=== PATIENT | male | born 1950 | race Caucasian/White ===

== ENCOUNTER → 2024-06-21 | Outpatient (CLI) | payer MEDICARE, MEDICAID, SELFPAY ==
[2024-06-21 10:16] LABS: INR 1.1 (0.9-1.3); Partial Thromboplastin Time 33.9 Seconds (22.0-36.0)
[2024-06-21 10:23] LABS: Basophils % (Auto) 0 % (0-2.5); Eosinophils # (Auto) 0.2 Thou/mm3 (0.0-0.5); Eosinophils % (Auto) 3 % (0-10); Hematocrit 35.8 % (41.0-53.0); Hemoglobin 10.8 g/dL (13.5-16.0); Immature Granulocytes % (Auto) 1 % (0-0); Immature Granulocytes Auto 0.04 Thou/mm3 (0.00-0.00); Lymphocytes # (Auto) 0.9 Thou/mm3 (1.0-4.8); Lymphocytes % (Auto) 14 % (10-50); Mean Corpuscular HGB Conc 30.2 g/dl (31.0-37.0); Mean Corpuscular Hemoglobin 25.1 pg (25.0-35.0); Mean Corpuscular Volume 83 fL (80-100); Monocytes # (Auto) 0.6 Thou/mm3 (0.0-0.8); Monocytes % (Auto) 9 % (0-12); Neutrophils # (Auto) 4.6 Thou/mm3 (1.8-7.7); Neutrophils % (Auto) 73 % (37-80); Nucleated Red Blood Cell % 0 /100 WBC (0); Platelet Count 157 Thou/mm3 (140-440); RDW Standard Deviation 47.4 fL (35.1-43.9); Red Blood Count 4.31 Miln/mm3 (4.50-5.90); White Blood Count 6.3 Thou/mm3 (3.8-10.6)
[2024-06-21 10:45] LABS: Anion Gap 8 (7-16); BUN/Creatinine Ratio 17 Ratio (12-20); Blood Urea Nitrogen 24 mg/dL (9-23); Calcium 9.6 mg/dL (8.3-10.6); Chloride 90 mMol/L (98-107); Creatinine (Component) 1.4 mg/dL (0.6-1.3); Glucose 169 mg/dL (74-106); Osmolality,Calculated 279 (275-295); Potassium 4.6 mMol/L (3.4-5.1); Sodium 136 mMol/L (136-145); eGFR 52 See Note
== END | disposition home or self-care (01) ==
PROVIDERS: PCP Internal Medicine; Referring Provider Internal Medicine; Visit Provider Internal Medicine
DX: I25.10 Atherosclerotic heart disease of native coronary artery without angina pectoris (principal); I48.91 Unspecified atrial fibrillation
CPT/HCPCS: 36415; 80048; 85025; 85610; 85730

== ENCOUNTER 2024-10-01 08:50 | Inpatient (IN) | payer MEDICARE, MEDICAID, SELFPAY ==
[2024-10-01] VITALS (77 sets, daily range): BP systolic 65–149; BP diastolic 46–87; PULSE 79–113; RESP 0–30; TEMP 35.9–36.9; O2SAT 92–100; BMI 31.8
--- NOTE | 2024-10-01 08:52 | PC.NURSE ---
PT BROUGHT IN BY EMS WITH C/O ALTERED MENTAL STATUS. PER EMS PT SON WENT TO CHECK ON PT AT 4AM AND PT WAS GIVING HIMSELF A BREATHING TREATMENT. SON STATES THAT HE WENT BACK TO CHECK ON HIM AT 8AM AND PT WAS FOUND SLUMPED OVER IN CHAIR UNRESPONSIVE. PT DID HAVE A PULSE AND EMS WAS CALLED BY SON. PER EMS PT'S WAS NOTED TO HAVE LEFT PUPIL DILATED AND UNEQUAL FROM THE RIGHT. PT BREATHING IS SHALLOW AT THIS TIME. PT WAS PLACED IN ROOM [address] ARTEAGA AT BEDSIDE TO EVALUATE PT.
--- NOTE | 2024-10-01 08:54 | EKG_ITS ---
[facility] Test Date: 2024-10-01 Pat Name: SAKSHI GREENFIELD Department: Room: - Gender: Male Roll Tester: : [id number] Requested By: ED Temporary Provider Order Number: [id number] Reading MD: ED Temporary Provider Measurements Intervals [place] Rate: 108 P: [place]: QRS: -56 QRSD: 125 T: 63 QT: 352 QTc: 473 Interpretive Statements ATRIAL FIBRILLATION WITH RAPID VENTRICULAR RESPONSE RIGHT BUNDLE BRANCH BLOCK [120+ ms QRS DURATION, UPRIGHT V1, 40+ ms S IN I/aVL/V4/V5/V6] LEFT ANTERIOR FASCICULAR BLOCK [QRS AXIS <= -45, QR IN I, RS IN II] ST DEPRESSION, CONSIDER SUBENDOCARDIAL INJURY [0.1+ mV ST DEPRESSION] Compared to ECG 12/29/2023 22:54:22 Left anterior fascicular block now present ST (T wave) deviation now present /store/S0/[id number]
--- NOTE | 2024-10-01 08:55 | PC.NURSE ---
pt not taken directly to ct at this time due to doctors concern about how pt is breathing and pt possible may need intubation.
--- NOTE | 2024-10-01 08:55 | XR_ITS ---
Examination: CTA carotids with intravenous contrast CTA brain, head with intravenous contrast. 2-D sagittal, coronal reconstructions. 3-D reconstructions. Exam date and time: October 01, 2024 at 1031 hrs. Indications: Stroke alert, onset focal neurologic deficit today CTDI: vol (mGy) 27.9 DLP: (mGycm) 516 Technique: Multiple CTA axial brain, head carotid images post intravenous contrast injection 100 cc, [id number]. 2-D sagittal, coronal reconstructions. 3-D reconstructions, 3-D post processing including vascular maximum intensity projection images. Low dose protocols were performed. One or more of the following dose reduction techniques were used; automated exposure control, adjustment of the mA and/or KV according to patient size, use of iterative reconstruction technique. Findings: 60-80% stenosis right carotid bifurcation origin right internal carotid artery 20-40% stenosis left carotid bifurcation origin left internal carotid artery Essentially codominant vertebral arteries with no critical stenoses No cerebral large vessel arterial occlusions or thrombus Moderate irregularity left posterior cerebral artery Impression: 60-80% stenosis right carotid bifurcation origin right internal carotid artery 20-40% stenosis left carotid bifurcation origin left internal carotid artery No cerebral large vessel arterial occlusions or thrombus
--- NOTE | 2024-10-01 08:55 | PC.NURSE ---
unable to complete NIH do to pt being unresponsive and not able to speak or follow commands
--- NOTE | 2024-10-01 08:55 | XR_ITS ---
Examination: CT brain head without contrast. 2-D sagittal coronal reconstructions Date and time of exam:10/01/2024, 10:42 AM COMPARISON: 08/26/2018 INDICATION: Acute mental status changes. CTDI: vol (mGy):72.1 DLP: (mGycm):1526 Technique: Multiple CT axial sections of the brain have been obtained, 5 mm slice thickness. Contrast has not been administered. 2-D sagittal, coronal reconstructions have been obtained Low dose protocols were performed. One or more of the following dose reduction techniques were used; automated exposure control, adjustment of the mA and/or KV according to patient size, use of iterative reconstruction technique. Findings: No significant ventricular enlargement. Intra-axial or extra-axial hemorrhage density is not seen. No mass effect or midline shift Basal cisterns are not remarkable. Fourth ventricle is midline. Cranial vault intact. Impression: Negative for acute hemorrhage, mass effect or midline shift
--- NOTE | 2024-10-01 08:55 | PD.EDSOB ---
ED SOB =RME/HPI General Chief Complaint: Neuro Symptoms/Deficit Stated Complaint: STAT, ALTERED Source: EMS Arrival date/time: 10/01/24 08:50 Mode of arrival: EMS Limitations: altered mental status RME / HPI RME / HPI Narrative: Dr. Stubbs? Main ED Evaluation: 74-year-old male with a past medical history of atrial fibrillation, diabetes mellitus, hypertension, hyperlipidemia, and recent pneumonia within the past week, who was brought in by ambulance from home for evaluation of altered mental status AMS. According to family, the patient was last known to be well at approximately 4:00 AM when he was observed administering an albuterol treatment. At approximately 8:00 AM, family found him slumped over and less responsive, prompting them to call 911. On EMS arrival, the fire department initially measured a blood glucose level of 200 mg/dL, but EMS later recorded a glucose of 321 mg/dL. His GCS was 10, though EMS noted he became more alert en route to the hospital. At the scene, the patient was found to be hypoxic to 82% on room air. He was placed on supplemental oxygen, which improved his saturation to 92%. No reported trauma, seizure-like activity, fever, or other acute events. His medication regimen includes Metoprolol, Metformin, Lisinopril, Glipizide, Digoxin, Apixaban, Morphine, Oxycodone, Pantoprazole, Simvastatin, and Torsemide. Complete HPI/ROS from patient is unobtainable secondary to altered mental status. Related Data Home Medications ?Medication ?Instructions ?Recorded ?Confirmed morphine 30 mg tablet,extended 60 mg PO Q12H PRN Pain 10/26/18 12/30/23 release (MS Contin) oxycodone-acetaminophen 10 mg-325 1 tab PO Q6H PRN Pain, Mild 10/26/18 12/30/23 mg tablet (Percocet) apixaban 5 mg tablet (Eliquis) 5 mg PO BID 11/18/23 12/30/23 semaglutide 0.25 mg or 0.5 mg (2 0.5 mg subcut QWEEK 12/30/23 12/31/23 mg/3 mL) subcutaneous pen injector (Ozempic) hydroxyzine HCl 50 mg tablet 50 mg PO HS 12/31/23 12/31/23 potassium chloride 10 mEq 10 meq PO QDAY 12/31/23 12/31/23 capsule,extended release Previous Rx's ?Medication ?Instructions ?Recorded digoxin 125 mcg (0.125 mg) tablet 125 mcg PO QDAY #30 tabs 11/18/23 metformin 500 mg tablet 500 mg PO BID 30 days #60 tabs 11/18/23 pantoprazole 40 mg tablet,delayed 40 mg PO QDAY #30 tabs 11/18/23 release albuterol sulfate 90 mcg/actuation 1 inh inhalation QID PRN shortness 01/03/24 aerosol inhaler of breath or wheezing #8.5 grams atorvastatin 40 mg tablet 40 mg PO QDAY #90 tabs 01/03/24 fluticasone propionate 230 2 puff inhalation BID PRN wheezing 01/03/24 mcg-salmeterol 21 mcg/actuation #12 grams HFA inhaler ipratropium bromide 17 1 puff inhalation QID PRN 01/03/24 mcg/actuation HFA aerosol inhaler shortness of breath or wheezing #12.9 grams Allergies Allergy/AdvReac Type Severity Reaction Status Date / Time aspirin Allergy Severe Swelling Verified 12/29/23 23:48 of Lip/Tongue/Throat albuterol AdvReac Intermediate Difficulty Verified 12/29/23 23:47 Breathing Review of Systems Review of Systems ROS Unobtainable: unobtainable due to mental status Past Medical History Past Medical History NEUROLOGIC: Positive Cerebrovascular Accident CARDIAC: Positive Cardiac Disorders, Atrial Fibrillation, Coronary Artery Disease, Atherosclerotic Heart Disease, Peripheral Vascular Disease, Congestive Heart Failure and Hypertension RESPIRATORY: Positive Chronic Obstructive Pulmonary Disease (COPD) and Asthma GASTROINTESTINAL: Positive Hepatitis and Obstructive Bowel GENITOURINARY: Positive Renal Disease and Benign Prostatic Hyperplasia MUSCULOSKELETAL: Positive Musculoskeletal Disorders and Arthritis ENDOCRINE: Positive Endocrine Disorders and Diabetes Mellitus Type 2; Negative Diabetes Mellitus Type 1 HEMATOLOGIC: Negative Sickle Cell Disease OTHER HISTORY: Positive Hospitalization, Chicken Pox, Measles, Mumps and Clostridium Difficile Family History FAMILY HISTORY: Positive Family Cardiac Disorders Surgical History SURGICAL: Positive Coronary Stent, Angiogram and Abdominal Surgery Social History SMOKING STATUS: Former smoker SECOND HAND EXPOSURE: No SUBSTANCE USE: does not use ED Exam Narrative Physical exam: GENERAL: Patient appears ill and in respiratory distress, with increased work of breathing and tachypnea. Patient is unable to follow commands but opens eyes spontaneously and appears cognizant of his surroundings. HEENT: Normocephalic, atraumatic. Pupils anisocoric, with the right pupil dilated at 4 mm and reactive to 2.5 mm. No scleral icterus or conjunctival pallor. Oropharynx clear, no lesions or edema. Edentulous. NECK: No JVD. Trachea midline. No cervical lymphadenopathy or masses. LUNGS: Tachypneic with increased respiratory effort. Rhonchi and crackles auscultated over the right mid-lung base. HEART: Regular rate and rhythm. No murmurs, rubs, or gallops. No peripheral cyanosis. ABDOMEN: Soft, non-tender, non-distended. Well-healed midline surgical scar. No organomegaly or palpable masses. Bowel sounds present. GENITOURINARY: Male, uncircumcised with bilaterally descended testes. No hernias noted. No scrotal swelling or tenderness. EXTREMITIES: No acute deformities. Venous stasis dermatitis bilaterally in the lower extremities. Peripheral pulses palpable and symmetric. NEURO: Patient is unable to follow commands. No overt focal neurological deficits noted. Reflexes and strength assessment limited due to patient?s condition. SKIN: Warm, dry, no acute rashes. Venous stasis changes bilaterally in the lower extremities. No open wounds or signs of infection. PSYCH: Limited assessment due to patient?s inability to follow commands. No signs of acute agitation or withdrawal noted. General Limitations: Present altered mental status Course Course Course Narrative: CXR is ordered for determining etiology of shortness of breath. Quality Measures Suspected type of Stroke: Unknown at this time Last known well (date): 10/01/24 Last known well (time): 04:00 Tenecteplase given: Reason(s) TPA not given: Outside the time window and Use of NOAC (eliquis, xarelto, or pradaxa) not given stroke (Stroke Alert called at 0856) and none Orders Category Date Time Status Admit to Inpatient Status Routine Admission 10/01/24 12:47 Active Bedside Blood Glucose NOW Care 10/01/24 08:55 Active COVID-19 Screening Questionnaire NOW Care 10/01/24 12:56 Active Workplace Relations Adviser NOW Care 10/01/24 08:55 Active Continuous Pulse Oximetry NOW Care 10/01/24 08:55 Completed Decision to Admit X1 Care 10/01/24 12:56 Active EKG (ED ONLY) *Do not use* NOW Care 10/01/24 08:54 Active Cooper [Urinary Catheter] QS Care 10/01/24 09:37 Active In and Out Catheter NEEDED Care 10/01/24 08:55 Active Insert IV NOW Care 10/01/24 08:55 Active Insert NG / OG tube NOW Care 10/01/24 09:37 Active Intubation NOW Care 10/01/24 09:48 Completed NIH Stroke Scale now Care 10/01/24 08:55 Active NPO NOW Care 10/01/24 08:55 Active Neuro Check Q15MIN Care 10/01/24 08:56 Active Nurse Swallow Screen x1 Care 10/01/24 08:55 Active Consult to Neurology / Tele-Neurology Routine Cons 10/01/24 08:[address] angio stroke protocol Stat Exams 10/01/24 08:[address] stroke protocol Stat Exams 10/01/24 08:55 Completed EKG (ED Only) Stat Exams 10/01/24 08:54 Draft XR chest 1V post procedure Stat Exams 10/01/24 09:37 Completed ABG [Arterial Blood Gas] Stat Lab 10/01/24 10:05 Completed ABG [Arterial Blood Gas] Stat Lab 10/01/24 12:52 Received Alcohol, Blood Medical Stat Lab 10/01/24 09:17 Completed Arterial Blood Gas Stat Lab 10/01/24 09:13 Completed B-Type Natriuretic Peptide Stat Lab 10/01/24 09:17 Completed Blood Culture (Lab) Stat Lab 10/01/24 09:33 Received CBC Stat Lab 10/01/24 09:17 Completed Comprehensive Metabolic Panel Stat Lab 10/01/24 09:17 Completed Drug Screen,Urine Stat Lab 10/01/24 10:45 Completed Lactic Acid [Lactate (Lactic Acid)] Stat Lab 10/01/24 09:17 Completed Magnesium Stat Lab 10/01/24 09:17 Completed Partial Thromboplastin Time Stat Lab 10/01/24 09:17 Completed Procalcitonin Stat Lab 10/01/24 09:17 Completed Prothrombin Time with INR Stat Lab 10/01/24 09:17 Completed Sputum Culture and Gram Stain Stat Lab 10/01/24 09:55 Received Troponin I Stat Lab 10/01/24 09:17 Completed Troponin I Stat Lab 10/01/24 12:39 Received Urinalysis Stat Lab 10/01/24 10:45 Completed Urine Culture Stat Lab 10/01/24 10:45 Received Doxycycline Inj [Vibramycin Inj] 100 mg Med 10/01/24 12:20 Active Sodium Chloride 0.9% (Pop) [NS 0.9% mini bag] 100 ml IV X1 Etomidate Inj [Amidate Inj] Med 10/01/24 09:34 Discontinued 15 mg IV X1 ONE Etomidate Inj [Amidate Inj] Med 10/01/24 09:23 Discontinued 20 mg .ROUTE .STK-MED ONE Insulin Regular Med 10/01/24 12:25 Discontinued 6 unit IV X1 ONE Levalbuterol Rt [Xopenex Rt Christina] Med 10/01/24 09:21 Discontinued 1.25 mg INH X1 ONE MethylPREDNISolone.* [SoluMEDROL Inj] Med 10/01/24 08:59 Discontinued 125 mg IV X1 ONE NALOXONE INJ (Vial) [Narcan Inj (Vial)] Med 10/01/24 09:16 Discontinued 0.8 mg .ROUTE .STK-MED ONE NALOXONE INJ (Vial) [Narcan Inj (Vial)] Med 10/01/24 09:21 Discontinued 0.8 mg IV X1 ONE Norepinephrine/D5W 8mg/250ml [Levophed in D5W 8mg/250ml Med 10/01/24 11:43 Discontinued ] 8 mg in 250 ml IV 0.05 mcg/kg/min Norepinephrine/D5W 8mg/250ml [Levophed in D5W 8mg/250ml Med 10/01/24 11:54 Active ] 8 mg in 250 ml IV 0.05 mcg/kg/min Ondansetron Inj [Zofran Inj] Med 10/01/24 08:55 Active 4 mg IV Q4HR PRN Piper/Tazo 3.375 gm Premix [Zosyn] Med 10/01/24 09:05 Discontinued 3.375 gm in 50 ml IV X1 Propofol 1,000 mg Ivpb [Diprivan Ivpb] Med 10/01/24 09:45 Discontinued 1,000 mg in 100 ml IV .STK-MED Propofol 1,000 mg Ivpb [Diprivan Ivpb] Med 10/01/24 09:45 Discontinued 1,000 mg in 100 ml IV 5 mcg/kg/min Propofol 1,000 mg Ivpb [Diprivan Ivpb] Med 10/01/24 11:54 Active 1,000 mg in 100 ml IV 5 mcg/kg/min Propofol Inj [Diprivan Inj] Med 10/01/24 09:59 Discontinued 60 mg IV X1 ONE Sod Polystyrene Sulfon Susp [Kayexalate Susp] Med 10/01/24 12:20 Discontinued 30 gm NG X1 ONE Sodium Chloride 0.9% 1000 ml [Ns] 1,000 ml Med 10/01/24 09:00 Active IV 100 mls/hr Sodium Chloride 0.9% 1000 ml [Ns] 1,000 ml Med 10/01/24 10:25 Discontinued IV 999 mls/hr Sodium Chloride Rt Christina 0.9% [NS Rt Christina 0.9%] Med 10/01/24 09:21 Active 3 ml INH PRN PRN Succinylcholine Inj [Anectine Inj] Med 10/01/24 09:24 Discontinued 200 mg .ROUTE .STK-MED ONE Succinylcholine Inj [Anectine Inj] Med 10/01/24 09:34 Discontinued 80 mg IV X1 ONE Oxygen Delivery NOW RT 10/01/24 08:55 Active Sputum Induction PRN RT 10/01/24 10:00 Ordered Ventilator [Volume Ventilator] Stat RT 10/01/24 09:49 Active Vital Signs Vital signs: Vital Signs Pulse Oximetry (%) 95 10/01/24 08:50 Oxygen Flow Rate 15 10/01/24 08:50 Procedures -ED EKG Interpretation #1: Additional EKG comment: EKG taken on 10/01/2024 at 08:59, according to my interpretation, shows Afib with RVR at a rate of 108 BPM, RBBB and LAFB. ST depressions are noted in leads V3-V6, raising concern for subendocardial ischemia or injury. Intubation sedative: Etomidate Mg Given: 80 paralytic: Succinylcholine Mg Given: 15 Laryngoscope: fiber optic video scope Assist Device Used: fiber optic device ET Tube Size: 7.5 ET Tube Uncuffed: Yes Tube Secured Depth (cm): 23 Tube Secured Location: other (gums) Tube Placement Confirmation: visualized tube passing through cords, equal breath sounds bilaterally, no breath sounds over epigastrium and confirmation by capnometry Patient Tolerated Procedure: well and no complications Intubation Complications: none Shortness of Breath / Dyspnea MDM Narrative MDM Narrative:: 74-year-old male with a history of atrial fibrillation on Eliquis, diabetes mellitus, hypertension, hyperlipidemia, and recent pneumonia, presenting with AMS. He was last seen well at 4:00 AM while administering an albuterol treatment. At 8:00 AM, family found him slumped over and less responsive. Upon EMS arrival, the patient was hypoxic to 82% on room air, improving to 92% with supplemental oxygen. He had an initial blood glucose of 200 mg/dL, later rising to 321 mg/dL. GCS was 10, but he became more alert en route to the hospital. Stroke alert was paged overhead and orders have been made. His medication regimen is including Metoprolol, Metformin, Lisinopril, Glipizide, Digoxin, Apixaban, Morphine, Oxycodone, Pantoprazole, Simvastatin, and Torsemide. EKG obtained at 08:59 on 10/01/2024 reveals atrial fibrillation with rapid ventricular response (RVR) at 108 BPM, right bundle branch block (RBBB), and left anterior fascicular block (LAFB). ST depressions are noted in leads V3-V6, concerning for subendocardial ischemia or injury. 0915 I spoke with the patient's daughter and son, providing an update on the patient's current prognosis and health status. They consented to proceed with treatment and confirmed that no advance directive is in place. 0920 Lab reported the patient's pH is 7.1. Given the patient's condition, the decision was made to proceed with intubation to protect the airway. The patient will be sent for CT imaging. 0933 Narcan 0.8mg was administered prior to intubation. 0939 Patient intubated. See procedure note. Post intubation chest x-ray ordered. 0950 The nurse reported that the patient was experiencing increased activity. I ordered and personally administered Propofol 60 mg IV without complications. The patient remained hemodynamically stable following administration. The Propofol drip will be titrated as needed to control the patient's activity to ensure adequate sedation and stability. 1011 IV fluids ordered. 1130 The patient's blood pressure is 83/55 mmHg, and he remains comfortable on the ventilator and sedated. However, hypotension is likely exacerbated by Propofol. Levophed initiated to provide vasopressor support and maintain a target systolic blood pressure of at least 65 mmHg. Hemodynamic status will be closely monitored, with adjustments to vasopressor support as needed. Scribe Attestation: I, Caitie Shepard, am scribing for and in the presence of Dr. Stubbs. Provider Notation: Although this document has been carefully reviewed, there may still be some phonetic and other typographical errors. These errors are purely grammatical due to imperfections in the software program and should not be construed in any way to compromise the substance of the patient's medical care during this visit. Patient data External records reviewed:: [facility] previous records and EMS form Clinical information provided by:: EMS Social determinants that could affect healthcare access:: none Patient has the following chronic illnesses:: See PMH How is presenting disease/condition affected by chronic disease/condition?: uneffected by Evaluation data The following diagnostics were reviewed and interpreted by me:: lab results, radiology exam(s) and EKG tracing(s) Lab and/or radiology exams considered but not ordered:: na Interpretation Summary: I personally reviewed the radiology data and agree with the radiologist's interpretation. Medications / Prescriptions Medications or Prescriptions considered but not ordered:: n/a Medication administrations:: Medication Administration History Sodium Chloride (Ns) 1,000 mls @ 100 mls/hr IV .Q10H SANDRA Stop: 10/31/24 08:59 Last Admin: 10/01/24 10:11 Dose: 100 mls/hr Documented By: DO Norepinephrine/Dextrose (Levophed In D5w 8mg/250ml) 8 mg in 250 mls @ 10.206 mls/hr IV .Q24H PRN; Protocol PRN Reason: PER PROTOCOL Stop: 10/31/24 11:42 Last Titration: 10/01/24 12:25 Dose: 0.09 mcg/kg/min, 18.37 mls/hr Documented By: Titration: 10/01/24 12:20 Dose: 0.09 mcg/kg/min, 18.37 mls/hr Documented By: Titration: 10/01/24 12:15 Dose: 0.07 mcg/kg/min, 14.288 mls/hr Documented By: Admin: 10/01/24 12:10 Dose: 0.05 mcg/kg/min, 10.206 mls/hr Documented By: DO Propofol (Diprivan Ivpb) 1,000 mg in 100 mls @ 3.266 mls/hr IV .Q24H PRN; Protocol PRN Reason: PER PROTOCOL Stop: 10/31/24 09:44 Last Admin: 10/01/24 12:10 Dose: 10 mcg/kg/min, 6.532 mls/hr Documented By: Co-signed By: RAVEN Doxycycline Hyclate 100 mg/ (Sodium Chloride) 100 mls @ 100 mls/hr IV X1 ONE Stop: 10/01/24 13:19 Ondansetron HCl (Ondansetron Inj 2 Mg/Ml Inj 2 Ml) 4 mg IV Q4HR PRN PRN Reason: NAUSEA OR VOMITING Stop: 10/31/24 08:54 Sodium Chloride (Sodium Chloride Rt Christina 0.9% 3 Ml Nebu) 3 ml INH PRN PRN PRN Reason: SOLN Stop: 10/31/24 09:20 Discontinued Medications Etomidate (Etomidate Inj 2 Mg/Ml Vial 10 Ml) Confirm Administered Dose 20 mg .ROUTE .STK-MED ONE Stop: 10/01/24 09:24 Last Admin: 10/01/24 09:43 Dose: Not Given Documented By: Non-Admin Reason: Override Medication Etomidate (Etomidate Inj 2 Mg/Ml Vial 10 Ml) 15 mg IV X1 ONE Stop: 10/01/24 09:35 Last Admin: 10/01/24 09:34 Dose: 15 mg Documented By: Piperacillin/Tazobactam/Dextrose (Zosyn) 3.375 gm in 50 mls @ 100 mls/hr IV X1 ONE Stop: 10/01/24 09:34 Last Admin: 10/01/24 11:07 Dose: 100 mls/hr Documented By: Propofol (Diprivan Ivpb) 1,000 mg in 100 mls @ 3.585 mls/hr IV .Q24H PRN; Protocol PRN Reason: PER PROTOCOL Stop: 10/31/24 09:44 Last Titration: 10/01/24 10:15 Dose: 10 mcg/kg/min, 7.17 mls/hr Documented By: Titration: 10/01/24 10:05 Dose: 15 mcg/kg/min, 10.755 mls/hr Documented By: Titration: 10/01/24 10:00 Dose: 10 mcg/kg/min, 7.17 mls/hr Documented By: Admin: 10/01/24 09:55 Dose: 5 mcg/kg/min, 3.585 mls/hr Documented By: Co-signed By: RAVEN Propofol (Diprivan Ivpb) Confirm Administered Dose 1,000 mg in 100 mls @ ud IV .STK-MED ONE Stop: 10/01/24 09:46 Last Admin: 10/01/24 10:06 Dose: Not Given Documented By: DO Non-Admin Reason: Override Medication Sodium Chloride (Ns) 1,000 mls @ 999 mls/hr IV .Q1H1M ONE Stop: 10/01/24 11:25 Last Admin: 10/01/24 10:25 Dose: 999 mls/hr Documented By: Norepinephrine/Dextrose (Levophed In D5w 8mg/250ml) 8 mg in 250 mls @ 11.203 mls/hr IV .[id number] PRN; Protocol PRN Reason: PER PROTOCOL Stop: 10/31/24 11:42 Insulin Human Regular (Insulin Hum Regular 1 Unit/0.01 Ml (Per Unit)) 6 unit IV X1 ONE Stop: 10/01/24 12:26 Levalbuterol HCl (Levalbuterol Rt 1.25 Mg/0.5 Ml Nebu) 1.25 mg INH X1 ONE Stop: 10/01/24 09:22 Methylprednisolone Sodium Succinate (Methylprednisolone Sod Succ 62.5 Mg/Ml 2ml Vial) 125 mg IV X1 ONE Stop: 10/01/24 09:00 Last Admin: 10/01/24 10:08 Dose: 125 mg Documented By: Naloxone HCl (Naloxone Inj 0.4 Mg/Ml Vial) Confirm Administered Dose 0.8 mg .ROUTE .STK-MED ONE Stop: 10/01/24 09:17 Last Admin: 10/01/24 09:34 Dose: Not Given Documented By: Non-Admin Reason: Override Medication Naloxone HCl (Naloxone Inj 0.4 Mg/Ml Vial) 0.8 mg IV X1 ONE Stop: 10/01/24 09:22 Last Admin: 10/01/24 09:33 Dose: 0.8 mg Documented By: Co-signed By: NEVAEH Propofol (Propofol Inj 10 Mg/Ml Vial 20 Ml) 60 mg IV X1 ONE Stop: 10/01/24 10:00 Last Admin: 10/01/24 10:05 Dose: 60 mg Documented By: DO Comments: given by dr stubbs Sodium Polystyrene Sulfonate (Sod Polystyrene Sulfon Susp 15 Gm/60 Ml Btl) 30 gm NG X1 ONE Stop: 10/01/24 12:21 Succinylcholine Chloride (Succinylcholine Inj 20 Mg/Ml Vial 10 Ml) Confirm Administered Dose 200 mg .ROUTE .STK-MED ONE Stop: 10/01/24 09:25 Last Admin: 10/01/24 09:43 Dose: Not Given Documented By: DO Non-Admin Reason: Override Medication Succinylcholine Chloride (Succinylcholine Inj 20 Mg/Ml Vial 10 Ml) 80 mg IV X1 ONE Stop: 10/01/24 09:35 Last Admin: 10/01/24 09:41 Dose: 80 mg Documented By: DO Comments: 20 r fa as above, if any Consultations Consultation(s) initiated? (list below): Yes Consultation #1 (Physician, Specialty, Details): Discussed test HPI, PMHx, lab, radiology results and/or management with fire hydrant operator Dr. Evans. Will admit for further evaluation and management. Accepts patient for admission. Time: 12:45 Diagnosis Shortness of Breath Differential Diagnosis: acute exacerbation of chronic obstructive airways disease, community acquired pneumonia, asthma with exacerbation and pulmonary embolism Most likely diagnosis given after review of the tests above:: Right upper extremity weakness Respiratory failure Pneumonia Opioid dependence Hypotension Hyperkalemia Admission Indicated Admission indicated?: indicated Admission Request Was there a request for admission?: Yes Admission Attestation Admission request attestation: Discussed case with [] from Hospitalist service regarding admission. Discussed patients ED course, exam findings, labs, and radiology results. The Hospitalist [agrees,declines] to accept the patient for admission. Disposition Plan Disposition Plan: Admit Critical Care Time Critical Care Time Critical Care Time: Yes Total Critical Care Time (min.): 60 Attestation: The high probability of sudden, clinically significant deterioration in the patient?s condition required the highest level of my preparedness to intervene urgently. ? The services I provided to this patient were to treat and/or prevent clinically significant deterioration. Services included the following: chart data review, reviewing nursing notes and/or old charts, documentation time, risk assessment consultant collaboration regarding findings and treatment options, medication orders and management, direct patient care, vital sign assessments and ordering, interpreting and reviewing diagnostic studies and lab tests. ? Aggregate critical care time includes only time during which I was engaged in work directly related to the patient?s care, as described above, whether at bedside or elsewhere in the Emergency Department. It did not include time spent performing other reported procedures or the services of residents, students, nurses or physician assistants. Discharge Plan Plan Patient Disposition: Admit Acute Care w/in Hospital Disposition Comment: ICU Dr. Evans Prescriptions/Referrals Prescriptions/Med Rec: No Action oxycodone-acetaminophen [Percocet] 10-325 mg Tablet 1 tab PO Q6H PRN (Reason: Pain, Mild) morphine [MS Contin] 30 mg Tablet Extended Release 60 mg PO Q12H PRN (Reason: Pain) metformin 500 mg Tablet 500 mg PO BID 30 Days Qty: 60 0RF pantoprazole 40 mg Tablet,Delayed Release (Dr/Ec) 40 mg PO QDAY Qty: 30 0RF digoxin 125 mcg (0.125 mg) Tablet 125 mcg PO QDAY Qty: 30 0RF Eliquis 5 mg Tablet 5 mg PO BID Ozempic 0.25 mg or 0.5 mg (2 mg/3 mL) pen injector 0.5 mg SUBCUT QWEEK potassium chloride 10 mEq capsule, extended release 10 meq PO QDAY Patient Comments: TAKE ONE CAPSULE BY MOUTH WITH FOOD EVERY DAY hydroxyzine HCl 50 mg tablet 50 mg PO HS atorvastatin 40 mg tablet 40 mg PO QDAY Qty: 90 0RF fluticasone propion-salmeterol 230-21 mcg/actuation HFA aerosol inhaler 2 puff inhalation BID PRN (Reason: wheezing) Qty: 12 4RF ipratropium bromide 17 mcg/actuation HFA aerosol inhaler 1 puff inhalation QID PRN (Reason: shortness of breath or wheezing) Qty: 12.9 0RF albuterol sulfate 90 mcg/actuation HFA aerosol inhaler 1 inh inhalation QID PRN (Reason: shortness of breath or wheezing) Qty: 8.5 2RF Referrals: Adenike Moser [Primary Care Provider] - In 1 week Problem List Clinical Impression: Weakness of right upper extremity, Pneumonia, Respiratory failure, Opioid dependence, Hypotension, Hyperkalemia Patient/Caregiver Discharge Instructions Print Language: Sami Stand Alone Forms: [facility] Award Info., Patient Portal Info Letter
[2024-10-01 09:22] LABS: Base Excess 6 (-3-3); HCO3 39 mEq/L (20-26); PCO2 124 mmHg (32.0-48.0); PO2 152 mmHg (83-108)
[2024-10-01 09:22] LABS: Lactate (Lactic Acid) 1.6 mMol/L (0.4-2.0)
[2024-10-01 09:23] LABS: Allen Test Not Performed; Inspired O2, VO2 Liters 15 L/min; Puncture Site Right Radial
[2024-10-01 09:23] LABS: Basophils % (Auto) 0 % (0-2.5); Eosinophils % (Auto) 0 % (0-10); Hematocrit 39.3 % (41.0-53.0); Hemoglobin 11.3 g/dL (13.5-16.0); Immature Granulocytes % (Auto) 1 % (0-0); Immature Granulocytes Auto 0.17 Thou/mm3 (0.00-0.00); Lymphocytes # (Auto) 0.3 Thou/mm3 (1.0-4.8); Lymphocytes % (Auto) 2 % (10-50); Mean Corpuscular HGB Conc 28.8 g/dl (31.0-37.0); Mean Corpuscular Hemoglobin 24.9 pg (25.0-35.0); Mean Corpuscular Volume 87 fL (80-100); Monocytes # (Auto) 0.8 Thou/mm3 (0.0-0.8); Monocytes % (Auto) 5 % (0-12); Neutrophils # (Auto) 14.1 Thou/mm3 (1.8-7.7); Neutrophils % (Auto) 92 % (37-80); Nucleated Red Blood Cell % 0 /100 WBC (0); Platelet Count 221 Thou/mm3 (140-440); RDW Standard Deviation 52.4 fL (35.1-43.9); Red Blood Count 4.53 Miln/mm3 (4.50-5.90); White Blood Count 15.4 Thou/mm3 (3.8-10.6)
[2024-10-01 09:24] LABS: O2 Saturation 95 % (91-98)
--- NOTE | 2024-10-01 09:30 | PC.NURSE ---
rt, doctor Red, multiple staff at bedside to prepare for intubation
[2024-10-01] MEDS: NALOXONE INJ 0.4 MG/ML VIAL 0.8 MG IV (09:33)
[2024-10-01] MEDS: ETOMIDATE INJ 2 MG/ML VIAL 10 ML 15 MG IV (09:34)
--- NOTE | 2024-10-01 09:37 | XR_ITS ---
Examination: Chest, AP, portable, single view post procedure. Technique: Chest, AP upright, portable, single view Date and time: 10/01/2024, 8:41 AM INDICATION: Respiratory distress COMPARISON: 12/30/2023. FINDINGS: Interval placement of ET tube distal tip approximately 5 cm above the devin. Interval placement of NG tube. Cardiac silhouette is enlarged. Ill-defined areas of opacification bilateral lung bases. Upper zones are clear. No pneumothorax. No acute bony abnormality. Stable 1.6 cm right lower zone nodule IMPRESSION: bibasilar atelectasis versus infiltrate Tubes and lines as above.
[2024-10-01] MEDS: SUCCINYLCHOLINE INJ 20 MG/ML VIAL 10 ML 80 MG IV (09:41)
[2024-10-01 09:50] LABS: B-Type Natriuretic Peptide 133 pg/mL (0-100)
[2024-10-01] MEDS: PROPOFOL 1,000 MG IVPB 1,000 MG/100 ML VIAL 3.585 MG IV (09:55)
[2024-10-01 10:01] LABS: Alanine Aminotransferase 28 U/L (10-49); Albumin, Serum 4.3 gm/dL (3.4-4.8); Albumin/Globulin Ratio 1.5 (1.2-2.2); Alcohol, Blood Medical < 3.0 mg/dL (0-10.0); Alkaline Phosphatase 71 U/L (46-116); Anion Gap 7 (7-16); Aspartate Amino Transferase 29 U/L (0-34); BUN/Creatinine Ratio 11 Ratio (12-20); Bilirubin,Total 0.5 mg/dL (0.3-1.2); Blood Urea Nitrogen 20 mg/dL (9-23); Calcium 8.7 mg/dL (8.3-10.6); Calcium (Corrected) 8.7 mg/dL (8.5-10.1); Carbon Dioxide 38.5 mMol/L (20.0-31.0); Chloride 92 mMol/L (98-107); Creatinine (Component) 1.9 mg/dL (0.6-1.3); Estimated Creatinine Clearance 44.1 mL/min (>60); Globulin 2.8 gm/dL (2.3-3.5); Glucose 296 mg/dL (74-106); Magnesium 2.4 mg/dL (1.6-2.6); Osmolality,Calculated 287 (275-295); Potassium 5.5 mMol/L (3.4-5.1); Procalcitonin 0.96 ng/ml (0.0-0.49); Sodium 137 mMol/L (136-145); Total Protein 7.1 gm/dL (5.7-8.2); eGFR 36 See Note
[2024-10-01 10:02] LABS: Troponin I 0.193 ng/mL (0.0-0.045)
[2024-10-01] MEDS: PROPOFOL INJ 10 MG/ML VIAL 20 ML 60 MG IV (10:05)
--- NOTE | 2024-10-01 10:05 | PC.NURSE ---
pt's son was given pt's bottle of percocet at this time
[2024-10-01] MEDS: MethylPREDNISolone SOD SUCC 62.5 MG/ML 2ML VIAL 125 MG IV (10:08)
[2024-10-01 10:11] LABS: Allen Test Not Performed; Base Excess 5 (-3-3); HCO3 38 mEq/L (20-26); Inspired Oxygen, FIO2 80 %; O2 Saturation 99 % (91-98); PCO2 118 mmHg (32.0-48.0); PO2 247 mmHg (83-108); Puncture Site Right Radial
[2024-10-01] MEDS: SODIUM CHLORIDE 0.9% 1000 ML 1,000 ML 100 ML IV (10:11)
[2024-10-01 10:12] LABS: pH, Arterial 7.12 (7.35-7.45)
[2024-10-01 10:22] LABS: INR 1.2 (0.9-1.3); Partial Thromboplastin Time 34.7 Seconds (22.0-36.0); Prothrombin Time 12.6 Seconds (9.0-12.2)
[2024-10-01] MEDS: SODIUM CHLORIDE 0.9% 1000 ML 1,000 ML 999 ML IV (10:25)
[2024-10-01] MEDS: PIPER/TAZO 3.375 GM PREMIX 3.375 GM/50 ML BAG IV (11:07)
[2024-10-01 11:09] LABS: Collection Type, Urine Catheter
[2024-10-01 11:22] LABS: Amphetamine/Methamp Scrn,U Negative (Negative); Barbiturate Screen,Urine Negative (Negative); Benzodiazepines Screen,Urine Negative (Negative); Benzoylecgonine Screen, Ur Negative (Negative); Fentanyl Screen,Urine Negative (Negative); Opiate Screen,Urine Positive (Negative); THC Screen,Urine Negative (Negative)
--- NOTE | 2024-10-01 11:35 | PD.TNEURO ---
Tele Neuro Consultation Consultation Date 10/01/24 Most Recent Vital Signs Last Vital Signs Temp 98.5 F 10/01/24 11:00 Pulse 100 10/01/24 11:11 Resp 25 H 10/01/24 11:11 BP 89/54 L 10/01/24 11:11 Pulse Ox 100 10/01/24 11:11 O2 Del Method Mechanical Ventilation 10/01/24 11:11 O2 Flow Rate 15 10/01/24 09:40 FiO2 80 10/01/24 09:54 Laboratory-Coagulation Panel PT 12.6 Seconds (9.0-12.2) H 10/01/24 09:17 INR 1.2 (0.9-1.3) 10/01/24 09:17 APTT 34.7 Seconds (22.0-36.0) 10/01/24 09:17 Consultation Narrative [facility] Tele[facility]urology Consult Services Patient Name:???Lacho Lopez Date of :???1950 Identification Number:??? Date of Service:???10/01/2024 08:59:15 Diagnosis:?P91.60 - Hypoxic Encephalopathy Impression: ?74 y/o man with hx of HTN, DMII, CHF, CVA, CAD, and AF on Eliquis with PNA found unresponsive with hypoxia, opioid pill in pocket. NIHSS = 15. Anisocoria (had nebuliser tx at home). BP normotensive. ?CT head negative for acute hemorrhage. Improvement with naloxone suggests adverse opioid effect, but not moving R UE so still may have cerebral ischemia not seen on CT. ?Recommend: Supportive care, tele, MRI brain when stable for study. If ischemia present give clopidogrel (ASA allergic). PT/OT/LIFT TEAM TECHNICIAN tx evals once possible. ECHO. HbA1c. BP 140-160s as possible. Neuro f/u. Our recommendations are outlined below. Recommendations: ? Stroke/Telemetry Floor ? Neuro Checks ? Bedside Swallow Eval ? DVT Prophylaxis ? IV Fluids, Normal Saline ? Head of Bed 30 Degrees ? Euglycemia and Avoid Hyperthermia (PRN Acetaminophen) Sign Out: ? Discussed with Emergency Department Provider Advanced Imaging:Advanced imaging has been ordered. Results pending. Metrics: Last Known Well: 10/01/2024 04:00:00 Dispatch Time: 10/01/2024 08:59:15 Arrival Time: 10/01/2024 08:50:00 Initial Response Time: 10/01/2024 09:04:24Symptoms: AMS . Initial patient interaction: 10/01/2024 09:10:53 NIHSS Assessment Completed: 10/01/2024 09:53:37Patient is not a candidate for Thrombolytic. Thrombolytic Medical Decision: 10/01/2024 09:53:38Patient was not deemed candidate for Thrombolytic because of following reasons: LKW outside 4.5 hr window. . I personally Reviewed the CT Head and it Showed no acute hemorrhage or obvious ischemia, basilar artery thrombus. nury Primary Provider Notified of Diagnostic Impression and Management Plan on: 10/01/2024 09:38:57 History of Present Illness:Patient is a 74 year old Male. Patient was brought by EMS for symptoms of AMS . 74 y/o man with hx of HTN, DMII, CHF, CVA, CAD, and AF on Eliquis. He was being treated for PNA seen to be giving self a neb tx 0400; found 0800 slumped over unresponsive; EMS stated he was transiently minimally responsive prior to arrival. 82% O2 sats on RA. Has oxycodone tablets in pocket. Given naloxone in ED and roused somewhat, still nonfocal limb weakness. ? Past Medical History: ?Hypertension ?Diabetes Mellitus ?Atrial Fibrillation ?Coronary Artery Disease ?Seizures Other PMH:? COPD on 3L O2/home Medications: Anticoagulant use:??Yes?Eliquis No Antiplatelet use Reviewed EMR for current medications Allergies:? Reviewed Description:?ASA Social History: Unable To Obtain Due To Patient Status :?Patient Is Obtunded/ Comatose Family History: There is no family history of premature cerebrovascular disease pertinent to this consultation ROS : 14 Points Review of Systems was performed and was negative except mentioned in HPI. Past Surgical History: There Is No Surgical History Contributory To Today?s Visit NIHSS may not be reliable due to: obtunded Examination: BP(130/60),?Pulse(108), 1A: Level of Consciousness - Postures or Unresponsive?+ 3 1B: Ask Month and Age - Could Not Answer Either Question Correctly?+ 2 1C: Blink Eyes & Squeeze Hands - Performs 0 Tasks?+ 2 2: Test Horizontal Extraocular Movements - Normal?+ 0 3: Test Visual Benton - No Visual Loss?+ 0 4: Test Facial Palsy (Use Grimace if Obtunded) - Normal symmetry?+ 0 5A: Test Left Arm Motor Drift - Drift, but doesn't hit bed?+ 1 5B: Test Right Arm Motor Drift - Drift, but doesn't hit bed?+ 1 6A: Test Left Leg Motor Drift - Drift, but doesn't hit bed?+ 1 6B: Test Right Leg Motor Drift - No Drift for 5 Seconds?+ 0 7: Test Limb Ataxia (FNF/Heel-Doe) - Does Not Understand?+ 0 8: Test Sensation - Coma/Unresponsive?+ 2 9: Test Language/Aphasia - Coma/Unresponsive?+ 3 10: Test Dysarthria - Intubated/Unable to Test?+ 0 11: Test Extinction/Inattention - No abnormality?+ 0 NIHSS Score:?15 NIHSS Free Text :?OD 4mm, OS 2mm. ?eyes conjugate, ML ?post naloxone, post intubation--spontaneous movement L UE, B LEs Pre-Morbid Modified Janie Scale:Unable to assess Spoke with :?Teofilo (on video) This consult was conducted in real time using interactive audio and video technology. Patient was informed of the technology being used for this visit and agreed to proceed. Patient located in hospital and provider located at home/office setting. Patient is being evaluated for possible acute neurologic impairment and high probability of imminent or life-threatening deterioration. I spent total of 80 minutes providing care to this patient, including time for face to face visit via telemedicine, review of medical records, imaging studies and discussion of findings with providers, the patient and/or family. Dr Lanny Head [facility] For Inpatient follow-up with [facility] physician please call [facility] at . As we are not an outpatient service for any post hospital discharge needs please contact the hospital for assistance. If you have any questions for the [facility] physicians or need to reconsult for clinical or diagnostic changes please contact us via [facility] at . ?
[2024-10-01 11:47] LABS: Bilirubin,Urine Negative (Negative); Blood,Urine Negative (Negative); Clarity,Urine Clear (Clear/Hazy); Color,Urine Yellow (Lt Yel-Yel); Glucose, Urine Negative (Negative); Hyaline Casts,Urine < 1 /hpf (0-1); Ketones,Urine Negative (Negative); Leukocyte Esterase,Urine Negative (Negative); Nitrite,Urine Negative (Negative); Protein,Urine 3+ (Neg - Trace); RBC,Urine 3 /hpf (0-3); Specific Gravity,Urine 1.016 (1.001-1.035); Squamous Epithelial Cell,Urine < 1 /hpf (0-5); Urobilinogen,Urine Negative mg/dL (0.0-1.0); WBC,Urine 5 /hpf (0-5)
[2024-10-01] MEDS: PROPOFOL 1,000 MG IVPB 1,000 MG/100 ML VIAL 6.532 MG IV (12:10)
[2024-10-01] MEDS: Norepinephrine/D5W 8mg/250ml 8 MG/250 ML BAG 10.206 MG IV (12:10)
[2024-10-01 12:55] LABS: Base Excess 9 (-3-3); HCO3 38 mEq/L (20-26); Inspired Oxygen, FIO2 45 %; PCO2 81 mmHg (32.0-48.0); PO2 80 mmHg (83-108); pH, Arterial 7.28 (7.35-7.45)
[2024-10-01 12:59] LABS: O2 Saturation 95 % (91-98)
[2024-10-01 13:00] LABS: Allen Test Not Performed; Puncture Site Right Radial
--- NOTE | 2024-10-01 13:10 | PC.NURSE ---
ICU RESIDENTS AT BEDSIDE TO SEE PT
[2024-10-01 13:21] LABS: Troponin I 0.404 ng/mL (0.0-0.045)
[2024-10-01] MEDS: SOD POLYSTYRENE SULFON SUSP 15 GM/60 ML BTL 30 GM NG (13:28)
[2024-10-01] MEDS: INSULIN HUM REGULAR 1 UNIT/0.01 ML (PER UNIT) 6 UNIT IV (13:34)
[2024-10-01] MEDS: DOXYCYCLINE INJ 100 MG in SODIUM CHLORIDE 0.9% (POP) 100 ML IV (13:46)
[2024-10-01] MEDS: INSULIN LISPRO (AdmeLOG) 1 UNIT/0.01 ML UNIT SC ×2 (14:51→17:49)
[2024-10-01 15:07] LABS: Respiratory Syncytial Virus Ag Negative (Negative)
--- NOTE | 2024-10-01 15:21 | PC.NURSE ---
report given to Herve on ICU floor. pt to go to room 253
--- NOTE | 2024-10-01 15:22 | PD.RESHP ---
Documentation for date of: 10/01/24 [facility] History of Present Illness History of present illness: The patient is a 74-year-old male with a past medical history of COPD on 3 L of oxygen, hypertension, CVA, HFpEF with ejection fraction 70 to 75%, CAD status post stents, A-fib on Eliquis, solitary pulmonary nodule and BPH who was brought in to the ED on 10/01/2024 from home after he was found unresponsive. Per family at bedside, the patient's last well-known was approximately 4 AM when he was noted to have been using a breathing treatment. About 8 AM, the family went into him and found him slumped over and clammy, and not responsive. Family members contacted the fire department and on initial arrival, blood glucose level was measured to be 200. On arrival of EMS, blood glucose was 321, initial GCS of 10. Additionally, the patient was hypoxic to about 82% and was given supplemental oxygen, saturation improved to about 92%. Family reports that prior to this, the patient has been sick for about 3 days with what is thought to be cold, recent contacts include members of the family who have similar symptoms. They deny any additional recent illnesses ED course: In the ED, patient is reported to have been altered, in respiratory distress, unable to follow commands but said to have been opening eyes spontaneously. He was noted to have had right upper extremity weakness and stroke alert was called with stroke protocol initiated. Teleneuro was consulted, NIHSS of 15. Patient was outside of thrombolytic window as well as is on Eliquis for A-fib. Head CT was done which was negative, follow-up CTA showed 60 to 80% stenosis in the right carotid bifurcation from the right ICA and 20 to 40% stenosis in the left bifurcation of the left ICA, however no large vessel occlusions or thrombus. Initial EKG showed atrial fibrillation with some RVR and ST depression in the second lead. Initial troponins-0.193, up trended to 0.404. Other initial labs significant for hyperkalemia with potassium of 5.5 was 296, procalcitonin 0.96. ABG with pH-7.10, pCO2 124. The patient was intubated for airway protection and has been admitted to the ICU for further evaluation of acute hypoxic hypercapnic respiratory failure. Review of Systems Review of Systems ROS Unobtainable: unobtainable due to mental status, unobtainable due to medical condition and due to endotracheal tube Exam Vital Signs Temp Pulse Resp BP Pulse Ox O2 Del Method O2 Flow Rate 98.3 F 102 H 20 114/65 99 Mechanical Ventilation 15 10/01/24 14:16 10/01/24 14:37 10/01/24 14:16 10/01/24 14:37 10/01/24 14:37 10/01/24 12:30 10/01/24 09:40 FiO2 45 10/01/24 14:37 Narrative Exam GENERAL: Intubated, minimal sedation on propofol, ET tube in NEURO: GCS- 5T, withdraws from pain with sternal rubs, no change in reflexes bilaterally, otherwise unable to test HEENT: Moist mucosa, edentulous. Anisocoria, left pupil larger than right 4>2mm CARDIO: Tachycardic, irregular rhythm, no murmus heard PULM: Minimal crackles heard in bilateral bases GI: Abdomen soft, nondistended. BSx4 URO/SPARE FIXER:: No further abnormalities noted. SKIN/MSK/EXT: Stasis dermatitis in bilateral lower extremities, minimal edema. Results: Labs 10/02/24 04:46 10/02/24 04:46 Labs: Short CBC 10/01/24 Range/Units 09:17 WBC 15.4 H (3.8-10.6) Thou/mm3 Hgb 11.3 L (13.5-16.0) g/dL Hct 39.3 L (41.0-53.0) % Plt Count 221 (140-440) Thou/mm3 BMP 10/01/24 09:17 Sodium 137 Potassium 5.5 H Chloride 92 L Carbon Dioxide 38.5 H BUN 20 Creatinine 1.9 H Glucose 296 H Calcium 8.7 Cardiac Enzymes 10/01/24 10/01/24 Range/Units 09:17 12:39 Troponin I 0.193 H* 0.404 H* D (0.0-0.045) ng/mL Liver Function 10/01/24 Range/Units 09:17 Total Bilirubin 0.5 (0.3-1.2) mg/dL AST 29 (0-34) U/L ALT 28 (10-49) U/L Alkaline Phosphatase 71 (46-116) U/L Albumin 4.3 (3.4-4.8) gm/dL Urine 10/01/24 Range/Units 10:45 Urine Color Yellow (Lt Yel-Yel) Urine Clarity Clear (Clear/Hazy) Urine pH 6.0 (5.0-7.0) Ur Specific [place] 1.016 (1.001-1.035) Urine Protein 3+ A (Neg - Trace) Urine Glucose (UA) Negative (Negative) ABG Interpretation ABG results: 10/01/24 10/01/24 10/01/24 09:13 10:05 12:52 ABG pH 7.10 L* 7.12 L* 7.28 L D ABG pCO2 124 H* 118 H* 81 H* D ABG pO2 152 H 247 H D 80 L D ABG HCO3 39 H 38 H 38 H ABG O2 Saturation 95 99 H 95 ABG Base Excess 6 H 5 H 9 H Quality Measures Quality Measures stroke (Stroke Alert called at 0856) Suspected type of Stroke: Unknown at this time Last known well (date): 10/01/24 Last known well (time): 04:00 Tenecteplase given: Reason(s) Tenecteplase not given: Outside the time window and Use of NOAC (eliquis, xarelto, or pradaxa) not given Rehab services: PT evaluation ordered VTE Prophylaxis: pharmaceutical Antithrombotic by day 2:: not indicated (describe) Statin ordered: >75 y/o moderate or high intensity dose Anticoagulation ordered for A-fib or flutter (current or hx): not indicated and none Advance care planning discussed with:: child Medications Home Medications and Allergies Home Medications ?Medication ?Instructions ?Recorded ?Confirmed ?Type morphine 30 mg tablet,extended 60 mg PO Q12H PRN Pain 10/26/18 12/30/23 History release (MS Contin) oxycodone-acetaminophen 10 mg-325 1 tab PO Q6H PRN Pain, Mild 10/26/18 10/01/24 History mg tablet (Percocet) apixaban 5 mg tablet (Eliquis) 5 mg PO BID 11/18/23 10/01/24 History semaglutide 0.25 mg or 0.5 mg (2 0.5 mg subcut QWEEK 12/30/23 12/31/23 History mg/3 mL) subcutaneous pen injector (Ozempic) hydroxyzine HCl 50 mg tablet 50 mg PO HS 12/31/23 12/31/23 History potassium chloride 10 mEq 10 meq PO QDAY 12/31/23 12/31/23 History capsule,extended release diltiazem HCl 90 mg mg PO 10/01/24 History capsule,extended release 12 hr glipizide 2.5 mg tablet, extended 2.5 mg PO QDAY 10/01/24 10/01/24 History release 24 hr lisinopril 40 mg tablet 40 mg PO QDAY 10/01/24 10/01/24 History metformin 500 mg tablet 1,000 mg PO BID 10/01/24 10/01/24 History metoprolol tartrate 50 mg tablet 25 mg PO BID 10/01/24 10/01/24 History morphine 60 mg tablet,extended mg PO 10/01/24 History release pantoprazole 40 mg tablet,delayed 40 mg PO QDAY 10/01/24 10/01/24 History release simvastatin 40 mg tablet 40 mg PO QPM 10/01/24 10/01/24 History torsemide 20 mg tablet 20 mg PO BID 10/01/24 10/01/24 History Allergies Allergy/AdvReac Type Severity Reaction Status Date / Time aspirin Allergy Severe Swelling Verified 12/29/23 23:48 of Lip/Tongue/Throat albuterol AdvReac Intermediate Difficulty Verified 12/29/23 23:47 Breathing Visit Medications Acetaminophen (Acetaminophen 325 Mg Tablet) 650 mg PO Q6H PRN PRN Reason: Pain 1-3 or Fever >100.3 Stop: 10/31/24 13:34 Dextrose (Dextrose 50%-Water Inj 50 Ml Syringe) 25 ml IV Q15MIN PRN PRN Reason: BG 50-70 responsive npo pt Stop: 10/31/24 13:57 Dextrose (Dextrose 50%-Water Inj 50 Ml Syringe) 50 ml IV Q15MIN PRN PRN Reason: BG <50 OR BG <70 & pt unresponsive Stop: 10/31/24 13:57 Glucagon (Glucagon Inj 1 Mg Vial) 1 mg IM Q15MIN PRN PRN Reason: BG <70, and no IV access Sodium Chloride (Ns) 1,000 mls @ 100 mls/hr IV .Q10H SANDRA Stop: 10/31/24 08:59 Last Admin: 10/01/24 10:11 Dose: 100 mls/hr Norepinephrine/Dextrose (Levophed In D5w 8mg/250ml) 8 mg in 250 mls @ 10.206 mls/hr IV .Q24H PRN; Protocol PRN Reason: PER PROTOCOL Stop: 10/31/24 11:42 Last Titration: 10/01/24 12:25 Dose: 0.09 mcg/kg/min, 18.37 mls/hr Propofol (Diprivan Ivpb) 1,000 mg in 100 mls @ 3.266 mls/hr IV .Q24H PRN; Protocol PRN Reason: PER PROTOCOL Stop: 10/31/24 09:44 Last Admin: 10/01/24 12:10 Dose: 10 mcg/kg/min, 6.532 mls/hr Insulin Human Lispro (Insulin Lispro (Admelog) 1 Unit/0.01 Ml Unit) 0 unit SC Q6HR SANDRA; Protocol Stop: 10/31/24 13:59 Last Admin: 10/01/24 14:51 Dose: 1 unit Ondansetron HCl (Ondansetron Inj 2 Mg/Ml Inj 2 Ml) 4 mg IV Q4HR PRN PRN Reason: NAUSEA OR VOMITING Stop: 10/31/24 08:54 Oxycodone/Acetaminophen (Oxycodone/Apap 5/325 Tablet) 1 tab PO Q6H PRN PRN Reason: PAIN SCALE 4-10(Mod-Sev Stop: 10/06/24 13:34 Sodium Chloride (Sodium Chloride Rt Christina 0.9% 3 Ml Nebu) 3 ml INH PRN PRN PRN Reason: SOLN Stop: 10/31/24 09:20 Discontinued Medications Etomidate (Etomidate Inj 2 Mg/Ml Vial 10 Ml) 15 mg IV X1 ONE Stop: 10/01/24 09:35 Last Admin: 10/01/24 09:34 Dose: 15 mg Piperacillin/Tazobactam/Dextrose (Zosyn) 3.375 gm in 50 mls @ 100 mls/hr IV X1 ONE Stop: 10/01/24 09:34 Last Infusion: 10/01/24 13:43 Dose: Infused Propofol (Diprivan Ivpb) 1,000 mg in 100 mls @ 3.585 mls/hr IV .Q24H PRN; Protocol PRN Reason: PER PROTOCOL Stop: 10/31/24 09:44 Last Titration: 10/01/24 10:15 Dose: 10 mcg/kg/min, 7.17 mls/hr Sodium Chloride (Ns) 1,000 mls @ 999 mls/hr IV .Q1H1M ONE Stop: 10/01/24 11:25 Last Infusion: 10/01/24 11:30 Dose: Infused Norepinephrine/Dextrose (Levophed In D5w 8mg/250ml) 8 mg in 250 mls @ 11.203 mls/hr IV .[id number] PRN; Protocol PRN Reason: PER PROTOCOL Stop: 10/31/24 11:42 Doxycycline Hyclate 100 mg/ (Sodium Chloride) 100 mls @ 100 mls/hr IV X1 ONE Stop: 10/01/24 13:19 Last Admin: 10/01/24 13:46 Dose: 100 mls/hr Insulin Human Regular (Insulin Hum Regular 1 Unit/0.01 Ml (Per Unit)) 6 unit IV X1 ONE Stop: 10/01/24 12:26 Last Admin: 10/01/24 13:34 Dose: 6 unit Levalbuterol HCl (Levalbuterol Rt 1.25 Mg/0.5 Ml Nebu) 1.25 mg INH X1 ONE Stop: 10/01/24 09:22 Last Admin: 10/01/24 13:49 Dose: Not Given Methylprednisolone Sodium Succinate (Methylprednisolone Sod Succ 62.5 Mg/Ml 2ml Vial) 125 mg IV X1 ONE Stop: 10/01/24 09:00 Last Admin: 10/01/24 10:08 Dose: 125 mg Naloxone HCl (Naloxone Inj 0.4 Mg/Ml Vial) 0.8 mg IV X1 ONE Stop: 10/01/24 09:22 Last Admin: 10/01/24 09:33 Dose: 0.8 mg Propofol (Propofol Inj 10 Mg/Ml Vial 20 Ml) 60 mg IV X1 ONE Stop: 10/01/24 10:00 Last Admin: 10/01/24 10:05 Dose: 60 mg Sodium Polystyrene Sulfonate (Sod Polystyrene Sulfon Susp 15 Gm/60 Ml Btl) 30 gm NG X1 ONE Stop: 10/01/24 12:21 Last Admin: 10/01/24 13:28 Dose: 30 gm Succinylcholine Chloride (Succinylcholine Inj 20 Mg/Ml Vial 10 Ml) 80 mg IV X1 ONE Stop: 10/01/24 09:35 Last Admin: 10/01/24 09:41 Dose: 80 mg Assessment & Plan Plan Summary: The patient is a 74-year-old male with a past medical history of COPD on 3 L of oxygen, hypertension, CVA, HFpEF with ejection fraction 70 to 75%, CAD status post stents, A-fib on Eliquis, solitary pulmonary nodule and BPH who was brought in to the ED on 10/01/2024 from home after he was found unresponsive. Neuro #Acute encephalopathy #Hypoxia/hypercapnia The patient presented with initial ABG with pH of 7.1 and CO2 of 124. Reported to have been altered on initial presentation. Started on propofol in the ED. Plan: -Optimize respiratory status and reevaluate mental status when off of sedation or minimal sedation. #CVA rule out On initial presentation to the ED, patient was noted to have had right upper extremity weakness. Stroke alert was called and stroke protocol initiated. Teleneuro was consulted, NIHSS of 15. Patient was outside of thrombolytic window as well as is on Eliquis for A-fib. Head CT was done which was negative, follow-up CTA showed 60 to 80% stenosis in the right carotid bifurcation from the right ICA and 20 to 40% stenosis in the left bifurcation of the left ICA, however no large vessel occlusions or thrombus. Will continue stroke protocol for CVA rule outs. Plan: -MRI stroke protocol -Echocardiogram with bubble study -TSH, lipid panel, A1c Cardiovascular #Elevated troponin levels #Likely type II NSTEMI On admission, patient's troponin levels elevated at 0.193, trended to 0.404. Per family, patient had not had any episodes of chest pain. EKG showed some ST depression in the second lead. Plan: -Trend troponins until peak #History of HFpEF 70- 75% The patient has a history of HFpEF with last echocardiogram showing ejection fraction of 70%. He is followed as an outpatient by streetcar motorman Dr. Small On this admission, currently has trace bilateral edema, interstitial infiltrates on chest x-ray. Plan: -Echocardiogram #History of hypertension The patient has a history of hypertension and home is on lisinopril and metoprolol. Postintubation, blood pressure dropped and patient was started on Levophed, currently on 0.09 Will hold off on antihypertensives and continue to monitor as well as down titrate Levophed for MAP greater than 65 or SBP greater than 100. Respiratory #Acute hypoxic hypercapnic respiratory failure #Likely due to opioid toxicity The patient has a history of chronic back pain for which she uses Percocet and morphine at home. On admission, noted that patient also has acute kidney injury. Likely respiratory depression due to opiate due to open the blood. Intubated in the ED, currently on medical ventilation. Plan: -Will continue to optimize respiratory status by adjusting vent settings for acidosis. #Viral pneumonitis Per family, the patient as well as other members of the family has had upper respiratory tract infection for about 3 days. On admission, influenza positive. Plan: -Supportive management #History of COPD The patient has a history of COPD, is reported to be on Levalbuterol nebs at home. CXR shows some hyperinflation and flattening of the diaphragms On exam, no wheezing Plan: -IV Solumedrol 40mg BID -Breathing treatments (Levalbuterol and Ipatropium). Patient reportedly allergic to albuterol. GI No active conditions #Prophylaxis-Protonix 40mg daily Renal #Acute kidney injury #Prerenal versus cardiorenal Per chart, creatinine at baseline about 1.0. Creatinine this admission-1.9. Patient supposedly has been having enough oral intake. Will follow-up on echocardiogram to evaluate cardiac output. Plan: -Continue to monitor renal panel -Avoid nephrotoxic medications -Renally dose medications Endocrinology #History of type II DM Patient has a history of type II DM and at home is on glipizide, metformin and likely Ozempic. Glucose on admission-296. Plan: -ISS -Follow-up A1c -Glucose check every 6 hours -Hypoglycemic protocol in place Hematology #Leukocytosis #Anemia WBC on admission-15.4. Hemoglobin-11.3 Patient does have a viral infection and lymphopenia. Plan: Can continue to monitor CBC ID #Viral pneumonitis Supportive management Health maintenance: Dispo: ICU for acute hypoxic/hypercapnic respiratory failure Diet: N.p.o. GI: Pantoprazole DVT: SC heparin Cooper: None Lines: Peripheral Code: Full Case was discussed with attending physician, Dr Nathan Pozo MD PGY-1 Disclaimer: This note was dictated by speech recognition. Minor errors in in mold coater may be present due to voice recognition software. Attending Provider Attestation/Addendum pt seen and examined, d/w resident. In brief this is a 74yo M who presented to the ER for encephalopathy, SOB and hypoxia and was intubated. He is on high dose chronic opiods and also presented with RICKEY. His Flu was positive. He does have a h/o HFpEF and is on diuretics at baseline at home. On exam he had some scattered expiratory wheeze with diminished reyes. Abd s/nt/bs+, min LE edema. Pt seen in the ER and d/w family. He is admitted with acute/chronic resp failure and was noted to have an elevated pCO2. He is started on tamiflu, steroids and nebs. Will ween vent as able. There was a question of stroke when pt arrived due to AMS. ER also noted some ? of RUE therefore HCT for r/o CVA. case d/w ICU team and ER labs, imaging, records reviewed ~70ccmin required for eval, exam, review, intervention, discussion and formulation of POC for this critically ill pt with acute/chronic resp failure at high risk for further and ongoing decompensation
[2024-10-01 15:39] LABS: Albumin, Serum 4.1 gm/dL (3.4-4.8); Anion Gap 8 (7-16); BUN/Creatinine Ratio 13 Ratio (12-20); Blood Urea Nitrogen 25 mg/dL (9-23); Calcium 8.7 mg/dL (8.3-10.6); Calcium (Corrected) 8.7 mg/dL (8.5-10.1); Carbon Dioxide 35.9 mMol/L (20.0-31.0); Chloride 94 mMol/L (98-107); Creatine Kinase 99 U/L (34-171); Creatinine (Component) 1.9 mg/dL (0.6-1.3); Estimated Creatinine Clearance 42.2 mL/min (>60); Glucose 210 mg/dL (74-106); Osmolality,Calculated 286 (275-295); Phosphorous 3.8 mg/dL (2.4-5.1); Potassium 4.9 mMol/L (3.4-5.1); Sodium 138 mMol/L (136-145); eGFR 36 See Note
[2024-10-01 15:42] LABS: Troponin I 0.453 ng/mL (0.0-0.045)
[2024-10-01 16:15] LABS: Base Excess 9 (-3-3); HCO3 38 mEq/L (20-26); Inspired Oxygen, FIO2 45 %; O2 Saturation 96 % (91-98); PCO2 84 mmHg (32.0-48.0); PO2 79 mmHg (83-108); pH, Arterial 7.27 (7.35-7.45)
[2024-10-01 16:22] LABS: Allen Test Not Performed; Puncture Site Right Radial
[2024-10-01] MEDS: HEPARIN SOD INJ 5000 UNIT/ML VIAL SC ×2 (17:46→21:39)
[2024-10-01] MEDS: PANTOPRAZOLE INJ 40 MG VIAL IV (17:46)
[2024-10-01 17:47] LABS: Base Excess 12 (-3-3); HCO3 37 mEq/L (20-26); Inspired Oxygen, FIO2 45 %; O2 Saturation 100 % (91-98); PCO2 54 mmHg (32.0-48.0); PO2 130 mmHg (83-108); pH, Arterial 7.45 (7.35-7.45)
[2024-10-01 17:49] LABS: Allen Test Performed/OK; Puncture Site Right Radial
[2024-10-01] MEDS: PROPOFOL 1,000 MG IVPB 1,000 MG/100 ML VIAL 19.595 MG IV (18:40)
[2024-10-01 18:47] LABS: Troponin I 0.434 ng/mL (0.0-0.045)
[2024-10-01] MEDS: OSELTAMIVIR 75 MG CAPSULE NG (20:32)
[2024-10-01 21:20] LABS: Base Excess 11 (-3-3); HCO3 36 mEq/L (20-26); O2 Saturation 99 % (91-98); PCO2 47 mmHg (32.0-48.0); PO2 152 mmHg (83-108); pH, Arterial 7.49 (7.35-7.45)
[2024-10-01 21:21] LABS: Allen Test Performed/OK; Inspired Oxygen, FIO2 45 %; Puncture Site Right Radial
[2024-10-01 21:48] LABS: Troponin I 0.373 ng/mL (0.0-0.045)
[2024-10-01] MEDS: PROPOFOL 1,000 MG IVPB 1,000 MG/100 ML VIAL 32.659 MG IV (22:32)
[2024-10-01] MEDS: LEVALBUTEROL RT 1.25 MG/0.5 ML NEBU INH (22:50)
[2024-10-01] MEDS: IPRATROPIUM RT 0.5 MG/ 2.5 ML NEBU INH (22:50)
[2024-10-02] VITALS (83 sets, daily range): BP systolic 104–199; BP diastolic 56–149; PULSE 86–169; RESP 12–30; TEMP 35.8–36.7; O2SAT 87–100; BMI 31.2
[2024-10-02] MEDS: INSULIN LISPRO (AdmeLOG) 1 UNIT/0.01 ML UNIT SC ×4 (00:47→18:10)
[2024-10-02] MEDS: PROPOFOL 1,000 MG IVPB 1,000 MG/100 ML VIAL 29.393 MG IV ×2 (01:47→04:40)
[2024-10-02] MEDS: IPRATROPIUM RT 0.5 MG/ 2.5 ML NEBU INH ×5 (03:15→22:30)
[2024-10-02] MEDS: LEVALBUTEROL RT 1.25 MG/0.5 ML NEBU INH ×5 (03:15→22:30)
--- NOTE | 2024-10-02 05:00 | XR_ITS ---
Examination: AP chest single view Technique: AP portable semiupright chest single view Exam date and time: October 02, 2024, 0342 hrs. Comparison October 01, 2024 Indications: Hypoxic respiratory failure Findings: Endotracheal tube tip 6 cm above devin Mild prominence of ventricle Mild opacity both lung bases with moderate vascular congestion Impression: Moderate vascular congestion Bibasilar pneumonia
[2024-10-02 05:24] LABS: Base Excess 10 (-3-3); HCO3 36 mEq/L (20-26); Inspired Oxygen, FIO2 45 %; O2 Saturation 100 % (91-98); PCO2 56 mmHg (32.0-48.0); PO2 158 mmHg (83-108); pH, Arterial 7.42 (7.35-7.45)
[2024-10-02 05:29] LABS: Allen Test Performed/OK; Puncture Site Right Radial
[2024-10-02 05:35] LABS: Basophils % (Auto) 0 % (0-2.5); Eosinophils % (Auto) 0 % (0-10); Hematocrit 35.9 % (41.0-53.0); Immature Granulocytes % (Auto) 0 % (0-0); Immature Granulocytes Auto 0.03 Thou/mm3 (0.00-0.00); Lymphocytes # (Auto) 0.3 Thou/mm3 (1.0-4.8); Lymphocytes % (Auto) 4 % (10-50); Mean Corpuscular HGB Conc 30.6 g/dl (31.0-37.0); Mean Corpuscular Hemoglobin 24.8 pg (25.0-35.0); Mean Corpuscular Volume 81 fL (80-100); Monocytes # (Auto) 0.2 Thou/mm3 (0.0-0.8); Monocytes % (Auto) 3 % (0-12); Neutrophils # (Auto) 6.6 Thou/mm3 (1.8-7.7); Neutrophils % (Auto) 93 % (37-80); Nucleated Red Blood Cell % 0 /100 WBC (0); Platelet Count 191 Thou/mm3 (140-440); RDW Standard Deviation 49.1 fL (35.1-43.9); Red Blood Count 4.43 Miln/mm3 (4.50-5.90); White Blood Count 7.2 Thou/mm3 (3.8-10.6)
[2024-10-02] MEDS: HEPARIN SOD INJ 5000 UNIT/ML VIAL SC ×2 (05:38→16:38)
[2024-10-02] MEDS: SODIUM CHLORIDE RT SOL 0.9% 3 ML NEBU INH (06:04)
[2024-10-02 06:10] LABS: Glucose Estimated Average 131 mg/dL (80-131); Hemoglobin A1C 6.2 % Hgb (4.8-6.0)
[2024-10-02 06:13] LABS: Alanine Aminotransferase 34 U/L (10-49); Albumin/Globulin Ratio 1.7 (1.2-2.2); Alkaline Phosphatase 56 U/L (46-116); Anion Gap 8 (7-16); Aspartate Amino Transferase 32 U/L (0-34); BUN/Creatinine Ratio 18 Ratio (12-20); Bilirubin,Total 0.7 mg/dL (0.3-1.2); Blood Urea Nitrogen 30 mg/dL (9-23); Calcium 8.8 mg/dL (8.3-10.6); Calcium (Corrected) 8.8 mg/dL (8.5-10.1); Carbon Dioxide 36.9 mMol/L (20.0-31.0); Cardiac Risk Estimate 10.3 RATIO (4.0-6.7); Chloride 96 mMol/L (98-107); Cholesterol 144 mg/dL (132-200); Creatinine (Component) 1.7 mg/dL (0.6-1.3); Estimated Creatinine Clearance 47.1 mL/min (>60); Globulin 2.4 gm/dL (2.3-3.5); Glucose 251 mg/dL (74-106); HDL Cholesterol 14 mg/dL (40-60); LDL Cholesterol,Calculated 56 mg/dL (0-130); Magnesium 2.3 mg/dL (1.6-2.6); Osmolality,Calculated 295 (275-295); Phosphorous 3.4 mg/dL (2.4-5.1); Sodium 141 mMol/L (136-145); Thyroid Stimulating Hormone 0.26 uIU/mL (0.55-4.78); Total Protein 6.4 gm/dL (5.7-8.2); Triglycerides 370 mg/dL (30-150); eGFR 41 See Note
[2024-10-02] MEDS: LORazepam 2 MG/ML VIAL 1 MG IVP (08:14)
[2024-10-02] MEDS: HYDROmorphone INJ 2 MG/ML VIAL 1 MG IVP ×2 (08:14→23:04)
[2024-10-02] MEDS: PANTOPRAZOLE INJ 40 MG VIAL IV (09:14)
[2024-10-02] MEDS: METOPROLOL TARTRATE INJ 1 MG/ML AMP 5 ML 5 MG IVP ×3 (09:15→23:55)
[2024-10-02] MEDS: INSULIN GLARGINE (Lantus) 5 UNIT/0.05 ML (PER 5 UNITS) SC ×2 (10:04→21:10)
[2024-10-02] MEDS: DILTIAZEM INJ 5 MG/ML VIAL 5 ML 10 MG IV (10:26)
[2024-10-02] MEDS: oxyCODONE/APAP 5/325 TABLET 1 TAB PO ×2 (11:51→18:10)
[2024-10-02] MEDS: METOPROLOL TARTRATE 25 MG TABLET PO ×2 (11:52→20:00)
[2024-10-02] MEDS: LABETALOL INJ 5 MG/ML VIAL 20 ML 10 MG IVP (12:08)
[2024-10-02] MEDS: AMIODARONE 150 MG IVPB 150 MG/100 ML BAG 600 MG IV (12:15)
[2024-10-02] MEDS: AMIODARONE 360 MG IVPB 360 MG/200 ML BAG 33.333 MG IV (12:36)
--- NOTE | 2024-10-02 12:40 | PD.INTPROG ---
Documentation for date of: 10/02/24 Subjective Subjective Interval history: This is a 74yo M admitted to the ICU for acute/chronic resp failure with AMS and s/p intubation. No acute overnight issues. pt is able to wake up on propofol and follow commands. ABG shows improvement . Afebrile and good UOP. pt indicates that he has some back pain. Critical Care Note Critical care time (min.): 43 Exam Vital Signs Temp Pulse Resp BP Pulse Ox O2 Del Method O2 Flow Rate 96.6 F L 111 H 20 153/98 H 94 L Mechanical Ventilation 5 10/02/24 04:00 10/02/24 12:36 10/02/24 12:29 10/02/24 12:36 10/02/24 12:29 10/02/24 04:00 10/02/24 10:21 FiO2 35 10/02/24 12:29 Narrative Exam Gen- intubated, on sedation but wakes up and follows commands, GCS 11T, obese body habitus HEENT- NC/AT, mucosa hydrated, sclera anicteric, ETT in place Chest- LCTAB, HRIR, tachycardic, no increase in WOB Abd- s/nt/bs+ Ext- min edema, pulses palp, no clubbing, no mottling, moves all 4 Vent PSV drips prop Physical Exam Completion Physical Exam Complete?: Yes 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 Labs 10/02/24 04:46 10/02/24 04:46 Labs: Laboratory Results - last 24 hr 10/01/24 10/01/24 10/01/24 12:39 12:52 14:30 WBC RBC Hgb Hct MCV MCH MCHC RDW Std Deviation Plt Count Neut % (Auto) Lymph % (Auto) [place] % (Auto) Eos % (Auto) Baso % (Auto) Neut # (Auto) Lymph # (Auto) [place] # (Auto) Eos # (Auto) Baso # (Auto) Immature Gran # (Auto) Absolute Nucleated RBC Immature Gran % Nucleated RBC % Puncture Site Right Radial ABG pH 7.28 L D ABG pCO2 81 H* D ABG pO2 80 L D ABG HCO3 38 H ABG O2 Saturation 95 ABG Base Excess 9 H Oxygen Liter Flow FiO2 45 Sodium Potassium Chloride Carbon Dioxide Anion Gap BUN Creatinine Estim Creat Clear Calc eGFR BUN/Creatinine Ratio Glucose Estimated Ave Glu mg/dL Hemoglobin A1c Calculated Osmolality Calcium Corrected Calcium Phosphorus Magnesium Total Bilirubin AST ALT Alkaline Phosphatase Total Creatine Kinase Troponin I 0.404 H* D Total Protein Albumin Globulin Albumin/Globulin Ratio Triglycerides Cholesterol LDL Cholesterol, Calc HDL Cholesterol Cholesterol/HDL Ratio TSH RSV Rapid Negative 10/01/24 10/01/24 10/01/24 15:13 15:57 17:35 WBC RBC Hgb Hct MCV MCH MCHC RDW Std Deviation Plt Count Neut % (Auto) Lymph % (Auto) [place] % (Auto) Eos % (Auto) Baso % (Auto) Neut # (Auto) Lymph # (Auto) [place] # (Auto) Eos # (Auto) Baso # (Auto) Immature Gran # (Auto) Absolute Nucleated RBC Immature Gran % Nucleated RBC % Puncture Site Right Radial Right Radial ABG pH 7.27 L 7.45 D ABG pCO2 84 H* 54 H D ABG pO2 79 L 130 H D ABG HCO3 38 H 37 H ABG O2 Saturation 96 100 H ABG Base Excess 9 H 12 H Oxygen Liter Flow FiO2 45 45 Sodium 138 Potassium 4.9 D Chloride 94 L Carbon Dioxide 35.9 H Anion Gap 8 BUN 25 H Creatinine 1.9 H Estim Creat Clear Calc 42.2 L eGFR 36 L BUN/Creatinine Ratio 13 Glucose [address] Glu mg/dL Hemoglobin A1c Calculated Osmolality 286 Calcium 8.7 Corrected Calcium 8.7 Phosphorus 3.8 Magnesium Total Bilirubin AST ALT Alkaline Phosphatase Total Creatine Kinase 99 Troponin I 0.453 H* Total Protein Albumin 4.1 Globulin Albumin/Globulin Ratio Triglycerides Cholesterol LDL Cholesterol, Calc HDL Cholesterol Cholesterol/HDL Ratio TSH RSV Rapid 10/01/24 10/01/24 10/01/24 17:50 21:05 21:12 WBC RBC Hgb Hct MCV MCH MCHC RDW Std Deviation Plt Count Neut % (Auto) Lymph % (Auto) [place] % (Auto) Eos % (Auto) Baso % (Auto) Neut # (Auto) Lymph # (Auto) [place] # (Auto) Eos # (Auto) Baso # (Auto) Immature Gran # (Auto) Absolute Nucleated RBC Immature Gran % Nucleated RBC % Puncture Site Right Radial ABG pH 7.49 H ABG pCO2 47 ABG pO2 152 H D ABG HCO3 36 H ABG O2 Saturation 99 H ABG Base Excess 11 H Oxygen Liter Flow FiO2 45 Sodium Potassium Chloride Carbon Dioxide Anion Gap BUN Creatinine Estim Creat Clear Calc eGFR BUN/Creatinine Ratio Glucose Estimated Ave Glu mg/dL Hemoglobin A1c Calculated Osmolality Calcium Corrected Calcium Phosphorus Magnesium Total Bilirubin AST ALT Alkaline Phosphatase Total Creatine Kinase Troponin I 0.434 H* 0.373 H* Total Protein Albumin Globulin Albumin/Globulin Ratio Triglycerides Cholesterol LDL Cholesterol, Calc HDL Cholesterol Cholesterol/HDL Ratio TSH RSV Rapid 10/02/24 10/02/24 10/02/24 04:02 04:46 05:07 WBC 7.2 D RBC 4.43 L Hgb 11.0 L Hct 35.9 L MCV 81 MCH 24.8 L MCHC 30.6 L RDW Std Deviation 49.1 H Plt Count 191 D Neut % (Auto) 93 H Lymph % (Auto) 4 L [place] % (Auto) 3 Eos % (Auto) 0 Baso % (Auto) 0 Neut # (Auto) 6.6 Lymph # (Auto) 0.3 L [place] # (Auto) 0.2 Eos # (Auto) 0.0 Baso # (Auto) 0.0 Immature Gran # (Auto) 0.03 H Absolute Nucleated RBC 0.00 Immature Gran % 0 Nucleated RBC % 0 Puncture Site Cancelled Right Radial ABG pH Cancelled 7.42 ABG pCO2 Cancelled 56 H ABG pO2 Cancelled 158 H ABG HCO3 Cancelled 36 H ABG O2 Saturation Cancelled 100 H ABG Base Excess Cancelled 10 H Oxygen Liter Flow Cancelled FiO2 Cancelled 45 Sodium 141 Potassium 4.0 D Chloride 96 L Carbon Dioxide 36.9 H Anion Gap 8 BUN 30 H Creatinine 1.7 H Estim Creat Clear Calc 47.1 L eGFR 41 L BUN/Creatinine Ratio 18 Glucose [address] Glu mg/dL 131 Hemoglobin A1c 6.2 H Calculated Osmolality 295 Calcium 8.8 Corrected Calcium 8.8 Phosphorus 3.4 Magnesium 2.3 Total Bilirubin 0.7 AST 32 ALT 34 Alkaline Phosphatase 56 D Total Creatine Kinase Troponin I Total Protein 6.4 Albumin 4.0 Globulin 2.4 Albumin/Globulin Ratio 1.7 Triglycerides 370 H Cholesterol 144 LDL Cholesterol, Calc 56 HDL Cholesterol 14 L Cholesterol/HDL Ratio 10.3 H TSH 0.26 L RSV Rapid Assessment & Plan Additional Plan Additional Plan: In summary this is a 74yo M admitted to the ICU with acute/chronic resp failure s/p intubation a/p [employer] Acute encephalopathy- 2/2 CO2 retention and narcotics, currently resolved - on arrival there was a question of CVA - HCT is neg - pt for echo and MRI brain Chronic Pain- cont with MS contin when able to tolerate PO - prn IV dilaudid for now - prn percocet when able to tolerate PO - given his renal function and resp condition would use caution with narcotics - trial lidocaine patch for back pain CV Afib c RVR- once pt extubated developed RVR, given IV metoprolol and dilt with minimal effect - started on IV amio - ok to resume eliquis HTN urgency- pts BP as high as 200/150 -> given IV labetalol - BP q10min and will add on clonidine or nifedipine as needed Tropinemia- trending down, no chest pain - likely demand ischemia type II Resp Acute Resp Failure- superimposed on chronic resp failure in the setting of Flu and narcotic overdose - meets weening parameters and extubated - developed some WOB and therefore placed on bipap with improvment - on steroids and nebs Flu B- started on tamiflu Renal RICKEY- good UOP - monitor i/os - improved from arrival - ? underlying CKD GI stable Endo DM- SSI, FS q6 Dyslipidemia- cont statin Heme Anemia- stable DV Tproph- resume his eliquis ID Influenza case d/w ICU team labs, imaging, records reviewed ~43ccmin required for eval, exam, review, intervention, discussion and formulation of POC for this critically ill pt with resp failure on MV at high risk for further and ongoing decompensation Provider Notation Provider Notation: Although this document has been carefully reviewed, there may still be some phonetic and other typographical errors. These errors are purely grammatical due to imperfections in the software program and should not be construed in any way to compromise the substance of the patient's medical care during this visit. Thank you for the opportunity and privilege in assisting you with this patient's care and management.
[2024-10-02] MEDS: LIDOCAINE 5% 1 PATCH TOP (13:46)
--- NOTE | 2024-10-02 14:12 | ESPR_ITS ---
<Statement entered by Nallely Monzon MD - 10/02/24 16:55> patient was examined bedisde this morning, no acute overnight events ,in the morning he was awake with GCS of 11T even on propofol. propofol was turned off , 1 mg ativan was givenwith 1 mg of diludid and chended the vent to Pressure support and was sucessfully extubated. after extubation he was on A.fib with Rvr 5 mg of IV metoprolol was given thet didn't improve it, dilazem was added with additional 5 of metoprolol wgich didn't improve the rvr so was atarted on Amio drip. his blood pressure was arounf 200s so 10 mg x1 of levotolol was given. while doing bedside swallow he passed the swallow but pt sats dropped to 80s for a while . so decision was made to put Bipap on him . will continue Bipap at night . Resume home meds . I discussed with and supervised my co-resident involved in the care of this patient. I agree with the assessment and plan as documented above. Nallely Monzon,PGY-3 Disclaimer: Despite multiple revisions, due to the dictation software being used, the document below may not be free of grammatical errors including phonetic/typographic errors. However, this does not deter from our commitment to providing health care in the patient's best interest in mind. Documentation for date of: 10/02/24 Subjective Subjective Interval history: Patient seen and examined at bedside. No acute overnight events. Bedside today, patient's GCS is 11T, he is awake although on maxed on propofol and able to follow commands. Pending MRI and echo with bubble study as part of stroke workup. ABG this morning, pH-7.42, CO2 56 and bicarb 36. Transitioned to pressure support and weaning parameters obtained, patient was successfully extubated to oxy mask. Notably, patient did get tachycardic in A-fib flutter and was given 10 mg of metoprolol tartrate, continued to be tachy and was started on amiodarone infusion protocol. Labs reviewed, leukocytosis no longer present, creatinine improved to 1.7. Blood glucose this morning at 251, scheduled 5 units of Lantus. Patient is currently on BiPAP, has some anxiety, will continue to monitor to see if he requires Precedex drip, if otherwise, patient will be downgraded to the floors. Exam Vital Signs Temp Pulse Resp BP Pulse Ox O2 Del Method O2 Flow Rate 96.6 F L 109 H 20 153/98 H 99 Mechanical Ventilation 5 10/02/24 04:00 10/02/24 13:18 10/02/24 13:18 10/02/24 12:36 10/02/24 13:18 10/02/24 04:00 10/02/24 10:21 FiO2 35 10/02/24 13:18 Narrative Exam GENERAL: AAOX3, able to folow commands NEURO: GGCS- 15. No focal neurologic deficits, no cranial nerve deficits. HEENT: Moist mucosa, edentulous. Eyes clear, symmetrical pupils CARDIO: Tachycardic, irregular rhythm, no murmurs heard PULM: Minimal crackles heard in bilateral bases GI: Abdomen soft, nondistended. BSx4 URO/CT SCAN TECHNOLOGIST:: No further abnormalities noted. SKIN/MSK/EXT: Stasis dermatitis in bilateral lower extremities, no edema Objective Labs 10/02/24 04:46 10/02/24 04:46 Labs: Laboratory Results - last 24 hr 10/01/24 10/01/24 10/01/24 14:30 15:13 15:57 WBC RBC Hgb Hct MCV MCH MCHC RDW Std Deviation Plt Count Neut % (Auto) Lymph % (Auto) [place] % (Auto) Eos % (Auto) Baso % (Auto) Neut # (Auto) Lymph # (Auto) [place] # (Auto) Eos # (Auto) Baso # (Auto) Immature Gran # (Auto) Absolute Nucleated RBC Immature Gran % Nucleated RBC % Puncture Site Right Radial ABG pH 7.27 L ABG pCO2 84 H* ABG pO2 79 L ABG HCO3 38 H ABG O2 Saturation 96 ABG Base Excess 9 H Oxygen Liter Flow FiO2 45 Sodium 138 Potassium 4.9 D Chloride 94 L Carbon Dioxide 35.9 H Anion Gap 8 BUN 25 H Creatinine 1.9 H Estim Creat Clear Calc 42.2 L eGFR 36 L BUN/Creatinine Ratio 13 Glucose [address] Glu mg/dL Hemoglobin A1c Calculated Osmolality 286 Calcium 8.7 Corrected Calcium 8.7 Phosphorus 3.8 Magnesium Total Bilirubin AST ALT Alkaline Phosphatase Total Creatine Kinase 99 Troponin I 0.453 H* Total Protein Albumin 4.1 Globulin Albumin/Globulin Ratio Triglycerides Cholesterol LDL Cholesterol, Calc HDL Cholesterol Cholesterol/HDL Ratio TSH RSV Rapid Negative 10/01/24 10/01/24 10/01/24 17:35 17:50 21:05 WBC RBC Hgb Hct MCV MCH MCHC RDW Std Deviation Plt Count Neut % (Auto) Lymph % (Auto) [place] % (Auto) Eos % (Auto) Baso % (Auto) Neut # (Auto) Lymph # (Auto) [place] # (Auto) Eos # (Auto) Baso # (Auto) Immature Gran # (Auto) Absolute Nucleated RBC Immature Gran % Nucleated RBC % Puncture Site Right Radial Right Radial ABG pH 7.45 D 7.49 H ABG pCO2 54 H D 47 ABG pO2 130 H D 152 H D ABG HCO3 37 H 36 H ABG O2 Saturation 100 H 99 H ABG Base Excess 12 H 11 H Oxygen Liter Flow FiO2 45 45 Sodium Potassium Chloride Carbon Dioxide Anion Gap BUN Creatinine Estim Creat Clear Calc eGFR BUN/Creatinine Ratio Glucose Estimated Ave Glu mg/dL Hemoglobin A1c Calculated Osmolality Calcium Corrected Calcium Phosphorus Magnesium Total Bilirubin AST ALT Alkaline Phosphatase Total Creatine Kinase Troponin I 0.434 H* Total Protein Albumin Globulin Albumin/Globulin Ratio Triglycerides Cholesterol LDL Cholesterol, Calc HDL Cholesterol Cholesterol/HDL Ratio TSH RSV Rapid 10/01/24 10/02/24 10/02/24 21:12 04:02 04:46 WBC 7.2 D RBC 4.43 L Hgb 11.0 L Hct 35.9 L MCV 81 MCH 24.8 L MCHC 30.6 L RDW Std Deviation 49.1 H Plt Count 191 D Neut % (Auto) 93 H Lymph % (Auto) 4 L [place] % (Auto) 3 Eos % (Auto) 0 Baso % (Auto) 0 Neut # (Auto) 6.6 Lymph # (Auto) 0.3 L [place] # (Auto) 0.2 Eos # (Auto) 0.0 Baso # (Auto) 0.0 Immature Gran # (Auto) 0.03 H Absolute Nucleated RBC 0.00 Immature Gran % 0 Nucleated RBC % 0 Puncture Site Cancelled ABG pH Cancelled ABG pCO2 Cancelled ABG pO2 Cancelled ABG HCO3 Cancelled ABG O2 Saturation Cancelled ABG Base Excess Cancelled Oxygen Liter Flow Cancelled FiO2 Cancelled Sodium 141 Potassium 4.0 D Chloride 96 L Carbon Dioxide 36.9 H Anion Gap 8 BUN 30 H Creatinine 1.7 H Estim Creat Clear Calc 47.1 L eGFR 41 L BUN/Creatinine Ratio 18 [address]ucose [address] Glu mg/dL 131 Hemoglobin A1c 6.2 H Calculated Osmolality 295 Calcium 8.8 Corrected Calcium 8.8 Phosphorus 3.4 Magnesium 2.3 Total Bilirubin 0.7 AST 32 ALT 34 Alkaline Phosphatase 56 D Total Creatine Kinase Troponin I 0.373 H* Total Protein 6.4 Albumin 4.0 Globulin 2.4 Albumin/Globulin Ratio 1.7 Triglycerides 370 H Cholesterol 144 LDL Cholesterol, Calc 56 HDL Cholesterol 14 L Cholesterol/HDL Ratio 10.3 H TSH 0.26 L RSV Rapid 10/02/24 05:07 WBC RBC Hgb Hct MCV MCH MCHC RDW Std Deviation Plt Count Neut % (Auto) Lymph % (Auto) [place] % (Auto) Eos % (Auto) Baso % (Auto) Neut # (Auto) Lymph # (Auto) [place] # (Auto) Eos # (Auto) Baso # (Auto) Immature Gran # (Auto) Absolute Nucleated RBC Immature Gran % Nucleated RBC % Puncture Site Right Radial ABG pH 7.42 ABG pCO2 56 H ABG pO2 158 H ABG HCO3 36 H ABG O2 Saturation 100 H ABG Base Excess 10 H Oxygen Liter Flow FiO2 45 Sodium Potassium Chloride Carbon Dioxide Anion Gap BUN Creatinine Estim Creat Clear Calc eGFR BUN/Creatinine Ratio Glucose Estimated Ave Glu mg/dL Hemoglobin A1c Calculated Osmolality Calcium Corrected Calcium Phosphorus Magnesium Total Bilirubin AST ALT Alkaline Phosphatase Total Creatine Kinase Troponin I Total Protein Albumin Globulin Albumin/Globulin Ratio Triglycerides Cholesterol LDL Cholesterol, Calc HDL Cholesterol Cholesterol/HDL Ratio TSH RSV Rapid ABG Interpretation ABG results: 10/01/24 10/01/24 10/01/24 09:13 10:05 12:52 ABG pH 7.10 L* 7.12 L* 7.28 L D ABG pCO2 124 H* 118 H* 81 H* D ABG pO2 152 H 247 H D 80 L D ABG HCO3 39 H 38 H 38 H ABG O2 Saturation 95 99 H 95 ABG Base Excess 6 H 5 H 9 H 10/01/24 10/01/24 10/01/24 15:57 17:35 21:05 ABG pH 7.27 L 7.45 D 7.49 H ABG pCO2 84 H* 54 H D 47 ABG pO2 79 L 130 H D 152 H D ABG HCO3 38 H 37 H 36 H ABG O2 Saturation 96 100 H 99 H ABG Base Excess 9 H 12 H 11 H 10/02/24 10/02/24 04:02 05:07 ABG pH Cancelled 7.42 ABG pCO2 Cancelled 56 H ABG pO2 Cancelled 158 H ABG HCO3 Cancelled 36 H ABG O2 Saturation Cancelled 100 H ABG Base Excess Cancelled 10 H Quality Measures Quality Measures stroke (Stroke Alert called at 0856) Suspected type of Stroke: Unknown at this time Last known well (date): 10/01/24 Last known well (time): 04:00 Tenecteplase given: Reason(s) Tenecteplase not given: Outside the time window and Use of NOAC (eliquis, xarelto, or pradaxa) not given Rehab services: PT evaluation ordered VTE Prophylaxis: mechanical Antithrombotic by day 2:: not indicated (describe) Statin ordered: <75 y/o high intensity dose Anticoagulation ordered for A-fib or flutter (current or hx): not indicated and none Advance care planning discussed with:: patient Assessment & Plan Assessment Current Active Medications: Generic Name Dose Route Start Last Admin Trade Name Freq PRN Reason Stop Dose Admin Acetaminophen 650 mg 10/01/24 13:35 Acetaminophen 325 Mg Tablet PO 10/31/24 13:34 Q6H PRN Pain 1-3 or Fever >100.3 Dextrose 25 ml 10/01/24 13:58 Dextrose 50%-Water Inj 50 Ml Syringe IV 10/31/24 13:57 Q15MIN PRN BG 50-70 responsive npo pt Dextrose 50 ml 10/01/24 13:58 Dextrose 50%-Water Inj 50 Ml Syringe IV 10/31/24 13:57 Q15MIN PRN BG <50 OR BG <70 & pt unresponsive Glucagon 1 mg 10/01/24 13:58 Glucagon Inj 1 Mg Vial IM Q15MIN PRN BG <70, and no IV access Heparin Sodium (Porcine) 5,000 unit 10/01/24 16:30 10/02/24 05:38 Heparin Sod Inj 5000 Unit/Ml Vial SC 10/15/24 16:29 5,000 unit Q8HR SANDRA Administration Hydromorphone HCl 1 mg 10/02/24 12:03 Hydromorphone Inj 2 Mg/Ml Vial IVP 10/07/24 12:02 Q4HR PRN PAIN Protocol Amiodarone HCl/Dextrose 360 mg in 200 mls @ 33.333 mls/hr 10/02/24 12:10 10/02/24 12:36 Nexterone Ivpb IV 10/02/24 18:09 33.333 mls/hr .Q6H ONE Administration Amiodarone HCl/Dextrose 360 mg in 200 mls @ 16.667 mls/hr 10/02/24 18:10 Nexterone Ivpb IV 10/03/24 18:09 .Q12H SANDRA Insulin Glargine 5 unit 10/02/24 21:00 Insulin Glargine (Lantus) 5 Unit/0.05 Ml (Per 5 Units) SC 11/01/24 20:59 HS SANDRA Insulin Human Lispro 0 unit 10/01/24 14:00 10/02/24 13:47 Insulin Lispro (Admelog) 1 Unit/0.01 Ml Unit SC 10/31/24 13:59 2 unit Q6HR SANDRA Administration Protocol Ipratropium [place] 0.5 mg 10/01/24 23:00 10/02/24 13:18 Ipratropium Rt 0.5 Mg/ 2.5 Ml Nebu INH 10/31/24 22:59 0.5 mg Q4HRRT SANDRA Administration Levalbuterol HCl 1.25 mg 10/01/24 23:00 10/02/24 13:18 Levalbuterol Rt 1.25 Mg/0.5 Ml Nebu INH 10/31/24 22:59 1.25 mg Q4HRRT SANDRA Administration Lidocaine 1 patch 10/02/24 13:09 10/02/24 13:46 Lidocaine 5% 1 Patch TOP 11/01/24 13:08 1 patch DAILY PRN Administration LOCALIZED PAIN Protocol Methylprednisolone Sodium Succinate 40 mg 10/01/24 22:00 10/02/24 09:16 Methylprednisolone Sod Succ 40 Mg Vial IVP 10/08/24 21:59 40 mg Q12HR SANDRA Administration Metoprolol Tartrate 25 mg 10/02/24 11:45 10/02/24 11:52 Metoprolol Tartrate 25 Mg Tablet PO 11/01/24 11:44 25 mg BID SANDRA Administration Ondansetron HCl 4 mg 10/01/24 08:55 Ondansetron Inj 2 Mg/Ml Inj 2 Ml IV 10/31/24 08:54 Q4HR PRN NAUSEA OR VOMITING Oseltamivir Phosphate 30 mg 10/02/24 12:00 Oseltamivir 30 Mg Capsule PO 10/07/24 11:59 BID SANDRA Oxycodone/Acetaminophen 1 tab 10/01/24 13:35 10/02/24 11:51 Oxycodone/Apap 5/325 Tablet PO 10/06/24 13:34 1 tab Q6H PRN Administration PAIN SCALE 4-10(Mod-Sev Pantoprazole Sodium 40 mg 10/01/24 16:45 10/02/24 09:14 Pantoprazole Inj 40 Mg Vial IV 10/31/24 16:44 40 mg QDAY SANDRA Administration Sodium Chloride 3 ml 10/01/24 21:57 Sodium Chloride Rt [place] 0.9% 3 Ml Nebu INH 10/31/24 21:56 PRN PRN SOLN Torsemide 20 mg 10/02/24 11:00 Torsemide 20 Mg Tablet PO 11/01/24 10:59 BID SANDRA Plan Summary: The patient is a 74-year-old male with a past medical history of COPD on 3 L of oxygen, hypertension, CVA, HFpEF with ejection fraction 70 to 75%, CAD status post stents, A-fib on Eliquis, solitary pulmonary nodule and BPH who was brought in to the ED on 10/01/2024 from home after he was found unresponsive. Neuro #Acute encephalopathy #Hypoxia/hypercapnia The patient presented with initial ABG with pH of 7.1 and CO2 of 124. Reported to have been altered on initial presentation. Started on propofol in the ED. 10/02/2024- Bedside today, patient's GCS is 11T, he is awake although on maxed on propofol and able to follow commands Plan: -Optimize respiratory status and reevaluate mental status when off of sedation or minimal sedation. #CVA rule out On initial presentation to the ED, patient was noted to have had right upper extremity weakness. Stroke alert was called and stroke protocol initiated. Teleneuro was consulted, NIHSS of 15. Patient was outside of thrombolytic window as well as is on Eliquis for A-fib. Head CT was done which was negative, follow-up CTA showed 60 to 80% stenosis in the right carotid bifurcation from the right ICA and 20 to 40% stenosis in the left bifurcation of the left ICA, however no large vessel occlusions or thrombus. Will continue stroke protocol for CVA rule outs. Pending MRI and echo with bubble study as part of stroke workup. Plan: -Pending MRI stroke protocol -Echocardiogram with bubble study Cardiovascular #Elevated troponin levels #Likely type II NSTEMI On admission, patient's troponin levels elevated at 0.193, trended to 0.404. Per family, patient had not had any episodes of chest pain. EKG showed some ST depression in the second lead. Tropes downtrending #History of HFpEF 70- 75% The patient has a history of HFpEF with last echocardiogram showing ejection fraction of 70%. He is followed as an outpatient by non destructive testing specialist Dr. Small On this admission, currently has trace bilateral edema, interstitial infiltrates on chest x-ray. Plan: -Echocardiogram pending #History of hypertension The patient has a history of hypertension and home is on lisinopril and metoprolol. Postintubation, blood pressure dropped and patient was started on Levophed, currently on 0.09 Will hold off on antihypertensives and continue to monitor as well as down titrate Levophed for MAP greater than 65 or SBP greater than 100. 10/02/2024- Blood pressure within normal limits, off of levophed Respiratory #Acute hypoxic hypercapnic respiratory failure s/p extubation #Likely due to opioid toxicity The patient has a history of chronic back pain for which she uses Percocet and morphine at home. On admission, noted that patient also has acute kidney injury. Likely respiratory depression due to opiate due to open the blood. Intubated in the ED, currently on medical ventilation. 10/02/2024- ABG this morning, pH-7.42, CO2 56 and bicarb 36. Transitioned to pressure support and weaning parameters obtained, patient was successfully extubated to oxy mask. Currently on BIPAP Plan: -Monitor sats on BIPAP, transition as tolerated -Keep on BIPAP HS #Viral pneumonitis Per family, the patient as well as other members of the family has had upper respiratory tract infection for about 3 days. On admission, influenza positive. Plan: -Oseltamivir 30mg daily -Supportive management #History of COPD The patient has a history of COPD, is reported to be on Levalbuterol nebs at home. CXR shows some hyperinflation and flattening of the diaphragms On exam, no wheezing Plan: -IV Solumedrol 40mg BID -Breathing treatments (Levalbuterol and Ipatropium). Patient reportedly allergic to albuterol. GI No active conditions #Prophylaxis-Protonix 40mg daily Renal #Acute kidney injury, improving #Prerenal versus cardiorenal Per chart, creatinine at baseline about 1.0. Creatinine this admission-1.9. Patient supposedly has been having enough oral intake. Will follow-up on echocardiogram to evaluate cardiac output. Plan: -Continue to monitor renal panel for any new trends in BUN/Cr -Avoid nephrotoxic medications -Renally dose medications Endocrinology #History of type II DM Patient has a history of type II DM and at home is on glipizide, metformin and likely Ozempic. Glucose on admission-296. A1c 6.2 Plan: -ISS -SC Lantus 5units -Glucose check every 6 hours -Hypoglycemic protocol in place Hematology #Leukocytosis- resolved #Anemia WBC on admission-15.4. Hemoglobin-11.3 Patient does have a viral infection and lymphopenia. ID #Viral pneumonitis See Resp Health maintenance: Dispo: ICU for acute hypoxic/hypercapnic respiratory failure Diet: N.p.o. GI: Pantoprazole DVT: SC heparin Cooper: None Lines: Peripheral Code: Full Case was discussed with Dr Monzon PGY-3 and attending physician, Dr Nathan Pozo MD PGY-1 Disclaimer: This note was dictated by speech recognition. Minor errors in maintenance department technician may be present due to voice recognition software.
--- NOTE | 2024-10-02 16:25 | PD.RESPRO ---
Documentation for date of: 10/02/24 Subjective Subjective Interval history: Overnight: Patient successfully extubated, transition to BiPAP for O2 saturation. Patient downgraded from ICU to floors for further management. Patient seen and examined at bedside, mild distress. Patient endorsed shortness of breath, denies fevers, chills, chest pain, nausea, vomiting. Placed on amnio drip for A-fib with RVR. Follow-up MRI and echo. Continue current medical management Exam Vital Signs Temp Pulse Resp BP Pulse Ox O2 Del Method O2 Flow Rate 96.6 F L 109 H 20 153/98 H 99 Mechanical Ventilation 5 10/02/24 04:00 10/02/24 13:18 10/02/24 13:18 10/02/24 12:36 10/02/24 13:18 10/02/24 04:00 10/02/24 10:21 FiO2 35 10/02/24 13:18 Narrative Exam PE: Gen: Well-developed and well-nourished. HEENT: NCAT, PERRLA, EOMI, MMM, anicteric conjunctivae. CVS: normal S1 and S2. No M/R/G. Irregular regular rhythm, tachycardia. Resp: Expiratory wheezing bilateral upper lung reyes. Abd: soft, non-tender, non-distended. MSK: Good ROM in BUE & BLE. No edema or rash. Stasis dermatitis bilateral lower extremities. Neuro: CN II-XII grossly intact. Strength 5/5 in BUE & BLE. Alert and oriented x3. Psych: appropriate mood and affect. Objective Labs 10/02/24 04:46 10/02/24 04:46 Labs: Laboratory Results - last 24 hr 10/01/24 10/01/24 10/01/24 17:35 17:50 21:05 WBC RBC Hgb Hct MCV MCH MCHC RDW Std Deviation Plt Count Neut % (Auto) Lymph % (Auto) Greenlee % (Auto) Eos % (Auto) Baso % (Auto) Neut # (Auto) Lymph # (Auto) Greenlee # (Auto) Eos # (Auto) Baso # (Auto) Immature Gran # (Auto) Absolute Nucleated RBC Immature Gran % Nucleated RBC % Puncture Site Right Radial Right Radial ABG pH 7.45 D 7.49 H ABG pCO2 54 H D 47 ABG pO2 130 H D 152 H D ABG HCO3 37 H 36 H ABG O2 Saturation 100 H 99 H ABG Base Excess 12 H 11 H Oxygen Liter Flow FiO2 45 45 Sodium Potassium Chloride Carbon Dioxide Anion Gap BUN Creatinine Estim Creat Clear Calc eGFR BUN/Creatinine Ratio Glucose Estimated Ave Glu mg/dL Hemoglobin A1c Calculated Osmolality Calcium Corrected Calcium Phosphorus Magnesium Total Bilirubin AST ALT Alkaline Phosphatase Troponin I 0.434 H* Total Protein Albumin Globulin Albumin/Globulin Ratio Triglycerides Cholesterol LDL Cholesterol, Calc HDL Cholesterol Cholesterol/HDL Ratio TSH 10/01/24 10/02/24 10/02/24 21:12 04:02 04:46 WBC 7.2 D RBC 4.43 L Hgb 11.0 L Hct 35.9 L MCV 81 MCH 24.8 L MCHC 30.6 L RDW Std Deviation 49.1 H Plt Count 191 D Neut % (Auto) 93 H Lymph % (Auto) 4 L Greenlee % (Auto) 3 Eos % (Auto) 0 Baso % (Auto) 0 Neut # (Auto) 6.6 Lymph # (Auto) 0.3 L Greenlee # (Auto) 0.2 Eos # (Auto) 0.0 Baso # (Auto) 0.0 Immature Gran # (Auto) 0.03 H Absolute Nucleated RBC 0.00 Immature Gran % 0 Nucleated RBC % 0 Puncture Site Cancelled ABG pH Cancelled ABG pCO2 Cancelled ABG pO2 Cancelled ABG HCO3 Cancelled ABG O2 Saturation Cancelled ABG Base Excess Cancelled Oxygen Liter Flow Cancelled FiO2 Cancelled Sodium 141 Potassium 4.0 D Chloride 96 L Carbon Dioxide 36.9 H Anion Gap 8 BUN 30 H Creatinine 1.7 H Estim Creat Clear Calc 47.1 L eGFR 41 L BUN/Creatinine Ratio 18 Gl[address] Glu mg/dL 131 Hemoglobin A1c 6.2 H Calculated Osmolality 295 Calcium 8.8 Corrected Calcium 8.8 Phosphorus 3.4 Magnesium 2.3 Total Bilirubin 0.7 AST 32 ALT 34 Alkaline Phosphatase 56 D Troponin I 0.373 H* Total Protein 6.4 Albumin 4.0 Globulin 2.4 Albumin/Globulin Ratio 1.7 Triglycerides 370 H Cholesterol 144 LDL Cholesterol, Calc 56 HDL Cholesterol 14 L Cholesterol/HDL Ratio 10.3 H TSH 0.26 L 10/02/24 05:07 WBC RBC Hgb Hct MCV MCH MCHC RDW Std Deviation Plt Count Neut % (Auto) Lymph % (Auto) Greenlee % (Auto) Eos % (Auto) Baso % (Auto) Neut # (Auto) Lymph # (Auto) Greenlee # (Auto) Eos # (Auto) Baso # (Auto) Immature Gran # (Auto) Absolute Nucleated RBC Immature Gran % Nucleated RBC % Puncture Site Right Radial ABG pH 7.42 ABG pCO2 56 H ABG pO2 158 H ABG HCO3 36 H ABG O2 Saturation 100 H ABG Base Excess 10 H Oxygen Liter Flow FiO2 45 Sodium Potassium Chloride Carbon Dioxide Anion Gap BUN Creatinine Estim Creat Clear Calc eGFR BUN/Creatinine Ratio Glucose Estimated Ave Glu mg/dL Hemoglobin A1c Calculated Osmolality Calcium Corrected Calcium Phosphorus Magnesium Total Bilirubin AST ALT Alkaline Phosphatase Troponin I Total Protein Albumin Globulin Albumin/Globulin Ratio Triglycerides Cholesterol LDL Cholesterol, Calc HDL Cholesterol Cholesterol/HDL Ratio TSH ABG Interpretation ABG results: 10/01/24 10/01/24 10/01/24 09:13 10:05 12:52 ABG pH 7.10 L* 7.12 L* 7.28 L D ABG pCO2 124 H* 118 H* 81 H* D ABG pO2 152 H 247 H D 80 L D ABG HCO3 39 H 38 H 38 H ABG O2 Saturation 95 99 H 95 ABG Base Excess 6 H 5 H 9 H 10/01/24 10/01/24 10/01/24 15:57 17:35 21:05 ABG pH 7.27 L 7.45 D 7.49 H ABG pCO2 84 H* 54 H D 47 ABG pO2 79 L 130 H D 152 H D ABG HCO3 38 H 37 H 36 H ABG O2 Saturation 96 100 H 99 H ABG Base Excess 9 H 12 H 11 H 10/02/24 10/02/24 04:02 05:07 ABG pH Cancelled 7.42 ABG pCO2 Cancelled 56 H ABG pO2 Cancelled 158 H ABG HCO3 Cancelled 36 H ABG O2 Saturation Cancelled 100 H ABG Base Excess Cancelled 10 H Quality Measures Quality Measures stroke (Stroke Alert called at 0856) Suspected type of Stroke: Unknown at this time Last known well (date): 10/01/24 Last known well (time): 04:00 Tenecteplase given: Reason(s) Tenecteplase not given: Outside the time window and Use of NOAC (eliquis, xarelto, or pradaxa) not given Rehab services: PT evaluation ordered VTE Prophylaxis: pharmaceutical Antithrombotic by day 2:: ordered Statin ordered: >75 y/o moderate or high intensity dose Anticoagulation ordered for A-fib or flutter (current or hx): ordered and none Advance care planning discussed with:: patient Assessment & Plan Assessment Current Active Medications: Generic Name Dose Route Start Last Admin Trade Name Freq PRN Reason Stop Dose Admin Acetaminophen 650 mg 10/01/24 13:35 Acetaminophen 325 Mg Tablet PO 10/31/24 13:34 Q6H PRN Pain 1-3 or Fever >100.3 Dextrose 25 ml 10/01/24 13:58 Dextrose 50%-Water Inj 50 Ml Syringe IV 10/31/24 13:57 Q15MIN PRN BG 50-70 responsive npo pt Dextrose 50 ml 10/01/24 13:58 Dextrose 50%-Water Inj 50 Ml Syringe IV 10/31/24 13:57 Q15MIN PRN BG <50 OR BG <70 & pt unresponsive Glucagon 1 mg 10/01/24 13:58 Glucagon Inj 1 Mg Vial IM Q15MIN PRN BG <70, and no IV access Heparin Sodium (Porcine) 5,000 unit 10/01/24 16:30 10/02/24 05:38 Heparin Sod Inj 5000 Unit/Ml Vial SC 10/15/24 16:29 5,000 unit Q8HR SANDRA Administration Hydromorphone HCl 1 mg 10/02/24 12:03 Hydromorphone Inj 2 Mg/Ml Vial IVP 10/07/24 12:02 Q4HR PRN PAIN Protocol Amiodarone HCl/Dextrose 360 mg in 200 mls @ 33.333 mls/hr 10/02/24 12:10 10/02/24 12:36 Nexterone Ivpb IV 10/02/24 18:09 33.333 mls/hr .Q6H ONE Administration Amiodarone HCl/Dextrose 360 mg in 200 mls @ 16.667 mls/hr 10/02/24 18:10 Nexterone Ivpb IV 10/03/24 18:09 .Q12H SANDRA Insulin Glargine 5 unit 10/02/24 21:00 Insulin Glargine (Lantus) 5 Unit/0.05 Ml (Per 5 Units) SC 11/01/24 20:59 HS [facility] [place] Insulin Human Lispro 0 unit 10/01/24 14:00 10/02/24 13:47 Insulin Lispro (Admelog) 1 Unit/0.01 Ml Unit SC 10/31/24 13:59 2 unit Q6HR SANDRA Administration Protocol Ipratropium Johnston 0.5 mg 10/01/24 23:00 10/02/24 13:18 Ipratropium Rt 0.5 Mg/ 2.5 Ml Nebu INH 10/31/24 22:59 0.5 mg Q4HRRT SANDRA Administration Levalbuterol HCl 1.25 mg 10/01/24 23:00 10/02/24 13:18 Levalbuterol Rt 1.25 Mg/0.5 Ml Nebu INH 10/31/24 22:59 1.25 mg Q4HRRT SANDRA Administration Lidocaine 1 patch 10/02/24 13:09 10/02/24 13:46 Lidocaine 5% 1 Patch TOP 11/01/24 13:08 1 patch DAILY PRN Administration LOCALIZED PAIN Protocol Methylprednisolone Sodium Succinate 40 mg 10/01/24 22:00 10/02/24 09:16 Methylprednisolone Sod Succ 40 Mg Vial IVP 10/08/24 21:59 40 mg Q12HR SANDRA Administration Metoprolol Tartrate 25 mg 10/02/24 11:45 10/02/24 11:52 Metoprolol Tartrate 25 Mg Tablet PO 11/01/24 11:44 25 mg BID SANDRA Administration Ondansetron HCl 4 mg 10/01/24 08:55 Ondansetron Inj 2 Mg/Ml Inj 2 Ml IV 10/31/24 08:54 Q4HR PRN NAUSEA OR VOMITING Oseltamivir Phosphate 30 mg 10/02/24 12:00 Oseltamivir 30 Mg Capsule PO 10/07/24 11:59 BID SANDRA Oxycodone/Acetaminophen 1 tab 10/01/24 13:35 10/02/24 11:51 Oxycodone/Apap 5/325 Tablet PO 10/06/24 13:34 1 tab Q6H PRN Administration PAIN SCALE 4-10(Mod-Sev Pantoprazole Sodium 40 mg 10/01/24 16:45 10/02/24 09:14 Pantoprazole Inj 40 Mg Vial IV 10/31/24 16:44 40 mg QDAY SANDRA Administration Sodium Chloride 3 ml 10/01/24 21:57 Sodium Chloride Rt Christina 0.9% 3 Ml Nebu INH 10/31/24 21:56 PRN PRN SOLN Torsemide 20 mg 10/02/24 11:00 Torsemide 20 Mg Tablet PO 11/01/24 10:59 BID SANDRA Plan 74-year-old male with a past medical history of COPD on 3 L of oxygen, hypertension, CVA, HFpEF with ejection fraction 70 to 75%, CAD status post stents, A-fib on Eliquis, solitary pulmonary nodule and BPH who was brought in to the ED on 10/01/2024 from home after he was found unresponsive. #Acute hypoxic hypercapnic respiratory failure s/p extubation #Likely due to opioid toxicity #History of COPD The patient has a history of chronic back pain for which she uses Percocet and morphine at home. On admission, noted that patient also has acute kidney injury. Patient showed some improvement with naloxone. Likely respiratory depression due to opiate use. Intubated in the ED on 10/01/2024. The patient has a history of COPD, is reported to be on Levalbuterol nebs at home. CXR shows some hyperinflation and flattening of the diaphragms. On exam, bilateral upper lung reyes expiratory wheezing. 10/02/2024- ABG this morning, pH-7.42, CO2 56 and bicarb 36. Transitioned to pressure support and weaning parameters obtained, patient was successfully extubated to oxy mask. Currently on BIPAP -Monitor sats on BIPAP, transition as tolerated -Keep on BIPAP HS -IV Solumedrol 40mg BID -Breathing treatments (Levalbuterol and Ipatropium). Patient reportedly allergic to albuterol. #A-fib with RVR #A-fib, patient history Patient has history of A-fib, takes metoprolol tartrate and Eliquis outpatient. After activation, patient felt A-fib with RVR, did not resolve despite treatment with diltiazem and metoprolol. Amiodarone infusion protocol initiated. Patient follows with Dr. Small outpatient for cardiology. -Dr. Small consulted, appreciate recommendation -Continue amiodarone infusion -Will transition to p.o. meds as per cardio recommendations. #Acute encephalopathy, resolved #CVA rule out Reported to have been altered on initial presentation. Started on propofol in the ED due to intubation. Despite maximum dose propofol infusion patient had GCS 11 T, follow commands, was extubated. On initial presentation to the ED, patient was noted to have had right upper extremity weakness. Stroke alert was called and stroke protocol initiated. Teleneuro was consulted, NIHSS of 15. Patient was outside of thrombolytic window as well as is on Eliquis for A-fib. Head CT was done which was negative, follow-up CTA showed 60 to 80% stenosis in the right carotid bifurcation from the right ICA and 20 to 40% stenosis in the left bifurcation of the left ICA, however no large vessel occlusions or thrombus. -Pending MRI stroke protocol -Echocardiogram with bubble study -Atorvastatin 80 mg p.o. at bedtime #History of HFpEF 70- 75% #Type II NSTEMI On admission, patient's troponin levels elevated at 0.193, trended to 0.404. Per family, patient had not had any episodes of chest pain. EKG showed some ST depression in the second lead. The patient has a history of HFpEF with last echocardiogram showing ejection fraction of 70%. He is followed as an outpatient by plant electrical engineer Dr. Small On this admission, found to have trace bilateral edema, interstitial infiltrates on chest x-ray. -Echocardiogram pending -Resume home med: Torsemide 20 mg p.o. twice daily -Resume home med: Metoprolol tartrate 25 mg p.o. twice daily #Viral pneumonitis Per family, the patient as well as other members of the family has had upper respiratory tract infection for about 3 days. On admission, influenza positive. -Oseltamivir 30mg daily -Supportive management #Acute kidney injury, improving #Prerenal versus cardiorenal Per chart, creatinine at baseline about 1.0. Creatinine this admission-1.9. Patient supposedly has been having enough oral intake. Will follow-up on echocardiogram to evaluate cardiac output. -Continue to monitor renal panel for any new trends in BUN/Cr -Avoid nephrotoxic medications -Renally dose medications #History of hypertension The patient has a history of hypertension and home is on lisinopril and metoprolol. Postintubation, blood pressure dropped and patient was started on Levophed, currently on 0.09 Will hold off on antihypertensives and continue to monitor as well as down titrate Levophed for MAP greater than 65 or SBP greater than 100. 10/02/2024- Blood pressure within normal limits, off of levophed #History of type II DM Patient has a history of type II DM and at home is on glipizide, metformin and likely Ozempic. Glucose on admission-296. A1c 6.2. -ISS -SC Lantus 5units -Glucose check every 6 hours -Hypoglycemic protocol in place Diet: N.p.o. GI: Pantoprazole DVT: SC heparin Lines: Peripheral Code: Full code Plan of care discussed with attending Dr. Valdez. Jass Worrell MD PGY?1 Attending Provider Attestation/Addendum I attest that I was physically present for the evaluation, physical examination, lab and imaging review of the patient with the residents. I discussed the case with the residents and agree with the findings and plans of care as documented above. Sarah Valdez MD
[2024-10-02] MEDS: OSELTAMIVIR 30 MG CAPSULE PO ×2 (16:38→20:07)
[2024-10-02] MEDS: TORSEMIDE 20 MG TABLET PO ×2 (16:38→20:06)
[2024-10-02] MEDS: AMIODARONE 360 MG IVPB 360 MG/200 ML BAG 16.667 MG IV (19:20)
[2024-10-02] MEDS: ATORVASTATIN CALCIUM 20 MG TABLET 80 MG PO (20:06)
--- NOTE | 2024-10-02 20:22 | PC.NURSE ---
Dr. Gama made aware of increased blood pressure, metoprolol given as scheduled, family at bedside questions answered. patient's questions answered, and other vitals signs within normal limits. POC updated and on going
[2024-10-02] MEDS: METOPROLOL TARTRATE INJ 1 MG/ML AMP 5 ML 2 MG IVP (20:57)
[2024-10-02] MEDS: APIXABAN 2.5 MG TABLET 5 MG PO (21:10)
--- NOTE | 2024-10-02 23:10 | PC.NURSE ---
MADE AWARE OF BLOOD PRESSURE 185/115, NO NEW ORDERS AND REPORTS WILL DISCUSS WITH MY ATTENDING
[2024-10-03] VITALS (44 sets, daily range): BP systolic 117–235; BP diastolic 77–201; PULSE 85–138; RESP 16–31; TEMP 35.9–36.8; O2SAT 94–100; BMI 31.7
--- NOTE | 2024-10-03 00:50 | EKG_ITS ---
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: KENN : 1950 Requested By: Natan Tavera Order Number: [id number] Reading MD: Natan Tavera Measurements Intervals [place]ox Rate: 109 P: HI: QRS: -50 QRSD: 129 T: -85 QT: 311 QTc: 420 Interpretive Statements ATRIAL FIBRILLATION WITH RAPID VENTRICULAR RESPONSE WITH ABERRANT CONDUCTION OR VENTRICULAR PREMATURE COMPLEXES RIGHT BUNDLE BRANCH BLOCK LEFT ANTERIOR FASCICULAR BLOCK ST DEPRESSION, CONSIDER SUBENDOCARDIAL INJURY Compared to ECG 10/01/2024 08:59:15 Ventricular premature complex(es) now present Aberrant conduction of supraventricular beat(s) now present ST (T wave) deviation still present /store/S0/[id number].pdf
[2024-10-03] MEDS: DILTIAZEM INJ 5 MG/ML VIAL 5 ML 20 MG IV (01:13)
[2024-10-03] MEDS: oxyCODONE/APAP 5/325 TABLET 1 TAB PO ×3 (01:20→19:54)
[2024-10-03] MEDS: DILTIAZEM in D5W 125 MG 125 MG/125 ML BAG IV (01:51)
[2024-10-03] MEDS: HYDROmorphone INJ 2 MG/ML VIAL 1 MG IVP ×2 (03:34→07:33)
[2024-10-03 04:47] LABS: Basophils % (Auto) 0 % (0-2.5); Eosinophils % (Auto) 0 % (0-10); Hematocrit 35.4 % (41.0-53.0); Hemoglobin 10.5 g/dL (13.5-16.0); Immature Granulocytes % (Auto) 0 % (0-0); Immature Granulocytes Auto 0.02 Thou/mm3 (0.00-0.00); Lymphocytes # (Auto) 0.3 Thou/mm3 (1.0-4.8); Lymphocytes % (Auto) 6 % (10-50); Mean Corpuscular HGB Conc 29.7 g/dl (31.0-37.0); Mean Corpuscular Hemoglobin 24.7 pg (25.0-35.0); Mean Corpuscular Volume 83 fL (80-100); Monocytes # (Auto) 0.3 Thou/mm3 (0.0-0.8); Monocytes % (Auto) 5 % (0-12); Neutrophils # (Auto) 4.8 Thou/mm3 (1.8-7.7); Neutrophils % (Auto) 88 % (37-80); Nucleated Red Blood Cell % 0 /100 WBC (0); Platelet Count 156 Thou/mm3 (140-440); RDW Standard Deviation 51.7 fL (35.1-43.9); Red Blood Count 4.25 Miln/mm3 (4.50-5.90); White Blood Count 5.4 Thou/mm3 (3.8-10.6)
[2024-10-03] MEDS: METOPROLOL TARTRATE 25 MG TABLET PO (05:03)
[2024-10-03 05:12] LABS: Alanine Aminotransferase 40 U/L (10-49); Albumin, Serum 4.1 gm/dL (3.4-4.8); Albumin/Globulin Ratio 1.6 (1.2-2.2); Alkaline Phosphatase 47 U/L (46-116); Anion Gap 9 (7-16); Aspartate Amino Transferase 34 U/L (0-34); BUN/Creatinine Ratio 21 Ratio (12-20); Bilirubin,Total 0.4 mg/dL (0.3-1.2); Blood Urea Nitrogen 32 mg/dL (9-23); Calcium 8.6 mg/dL (8.3-10.6); Calcium (Corrected) 8.6 mg/dL (8.5-10.1); Carbon Dioxide 37.5 mMol/L (20.0-31.0); Chloride 97 mMol/L (98-107); Creatinine (Component) 1.5 mg/dL (0.6-1.3); Estimated Creatinine Clearance 52.9 mL/min (>60); Globulin 2.6 gm/dL (2.3-3.5); Glucose 169 mg/dL (74-106); Magnesium 2.3 mg/dL (1.6-2.6); Osmolality,Calculated 295 (275-295); Phosphorous 4.3 mg/dL (2.4-5.1); Sodium 143 mMol/L (136-145); Total Protein 6.7 gm/dL (5.7-8.2); eGFR 48 See Note
[2024-10-03] MEDS: INSULIN LISPRO (AdmeLOG) 1 UNIT/0.01 ML UNIT SC ×4 (07:37→20:32)
[2024-10-03] MEDS: IPRATROPIUM RT 0.5 MG/ 2.5 ML NEBU INH ×4 (07:59→23:55)
[2024-10-03] MEDS: LEVALBUTEROL RT 1.25 MG/0.5 ML NEBU INH ×4 (08:00→23:55)
[2024-10-03] MEDS: APIXABAN 2.5 MG TABLET 5 MG PO ×2 (08:25→20:37)
[2024-10-03] MEDS: TORSEMIDE 20 MG TABLET PO ×2 (08:25→20:38)
[2024-10-03] MEDS: PANTOPRAZOLE INJ 40 MG VIAL IV (08:25)
[2024-10-03] MEDS: OSELTAMIVIR 30 MG CAPSULE PO ×2 (08:25→20:38)
[2024-10-03] MEDS: MORPHINE SULF 30 MG TABCR PO (11:14)
[2024-10-03] MEDS: DIGOXIN 0.125 MG TABLET PO (11:14)
--- NOTE | 2024-10-03 13:10 | XR_ITS ---
Examination: CT brain head without contrast. 2-D sagittal coronal reconstructions Date and time of exam:October 03, 2024 at 1453 hours Comparison October 01, 2024 INDICATIONS: Stroke alert October 01, 2024 CTDI: vol (mGy):113.9 DLP: (mGycm):2489 Technique: Multiple CT axial sections of the brain have been obtained, 5 mm slice thickness. Contrast has not been administered. 2-D sagittal, coronal reconstructions have been obtained Low dose protocols were performed. One or more of the following dose reduction techniques were used; automated exposure control, adjustment of the mA and/or KV according to patient size, use of iterative reconstruction technique. Findings: No significant ventricular enlargement. Intra-axial or extra-axial hemorrhage density is not seen. No mass effect or midline shift Basal cisterns are not remarkable. Fourth ventricle is midline. Cranial vault intact. Impression: No interval acute hemorrhage, mass effect or midline shift
--- NOTE | 2024-10-03 13:26 | PC.SS ---
PROBATION AGENT conducted bedside contact with the patient conduct initial assessment and to discuss discharge planning.? Patient confirmed demographic information.? Patient resides at home with family.? Patient utilizes a walker to assist with ambulation.? Patient utilizes home oxygen.? Patient does not require assistance with the completion of ADL?s.? Patient?s surrogate medical decision maker is son, Garry Lopez, .? Patient?s PCP is Adenike Moser.? Patient does not participate with dialysis.? Patient?s buttoner is Dr. Smith.? Patient utilizes [facility] for medication services.? Plan is for the patient to return home at the time of discharge.? Family will provide transportation on behalf of the patient. ?No discharge needs identified by the patient.? No further intervention required at this time, protective services social worker will be available to address any further concerns.? Next of Kin: Garry Lopez D/C Plan: Home
--- NOTE | 2024-10-03 13:35 | ESPR_ITS ---
<Statement entered by Nasima Crawley MD - 10/03/24 15:22> I discussed with and supervised the music industry internship physician who took care of this patient. I personally saw and examined the patient and discussed the assessment and plan with the entire medicine team, including my attending Dr. Valdez, I agree with most of the assessment and plan as documented below Nasima Crawley M.D. PGY-2 Documentation for date of: 10/03/24 Subjective Subjective Interval history: Overnight: Patient continued to have RVR, was changed from amiodarone drip to diltiazem drip with resolution of RVR. Patient transitioned to oral diltiazem. Patient seen and examined at bedside. Patient resting comfortably, complains of back pain with some improvement with pain medication. Patient transitioned to home O2 3-4 L/min via nasal cannula. Patient denies chest pain, shortness of breath, fever, chills, nausea, vomiting. CTA pending, follow-up. Echocardiogram and PT eval pending. Blood cultures negative, MRSA screen positive. Exam Vital Signs Temp Pulse Resp BP Pulse Ox O2 Del Method O2 Flow Rate 96.7 F L 93 20 142/85 H 99 Nasal Cannula 4 10/03/24 08:18 10/03/24 12:00 10/03/24 11:08 10/03/24 11:14 10/03/24 11:08 10/03/24 08:18 10/03/24 11:08 FiO2 35 10/02/24 13:18 Narrative Exam PE: Gen: Well-developed and well-nourished. HEENT: NCAT, PERRLA, EOMI, MMM, anicteric conjunctivae. CVS: normal S1 and S2. No M/R/G. Irregular regular rhythm, regular rate. Resp: Expiratory wheezing bilateral upper lung reyes. Abd: soft, non-tender, non-distended. MSK: Good ROM in BUE & BLE. No edema or rash. Stasis dermatitis bilateral lower extremities. Neuro: CN II-XII grossly intact. Strength 5/5 in BUE & BLE. Alert and oriented x3. Psych: appropriate mood and affect. Objective Labs 10/03/24 04:22 10/03/24 04:22 Labs: Laboratory Results - last 24 hr 10/03/24 04:22 WBC 5.4 RBC 4.25 L Hgb 10.5 L Hct 35.4 L MCV 83 MCH 24.7 L MCHC 29.7 L RDW Std Deviation 51.7 H Plt Count 156 D Neut % (Auto) 88 H Lymph % (Auto) 6 L [place] % (Auto) 5 Eos % (Auto) 0 Baso % (Auto) 0 Neut # (Auto) 4.8 Lymph # (Auto) 0.3 L [place] # (Auto) 0.3 Eos # (Auto) 0.0 Baso # (Auto) 0.0 Immature Gran # (Auto) 0.02 H Absolute Nucleated RBC 0.00 Immature Gran % 0 Nucleated RBC % 0 Sodium 143 Potassium 4.0 Chloride 97 L Carbon Dioxide 37.5 H Anion Gap 9 BUN 32 H Creatinine 1.5 H Estim Creat Clear Calc 52.9 L eGFR 48 L BUN/Creatinine Ratio 21 H Glucose 169 H D Calculated Osmolality 295 Calcium 8.6 Corrected Calcium 8.6 Phosphorus 4.3 Magnesium 2.3 Total Bilirubin 0.4 AST 34 ALT 40 Alkaline Phosphatase 47 Total Protein 6.7 Albumin 4.1 Globulin 2.6 Albumin/Globulin Ratio 1.6 ABG Interpretation ABG results: 10/01/24 10/01/24 10/01/24 09:13 10:05 12:52 ABG pH 7.10 L* 7.12 L* 7.28 L D ABG pCO2 124 H* 118 H* 81 H* D ABG pO2 152 H 247 H D 80 L D ABG HCO3 39 H 38 H 38 H ABG O2 Saturation 95 99 H 95 ABG Base Excess 6 H 5 H 9 H 10/01/24 10/01/24 10/01/24 15:57 17:35 21:05 ABG pH 7.27 L 7.45 D 7.49 H ABG pCO2 84 H* 54 H D 47 ABG pO2 79 L 130 H D 152 H D ABG HCO3 38 H 37 H 36 H ABG O2 Saturation 96 100 H 99 H ABG Base Excess 9 H 12 H 11 H 10/02/24 10/02/24 04:02 05:07 ABG pH Cancelled 7.42 ABG pCO2 Cancelled 56 H ABG pO2 Cancelled 158 H ABG HCO3 Cancelled 36 H ABG O2 Saturation Cancelled 100 H ABG Base Excess Cancelled 10 H Quality Measures Quality Measures stroke (Stroke Alert called at 0856) Suspected type of Stroke: Unknown at this time Last known well (date): 10/01/24 Last known well (time): 04:00 Tenecteplase given: Reason(s) Tenecteplase not given: Outside the time window and Use of NOAC (eliquis, xarelto, or pradaxa) not given Rehab services: PT evaluation ordered VTE Prophylaxis: pharmaceutical Antithrombotic by day 2:: ordered Statin ordered: >75 y/o moderate or high intensity dose Anticoagulation ordered for A- fib or flutter (current or hx): ordered and none Advance care planning discussed with:: patient Assessment & Plan Assessment Current Active Medications: Generic Name Dose Route Start Last Admin Trade Name Freq PRN Reason Stop Dose Admin Acetaminophen 650 mg 10/01/24 13:35 Acetaminophen 325 Mg Tablet PO 10/31/24 13:34 Q6H PRN Pain 1-3 or Fever >100.3 Apixaban 5 mg 10/02/24 21:00 10/03/24 08:25 Apixaban 2.5 Mg Tablet PO 11/01/24 20:59 5 mg BID SANDRA Administration Atorvastatin Calcium 80 mg 10/02/24 21:00 10/02/24 20:06 Atorvastatin Calcium 20 Mg Tablet PO 11/01/24 20:59 80 mg HS SANDRA Administration Dextrose 25 ml 10/01/24 13:58 Dextrose 50%-Water Inj 50 Ml Syringe IV 10/31/24 13:57 Q15MIN PRN BG 50-70 responsive npo pt Dextrose 50 ml 10/01/24 13:58 Dextrose 50%-Water Inj 50 Ml Syringe IV 10/31/24 13:57 Q15MIN PRN BG <50 OR BG <70 & pt unresponsive Digoxin 0.125 mg 10/03/24 10:45 10/03/24 11:14 Digoxin 0.125 Mg Tablet PO 11/02/24 10:44 0.125 mg QDAY SANDRA Administration Diltiazem HCl 90 mg 10/03/24 21:00 Diltiazem Er 90 Mg Er Capsule PO 11/02/24 20:59 Q12HR SANDRA Glucagon 1 mg 10/01/24 13:58 Glucagon Inj 1 Mg Vial IM Q15MIN PRN BG <70, and no IV access Insulin Glargine 5 unit 10/02/24 21:00 10/02/24 21:10 Insulin Glargine (Lantus) 5 Unit/0.05 Ml (Per 5 Units) SC 11/01/24 20:59 5 unit HS SANDRA Administration Insulin Human Lispro 0 unit 10/03/24 07:30 10/03/24 11:14 Insulin Lispro (Admelog) 1 Unit/0.01 Ml Unit SC 11/02/24 07:29 1 unit ACHS SANDRA Administration Protocol Ipratropium [place] 0.5 mg 10/01/24 23:00 10/03/24 11:05 Ipratropium Rt 0.5 Mg/ 2.5 Ml Nebu INH 10/31/24 22:59 0.5 mg Q4HRRT SANDRA Administration Levalbuterol HCl 1.25 mg 10/01/24 23:00 10/03/24 11:06 Levalbuterol Rt 1.25 Mg/0.5 Ml Nebu INH 10/31/24 22:59 1.25 mg Q4HRRT SANDRA Administration Lidocaine 1 patch 10/02/24 13:09 10/02/24 13:46 Lidocaine 5% 1 Patch TOP 11/01/24 13:08 1 patch DAILY PRN Administration LOCALIZED PAIN Protocol Methylprednisolone Sodium Succinate 40 mg 10/01/24 22:00 10/03/24 08:28 Methylprednisolone Sod Succ 40 Mg Vial IVP 10/08/24 21:59 Not Given Q12HR SANDRA Metoprolol Tartrate 25 mg 10/02/24 11:45 10/03/24 05:03 Metoprolol Tartrate 25 Mg Tablet PO 11/01/24 11:44 25 mg BID SANDRA Administration Morphine Sulfate 30 mg 10/03/24 10:47 10/03/24 11:14 Morphine Sulf 30 Mg Tabcr PO 10/08/24 10:46 30 mg Q12HR PRN Administration PAIN SCALE 4-10(Mod-Sev Protocol Mupirocin 0 gm 10/03/24 08:15 10/03/24 11:11 Mupirocin Oint 2% 15 Gm Tube TOP 10/10/24 08:14 Not Given TID SANDRA Ondansetron HCl 4 mg 10/01/24 08:55 Ondansetron Inj 2 Mg/Ml Inj 2 Ml IV 10/31/24 08:54 Q4HR PRN NAUSEA OR VOMITING Oseltamivir Phosphate 30 mg 10/02/24 12:00 10/03/24 08:25 Oseltamivir 30 Mg Capsule PO 10/07/24 11:59 30 mg BID SANDRA Administration Oxycodone/Acetaminophen 1 tab 10/03/24 10:49 Oxycodone/Apap 5/325 Tablet PO 10/06/24 13:34 Q6H PRN PAIN SCALE 4-10(Mod-Sev Pantoprazole Sodium 40 mg 10/01/24 16:45 10/03/24 08:25 Pantoprazole Inj 40 Mg Vial IV 10/31/24 16:44 40 mg QDAY SANDRA Administration Sodium Chloride 3 ml 10/01/24 21:57 Sodium Chloride Rt [place] 0.9% 3 Ml Nebu INH 10/31/24 21:56 PRN PRN SOLN Torsemide 20 mg 10/02/24 11:00 10/03/24 08:25 Torsemide 20 Mg Tablet PO 11/01/24 10:59 20 mg BID SANDRA Administration Plan 74-year-old male with a past medical history of COPD on 3 L of oxygen, hypertension, CVA, HFpEF with ejection fraction 70 to 75%, CAD status post stents, A-fib on Eliquis, solitary pulmonary nodule and BPH who was brought in to the ED on 10/01/2024 from home after he was found unresponsive. #Acute hypoxic hypercapnic respiratory failure s/p extubation, resolved #Likely due to opioid toxicity #History of COPD The patient has a history of chronic back pain for which she uses Percocet and morphine at home. On admission, noted that patient also has acute kidney injury. Patient showed some improvement with naloxone. Likely respiratory depression due to opiate use. Intubated in the ED on 10/01/2024. The patient has a history of COPD, is reported to be on Levalbuterol nebs at home. CXR shows some hyperinflation and flattening of the diaphragms. On exam, bilateral upper lung reyes expiratory wheezing. 10/02/2024- ABG this morning, pH-7.42, CO2 56 and bicarb 36. Transitioned to pressure support and weaning parameters obtained, patient was successfully extubated to oxy mask. Currently on BIPAP Patient transitioned to home O2: 3-4 L/min on nasal cannula. -Keep on BIPAP HS as needed -Continue supplemental O2 via nasal cannula -IV Solumedrol 40mg BID -Breathing treatments (Levalbuterol and Ipatropium). Patient reportedly allergic to albuterol. #A-fib with RVR, resolved #A-fib, patient history Patient has history of A-fib, takes metoprolol tartrate and Eliquis outpatient. After activation, patient felt A-fib with RVR, did not resolve despite treatment with diltiazem and metoprolol. Amiodarone infusion protocol initiated. Patient follows with Dr. Small outpatient for cardiology. Patient developed RVR despite amnioinfusion, transition to diltiazem drip with resolution. Patient then transitioned to oral diltiazem. -Dr. Small consulted, appreciate recommendation -Diltiazem ER 90 mg p.o. every 12 hours #Acute encephalopathy, resolved #CVA rule out Reported to have been altered on initial presentation. Started on propofol in the ED due to intubation. Despite maximum dose propofol infusion patient had GCS 11 T, follow commands, was extubated. On initial presentation to the ED, patient was noted to have had right upper extremity weakness. Stroke alert was called and stroke protocol initiated. Teleneuro was consulted, NIHSS of 15. Patient was outside of thrombolytic window as well as is on Eliquis for A-fib. Head CT was done which was negative, follow-up CTA showed 60 to 80% stenosis in the right carotid bifurcation from the right ICA and 20 to 40% stenosis in the left bifurcation of the left ICA, however no large vessel occlusions or thrombus. Patient unable to tolerate MRI, will get CT head follow-up instead. -Pending CT head -Echocardiogram with bubble study -Atorvastatin 80 mg p.o. at bedtime #History of HFpEF 70- 75% #Type II NSTEMI On admission, patient's troponin levels elevated at 0.193, trended to 0.404. Per family, patient had not had any episodes of chest pain. EKG showed some ST depression in the second lead. The patient has a history of HFpEF with last echocardiogram showing ejection fraction of 70%. He is followed as an outpatient by lecturer in computer science Dr. Small On this admission, found to have trace bilateral edema, interstitial infiltrates on chest x-ray. -Echocardiogram pending -Resume home med: Torsemide 20 mg p.o. twice daily -Resume home med: Metoprolol tartrate 25 mg p.o. twice daily #Influenza pneumonitis Per family, the patient as well as other members of the family has had upper respiratory tract infection for about 3 days. On admission, influenza positive. -Oseltamivir 30mg daily -Supportive management #Acute kidney injury, improving #Prerenal versus cardiorenal Per chart, creatinine at baseline about 1.0. Creatinine this admission-1.9. Patient supposedly has been having enough oral intake. Will follow-up on echocardiogram to evaluate cardiac output. -Continue to monitor renal panel for any new trends in BUN/Cr -Avoid nephrotoxic medications -Renally dose medications #History of hypertension The patient has a history of hypertension and home is on lisinopril and metoprolol. Postintubation, blood pressure dropped and patient was started on Levophed, currently on 0.09 Will hold off on antihypertensives and continue to monitor as well as down titrate Levophed for MAP greater than 65 or SBP greater than 100. 10/02/2024- Blood pressure within normal limits, off of levophed #History of type II DM Patient has a history of type II DM and at home is on glipizide, metformin and likely Ozempic. Glucose on admission-296. A1c 6.2. -ISS -SC Lantus 5units -Glucose check every 6 hours -Hypoglycemic protocol in place Diet: Clear liquid diet GI: Pantoprazole DVT: SC heparin Lines: Peripheral Code: Full code Plan of care discussed with senior resident Dr. Crawley PGY?[address] Valdez. Jass Worrell MD PGY?1 Attending Provider Attestation/Addendum I attest that I was physically present for the evaluation, physical examination, lab and imaging review of the patient with the residents. I discussed the case with the residents and agree with the findings and plans of care as documented above. At bedside today, patient is states he is feeling better. He continues to complain of back pain which has been controlled with analgesics. Refused going to MRI, stating he cannot lay flat for long time due to his back. We will cancel the MRI and obtain a follow-up CT head instead. Currently on 4 L nasal cannula, which is close to his baseline. Patient was for started overnight on diltiazem drip as his heart rate was not controlled with the amiodarone drip. We will stop the IV diltiazem and switch him to oral diltiazem, digoxin and metoprolol, home dose. Patient and his son at his bedside explained in detail about his current condition and management plans. Discussed with patient regarding his analgesics, possibility of opiates contributing to his hypercapnia. Patient verbalized understanding and agrees to cut his opiates to half and reevaluate with his primary. Started on half dose of morphine 30 mg twice daily. Pending head CT, echocardiography, PT. Sarah Valdez MD
[2024-10-03] MEDS: MUPIROCIN OINT 2% 15 GM TUBE TOP ×2 (16:12→21:06)
--- NOTE | 2024-10-03 16:26 | PD.IMCONS ---
HPI Data of Consult Requesting Physician: Sarah Valdez MD [facility] History of present illness: The patient is a 74-year-old male with a past medical history of COPD on 3 L of oxygen, hypertension, CVA, HFpEF with ejection fraction 70 to 75%, CAD status post stents, A-fib on Eliquis, solitary pulmonary nodule and BPH pt was admitted with unresponsiveness ; initial GCS 10; hypoxic with O2 sat 82% currently pt awake and conversing cc:: cc: Sarah Valdez MD Meds Home Medications and Allergies Home Medications ?Medication ?Instructions ?Recorded ?Confirmed ?Type morphine 30 mg tablet,extended 60 mg PO Q12H PRN Pain 10/26/18 12/30/23 History release (MS Contin) oxycodone-acetaminophen 10 mg-325 1 tab PO Q6H PRN Pain, Mild 10/26/18 10/01/24 History mg tablet (Percocet) apixaban 5 mg tablet (Eliquis) 5 mg PO BID 11/18/23 10/01/24 History semaglutide 0.25 mg or 0.5 mg (2 0.5 mg subcut QWEEK 12/30/23 12/31/23 History mg/3 mL) subcutaneous pen injector (Ozempic) hydroxyzine HCl 50 mg tablet 50 mg PO HS 12/31/23 12/31/23 History potassium chloride 10 mEq 10 meq PO QDAY 12/31/23 12/31/23 History capsule,extended release diltiazem HCl 90 mg 90 mg PO BID 10/01/24 10/02/24 History capsule,extended release 12 hr glipizide 2.5 mg tablet, extended 2.5 mg PO QDAY 10/01/24 10/01/24 History release 24 hr lisinopril 40 mg tablet 40 mg PO QDAY 10/01/24 10/01/24 History metformin 500 mg tablet 1,000 mg PO BID 10/01/24 10/01/24 History metoprolol tartrate 50 mg tablet 25 mg PO BID 10/01/24 10/01/24 History morphine 60 mg tablet,extended mg PO 10/01/24 History release pantoprazole 40 mg tablet,delayed 40 mg PO QDAY 10/01/24 10/01/24 History release simvastatin 40 mg tablet 40 mg PO QPM 10/01/24 10/01/24 History torsemide 20 mg tablet 20 mg PO BID 10/01/24 10/01/24 History Allergies Allergy/AdvReac Type Severity Reaction Status Date / Time aspirin Allergy Severe Swelling Verified 12/29/23 23:48 of Lip/Tongue/Throat albuterol AdvReac Intermediate Difficulty Verified 12/29/23 23:47 Breathing Exam Vital Signs Temp Pulse Resp BP Pulse Ox O2 Del Method O2 Flow Rate 96.9 F 94 22 H 148/86 H 95 Nasal Cannula 4 10/03/24 12:00 10/03/24 12:00 10/03/24 12:00 10/03/24 12:00 10/03/24 12:00 10/03/24 12:00 10/03/24 12:00 FiO2 35 10/02/24 13:18 Routine HEENT Exam Head: Present normocephalic and atraumatic Eye: Present EOMI and PERRL ENT: Present mucous membranes moist Routine Neck Exam Neck: Present supple and trachea midline Routine Respiratory Exam Respiratory: Present chest non-tender, lungs clear, normal breath sounds and no resp distress Routine Cardiovascular Exam Cardiovascular: Present RRR Routine Abdominal Exam Abdominal: Present soft and normoactive bowel sounds Routine Extremities Exam Extremities: Present full ROM Routine Skin Exam Skin: Present intact, dry and warm Routine Neurological Exam Neurological: Present alert, oriented X3 and CN II-XII intact Routine Psychiatric Exam Psychiatric: Present normal affect and normal thought process Results Labs 10/03/24 04:22 10/03/24 04:22 Labs: Short CBC 10/03/24 Range/Units 04:22 WBC 5.4 (3.8-10.6) Thou/mm3 Hgb 10.5 L (13.5-16.0) g/dL Hct 35.4 L (41.0-53.0) % Plt Count 156 D (140-440) Thou/mm3 BMP 10/03/24 04:22 Sodium 143 Potassium 4.0 Chloride 97 L Carbon Dioxide 37.5 H BUN 32 H Creatinine 1.5 H Glucose 169 H D Calcium 8.6 Liver Function 10/03/24 Range/Units 04:22 Total Bilirubin 0.4 (0.3-1.2) mg/dL AST 34 (0-34) U/L ALT 40 (10-49) U/L Alkaline Phosphatase 47 (46-116) U/L Albumin 4.1 (3.4-4.8) gm/dL ABG Interpretation ABG results: 10/01/24 10/01/24 10/01/24 09:13 10:05 12:52 ABG pH 7.10 L* 7.12 L* 7.28 L D ABG pCO2 124 H* 118 H* 81 H* D ABG pO2 152 H 247 H D 80 L D ABG HCO3 39 H 38 H 38 H ABG O2 Saturation 95 99 H 95 ABG Base Excess 6 H 5 H 9 H 10/01/24 10/01/24 10/01/24 15:57 17:35 21:05 ABG pH 7.27 L 7.45 D 7.49 H ABG pCO2 84 H* 54 H D 47 ABG pO2 79 L 130 H D 152 H D ABG HCO3 38 H 37 H 36 H ABG O2 Saturation 96 100 H 99 H ABG Base Excess 9 H 12 H 11 H 10/02/24 10/02/24 04:02 05:07 ABG pH Cancelled 7.42 ABG pCO2 Cancelled 56 H ABG pO2 Cancelled 158 H ABG HCO3 Cancelled 36 H ABG O2 Saturation Cancelled 100 H ABG Base Excess Cancelled 10 H Assessment and Plan Assessment and plan (1) Respiratory failure: Status: Acute (2) Weakness of right upper extremity: Status: Acute (3) Hypoxemia: Status: Acute (4) Opioid dependence: Status: Acute Additional Assessment & Plan Additional Plan: pt back to normal mentation contiue meds for atrial fibrillaiton with diltiazem IV and change to PO continue anticoagulation
[2024-10-03] MEDS: INSULIN GLARGINE (Lantus) 5 UNIT/0.05 ML (PER 5 UNITS) SC (20:33)
[2024-10-03] MEDS: DILTIAZEM ER 90 MG ER CAPSULE PO (20:37)
[2024-10-03] MEDS: METOPROLOL TARTRATE 25 MG TABLET 50 MG PO (20:38)
[2024-10-03] MEDS: ATORVASTATIN CALCIUM 20 MG TABLET 80 MG PO (20:39)
[2024-10-03] MEDS: ALPRazoLAM 0.25 MG TABLET PO (22:52)
[2024-10-04] VITALS (16 sets, daily range): BP systolic 104–137; BP diastolic 62–96; PULSE 73–112; RESP 16–25; TEMP 36.2–36.6; O2SAT 93–100; BMI 31.7
[2024-10-04] MEDS: LEVALBUTEROL RT 1.25 MG/0.5 ML NEBU INH ×6 (03:20→22:37)
[2024-10-04] MEDS: IPRATROPIUM RT 0.5 MG/ 2.5 ML NEBU INH ×6 (03:20→22:37)
[2024-10-04] MEDS: MUPIROCIN OINT 2% 15 GM TUBE TOP ×3 (05:29→21:56)
[2024-10-04 05:34] LABS: Basophils % (Auto) 0 % (0-2.5); Eosinophils % (Auto) 0 % (0-10); Hematocrit 34.8 % (41.0-53.0); Hemoglobin 10.3 g/dL (13.5-16.0); Immature Granulocytes % (Auto) 1 % (0-0); Immature Granulocytes Auto 0.03 Thou/mm3 (0.00-0.00); Lymphocytes # (Auto) 0.6 Thou/mm3 (1.0-4.8); Lymphocytes % (Auto) 12 % (10-50); Mean Corpuscular HGB Conc 29.6 g/dl (31.0-37.0); Mean Corpuscular Hemoglobin 24.9 pg (25.0-35.0); Mean Corpuscular Volume 84 fL (80-100); Monocytes # (Auto) 0.4 Thou/mm3 (0.0-0.8); Monocytes % (Auto) 9 % (0-12); Neutrophils # (Auto) 3.6 Thou/mm3 (1.8-7.7); Neutrophils % (Auto) 77 % (37-80); Nucleated Red Blood Cell % 0 /100 WBC (0); Platelet Count 92 Thou/mm3 (140-440); Red Blood Count 4.14 Miln/mm3 (4.50-5.90); White Blood Count 4.7 Thou/mm3 (3.8-10.6)
[2024-10-04 06:10] LABS: Alanine Aminotransferase 36 U/L (10-49); Albumin, Serum 4.1 gm/dL (3.4-4.8); Albumin/Globulin Ratio 1.7 (1.2-2.2); Alkaline Phosphatase 50 U/L (46-116); Anion Gap 11 (7-16); Aspartate Amino Transferase 20 U/L (0-34); BUN/Creatinine Ratio 22 Ratio (12-20); Bilirubin,Total 0.6 mg/dL (0.3-1.2); Blood Urea Nitrogen 28 mg/dL (9-23); Calcium 8.7 mg/dL (8.3-10.6); Calcium (Corrected) 8.7 mg/dL (8.5-10.1); Carbon Dioxide > 40.0 mMol/L (20.0-31.0); Chloride 94 mMol/L (98-107); Creatinine (Component) 1.3 mg/dL (0.6-1.3); Estimated Creatinine Clearance 61.1 mL/min (>60); Globulin 2.4 gm/dL (2.3-3.5); Glucose 132 mg/dL (74-106); Magnesium 2.2 mg/dL (1.6-2.6); Osmolality,Calculated 296 (275-295); Phosphorous 4.1 mg/dL (2.4-5.1); Potassium 3.6 mMol/L (3.4-5.1); Sodium 145 mMol/L (136-145); Total Protein 6.5 gm/dL (5.7-8.2); eGFR 57 See Note
--- NOTE | 2024-10-04 07:46 | ESPR_ITS ---
Documentation for date of: 10/04/24 Subjective Subjective Interval history: pt back to his baseline neurostatus HR 80-90 afib Exam Vital Signs Temp Pulse Resp BP Pulse Ox O2 Del Method O2 Flow Rate 97.5 F 88 19 134/86 H 100 Nasal Cannula 4 10/04/24 04:00 10/04/24 06:34 10/04/24 06:34 10/04/24 04:00 10/04/24 06:34 10/04/24 04:00 10/04/24 06:34 FiO2 35 10/03/24 16:00 Routine HEENT Exam Head: Present normocephalic and atraumatic Eye: Present EOMI and PERRL ENT: Present mucous membranes moist Routine Neck Exam Neck: Present supple and trachea midline Routine Respiratory Exam Respiratory: Present chest non-tender, lungs clear, normal breath sounds and no resp distress Routine Cardiovascular Exam Cardiovascular: Present RRR Routine Abdominal Exam Abdominal: Present soft and normoactive bowel sounds Routine Extremities Exam Extremities: Present full ROM Routine Skin Exam Skin: Present intact, dry and warm Routine Neurological Exam Neurological: Present alert, oriented X3 and CN II-XII intact Routine Psychiatric Exam Psychiatric: Present normal affect and normal thought process Objective Labs 10/04/24 05:00 10/04/24 05:00 Labs: Laboratory Results - last 24 hr 10/04/24 05:00 WBC 4.7 RBC 4.14 L Hgb 10.3 L Hct 34.8 L MCV 84 MCH 24.9 L MCHC 29.6 L RDW Std Deviation 51.0 H Plt Count 92 L D Neut % (Auto) 77 Lymph % (Auto) 12 [place] % (Auto) 9 Eos % (Auto) 0 Baso % (Auto) 0 Neut # (Auto) 3.6 Lymph # (Auto) 0.6 L [place] # (Auto) 0.4 Eos # (Auto) 0.0 Baso # (Auto) 0.0 Immature Gran # (Auto) 0.03 H Absolute Nucleated RBC 0.00 Immature Gran % 1 H Nucleated RBC % 0 Sodium 145 Potassium 3.6 Chloride 94 L Carbon Dioxide > 40.0 H Anion Gap 11 BUN 28 H Creatinine 1.3 Estim Creat Clear Calc 61.1 eGFR 57 L BUN/Creatinine Ratio 22 H Glucose 132 H Calculated Osmolality 296 H Calcium 8.7 Corrected Calcium 8.7 Phosphorus 4.1 Magnesium 2.2 Total Bilirubin 0.6 AST 20 ALT 36 Alkaline Phosphatase 50 Total Protein 6.5 Albumin 4.1 Globulin 2.4 Albumin/Globulin Ratio 1.7 ABG Interpretation ABG results: 10/01/24 10/01/24 10/01/24 09:13 10:05 12:52 ABG pH 7.10 L* 7.12 L* 7.28 L D ABG pCO2 124 H* 118 H* 81 H* D ABG pO2 152 H 247 H D 80 L D ABG HCO3 39 H 38 H 38 H ABG O2 Saturation 95 99 H 95 ABG Base Excess 6 H 5 H 9 H 10/01/24 10/01/24 10/01/24 15:57 17:35 21:05 ABG pH 7.27 L 7.45 D 7.49 H ABG pCO2 84 H* 54 H D 47 ABG pO2 79 L 130 H D 152 H D ABG HCO3 38 H 37 H 36 H ABG O2 Saturation 96 100 H 99 H ABG Base Excess 9 H 12 H 11 H 10/02/24 10/02/24 04:02 05:07 ABG pH Cancelled 7.42 ABG pCO2 Cancelled 56 H ABG pO2 Cancelled 158 H ABG HCO3 Cancelled 36 H ABG O2 Saturation Cancelled 100 H ABG Base Excess Cancelled 10 H Assessment & Plan A&P Narrative pt back to normal mentation on metoprolol / diltiazem / eliquis continue anticoagulation Time Spent With Patient Time: Total time spent is greater than 50% in coordination of care (as documented) at patient's floor/unit and/or counseling patient:
[2024-10-04] MEDS: PANTOPRAZOLE INJ 40 MG VIAL IV (08:01)
[2024-10-04] MEDS: METOPROLOL TARTRATE 25 MG TABLET 50 MG PO ×2 (08:01→20:50)
[2024-10-04] MEDS: OSELTAMIVIR 30 MG CAPSULE PO ×2 (08:02→20:51)
[2024-10-04] MEDS: APIXABAN 2.5 MG TABLET 5 MG PO ×2 (08:02→20:48)
[2024-10-04] MEDS: DIGOXIN 0.125 MG TABLET PO (08:02)
[2024-10-04] MEDS: DILTIAZEM ER 90 MG ER CAPSULE PO ×2 (08:02→20:50)
[2024-10-04] MEDS: TORSEMIDE 20 MG TABLET PO ×2 (08:02→20:53)
[2024-10-04] MEDS: oxyCODONE/APAP 5/325 TABLET 1 TAB PO (08:03)
[2024-10-04] MEDS: POTASSIUM CHLORIDE 20 mEq TABCR 40 MEQ PO (09:22)
[2024-10-04] MEDS: MORPHINE SULF 30 MG TABCR PO ×2 (10:24→21:57)
[2024-10-04] MEDS: INSULIN LISPRO (AdmeLOG) 1 UNIT/0.01 ML UNIT SC ×2 (12:11→20:43)
--- NOTE | 2024-10-04 12:11 | PC.PT ---
Patient is safe to ambulate to the bathroom with a FWW and 1 staff assist. RN and MARINE DIESEL TECHNICIAN made aware.
--- NOTE | 2024-10-04 13:47 | ECHO_ITS ---
Transthoracic Echo Report Ht (in): 73 Wt (lb): 240 Exam Location: Echo Lab Status: Inpatient Licensed Clinical Social Worker: NEGRITO Davis^^^^ Indications: Procedure Performed: BP: / HR: MEASUREMENTS (Male / Female) Normal Values 2D ECHO LV Diastolic Diameter PLAX 4.9 cm 4.2 - 5.9 / 3.9 - 5.3 cm LV Systolic Diameter PLAX 3.3 cm IVS Diastolic Thickness 1.2 cm 0.6 - 1.0 / 0.6 - 0.9 cm LVPW Diastolic Thickness 1.1 cm 0.6 - 1.0 / 0.6 - 0.9 cm LV Relative Wall Thickness 0.5 Aortic Root Diameter 3.9 cm LA Systolic Diameter LX 5.0 cm 3.0 - 4.0 / 2.7 - 3.8 cm LV Ejection Fraction MOD BP 58.3 % >= 55 % LV Ejection Fraction MOD 4C 61.4 % LV Ejection Fraction 4C AL 62.7 % LV Ejection Fraction MOD 2C 56.5 % LV Ejection Fraction 2C AL 57.3 % LA Volume Index 62.0 cm?/m? 16 - 28 cm?/m? Ascending Aorta Diameter 4.0 cm DOPPLER AV Peak Velocity 259.7 cm/s AV Peak Gradient 27.0 mmHg AV Mean Gradient 18.0 mmHg AV Velocity Time Integral 56.7 cm LVOT Peak Velocity 118.0 cm/s LVOT Peak Gradient 5.6 mmHg LVOT Velocity Time Integral 25.2 cm MV Peak Velocity 207.0 cm/s MV Peak Gradient 17.1 mmHg MV Mean Velocity 113.0 cm/s MV Mean Gradient 7.0 mmHg MV Area PHT 3.3 cm? Mitral E Point Velocity 157.0 cm/s Mitral A Point Velocity 55.4 cm/s Mitral E to A Ratio 2.8 LV E' Lateral Velocity 7.5 cm/s Mitral E to LV E' Lateral Ratio 20.9 LV E' Septal Velocity 9.4 cm/s Mitral E to LV E' Septal Ratio 16.8 TR Peak Velocity 259.0 cm/s TR Peak Gradient 26.8 mmHg PV Peak Velocity 102.0 cm/s PV Peak Gradient 4.2 mmHg RVOT Peak Velocity 76.1 cm/s FINDINGS Left Ventricle Normal left ventricular size, wall thickness, systolic function with no obvious regional wall motion abnormalities. There is grade III diastolic dysfunction of the left ventricle (restrictive filling pattern). The left ventricular ejection fraction is normal, estimated at 60-65%. Right Ventricle The right ventricle is normal in size and systolic function. The estimated right ventricular systolic pressure, 27 mmHg. Left Atrium Moderately increased left atrial volume 62 mL/m?. Right Atrium The right atrial cavity size is mildly increased. Atrial Septum The interatrial septum is normal to color flow Doppler and agitated saline imaging. Aorta The aorta is normal by two-dimensional, color flow and Doppler interrogation. Mitral Valve [id number] mitral regurgitation. Mild thickening of the mitral valve leaflets. Aortic Valve Mild aortic valve stenosis, mean gradient 18 mmHg, NAVEEN 2.0 cm?. Tricuspid Valve There is mild tricuspid valve regurgitation. Pulmonic Valve The pulmonic valve is not well visualized. There is no significant pulmonic valve regurgitation. Vessels The pulmonary artery appears normal. The inferior vena cava pulmonary and hepatic veins appear normal. Pericardium The pericardium is normal by two-dimensional imaging. There is no significant pericardial effusion. CONCLUSIONS Indication: CVA with bubble study Bubble study negative for any PFO but suboptimal due to poor images. Normal LV size and function. Estimated EF of 60 to 65%. Mild LVH. Diastolic function present but cannot be graded. Normal RV size and function with normal RVSP of 30 mmHg. Mild aortic stenosis with at least mild to moderate calcification V-max of 2.8 m/s and mean gradient of 18 mmHg. 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 Mild mitral stenosis with mean gradientof 6 mm hg. Mild MR and TR Eloy Teixeira (Electronically Signed) Final Date: 05 October 2024 18:40
--- NOTE | 2024-10-04 13:56 | ESPR_ITS ---
<Statement entered by Nasima Crawley MD - 10/05/24 06:02> I discussed with and supervised the security intern physician who took care of this patient. I personally saw and examined the patient and discussed the assessment and plan with the entire medicine team, including my attending Dr. Valdez, I agree with most of the assessment and plan as documented below Nasima Crawley M.D. PGY-2 Documentation for date of: 10/04/24 Subjective Subjective Interval history: Overnight: Patient received breathing treatment and Xanax for anxiety. Patient seen and examined at bedside. Patient expressing anxiety and shortness of breath. Patient denies chest pain, nausea, vomiting, fever, chills. Decrease methylprednisone dosage. Change morphine from as needed to scheduled. Exam Vital Signs Temp Pulse Resp BP Pulse Ox O2 Del Method O2 Flow Rate 97.2 F 79 22 H 124/67 98 Nasal Cannula 3 10/04/24 12:00 10/04/24 12:00 10/04/24 12:00 10/04/24 12:00 10/04/24 12:00 10/04/24 12:00 10/04/24 12:00 FiO2 35 10/04/24 12:00 Narrative Exam PE: Gen: Well-developed and well-nourished. HEENT: NCAT, PERRLA, EOMI, MMM, anicteric conjunctivae. CVS: normal S1 and S2. No M/R/G. Irregular regular rhythm, regular rate. Resp: Expiratory wheezing bilateral upper lung reyes. Abd: soft, non-tender, non-distended. MSK: Good ROM in BUE & BLE. No edema or rash. Stasis dermatitis bilateral lower extremities. Neuro: CN II-XII grossly intact. Strength 5/5 in BUE & BLE. Alert and oriented x3. Psych: appropriate mood and affect. Objective Labs 10/04/24 05:00 10/04/24 05:00 Labs: Laboratory Results - last 24 hr 10/04/24 05:00 WBC 4.7 RBC 4.14 L Hgb 10.3 L Hct 34.8 L MCV 84 MCH 24.9 L MCHC 29.6 L RDW Std Deviation 51.0 H Plt Count 92 L D Neut % (Auto) 77 Lymph % (Auto) 12 [place] % (Auto) 9 Eos % (Auto) 0 Baso % (Auto) 0 Neut # (Auto) 3.6 Lymph # (Auto) 0.6 L [place] # (Auto) 0.4 Eos # (Auto) 0.0 Baso # (Auto) 0.0 Immature Gran # (Auto) 0.03 H Absolute Nucleated RBC 0.00 Immature Gran % 1 H Nucleated RBC % 0 Sodium 145 Potassium 3.6 Chloride 94 L Carbon Dioxide > 40.0 H Anion Gap 11 BUN 28 H Creatinine 1.3 Estim Creat Clear Calc 61.1 eGFR 57 L BUN/Creatinine Ratio 22 H Glucose 132 H Calculated Osmolality 296 H Calcium 8.7 Corrected Calcium 8.7 Phosphorus 4.1 Magnesium 2.2 Total Bilirubin 0.6 AST 20 ALT 36 Alkaline Phosphatase 50 Total Protein 6.5 Albumin 4.1 Globulin 2.4 Albumin/Globulin Ratio 1.7 ABG Interpretation ABG results: 10/01/24 10/01/24 10/01/24 09:13 10:05 12:52 ABG pH 7.10 L* 7.12 L* 7.28 L D ABG pCO2 124 H* 118 H* 81 H* D ABG pO2 152 H 247 H D 80 L D ABG HCO3 39 H 38 H 38 H ABG O2 Saturation 95 99 H 95 ABG Base Excess 6 H 5 H 9 H 10/01/24 10/01/24 10/01/24 15:57 17:35 21:05 ABG pH 7.27 L 7.45 D 7.49 H ABG pCO2 84 H* 54 H D 47 ABG pO2 79 L 130 H D 152 H D ABG HCO3 38 H 37 H 36 H ABG O2 Saturation 96 100 H 99 H ABG Base Excess 9 H 12 H 11 H 10/02/24 10/02/24 04:02 05:07 ABG pH Cancelled 7.42 ABG pCO2 Cancelled 56 H ABG pO2 Cancelled 158 H ABG HCO3 Cancelled 36 H ABG O2 Saturation Cancelled 100 H ABG Base Excess Cancelled 10 H Quality Measures Quality Measures stroke (Stroke Alert called at 0856) Suspected type of Stroke: Unknown at this time Last known well (date): 10/01/24 Last known well (time): 04:00 Tenecteplase given: Reason(s) Tenecteplase not given: Outside the time window and Use of NOAC (eliquis, xarelto, or pradaxa) not given Rehab services: PT evaluation ordered and Speech Language Pathology eval ordered VTE Prophylaxis: pharmaceutical Antithrombotic by day 2:: ordered Statin ordered: >75 y/o moderate or high intensity dose Anticoagulation ordered for A-fib or flutter (current or hx): ordered and none Advance care planning discussed with:: patient Assessment & Plan Assessment Current Active Medications: Generic Name Dose Route Start Last Admin Trade Name Freq PRN Reason Stop Dose Admin Acetaminophen 650 mg 10/01/24 13:35 Acetaminophen 325 Mg Tablet PO 10/31/24 13:34 Q6H PRN Pain 1-3 or Fever >100.3 Apixaban 5 mg 10/02/24 21:00 10/04/24 08:02 Apixaban 2.5 Mg Tablet PO 11/01/24 20:59 5 mg BID SANDRA Administration Atorvastatin Calcium 80 mg 10/02/24 21:00 10/03/24 20:39 Atorvastatin Calcium 20 Mg Tablet PO 11/01/24 20:59 80 mg HS SANDRA Administration Dextrose 25 ml 10/01/24 13:58 Dextrose 50%-Water Inj 50 Ml Syringe IV 10/31/24 13:57 Q15MIN PRN BG 50-70 responsive npo pt Dextrose 50 ml 10/01/24 13:58 Dextrose 50%-Water Inj 50 Ml Syringe IV 10/31/24 13:57 Q15MIN PRN BG <50 OR BG <70 & pt unresponsive Digoxin 0.125 mg 10/03/24 10:45 10/04/24 08:02 Digoxin 0.125 Mg Tablet PO 11/02/24 10:44 0.125 mg QDAY SANDRA Administration Diltiazem HCl 90 mg 10/03/24 21:00 10/04/24 08:02 Diltiazem Er 90 Mg Er Capsule PO 11/02/24 20:59 90 mg Q12HR SANDRA Administration Glucagon 1 mg 10/01/24 13:58 Glucagon Inj 1 Mg Vial IM Q15MIN PRN BG <70, and no IV access Insulin Glargine 5 unit 10/02/24 21:00 10/03/24 20:33 Insulin Glargine (Lantus) 5 Unit/0.05 Ml (Per 5 Units) SC 11/01/24 20:59 5 unit HS SANDRA Administration Insulin Human Lispro 0 unit 10/03/24 07:30 10/04/24 12:11 Insulin Lispro (Admelog) 1 Unit/0.01 Ml Unit SC 11/02/24 07:29 1 unit ACHS SANDRA Administration Protocol Ipratropium E[place] 0.5 mg 10/01/24 23:00 10/04/24 10:54 Ipratropium Rt 0.5 Mg/ 2.5 Ml Nebu INH 10/31/24 22:59 0.5 mg Q4HRRT SANDRA Administration Levalbuterol HCl 1.25 mg 10/01/24 23:00 10/04/24 10:54 Levalbuterol Rt 1.25 Mg/0.5 Ml Nebu INH 10/31/24 22:59 1.25 mg Q4HRRT SANDRA Administration Lidocaine 1 patch 10/02/24 13:09 10/02/24 13:46 Lidocaine 5% 1 Patch TOP 11/01/24 13:08 1 patch DAILY PRN Administration LOCALIZED PAIN Protocol Methylprednisolone Sodium Succinate 40 mg 10/05/24 09:00 Methylprednisolone Sod Succ 40 Mg Vial IVP 10/12/24 08:59 QDAY SANDRA Metoprolol Tartrate 50 mg 10/03/24 21:00 10/04/24 08:01 Metoprolol Tartrate 25 Mg Tablet PO 11/02/24 20:59 50 mg BID SANDRA Administration Morphine Sulfate 30 mg 10/04/24 10:15 10/04/24 10:24 Morphine Sulf 30 Mg Tabcr PO 10/09/24 10:14 30 mg Q12HR SANDRA Administration Protocol Mupirocin 0 gm 10/03/24 08:15 10/04/24 13:11 Mupirocin Oint 2% 15 Gm Tube TOP 10/10/24 08:14 1 applicatio TID SANDRA Administration Ondansetron HCl 4 mg 10/01/24 08:55 Ondansetron Inj 2 Mg/Ml Inj 2 Ml IV 10/31/24 08:54 Q4HR PRN NAUSEA OR VOMITING Oseltamivir Phosphate 30 mg 10/02/24 12:00 10/04/24 08:02 Oseltamivir 30 Mg Capsule PO 10/07/24 11:59 30 mg BID SANDRA Administration Oxycodone/Acetaminophen 1 tab 10/03/24 10:49 10/04/24 08:03 Oxycodone/Apap 5/325 Tablet PO 10/06/24 13:34 1 tab Q6H PRN Administration PAIN SCALE 4-10(Mod-Sev Pantoprazole Sodium 40 mg 10/01/24 16:45 10/04/24 08:01 Pantoprazole Inj 40 Mg Vial IV 10/31/24 16:44 40 mg QDAY SANDRA Administration Sodium Chloride 3 ml 10/01/24 21:57 Sodium Chloride Rt Christina 0.9% 3 Ml Nebu INH 10/31/24 21:56 PRN PRN SOLN Sodium Chloride 3 ml 10/03/24 22:37 Sodium Chloride Rt Christina 0.9% 3 Ml Nebu INH 11/02/24 22:36 PRN PRN SOLN Torsemide 20 mg 10/02/24 11:00 10/04/24 08:02 Torsemide 20 Mg Tablet PO 11/01/24 10:59 20 mg BID SANDRA Administration Plan 74-year-old male with a past medical history of COPD on 3 L of oxygen, hypertension, CVA, HFpEF with ejection fraction 70 to 75%, CAD status post stents, A-fib on Eliquis, solitary pulmonary nodule and BPH who was brought in to the ED on 10/01/2024 from home after he was found unresponsive. #Acute hypoxic hypercapnic respiratory failure s/p extubation, resolved #Likely due to opioid toxicity #History of COPD The patient has a history of chronic back pain for which she uses Percocet and morphine at home. On admission, noted that patient also has acute kidney injury. Patient showed some improvement with naloxone. Likely respiratory depression due to opiate use. Intubated in the ED on 10/01/2024. The patient has a history of COPD, is reported to be on Levalbuterol nebs at home. CXR shows some hyperinflation and flattening of the diaphragms. On exam, bilateral upper lung reyes expiratory wheezing. 10/02/2024- ABG this morning, pH-7.42, CO2 56 and bicarb 36. Transitioned to pressure support and weaning parameters obtained, patient was successfully extubated to oxy mask. Currently on BIPAP Patient transitioned to home O2: 3-4 L/min on nasal cannula. -Keep on BIPAP HS as needed -Continue supplemental O2 via nasal cannula -IV Solumedrol 40mg daily -Breathing treatments (Levalbuterol and Ipatropium). Patient reportedly allergic to albuterol. -Morphine oral SR 30 mg p.o. every 12 #A-fib with RVR, resolved #A-fib, patient history Patient has history of A-fib, takes metoprolol tartrate and Eliquis outpatient. After activation, patient felt A-fib with RVR, did not resolve despite treatment with diltiazem and metoprolol. Amiodarone infusion protocol initiated. Patient follows with Dr. Small outpatient for cardiology. Patient developed RVR despite amnioinfusion, transition to diltiazem drip with resolution. Patient then transitioned to oral diltiazem. -Dr. Small consulted, appreciate recommendation -Diltiazem ER 90 mg p.o. every 12 hours #Acute encephalopathy, resolved Reported to have been altered on initial presentation. Started on propofol in the ED due to intubation. Despite maximum dose propofol infusion patient had GCS 11 T, follow commands, was extubated. On initial presentation to the ED, patient was noted to have had right upper extremity weakness. Stroke alert was called and stroke protocol initiated. Teleneuro was consulted, NIHSS of 15. Patient was outside of thrombolytic window as well as is on Eliquis for A-fib. Head CT was done which was negative, follow-up CTA showed 60 to 80% stenosis in the right carotid bifurcation from the right ICA and 20 to 40% stenosis in the left bifurcation of the left ICA, however no large vessel occlusions or thrombus. Patient unable to tolerate MRI, will get CT head follow-up instead. Head CT follow-up unremarkable. -Echocardiogram with bubble study -Atorvastatin 80 mg p.o. at bedtime #History of HFpEF 70- 75% #Type II NSTEMI On admission, patient's troponin levels elevated at 0.193, trended to 0.404. Per family, patient had not had any episodes of chest pain. EKG showed some ST depression in the second lead. The patient has a history of HFpEF with last echocardiogram showing ejection fraction of 70%. He is followed as an outpatient by senior technical recruiter Dr. Small On this admission, found to have trace bilateral edema, interstitial infiltrates on chest x-ray. -Echocardiogram pending -Resume home med: Torsemide 20 mg p.o. twice daily -Resume home med: Metoprolol tartrate 25 mg p.o. twice daily #Influenza pneumonitis Per family, the patient as well as other members of the family has had upper respiratory tract infection for about 3 days. On admission, influenza positive. -Oseltamivir 30mg daily -Supportive management #Acute kidney injury, improving #Prerenal versus cardiorenal Per chart, creatinine at baseline about 1.0. Creatinine this admission-1.9. Patient supposedly has been having enough oral intake. Will follow-up on echocardiogram to evaluate cardiac output. -Continue to monitor renal panel for any new trends in BUN/Cr -Avoid nephrotoxic medications -Renally dose medications #History of hypertension The patient has a history of hypertension and home is on lisinopril and metoprolol. Postintubation, blood pressure dropped and patient was started on Levophed, currently on 0.09 Will hold off on antihypertensives and continue to monitor as well as down titrate Levophed for MAP greater than 65 or SBP greater than 100. 10/02/2024- Blood pressure within normal limits, off of levophed #History of type II DM Patient has a history of type II DM and at home is on glipizide, metformin and likely Ozempic. Glucose on admission-296. A1c 6.2. -ISS -SC Lantus 5units -Glucose check every 6 hours -Hypoglycemic protocol in place Diet: Clear liquid diet GI: Pantoprazole DVT: SC heparin Lines: Peripheral Code: Full code Plan of care discussed with senior resident Dr. Crawley PGY?[address] Valdez. Jass Worrell MD PGY?1 Attending Provider Attestation/Addendum I attest that I was physically present for the evaluation, physical examination, lab and imaging review of the patient with the residents. I discussed the case with the residents and agree with the findings and plans of care as documented above. At bedside today, patient states he is feeling well and does not have any new complaints. Patient received breathing treatment and Xanax for anxiety overnight. We will resume his home morphine at half the dose 30 mg p.o. twice daily for possible opiate withdrawal. Continues to be on nasal cannula, saturating well. We will decrease his Solu-Medrol dosing to 40 mg daily. Continues to be on diltiazem, digoxin and metoprolol for A-fib with RVR, currently back to his baseline heart rate. Continues to be on oseltamivir for his influenza pneumonia. Currently back to his baseline supplemental oxygen at 3 L/min. Insulin regimen for diabetes. We will monitor him for 1 more day for any withdrawal symptoms with decreased opiate dosing. Pending echocardiography. Likely discharge tomorrow. Sarah Valdez MD
--- NOTE | 2024-10-04 16:21 | PC.SS ---
Rounding Note: Echo is pending. Physical therapy evaluation pending.
[2024-10-04] MEDS: INSULIN GLARGINE (Lantus) 5 UNIT/0.05 ML (PER 5 UNITS) SC (20:45)
[2024-10-04] MEDS: ATORVASTATIN CALCIUM 20 MG TABLET 80 MG PO (20:48)
[2024-10-04] MEDS: ALPRazoLAM 0.25 MG TABLET PO (23:52)
[2024-10-05] VITALS (20 sets, daily range): BP systolic 108–133; BP diastolic 57–72; PULSE 73–109; RESP 15–26; TEMP 36.3–36.4; O2SAT 92–100
[2024-10-05] MEDS: LEVALBUTEROL RT 1.25 MG/0.5 ML NEBU INH ×5 (02:12→19:25)
[2024-10-05] MEDS: IPRATROPIUM RT 0.5 MG/ 2.5 ML NEBU INH ×5 (02:12→19:25)
[2024-10-05] MEDS: MUPIROCIN OINT 2% 15 GM TUBE TOP ×3 (05:42→22:02)
[2024-10-05 06:07] LABS: Basophils % (Auto) 0 % (0-2.5); Eosinophils # (Auto) 0.1 Thou/mm3 (0.0-0.5); Eosinophils % (Auto) 2 % (0-10); Hemoglobin 9.7 g/dL (13.5-16.0); Immature Granulocytes % (Auto) 1 % (0-0); Immature Granulocytes Auto 0.04 Thou/mm3 (0.00-0.00); Lymphocytes # (Auto) 0.6 Thou/mm3 (1.0-4.8); Lymphocytes % (Auto) 21 % (10-50); Mean Corpuscular HGB Conc 29.4 g/dl (31.0-37.0); Mean Corpuscular Hemoglobin 24.9 pg (25.0-35.0); Mean Corpuscular Volume 85 fL (80-100); Monocytes # (Auto) 0.3 Thou/mm3 (0.0-0.8); Monocytes % (Auto) 9 % (0-12); Neutrophils % (Auto) 67 % (37-80); Nucleated Red Blood Cell % 0 /100 WBC (0); Platelet Count 118 Thou/mm3 (140-440); RDW Standard Deviation 49.1 fL (35.1-43.9); Red Blood Count 3.89 Miln/mm3 (4.50-5.90); White Blood Count 3.1 Thou/mm3 (3.8-10.6)
[2024-10-05 06:28] LABS: Alanine Aminotransferase 25 U/L (10-49); Albumin, Serum 3.7 gm/dL (3.4-4.8); Albumin/Globulin Ratio 1.6 (1.2-2.2); Alkaline Phosphatase 45 U/L (46-116); Anion Gap 9 (7-16); Aspartate Amino Transferase 16 U/L (0-34); BUN/Creatinine Ratio 15 Ratio (12-20); Bilirubin,Total 0.5 mg/dL (0.3-1.2); Blood Urea Nitrogen 17 mg/dL (9-23); Calcium 9.1 mg/dL (8.3-10.6); Calcium (Corrected) 9.3 mg/dL (8.5-10.1); Carbon Dioxide > 40.0 mMol/L (20.0-31.0); Chloride 93 mMol/L (98-107); Creatinine (Component) 1.1 mg/dL (0.6-1.3); Estimated Creatinine Clearance 72.7 mL/min (>60); Globulin 2.3 gm/dL (2.3-3.5); Glucose 132 mg/dL (74-106); Magnesium 2.2 mg/dL (1.6-2.6); Osmolality,Calculated 286 (275-295); Phosphorous 3.1 mg/dL (2.4-5.1); Potassium 3.8 mMol/L (3.4-5.1); Sodium 142 mMol/L (136-145); eGFR > 60 See Note
[2024-10-05] MEDS: INSULIN LISPRO (AdmeLOG) 1 UNIT/0.01 ML UNIT SC ×2 (07:54→20:37)
[2024-10-05] MEDS: APIXABAN 2.5 MG TABLET 5 MG PO ×2 (09:03→20:24)
[2024-10-05] MEDS: PANTOPRAZOLE INJ 40 MG VIAL IV (09:03)
[2024-10-05] MEDS: DIGOXIN 0.125 MG TABLET PO (09:03)
[2024-10-05] MEDS: METOPROLOL TARTRATE 25 MG TABLET 50 MG PO ×2 (09:04→20:23)
[2024-10-05] MEDS: MORPHINE SULF 30 MG TABCR PO ×2 (09:04→20:22)
[2024-10-05] MEDS: OSELTAMIVIR 30 MG CAPSULE PO ×2 (09:05→20:22)
[2024-10-05] MEDS: DILTIAZEM ER 90 MG ER CAPSULE PO ×2 (09:05→20:25)
[2024-10-05] MEDS: TORSEMIDE 20 MG TABLET PO ×2 (09:06→20:20)
--- NOTE | 2024-10-05 13:39 | ESDS_ITS ---
<Statement entered by Nasima Crawley MD - 10/05/24 18:32> I discussed with and supervised the customer marketing intern physician who took care of this patient. I personally saw and examined the patient and discussed the assessment and plan with the entire medicine team, including my attending Dr. Carpio, I agree with most of the assessment and plan as documented below Nasima Crawley M.D. PGY-2 <Statement entered by Jamila Nieto MD - 10/05/24 17:45> I discussed with and supervised the customer marketing intern physician who took care of this patient. I personally saw and examined the patient and discussed the assessment and plan with the entire medicine team, including my attending Dr. Carpio, I agree with the assessment and plan as documented below Patient seen and examined at bedside today. Labs and imaging reviewed. All questions were answered recommendation were given to the ER if he is not feeling well or his condition does not improve Patient will be discharged home with home health Please take morphine at half the previous dose: 30 mg twice a day until you see your PCP -Please take Percocet at half the previous dose: 1 tab up to twice a day until you see your PCP The following medications have been stopped: -Glipizide Please take all other medications as previously prescribed Please follow-up with your PCP in 1-2 weeks Please continue to work with physical therapy Jamila Nieto MD PGY-3 Disclaimer: Despite multiple revisions, due to the dictation software being used, the document bellow may not be free of grammatical errors including phonetic/typographic errors. However, this does not deter from our commitment to providing health care in the patient's best interest in mind. Planned Discharge Date 10/05/24 DS: Providers Provider Date of admission: 10/01/24 12:46 Primary care physician: Adenike Moser Admitting Provider: Vanita Evans MD Attending Provider on Admission: Bear Carpio MD Consults: 10/01/24 08:55 Consult to Neurology / Tele-Neurology Routine Comment: Consulting Provider: [facility] 10/01/24 13:50 Referral Physical Therapy Routine Comment: Physician Instructions: 10/02/24 16:39 Consult to Cardiology Urgent Comment: A-fib with RVR Consulting Provider: Darlene Small Attending Provider on DC: Bear Carpio MD Discharging Provider: Jass Worrell MD DS: Diagnosis Problem List Completed Was Problem List Reviewed/Reconciled?: Yes Hospital Course Hospital Course Hospital course: 74-year-old male with a past medical history of COPD on 3 L of oxygen, hypertension, CVA, HFpEF with ejection fraction 70 to 75%, CAD status post stents, A-fib on Eliquis, solitary pulmonary nodule and BPH who was brought in to the ED on 10/01/2024 from home after he was found unresponsive, admitted for acute encephalopathy with acute hypoxic/hypercapnic respiratory failure. Patient was intubated in the ED and upgrade to ICU. The following day patient was successfully extubated and downgraded to floors for further management. Patient was found to have A-fib with RVR, initially treated with Amio drip, transition to diltiazem drip, transition to p.o. diltiazem with resolution. Patient found to be flu positive, treated with Tamiflu, O2 weaned down to home O2 levels. Patient take significant amounts morphine at home, 120 mg p.o. daily, this was weaned down to 30 mg p.o. twice daily. Patient medically stable and cleared for discharge. Discharge plan: The following changes have been made to medications: -Please take morphine at half the previous dose: 30 mg twice a day until you see your PCP -Please take Percocet at half the previous dose: 1 tab up to twice a day until you see your PCP The following medications have been stopped: -Glipizide Please take all other medications as previously prescribed Please follow-up with your PCP in 1-2 weeks Please continue to work with physical therapy Return to the ED if you develop new or worsening symptoms Diagnoses: #Acute hypoxic hypercapnic respiratory failure s/p extubation, resolved #Likely due to opioid toxicity #History of COPD #A-fib with RVR, resolved #A-fib, patient history #Acute encephalopathy, resolved #History of HFpEF 70- 75% #Type II NSTEMI #Influenza pneumonitis #Acute kidney injury, improving #History of hypertension #History of type II DM Plan of care discussed with senior resident Dr. Crawley PGY?[address] Nieto PGY?3, and attending Dr. Carpio. Jass Worrell MD PGY?1 Time Spent with Patient Time attestation: Total time spent providing and/or coordinating discharge services: Home Health Home Health Referral Orders: 10/04/24 16:14 Home Health Referral Routine Reason For Exam: Generalized weakness Home-Bound The patient must either because of illness or injury, need the aid of supportive devices such as crutches, canes, wheelchairs, and walkers; the use of special transportation; or the assistance of another person in order to leave their place of residence; OR have a condition such that leaving his or her home is medically contraindicated. In addition, the patient also meets the following criteria: patient is normally unable to leave the home and leaving home requires considerable taxing effort. Addendum to Home Health Certification Practitioner's Certification: I certify that the patient has been under my care in the hospital and the care of attending physician (see below). We had a jzux-le-wdpu encounter on (see date below). My clinical findings indicate that the patient is home bound per the above criteria and the Home Health Services noted in these orders are medically necessary. The primary reason for the gdhl-wp-ofpb encounter is related to the fact that the patient requires home health services. Date Certifying Bdfi-tk-Imqg Physician Encounter: 10/01/24 Physician's Name who will Assume Oversight for Services: Adenike Moser Physician's Phone No.who will Assume Oversight for Service: [employer] CHIPPER MACHINE OPERATOR - Community Resources: No PT to Evaluate: Yes PT to evaluate and provide a treatmnet plan to increase patient's mobility and strength. Wound Care: No IV Therapy: No RN Safety Evaluation: Yes RN to evaluate and create a plan of care that will produce positive outcomes. Palliative Treatment: No Palliative treatment and evaluate the need for hospice. Home Health Aide - Personal Care: No Home Health Aide to assist with any ADL's. 10/05/24 09:53 Home Health Referral Routine Reason For Exam: Physical therapy Home-Bound The patient must either because of illness or injury, need the aid of supportive devices such as crutches, canes, wheelchairs, and walkers; the use of special transportation; or the assistance of another person in order to leave their place of residence; OR have a condition such that leaving his or her home is medically contraindicated. In addition, the patient also meets the following criteria: patient is normally unable to leave the home and leaving home requires considerable taxing effort. Addendum to Home Health Certification Practitioner's Certification: I certify that the patient has been under my care in the hospital and the care of attending physician (see below). We had a hmdc-bl-ijmu encounter on (see date below). My clinical findings indicate that the patient is home bound per the above criteria and the Home Health Services noted in these orders are medically necessary. The primary reason for the encp-sv-wggl encounter is related to the fact that the patient requires home health services. Date Certifying Qhfl-lr-Vojp Physician Encounter: 10/01/24 Physician's Name who will Assume Oversight for HH Services: Adenike Moser Physician's Phone No.who will Assume Oversight for Service: SUGAR CHIPPER MACHINE OPERATOR - Community Resources: No PT to Evaluate: Yes PT to evaluate and provide a treatmnet plan to increase patient's mobility and strength. Wound Care: No IV Therapy: No RN Safety Evaluation: Yes RN to evaluate and create a plan of care that will produce positive outcomes. Palliative Treatment: No Palliative treatment and evaluate the need for hospice. Home Health Aide - Personal Care: Yes Home Health Aide to assist with any ADL's. Exam Vital Signs Temp Pulse Resp BP Pulse Ox O2 Del Method O2 Flow Rate 97.3 F 81 16 108/69 92 L Nasal Cannula 3 10/05/24 12:00 10/05/24 12:00 10/05/24 12:00 10/05/24 12:00 10/05/24 12:10/05/24 12:10/05/24 12:00 FiO2 35 10/04/24 16:00 Narrative Exam PE: Gen: Well-developed and well-nourished. HEENT: NCAT, PERRLA, EOMI, MMM, anicteric conjunctivae. CVS: normal S1 and S2. No M/R/G. Irregular regular rhythm, regular rate. Resp: Expiratory wheezing bilateral upper lung reyes, improved. Abd: soft, non-tender, non-distended. MSK: Good ROM in BUE & BLE. No edema or rash. Stasis dermatitis bilateral lower extremities. Neuro: CN II-XII grossly intact. Strength 5/5 in BUE & BLE. Alert and oriented x3. Psych: appropriate mood and affect. Discharge Plan Plan Patient Disposition: Home w/HOME HEALTH Patient condition on transfer: Stable Care Plan Goals: The following changes have been made to medications: -Please take morphine at half the previous dose: 30 mg twice a day until you see your PCP -Please take Percocet at half the previous dose: 1 tab up to twice a day until you see your PCP The following medications have been stopped: -Glipizide Please take all other medications as previously prescribed Please follow-up with your PCP in 1-2 weeks Please continue to work with physical therapy Return to the ED if you develop new or worsening symptoms Prescriptions/Referrals Prescriptions/Med Rec: Continued digoxin 125 mcg (0.125 mg) Tablet 125 mcg PO QDAY Qty: 30 0RF Eliquis 5 mg Tablet 5 mg PO BID Ozempic 0.25 mg or 0.5 mg (2 mg/3 mL) pen injector 0.5 mg SUBCUT QWEEK potassium chloride 10 mEq capsule, extended release 10 meq PO QDAY Patient Comments: TAKE ONE CAPSULE BY MOUTH WITH FOOD EVERY DAY hydroxyzine HCl 50 mg tablet 50 mg PO HS atorvastatin 40 mg tablet 40 mg PO QDAY Qty: 90 0RF diltiazem HCl 90 mg capsule,extended release 12 hr 90 mg PO BID Patient Comments: TAKE 1 CAPSULE BY MOUTH TWICE DAILY lisinopril 40 mg tablet 40 mg PO QDAY metoprolol tartrate 50 mg tablet 25 mg PO BID Patient Comments: TAKE ONE TABLET BY MOUTH TWICE DAILY FOR BLOOD PRESSURE simvastatin 40 mg tablet 40 mg PO QPM pantoprazole 40 mg tablet,delayed release (DR/EC) 40 mg PO QDAY torsemide 20 mg tablet 20 mg PO BID metformin 500 mg Tablet 1,000 mg PO BID Held oxycodone-acetaminophen [Percocet] 10-325 mg Tablet 1 tab PO Q6H PRN (Reason: Pain, Mild) Hold Instructions: Resume on 10/19/24. Take half usual dose until you see your PCP morphine 60 mg tablet extended release 60 mg PO Q12H PRN (Reason: pain) Hold Instructions: Resume on 10/19/24. Take half the previous dose until you see your PCP Patient Comments: TAKE ONE TABLET BY MOUTH EVERY TWELVE HOURS NEEDED FOR PAIN Discontinued morphine [MS Contin] 30 mg Tablet Extended Release 60 mg PO Q12H PRN (Reason: Pain) pantoprazole 40 mg Tablet,Delayed Release (Dr/Ec) 40 mg PO QDAY Qty: 30 0RF glipizide 2.5 mg tablet extended release 24hr 2.5 mg PO QDAY Referrals: Adenkie Moser [Primary Care Provider] - Patient/Caregiver Discharge Instructions Discharge Activity: as per physical therapy Print Language: Wolof Stand Alone Forms: [facility] Award Info., Patient Portal Info Letter Discharge Order Discharge Orders: Discharge (Routine); Ordered 10/05/24 Ordered By: Jass Worrell Quality Discharge Quality Measures VTE prophylaxis Attestestation MD Attestation I have examined the patient, reviewed labs and imaging findings, discussed the case with the resident(s), and reviewed entered orders. I agree with the plan of care as outlined in this note. Dr. Shirin MD
[2024-10-05] MEDS: oxyCODONE/APAP 5/325 TABLET 1 TAB PO ×2 (16:02→22:45)
--- NOTE | 2024-10-05 16:17 | PC.SS ---
Patient appealed discharge via [employer]. Case #: [id number]. Documentation uploaded and submitted. Awaiting results.
[2024-10-05] MEDS: ATORVASTATIN CALCIUM 20 MG TABLET 80 MG PO (20:24)
[2024-10-05] MEDS: INSULIN GLARGINE (Lantus) 5 UNIT/0.05 ML (PER 5 UNITS) SC (20:37)
[2024-10-05] MEDS: ALPRazoLAM 0.25 MG TABLET PO (23:12)
[2024-10-06] VITALS (19 sets, daily range): BP systolic 111–139; BP diastolic 53–70; PULSE 68–86; RESP 16–26; TEMP 36.2–36.7; O2SAT 92–99; BMI 31.7
[2024-10-06] MEDS: IPRATROPIUM RT 0.5 MG/ 2.5 ML NEBU INH ×6 (02:20→22:40)
[2024-10-06] MEDS: LEVALBUTEROL RT 1.25 MG/0.5 ML NEBU INH ×6 (02:21→22:40)
[2024-10-06 06:20] LABS: Basophils % (Auto) 0 % (0-2.5); Eosinophils # (Auto) 0.1 Thou/mm3 (0.0-0.5); Eosinophils % (Auto) 4 % (0-10); Hematocrit 32.5 % (41.0-53.0); Hemoglobin 9.8 g/dL (13.5-16.0); Immature Granulocytes % (Auto) 1 % (0-0); Immature Granulocytes Auto 0.03 Thou/mm3 (0.00-0.00); Lymphocytes # (Auto) 0.7 Thou/mm3 (1.0-4.8); Lymphocytes % (Auto) 21 % (10-50); Mean Corpuscular HGB Conc 30.2 g/dl (31.0-37.0); Mean Corpuscular Hemoglobin 25.1 pg (25.0-35.0); Mean Corpuscular Volume 83 fL (80-100); Monocytes # (Auto) 0.2 Thou/mm3 (0.0-0.8); Monocytes % (Auto) 7 % (0-12); Neutrophils # (Auto) 2.2 Thou/mm3 (1.8-7.7); Neutrophils % (Auto) 67 % (37-80); Nucleated Red Blood Cell % 0 /100 WBC (0); Platelet Count 123 Thou/mm3 (140-440); RDW Standard Deviation 48.5 fL (35.1-43.9); White Blood Count 3.3 Thou/mm3 (3.8-10.6)
[2024-10-06] MEDS: MUPIROCIN OINT 2% 15 GM TUBE TOP ×3 (06:29→20:55)
[2024-10-06 06:59] LABS: Alanine Aminotransferase 30 U/L (10-49); Albumin, Serum 3.7 gm/dL (3.4-4.8); Albumin/Globulin Ratio 1.7 (1.2-2.2); Alkaline Phosphatase 44 U/L (46-116); Anion Gap 8 (7-16); Aspartate Amino Transferase 17 U/L (0-34); BUN/Creatinine Ratio 12 Ratio (12-20); Bilirubin,Total 0.5 mg/dL (0.3-1.2); Blood Urea Nitrogen 14 mg/dL (9-23); Calcium 9.1 mg/dL (8.3-10.6); Calcium (Corrected) 9.3 mg/dL (8.5-10.1); Carbon Dioxide 39.8 mMol/L (20.0-31.0); Chloride 92 mMol/L (98-107); Creatinine (Component) 1.2 mg/dL (0.6-1.3); Estimated Creatinine Clearance 66.7 mL/min (>60); Globulin 2.2 gm/dL (2.3-3.5); Glucose 153 mg/dL (74-106); Osmolality,Calculated 282 (275-295); Phosphorous 3.2 mg/dL (2.4-5.1); Potassium 3.9 mMol/L (3.4-5.1); Sodium 140 mMol/L (136-145); Total Protein 5.9 gm/dL (5.7-8.2); eGFR > 60 See Note
[2024-10-06] MEDS: INSULIN LISPRO (AdmeLOG) 1 UNIT/0.01 ML UNIT SC ×2 (07:41→17:42)
[2024-10-06] MEDS: oxyCODONE/APAP 5/325 TABLET 1 TAB PO (07:48)
--- NOTE | 2024-10-06 08:53 | PC.SS ---
Update: [employer] appeal is pending. Plan is to d/c home following completion of appeal process.
[2024-10-06] MEDS: PANTOPRAZOLE INJ 40 MG VIAL IV (09:11)
[2024-10-06] MEDS: APIXABAN 2.5 MG TABLET 5 MG PO ×2 (09:11→20:45)
[2024-10-06] MEDS: DIGOXIN 0.125 MG TABLET PO (09:11)
[2024-10-06] MEDS: METOPROLOL TARTRATE 25 MG TABLET 50 MG PO ×2 (09:11→20:44)
[2024-10-06] MEDS: MORPHINE SULF 30 MG TABCR PO ×2 (09:12→20:45)
[2024-10-06] MEDS: TORSEMIDE 20 MG TABLET PO ×2 (09:12→20:43)
[2024-10-06] MEDS: DILTIAZEM ER 90 MG ER CAPSULE PO ×2 (09:13→20:44)
[2024-10-06] MEDS: OSELTAMIVIR 30 MG CAPSULE PO ×2 (10:55→20:44)
--- NOTE | 2024-10-06 13:47 | PC.SS ---
[facility] case review completed.? Results [facility] agrees with termination of Hospital services.? Liability Starts on 10/07/2024.? RADIOGRAPHER ANGIOGRAM updated patient that liability begins at 12:00 pm on 10-07-24.? Patient acknowledged decision.??
--- NOTE | 2024-10-06 14:59 | ESDS_ITS ---
<Statement entered by Nasima Crawley MD - 10/06/24 15:19> I discussed with and supervised the phd intern physician who took care of this patient. I personally saw and examined the patient and discussed the assessment and plan with the entire medicine team, including my attending , I agree with most of the assessment and plan as documented below Nasima Crawley M.D. PGY-2 Planned Discharge Date 10/06/24 DS: Providers Provider Date of admission: 10/01/24 12:46 Primary care physician: Adenike Moser Admitting Provider: Vanita Evans MD Attending Provider on Admission: Bear Carpio MD Consults: 10/01/24 08:55 Consult to Neurology / Tele-Neurology Routine Comment: Consulting Provider: [facility] 10/01/24 13:50 Referral Physical Therapy Routine Comment: Physician Instructions: 10/02/24 16:39 Consult to Cardiology Urgent Comment: A-fib with RVR Consulting Provider: Darlene Small Attending Provider on DC: Bear Carpio MD Discharging Provider: Jass Worrell MD DS: Diagnosis Problem List Completed Was Problem List Reviewed/Reconciled?: Yes Hospital Course Hospital Course Hospital course: 74-year-old male with a past medical history of COPD on 3 L of oxygen, hypertension, CVA, HFpEF with ejection fraction 70 to 75%, CAD status post stents, A-fib on Eliquis, solitary pulmonary nodule and BPH who was brought in to the ED on 10/01/2024 from home after he was found unresponsive, admitted for acute encephalopathy with acute hypoxic/hypercapnic respiratory failure. Patient was intubated in the ED and upgrade to ICU. The following day patient was successfully extubated and downgraded to floors for further management. Patient was found to have A-fib with RVR, initially treated with Amio drip, transition to diltiazem drip, transition to p.o. diltiazem with resolution. Patient found to be flu positive, treated with Tamiflu, O2 weaned down to home O2 levels. Patient take significant amounts morphine at home, 120 mg p.o. daily, this was weaned down to 30 mg p.o. twice daily. Patient medically stable and cleared for discharge. Discharge plan: The following changes have been made to medications: -Please take morphine at half the previous dose: 30 mg twice a day until you see your PCP -Please take Percocet at half the previous dose: 1 tab up to twice a day until you see your PCP The following medications have been stopped: -Glipizide Please take all other medications as previously prescribed Please follow-up with your PCP in 1-2 weeks Please continue to work with physical therapy Return to the ED if you develop new or worsening symptoms Diagnoses: #Acute hypoxic hypercapnic respiratory failure s/p extubation, resolved #Likely due to opioid toxicity #History of COPD #A-fib with RVR, resolved #A-fib, patient history #Acute encephalopathy, resolved #History of HFpEF 70- 75% #Type II NSTEMI #Influenza pneumonitis #Acute kidney injury, improving #History of hypertension #History of type II DM Plan of care discussed with senior resident Dr. Crawley PGY?[address] Carpio. Jass Worrell MD PGY?1 Time Spent with Patient Time attestation: Total time spent providing and/or coordinating discharge services: Home Health Home Health Referral Orders: 10/04/24 16:14 Home Health Referral Routine Reason For Exam: Generalized weakness Home-Bound The patient must either because of illness or injury, need the aid of supportive devices such as crutches, canes, wheelchairs, and walkers; the use of special transportation; or the assistance of another person in order to leave their place of residence; OR have a condition such that leaving his or her home is medically contraindicated. In addition, the patient also meets the following criteria: patient is normally unable to leave the home and leaving home requires considerable taxing effort. Addendum to Home Health Certification Practitioner's Certification: I certify that the patient has been under my care in the hospital and the care of attending physician (see below). We had a sedn-xb-gzzj encounter on (see date below). My clinical findings indicate that the patient is home bound per the above criteria and the Home Health Services noted in these orders are medically necessary. The primary reason for the qmfz-or-xpef encounter is related to the fact that the patient requires home health services. Date Certifying Xrih-oa-Zbwq Physician Encounter: 10/01/24 Physician's Name who will Assume Oversight for Services: Adenike [facility] Physician's Phone No.who will Assume Oversight [facility] [place] [facility] [place] [facility] Resources: No PT to Evaluate: Yes PT to evaluate and provide a treatmnet plan to increase patient's mobility and strength. Wound Care: No IV Therapy: No RN Safety Evaluation: Yes RN to evaluate and create a plan of care that will produce positive outcomes. Palliative Treatment: No Palliative treatment and evaluate the need for hospice. Home Health Aide - Personal Care: No Home Health Aide to assist with any ADL's. 10/05/24 09:53 Home Health Referral Routine Reason For Exam: Physical therapy Home-Bound The patient must either because of illness or injury, need the aid of supportive devices such as crutches, canes, wheelchairs, and walkers; the use of special transportation; or the assistance of another person in order to leave their place of residence; OR have a condition such that leaving his or her home is medically contraindicated. In addition, the patient also meets the following criteria: patient is normally unable to leave the home and leaving home requires considerable taxing effort. Addendum to Home Health Certification Practitioner's Certification: I certify that the patient has been under my care in the hospital and the care of attending physician (see below). We had a ceql-jh-phkm encounter on (see date below). My clinical findings indicate that the patient is home bound per the above criteria and the Home Health Services noted in these orders are medically necessary. The primary reason for the udgt-ot-jghb encounter is related to the fact that the patient requires home health services. Date Certifying Hgpl-zl-Wgfh Physician Encounter: 10/01/24 Physician's Name who will Assume Oversight for Services: [facility] Physician's Phone No.who will Assume Oversight [facility] Service: [facility] Resources: No PT to Evaluate: Yes PT to evaluate and provide a treatmnet plan to increase patient's mobility and strength. Wound Care: No IV Therapy: No RN Safety Evaluation: Yes RN to evaluate and create a plan of care that will produce positive outcomes. Palliative Treatment: No Palliative treatment and evaluate the need for hospice. Home Health Aide - Personal Care: Yes Home Health Aide to assist with any ADL's. Exam Vital Signs Temp Pulse Resp BP Pulse Ox O2 Del Method O2 Flow Rate 97.7 F 69 17 126/70 99 Nasal Cannula 3 10/06/24 08:00 10/06/24 14:36 10/06/24 14:36 10/06/24 09:13 10/06/24 14:36 10/06/24 08:00 10/06/24 14:36 FiO2 35 10/06/24 04:00 Narrative Exam PE: Gen: Well-developed and well-nourished. HEENT: NCAT, PERRLA, EOMI, MMM, anicteric conjunctivae. CVS: normal S1 and S2. No M/R/G. Irregular regular rhythm, regular rate. Resp: Expiratory wheezing bilateral upper lung reyes, improved. Abd: soft, non-tender, non-distended. MSK: Good ROM in BUE & BLE. No edema or rash. Stasis dermatitis bilateral lower extremities. Neuro: CN II-XII grossly intact. Strength 5/5 in BUE & BLE. Alert and oriented x3. Psych: appropriate mood and affect. Discharge Plan Plan Patient Disposition: Home w/HOME HEALTH Patient condition on transfer: Stable Care Plan Goals: The following changes have been made to medications: -Please take morphine at half the previous dose: 30 mg twice a day until you see your PCP -Please take Percocet at half the previous dose: 1 tab up to twice a day until you see your PCP The following medications have been stopped: -Glipizide Please take all other medications as previously prescribed Please follow-up with your PCP in 1-2 weeks Please follow-up with network support analyst regarding echo results. Please continue to work with physical therapy Return to the ED if you develop new or worsening symptoms Prescriptions/Referrals Prescriptions/Med Rec: Continued digoxin 125 mcg (0.125 mg) Tablet 125 mcg PO QDAY Qty: 30 0RF Eliquis 5 mg Tablet 5 mg PO BID Ozempic 0.25 mg or 0.5 mg (2 mg/3 mL) pen injector 0.5 mg SUBCUT QWEEK potassium chloride 10 mEq capsule, extended release 10 meq PO QDAY Patient Comments: TAKE ONE CAPSULE BY MOUTH WITH FOOD EVERY DAY hydroxyzine HCl 50 mg tablet 50 mg PO HS atorvastatin 40 mg tablet 40 mg PO QDAY Qty: 90 0RF diltiazem HCl 90 mg capsule,extended release 12 hr 90 mg PO BID Patient Comments: TAKE 1 CAPSULE BY MOUTH TWICE DAILY lisinopril 40 mg tablet 40 mg PO QDAY metoprolol tartrate 50 mg tablet 25 mg PO BID Patient Comments: TAKE ONE TABLET BY MOUTH TWICE DAILY FOR BLOOD PRESSURE simvastatin 40 mg tablet 40 mg PO QPM pantoprazole 40 mg tablet,delayed release (DR/EC) 40 mg PO QDAY torsemide 20 mg tablet 20 mg PO BID metformin 500 mg Tablet 1,000 mg PO BID Held oxycodone-acetaminophen [Percocet] 10-325 mg Tablet 1 tab PO Q6H PRN (Reason: Pain, Mild) Hold Instructions: Resume on 10/19/24. Take half usual dose until you see your PCP morphine 60 mg tablet extended release 60 mg PO Q12H PRN (Reason: pain) Hold Instructions: Resume on 10/19/24. Take half the previous dose until you see your PCP Patient Comments: TAKE ONE TABLET BY MOUTH EVERY TWELVE HOURS NEEDED FOR PAIN Discontinued morphine [MS Contin] 30 mg Tablet Extended Release 60 mg PO Q12H PRN (Reason: Pain) pantoprazole 40 mg Tablet,Delayed Release (Dr/Ec) 40 mg PO QDAY Qty: 30 0RF glipizide 2.5 mg tablet extended release 24hr 2.5 mg PO QDAY Referrals: Adenike Moser [Primary Care Provider] - Patient/Caregiver Discharge Instructions Discharge Activity: as per physical therapy Print Language: Irish Stand Alone Forms: [employer] Award Info., Patient Portal Info Letter Discharge Order Discharge Orders: Discharge (Routine); Ordered 10/06/24 Ordered By: Jass Worrell Quality Discharge Quality Measures VTE prophylaxis Attestestation MD Attestation I have examined the patient, reviewed labs and imaging findings, discussed the case with the resident(s), and reviewed entered orders. I agree with the plan of care as outlined in this note. Dr. Shirin MD
--- NOTE | 2024-10-06 15:08 | PC.CM ---
I did not see a preference for home health agency so I sent to all agencies.
--- NOTE | 2024-10-06 15:11 | PC.SS ---
Rounding Note: Patient to d/c home tomorrow with home health.
[2024-10-06] MEDS: ACETAMINOPHEN 325 MG TABLET 650 MG PO (15:31)
--- NOTE | 2024-10-06 16:09 | PC.SS ---
AUDIO EXPERIENCE EXPERT confirmed with the patient possession of home oxygen.? Patient confirmed that patient?s son will bring patient?s home oxygen for transport home.?
[2024-10-06] MEDS: oxyCODONE HCL 5 MG IR TAB 2.5 MG PO (17:41)
[2024-10-06] MEDS: ATORVASTATIN CALCIUM 20 MG TABLET 80 MG PO (20:44)
[2024-10-06] MEDS: INSULIN GLARGINE (Lantus) 5 UNIT/0.05 ML (PER 5 UNITS) SC (20:55)
[2024-10-06] MEDS: ALPRazoLAM 0.25 MG TABLET PO (21:35)
[2024-10-07] VITALS (9 sets, daily range): BP systolic 124–145; BP diastolic 60–79; PULSE 70–92; RESP 17–22; TEMP 36.2–36.4; O2SAT 93–99; BMI 31.7
[2024-10-07] MEDS: LEVALBUTEROL RT 1.25 MG/0.5 ML NEBU INH ×3 (03:05→10:45)
[2024-10-07] MEDS: IPRATROPIUM RT 0.5 MG/ 2.5 ML NEBU INH ×3 (03:05→10:45)
[2024-10-07] MEDS: MUPIROCIN OINT 2% 15 GM TUBE TOP (05:51)
[2024-10-07 06:02] LABS: Basophils % (Auto) 0 % (0-2.5); Eosinophils # (Auto) 0.2 Thou/mm3 (0.0-0.5); Eosinophils % (Auto) 4 % (0-10); Hematocrit 35.9 % (41.0-53.0); Hemoglobin 10.6 g/dL (13.5-16.0); Immature Granulocytes % (Auto) 2 % (0-0); Immature Granulocytes Auto 0.08 Thou/mm3 (0.00-0.00); Lymphocytes # (Auto) 0.7 Thou/mm3 (1.0-4.8); Lymphocytes % (Auto) 17 % (10-50); Mean Corpuscular HGB Conc 29.5 g/dl (31.0-37.0); Mean Corpuscular Hemoglobin 24.8 pg (25.0-35.0); Mean Corpuscular Volume 84 fL (80-100); Monocytes # (Auto) 0.3 Thou/mm3 (0.0-0.8); Monocytes % (Auto) 7 % (0-12); Neutrophils # (Auto) 2.9 Thou/mm3 (1.8-7.7); Neutrophils % (Auto) 70 % (37-80); Nucleated Red Blood Cell % 0 /100 WBC (0); Platelet Count 125 Thou/mm3 (140-440); RDW Standard Deviation 48.4 fL (35.1-43.9); Red Blood Count 4.28 Miln/mm3 (4.50-5.90); White Blood Count 4.1 Thou/mm3 (3.8-10.6)
[2024-10-07] MEDS: HYDROcodone/APAP 5/325 TABLET 1 TAB PO (06:31)
[2024-10-07 06:46] LABS: Alanine Aminotransferase 29 U/L (10-49); Albumin, Serum 3.8 gm/dL (3.4-4.8); Albumin/Globulin Ratio 1.6 (1.2-2.2); Alkaline Phosphatase 44 U/L (46-116); Anion Gap 8 (7-16); Aspartate Amino Transferase 22 U/L (0-34); BUN/Creatinine Ratio 10 Ratio (12-20); Bilirubin,Total 0.7 mg/dL (0.3-1.2); Blood Urea Nitrogen 14 mg/dL (9-23); Calcium 9.3 mg/dL (8.3-10.6); Calcium (Corrected) 9.5 mg/dL (8.5-10.1); Carbon Dioxide > 40.0 mMol/L (20.0-31.0); Chloride 91 mMol/L (98-107); Creatinine (Component) 1.4 mg/dL (0.6-1.3); Estimated Creatinine Clearance 57.1 mL/min (>60); Globulin 2.4 gm/dL (2.3-3.5); Glucose 138 mg/dL (74-106); Magnesium 2.1 mg/dL (1.6-2.6); Osmolality,Calculated 280 (275-295); Phosphorous 3.2 mg/dL (2.4-5.1); Potassium 4.1 mMol/L (3.4-5.1); Sodium 139 mMol/L (136-145); Total Protein 6.2 gm/dL (5.7-8.2); eGFR 52 See Note
--- NOTE | 2024-10-07 07:23 | PD.RESDS ---
Planned Discharge Date 10/07/24 DS: Providers Provider Date of admission: 10/01/24 12:46 Primary care physician: Adenike Moser Admitting Provider: Vanita Evans MD Attending Provider on Admission: Bear Carpio MD Consults: 10/01/24 08:55 Consult to Neurology / Tele-Neurology Routine Comment: Consulting Provider: [facility] 10/01/24 13:50 Referral Physical Therapy Routine Comment: Physician Instructions: 10/02/24 16:39 Consult to Cardiology Urgent Comment: A-fib with RVR Consulting Provider: Darlene Small Attending Provider on DC: Jamila Nieto MD Discharging Provider: Jamila Nieto MD DS: Diagnosis Problem List Completed Was Problem List Reviewed/Reconciled?: Yes Hospital Course Hospital Course Hospital course: 74-year-old male with a past medical history of COPD on 3 L of oxygen, hypertension, CVA, HFpEF with ejection fraction 70 to 75%, CAD status post stents, A-fib on Eliquis, solitary pulmonary nodule and BPH who was brought in to the ED on 10/01/2024 from home after he was found unresponsive, admitted for acute encephalopathy with acute hypoxic/hypercapnic respiratory failure. Patient was intubated in the ED and upgrade to ICU. The following day patient was successfully extubated and downgraded to floors for further management. Patient was found to have A-fib with RVR, initially treated with Amio drip, transition to diltiazem drip, transition to p.o. diltiazem with resolution. Patient found to be flu positive, treated with Tamiflu, O2 weaned down to home O2 levels. Patient take significant amounts morphine at home, 120 mg p.o. daily, this was weaned down to 30 mg p.o. twice daily. Patient medically stable and cleared for discharge. Discharge plan: The following changes have been made to medications: -Please take morphine at half the previous dose: 30 mg twice a day until you see your PCP -Please take Percocet at half the previous dose: 1 tab up to twice a day until you see your PCP The following medications have been stopped: -Glipizide Please take all other medications as previously prescribed Please follow-up with your PCP in 1-2 weeks Please continue to work with physical therapy Continue DuoNebs inhalations every 6 hours as needed for wheezing or shortness of breath Return to the ED if you develop new or worsening symptoms Diagnoses: #Acute hypoxic hypercapnic respiratory failure s/p extubation, resolved #Likely due to opioid toxicity #History of COPD #A-fib with RVR, resolved #A-fib, patient history #Acute encephalopathy, resolved #History of HFpEF 70- 75% #Type II NSTEMI #Influenza pneumonitis #Acute kidney injury, improving #History of hypertension #History of type II DM Patient discussed with my attending Dr Shirin Nieto MD PGY-3 Disclaimer: Despite multiple revisions, due to the dictation software being used, the document bellow may not be free of grammatical errors including phonetic/typographic errors. However, this does not deter from our commitment to providing health care in the patient's best interest in mind. Time Spent with Patient Time attestation: Total time spent providing and/or coordinating discharge services: Time spent: Greater than 30 minutes Home Health Home Health Referral Orders: 10/05/24 09:53 Home Health Referral Routine Reason For Exam: Physical therapy Home-Bound The patient must either because of illness or injury, need the aid of supportive devices such as crutches, canes, wheelchairs, and walkers; the use of special transportation; or the assistance of another person in order to leave their place of residence; OR have a condition such that leaving his or her home is medically contraindicated. In addition, the patient also meets the following criteria: patient is normally unable to leave the home and leaving home requires considerable taxing effort. Addendum to Home Health Certification Practitioner's Certification: I certify that the patient has been under my care in the hospital and the care of attending physician (see below). We had a [id number] encounter on (see date below). My clinical findings indicate that the patient is home bound per the above criteria and the Home Health Services noted in these orders are medically necessary. The primary reason for the [id number] encounter is related to the fact that the patient requires home health services. Date Certifying Nyth-ce-Agky Physician Encounter: 10/01/24 Physician's Name who will Assume Oversight for Services[facility] Phys[facility]'s Phone No.who will Assume Oversight for Service: FINANCIAL ACCOUNTING MANAGER - Community Resources: No PT to Evaluate: Yes PT to evaluate and provide a treatmnet plan to increase patient's mobility and strength. Wound Care: No IV Therapy: No RN Safety Evaluation: Yes RN to evaluate and create a plan of care that will produce positive outcomes. Palliative Treatment: No Palliative treatment and evaluate the need for hospice. Home Health Aide - Personal Care: Yes Home Health Aide to assist with any ADL's. Exam Vital Signs Temp Pulse Resp BP Pulse Ox O2 Del Method O2 Flow Rate 97.6 F 77 18 145/65 H 99 Nasal Cannula 2 10/07/24 04:00 10/07/24 07:03 10/07/24 07:03 10/07/24 04:00 10/07/24 07:03 10/07/24 04:00 10/07/24 07:03 FiO2 35 10/06/24 23:51 Narrative Exam Gen: Well-developed and well-nourished. HEENT: NCAT, PERRLA, EOMI, MMM, anicteric conjunctivae. CVS: normal S1 and S2. No M/R/G. Irregular regular rhythm, regular rate. Resp: Expiratory wheezing bilateral upper lung reyes, improved. Abd: soft, non-tender, non-distended. MSK: Good ROM in BUE & BLE. No edema or rash. Stasis dermatitis bilateral lower extremities. Neuro: CN II-XII grossly intact. Strength 5/5 in BUE & BLE. Alert and oriented x3. Psych: appropriate mood and affect. Discharge Plan Plan Patient Disposition: Home w/HOME HEALTH Patient condition on transfer: Stable Care Plan Goals: The following changes have been made to medications: -Please take morphine at half the previous dose: 30 mg twice a day until you see your PCP -Please take Percocet at half the previous dose: 1 tab up to twice a day until you see your PCP The following medications have been stopped: -Glipizide Please take all other medications as previously prescribed Please follow-up with your PCP in 1-2 weeks Please follow-up with customer equipment engineer regarding echo results. Please continue to work with physical therapy Return to the ED if you develop new or worsening symptoms Prescriptions/Referrals Prescriptions/Med Rec: New ipratropium-albuterol 0.5 mg-3 mg(2.5 mg base)/3 mL solution for nebulization 3 ml inhalation QID PRN (Reason: shortness of breath or wheezing) Qty: 180 0RF Spiriva Respimat 2.5 mcg/actuation mist 2 puff inhalation QDAY Qty: 4 0RF Continued digoxin 125 mcg (0.125 mg) Tablet 125 mcg PO QDAY Qty: 30 0RF Eliquis 5 mg Tablet 5 mg PO BID Ozempic 0.25 mg or 0.5 mg (2 mg/3 mL) pen injector 0.5 mg SUBCUT QWEEK potassium chloride 10 mEq capsule, extended release 10 meq PO QDAY Patient Comments: TAKE ONE CAPSULE BY MOUTH WITH FOOD EVERY DAY hydroxyzine HCl 50 mg tablet 50 mg PO HS atorvastatin 40 mg tablet 40 mg PO QDAY Qty: 90 0RF diltiazem HCl 90 mg capsule,extended release 12 hr 90 mg PO BID Patient Comments: TAKE 1 CAPSULE BY MOUTH TWICE DAILY lisinopril 40 mg tablet 40 mg PO QDAY metoprolol tartrate 50 mg tablet 25 mg PO BID Patient Comments: TAKE ONE TABLET BY MOUTH TWICE DAILY FOR BLOOD PRESSURE simvastatin 40 mg tablet 40 mg PO QPM pantoprazole 40 mg tablet,delayed release (DR/EC) 40 mg PO QDAY torsemide 20 mg tablet 20 mg PO BID metformin 500 mg Tablet 1,000 mg PO BID Held oxycodone-acetaminophen [Percocet] 10-325 mg Tablet 1 tab PO Q6H PRN (Reason: Pain, Mild) Hold Instructions: Resume on 10/19/24. Take half usual dose until you see your PCP morphine 60 mg tablet extended release 60 mg PO Q12H PRN (Reason: pain) Hold Instructions: Resume on 10/19/24. Take half the previous dose until you see your PCP Patient Comments: TAKE ONE TABLET BY MOUTH EVERY TWELVE HOURS NEEDED FOR PAIN Discontinued morphine [MS Contin] 30 mg Tablet Extended Release 60 mg PO Q12H PRN (Reason: Pain) pantoprazole 40 mg Tablet,Delayed Release (Dr/Ec) 40 mg PO QDAY Qty: 30 0RF glipizide 2.5 mg tablet extended release 24hr 2.5 mg PO QDAY Referrals: Adenike Moser [Primary Care Provider] - Patient/Caregiver Discharge Instructions Discharge Activity: as per physical therapy Print Language: Sami Stand Alone Forms: [place] Award Info., Patient Portal Info Letter Discharge Order Discharge Orders: Discharge (Routine); Ordered 10/07/24 Ordered By: Jamila Nieto Quality Discharge Quality Measures VTE prophylaxis MD Attestestation MD Attestation I have examined the patient, reviewed labs and imaging findings, discussed the case with the resident(s), and reviewed entered orders. I agree with the plan of care as outlined in this note. Time spent: [address] Shirin MD
[2024-10-07] MEDS: MORPHINE SULF 30 MG TABCR PO (08:36)
[2024-10-07] MEDS: PANTOPRAZOLE INJ 40 MG VIAL IV (08:36)
[2024-10-07] MEDS: DIGOXIN 0.125 MG TABLET PO (08:37)
[2024-10-07] MEDS: TORSEMIDE 20 MG TABLET PO (08:37)
[2024-10-07] MEDS: OSELTAMIVIR 30 MG CAPSULE PO (08:37)
[2024-10-07] MEDS: METOPROLOL TARTRATE 25 MG TABLET 50 MG PO (08:38)
[2024-10-07] MEDS: DILTIAZEM ER 90 MG ER CAPSULE PO (08:38)
[2024-10-07] MEDS: APIXABAN 2.5 MG TABLET 5 MG PO (08:38)
--- NOTE | 2024-10-07 11:13 | PC.SS ---
SS spoke to pt son Cruz in regards to pt Appeal and Liability starting as of noon tday, per Cruz he will be on the way. RNDeborah also updated.
--- NOTE | 2024-10-08 12:34 | PC.CM ---
patient accepted by [facility]. Start of care date set for 10/08.
== END 2024-10-07 13:23 | disposition home health service (06) | DRG 208 ==
LOC: SERX 13:03 → SERHOLD 13:19 → S2SX 15:48 → S2NX 10-03 07:59 → S2SX 10-11 08:40
PROVIDERS: Student in an Organized Health Care Education/Training Program; Admitting Provider Internal Medicine; Emergency Provider Family Medicine; PCP Internal Medicine; Visit Provider Student in an Organized Health Care Education/Training Program
DX: J96.21 Acute and chronic respiratory failure with hypoxia (principal); J12.9 Viral pneumonia, unspecified; J10.08 Influenza due to other identified influenza virus with other specified pneumonia; I13.0 Hypertensive heart and chronic kidney disease with heart failure and stage 1 through stage 4 chronic kidney disease, or unspecified chronic kidney disease; I50.32 Chronic diastolic (congestive) heart failure; N17.9 Acute kidney failure, unspecified; J44.0 Chronic obstructive pulmonary disease with (acute) lower respiratory infection; J44.1 Chronic obstructive pulmonary disease with (acute) exacerbation; F11.20 Opioid dependence, uncomplicated; E87.29 Other acidosis; G93.1 Anoxic brain damage, not elsewhere classified; J96.22 Acute and chronic respiratory failure with hypercapnia; R79.89 Other specified abnormal findings of blood chemistry; E11.22 Type 2 diabetes mellitus with diabetic chronic kidney disease; N40.0 Benign prostatic hyperplasia without lower urinary tract symptoms; I16.0 Hypertensive urgency; G89.29 Other chronic pain; E87.5 Hyperkalemia; I48.91 Unspecified atrial fibrillation; F41.9 Anxiety disorder, unspecified; I25.10 Atherosclerotic heart disease of native coronary artery without angina pectoris; E78.5 Hyperlipidemia, unspecified; Z87.891 Personal history of nicotine dependence; D72.810 Lymphocytopenia; Z95.5 Presence of coronary angioplasty implant and graft; T40.601A Poisoning by unspecified narcotics, accidental (unintentional), initial encounter; Z79.899 Other long term (current) drug therapy; Z86.73 Personal history of transient ischemic attack (TIA), and cerebral infarction without residual deficits; Z79.01 Long term (current) use of anticoagulants; Z87.01 Personal history of pneumonia (recurrent); Z79.84 Long term (current) use of oral hypoglycemic drugs; I65.21 Occlusion and stenosis of right carotid artery; Z88.6 Allergy status to analgesic agent; D63.1 Anemia in chronic kidney disease; Z88.8 Allergy status to other drugs, medicaments and biological substances
CPT/HCPCS: 36415; 36600; 70450; 70496; 70498; 71045; 80053; 80061; 80069; 80307; 80320; 81001; 82550; 82803; 83036; 83605; 83735; 83880; 84100; 84145; 84443; 84484; 85025; 85610; 85730; 87040; 87077; 87081; 87086; 87186; 87205; 87400; 87634; 87811; 93005; 93306; 94002; 94003; 94640; 94660; 96360; 96365; 96366; 96372; 97162; 99291; A4649; J0283; J0330; J1643; J1815; J2060; J2310; J2470; J2543; J2704; J2919; J3490; J7030; Q9967; A9270; G0480; J1920

== ENCOUNTER 2024-10-10 08:32 | Inpatient (IN) | payer MEDICARE, MEDICAID, SELFPAY ==
[2024-10-10] VITALS (14 sets, daily range): BP systolic 124–150; BP diastolic 58–88; PULSE 69–106; RESP 16–23; TEMP 36.2–37.8; O2SAT 95–100; BMI 29.7
--- NOTE | 2024-10-10 08:48 | EKG_ITS ---
[facility] Test Date: 2024-10-10 Pat Name: SAKSHI GREENFIELD Department: Room: - Gender: Male Yarn Skeins Examiner: : 1950 Requested By: Chi Conde Order Number: [id number] Reading MD: Chi Conde Measurements Intervals [place] Rate: 82 P: MO: QRS: -36 QRSD: 120 T: -8 QT: 364 QTc: 426 Interpretive Statements ATRIAL FLUTTER/TACHYCARDIA LEFT AXIS DEVIATION [QRS AXIS < -30] RIGHT BUNDLE BRANCH BLOCK [120+ ms QRS DURATION, UPRIGHT V1, 40+ ms S IN I/aVL/V4/V5/V6] Compared to ECG 10/03/2024 00:54:48 Left-axis deviation now present Atrial fibrillation no longer present Ventricular premature complex(es) no longer present Aberrant conduction of supraventricular beat(s) no longer present Left anterior fascicular block no longer present ST (T wave) deviation no longer present /store/S0/[id number].pdf
--- NOTE | 2024-10-10 08:48 | XR_ITS ---
Examination: AP chest portable sitting single view TECHNIQUE: Portable AP sitting chest single view Exam date and time: October 10, 2024 0805 hours Comparison October 02, 2024 INDICATIONS: Coughing shortness of breath beginning 3 days ago FINDINGS: Mild bibasilar pneumonia Normal heart size Prominent osteopenia IMPRESSION: Mild bibasilar pneumonia
[2024-10-10] MEDS: ALBUTEROL RT 2.5 MG/0.5 ML NEBU 5 MG INH (09:12)
[2024-10-10] MEDS: IPRATROPIUM RT 0.5 MG/ 2.5 ML NEBU INH ×2 (09:13→22:15)
[2024-10-10 09:38] LABS: Base Excess, Venous 11 (-3-3); O2 Saturation, Venous 97 % (96-97); PCO2, Venous 36 mmHg (36-56); PO2, Venous 65 mmHg (15-58); pH, Venous 7.58 (7.33-7.66)
[2024-10-10 09:39] LABS: Lactate (Lactic Acid) 2.2 mMol/L (0.4-2.0)
[2024-10-10 09:42] LABS: Basophils % (Auto) 0 % (0-2.5); Eosinophils % (Auto) 0 % (0-10); Hematocrit 34.5 % (41.0-53.0); Hemoglobin 10.9 g/dL (13.5-16.0); Immature Granulocytes % (Auto) 1 % (0-0); Lymphocytes # (Auto) 0.5 Thou/mm3 (1.0-4.8); Lymphocytes % (Auto) 3 % (10-50); Mean Corpuscular HGB Conc 31.6 g/dl (31.0-37.0); Mean Corpuscular Hemoglobin 25.1 pg (25.0-35.0); Mean Corpuscular Volume 80 fL (80-100); Monocytes # (Auto) 1.1 Thou/mm3 (0.0-0.8); Monocytes % (Auto) 6 % (0-12); Neutrophils # (Auto) 15.4 Thou/mm3 (1.8-7.7); Neutrophils % (Auto) 90 % (37-80); Nucleated Red Blood Cell % 0 /100 WBC (0); Platelet Count 151 Thou/mm3 (140-440); RDW Standard Deviation 49.2 fL (35.1-43.9); Red Blood Count 4.34 Miln/mm3 (4.50-5.90); White Blood Count 17.2 Thou/mm3 (3.8-10.6)
[2024-10-10 09:47] LABS: Collection Type, Urine Clean Catch; Squamous Epithelial Cell,Urine 0 /hpf (0-5)
[2024-10-10] MEDS: MethylPREDNISolone SOD SUCC 62.5 MG/ML 2ML VIAL 125 MG IVP (10:03)
[2024-10-10 10:05] LABS: B-Type Natriuretic Peptide 84 pg/mL (0-100)
[2024-10-10 10:11] LABS: Alanine Aminotransferase 21 U/L (10-49); Albumin, Serum 4.3 gm/dL (3.4-4.8); Albumin/Globulin Ratio 1.8 (1.2-2.2); Alkaline Phosphatase 47 U/L (46-116); Anion Gap 7 (7-16); Aspartate Amino Transferase 11 U/L (0-34); BUN/Creatinine Ratio 18 Ratio (12-20); Blood Urea Nitrogen 23 mg/dL (9-23); Calcium 9.6 mg/dL (8.3-10.6); Calcium (Corrected) 9.6 mg/dL (8.5-10.1); Carbon Dioxide 34.4 mMol/L (20.0-31.0); Chloride 94 mMol/L (98-107); Creatinine (Component) 1.3 mg/dL (0.6-1.3); Globulin 2.4 gm/dL (2.3-3.5); Glucose 236 mg/dL (74-106); Magnesium 1.6 mg/dL (1.6-2.6); Osmolality,Calculated 281 (275-295); Potassium 4.7 mMol/L (3.4-5.1); Sodium 135 mMol/L (136-145); Total Protein 6.7 gm/dL (5.7-8.2); Troponin I 0.032 ng/mL (0.0-0.045); eGFR 57 See Note
[2024-10-10 10:14] LABS: Strep A Rapid Negative (Negative)
[2024-10-10 10:27] LABS: Bilirubin,Urine Negative (Negative); Blood,Urine Negative (Negative); Clarity,Urine Clear (Clear/Hazy); Color,Urine Lt-Yellow (Lt Yel-Yel); Glucose, Urine Negative (Negative); Ketones,Urine Negative (Negative); Leukocyte Esterase,Urine Negative (Negative); Nitrite,Urine Negative (Negative); PH,Urine 7.5 (5.0-7.0); Protein,Urine Trace (Neg - Trace); RBC,Urine 4 /hpf (0-3); Specific Gravity,Urine 1.015 (1.001-1.035); WBC,Urine 1 /hpf (0-5)
[2024-10-10 10:30] LABS: Respiratory Syncytial Virus Ag Negative (Negative)
--- NOTE | 2024-10-10 11:58 | PD.EDSOB ---
ED SOB =RME/HPI General Chief Complaint: Shortness of Breath/Dyspnea Stated Complaint: SOB Time Seen by Provider: 10/10/24 08:42 Arrival date/time: 10/10/24 08:32 RME / HPI RME / HPI Narrative: DR. CONDE MAIN ED EVALUATION: 74 year old male with past medical history significant for COPD was just in the hospital and extubated for COPD exacerbation and evidently was quite ill presents to the Emergency Department BIBA with complaint of shortness of breath. Associated wheezing and a cough. Symptoms are moderate. EMS gave x2 albuterol treatment en route. Denies any other symptoms at this time. Related Data Home Medications ?Medication ?Instructions ?Recorded ?Confirmed oxycodone-acetaminophen 10 mg-325 1 tab PO Q6H PRN Pain, Mild 10/26/18 10/01/24 mg tablet (Percocet) Held on 10/05/24. Instructions: Resume on 10/19/24. Take half usual dose until you see your PCP apixaban 5 mg tablet (Eliquis) 5 mg PO BID 11/18/23 10/01/24 semaglutide 0.25 mg or 0.5 mg (2 0.5 mg subcut QWEEK 12/30/23 10/03/24 mg/3 mL) subcutaneous pen injector (Ozempic) hydroxyzine HCl 50 mg tablet 50 mg PO HS 12/31/23 12/31/23 potassium chloride 10 mEq 10 meq PO QDAY 12/31/23 10/03/24 capsule,extended release diltiazem HCl 90 mg 90 mg PO BID 10/01/24 10/02/24 capsule,extended release 12 hr lisinopril 40 mg tablet 40 mg PO QDAY 10/01/24 10/01/24 metformin 500 mg tablet 1,000 mg PO BID 10/01/24 10/01/24 metoprolol tartrate 50 mg tablet 25 mg PO BID 10/01/24 10/01/24 morphine 60 mg tablet,extended 60 mg PO Q12H PRN pain 10/01/24 10/03/24 release Held on 10/05/24. Instructions: Resume on 10/19/24. Take half the previous dose until you see your PCP pantoprazole 40 mg tablet,delayed 40 mg PO QDAY 03/15/25 03/15/25 release simvastatin 40 mg tablet 40 mg PO QPM 10/01/24 10/01/24 torsemide 20 mg tablet 20 mg PO BID 10/01/24 10/01/24 Previous Rx's ?Medication ?Instructions ?Recorded digoxin 125 mcg (0.125 mg) tablet 125 mcg PO QDAY #30 tabs 11/18/23 atorvastatin 40 mg tablet 40 mg PO QDAY #90 tabs 01/03/24 ipratropium 0.5 mg-albuterol 3 mg 3 ml inhalation QID PRN shortness 10/07/24 (2.5 mg base)/3 mL nebulization of breath or wheezing #180 mL soln tiotropium bromide 2.5 2 puff inhalation QDAY #4 grams 10/07/24 mcg/actuation mist for inhalation (Spiriva Respimat) Allergies Allergy/AdvReac Type Severity Reaction Status Date / Time aspirin Allergy Severe Swelling Verified 12/29/23 23:48 of Lip/Tongue/Throat albuterol AdvReac Intermediate Difficulty Verified 12/29/23 23:47 Breathing Review of Systems Review of Systems Systems Reviewed: All systems reviewed, normal except as documented Narrative Review of Systems: Constitutional: DENIES: fevers; Eyes: DENIES: loss of vision; Head/Ear/Nose: DENIES: loss of hearing. Throat: DENIES: dysphagia. Cardiovascular: DENIES: chest pain, dyspnea, or syncope. Respiratory: POSITIVES: shortness of breath, wheezing, cough Gastrointestinal: DENIES: rectal bleeding or melena. Genitourinary: DENIES: dysuria (painful or difficult urination); Musculoskeletal: DENIES: arthralgia (pain in a joint); Skin: DENIES: rash; Neurological: DENIES: loss of function or movement; Psychiatric: DENIES: recent major life stressor, emotional problem, illicit drug use or abuse; Endocrinology: DENIES: weight change,; Hematologic/Lymphatic: DENIES: abnormal bruising. Allergic/Immunologic: DENIES: urticaria (hives). Past Medical History Past Medical History NEUROLOGIC: Positive Cerebrovascular Accident CARDIAC: Positive Cardiac Disorders, Atrial Fibrillation (on Eliquis), Coronary Artery Disease, Atherosclerotic Heart Disease, Peripheral Vascular Disease, Congestive Heart Failure and Hypertension RESPIRATORY: Positive Chronic Obstructive Pulmonary Disease (COPD) and Asthma GASTROINTESTINAL: Positive Hepatitis and Obstructive Bowel GENITOURINARY: Positive Renal Disease and Benign Prostatic Hyperplasia MUSCULOSKELETAL: Positive Musculoskeletal Disorders and Arthritis ENDOCRINE: Positive Endocrine Disorders and Diabetes Mellitus Type 2; Negative Diabetes Mellitus Type 1 HEMATOLOGIC: Negative Sickle Cell Disease OTHER HISTORY: Positive Hospitalization, Chicken Pox, Measles, Mumps and Clostridium Difficile Family History FAMILY HISTORY: Positive Family Cardiac Disorders Surgical History SURGICAL: Positive Coronary Stent, Angiogram and Abdominal Surgery Social History SMOKING STATUS: Former smoker SECOND HAND EXPOSURE: No SUBSTANCE USE: does not use ALCOHOL: Never ED Exam Narrative Physical exam: Physical Exam: General: The vital signs were reviewed. O2 sats are in the mid to low 90s while he is on 2 or 3 L nasal cannula. The patient is non-toxic, in no apparent distress and appears healthy with a patent airway, no respiratory distress and has no apparent circulatory problems. Head & Scalp: Normocephalic, atraumatic. Face: Appears normal and is without lesions, deformity. Ears: Left external pinna appears normal. Right external pinna appears normal. Eyes: The sclera is anicteric. No obvious photophobia. The Left and Right Orbit/Lid/Conjunctiva appears normal without swelling, discoloration or injection. Nose: The nose is without deformity, discharge or tenderness; Throat: Appears normal. The mucous membranes are pink and moist without exudates, redness or mass seen. The tongue appears normal. Neck: The neck is supple and no apparent mass or adenopathy. Chest: The chest wall is normal in size and symmetry and has no chest wall tenderness or crepitus. The patient displays increased respiratory effort diffuse wheezing in all lung reyes with very prolonged expiratory phase. He is congested and coughing. Cardiovascular: Regular rate and rhythm; No murmurs, rubs, or gallops; Gastrointestinal: The abdomen appears normal. No obvious hernias or mass. The abdomen is soft and benign, non-distended, with no pain, no guarding and no rebound tenderness. Bowel sounds are present and normal sounding. No CVA tenderness. Genitourinary: Back/Spine: Nontender Extremities/Musculoskeletal/lymphatic: The bilateral upper and lower extremities are warm. There is no evidence of arterial insufficiency. There is no evidence of venous insufficiency/edema. The patient spontaneously moves bilateral upper and lower extremities with no pain and no limitation of movement. There is no apparent, injury or trauma. Skin: The skin is warm, dry and intact. No rashes. No petechia. No purpura. No abnormal bruising. The color is appropriate with no cyanosis. Mental status/Psychiatric: Mental status is appropriate for age. The patient has no apparent delusions, visual hallucinations, no apparent audible hallucinations. The patient has no apparent suicidal thoughts/ideation and no apparent homicidal thoughts/ideation. Neurological: The patient is awake, alert, interactive, cordial, cooperative and is oriented to name and situation. The patient follows commands and answers historical question with no impairment. There is no visual disturbance apparent. The pupils are equal and reactive bilaterally with normal eye movements and no diplopia The bilateral upper and lower extremities have normal strength, normal range of motion and normal functioning. The gait, station and balance appear to be baseline with no acute change Course Quality Measures none Orders Category Date Time Status Bedside COVID-19 Antigen Test NOW Care 10/10/24 08:49 Active Bedside Influenza A&B Antigen Test NOW Care 10/10/24 08:49 Completed Wire Tinner STAT Care 10/10/24 08:48 Active Continuous Pulse Oximetry STAT Care 10/10/24 08:48 Active EKG (ED ONLY) *Do not use* NOW Care 10/10/24 08:48 Completed Insert IV NOW Care 10/10/24 08:48 Active Miscellaneous Nursing Order NOW Care 10/10/24 08:48 Active NPO STAT Care 10/10/24 08:48 Active EKG (ED Only) Stat Exams 10/10/24 08:48 Draft XR chest 1V portable Stat Exams 10/10/24 08:48 Completed B-Type Natriuretic Peptide Stat Lab 10/10/24 09:24 Completed Blood Culture (Lab) Stat Lab 10/10/24 09:24 Received CBC Stat Lab 10/10/24 09:24 Completed Comprehensive Metabolic Panel Stat Lab 10/10/24 09:24 Completed Lactate (Lactic Acid) Stat Lab 10/10/24 09:24 Completed Lactic Acid, 3 HR Stat Lab 10/10/24 13:08 Completed Magnesium Stat Lab 10/10/24 09:24 Completed Procalcitonin Stat Lab 10/10/24 09:24 Completed RSV [Respiratory Syncytial Virus Ag] Stat Lab 10/10/24 09:12 Completed Strep A Rapid Stat Lab 10/10/24 09:12 Completed Troponin I Stat Lab 10/10/24 09:24 Completed Urinalysis Stat Lab 10/10/24 09:00 Completed Venous Blood Gas Stat Lab 10/10/24 09:24 Completed ALBUTEROL RT 0.5ml [Proventil Rt 0.5ml] Med 10/10/24 13:23 Discontinued 10 mg INH X1 ONE ALBUTEROL RT 0.5ml [Proventil Rt 0.5ml] Med 10/10/24 08:48 Discontinued 5 mg INH X1 ONE Azithromycin Inj [Zithromax Inj] 500 mg Med 10/11/24 09:00 Pending Sodium Chloride 0.9% 250 ml [Ns] 250 ml IV QDAY Azithromycin Inj [Zithromax Inj] 500 mg Med 10/10/24 13:30 Discontinued Sodium Chloride 0.9% 250 ml [Ns] 250 ml IV X1 Ipratropium [place] Rt Christina [Atrovent Rt Christina] Med 10/10/24 08:48 Discontinued 0.5 mg INH X1 ONE MethylPREDNISolone.* [SoluMEDROL Inj] Med 10/10/24 08:48 Discontinued 125 mg IVP X1 ONE Sodium Chloride Rt Christina 0.9% [NS Rt Christina 0.9%] Med 10/10/24 13:23 Active 3 ml INH PRN PRN cefTRIAXone/D5w 1gm IV premix [Rocephin/D5w 1gm IV Med 10/10/24 13:23 Discontinued premix] 1 gm in 50 ml IV X1 oxyCODONE/APAP 5/325 [Percocet 5/325] Med 10/10/24 11:40 Discontinued 2 tab PO X1 ONE Oxygen Delivery NOW RT 10/10/24 08:48 Active Vital Signs Vital signs: Vital Signs Temperature 99.0 F 10/10/24 08:58 Pulse Rate 69 10/10/24 08:58 Respiratory Rate 19 10/10/24 08:58 Blood Pressure 150/88 H 10/10/24 08:58 Pulse Oximetry (%) 100 10/10/24 08:58 Oxygen Delivery Method Nasal Cannula 10/10/24 08:58 Oxygen Flow Rate 6 10/10/24 08:58 Shortness of Breath / Dyspnea MDM Narrative MDM Narrative:: Patient is a 74-year-old gentleman with known COPD was just in the hospital and extubated for COPD exacerbation and evidently was quite ill. Today comes in short of breath coughing wheezing states he is allergic to albuterol because it makes his heart race and when he gets steroids it makes him act or feel weird. Nonetheless he agreed to take a initial breathing treatment 5 mg and after that he was still wheezing a lot and if any there was minimal improvement. Chest x-ray reveals bilateral fluffy infiltrates consistent with bilateral pneumonia. Serologies for influenza COVID were negative. RSV came back negative. White count is elevated at 17.2 hemoglobin is 10.6 Blood gas pH is 758 pCO2 of 36 consistent with a respiratory alkalosis. Sodium 135 potassium 4.7 chloride 94 CO2 35 glucose 236 lactic acid initially was 2.2 a second 1 is pending as of 1331 hrs. Procalcitonin slightly elevated 0.5. Urinalysis was unremarkable. Since patient is got a leukocytosis bed COPD recently extubated and is continue to wheeze despite a continuous neb at 5 hospitalist was consulted they are going admit the patient will continue the continuous neb. There is a follow-up lactic acid pending give him some Rocephin and azithromycin to cover pneumonia. Maricel Galvan am scribing for and in the presence of Dr. Conde. Patient data External records reviewed:: EMS form Clinical information provided by:: patient and EMS Social determinants that could affect healthcare access:: other (specify) (former smoker) Patient has the following chronic illnesses:: COPD was just in the hospital and extubated for COPD exacerbation and evidently was quite ill. How is presenting disease/condition affected by chronic disease/condition?: caused by Evaluation data The following diagnostics were reviewed and interpreted by me:: lab results, radiology exam(s) and EKG tracing(s) (EKG#1: EKG at 0934 hours. Interpreted by me: atrial flutter, rate 82, no STEMI) Lab and/or radiology exams considered but not ordered:: none Interpretation Summary: See above under MDM narrative. RADIOLOGY Procedure(s): XR chest 1V portable Accession Number(s): [id number] cc: Chi Conde MD; Aime Jacobs MD~ Examination: AP chest portable sitting single view TECHNIQUE: Portable AP sitting chest single view Exam date and time: October 10, 2024 0805 hours Comparison October 02, 2024 INDICATIONS: Coughing shortness of breath beginning 3 days ago FINDINGS: Mild bibasilar pneumonia Normal heart size Prominent osteopenia IMPRESSION: Mild bibasilar pneumonia Dictated By: Aime Jacobs MD Medications / Prescriptions Medications or Prescriptions considered but not ordered:: none Medication administrations:: Medication Administration History Acetaminophen (Acetaminophen 325 Mg Tablet) 650 mg PO Q6H PRN PRN Reason: Fever >100.2 or Pain 1-3 Stop: 11/09/24 14:52 Apixaban (Apixaban 2.5 Mg Tablet) 5 mg PO BID [facility] Stop: 11/09/24 20:59 Azithromycin 500 mg/ Sodium (Chloride) 250 mls @ 250 mls/hr IV QDAY [facility] Stop: 10/18/24 08:59 Cefepime HCl 2 gm/ Sodium (Chloride) 50 mls @ 100 mls/hr IV Q8HR SANDRA Stop: 10/17/24 15:07 Vancomycin/Sodium Chloride (Vancomycin/Ns 1 Gm Ivpb) 200 mls @ 120 mls/hr IV X1 ONE Stop: 10/10/24 17:39 Last Admin: 10/10/24 16:22 Dose: 120 mls/hr Documented By: RAIZA Ipratropium [place] (Ipratropium Rt 0.5 Mg/ 2.5 Ml Nebu) 0.5 mg INH Q8HRRT [facility] Stop: 11/09/24 22:59 Levalbuterol HCl (Levalbuterol Rt 0.63 Mg/3 Ml Nebu) 0.63 mg INH Q8HRRT [facility] Stop: 11/09/24 22:59 Methylprednisolone Sodium Succinate (Methylprednisolone Sod Succ 40 Mg Vial) 40 mg IVP Q8HR SANDRA Stop: 10/17/24 21:59 Ondansetron HCl (Ondansetron Inj 2 Mg/Ml Inj 2 Ml) 4 mg IV Q6H PRN; Protocol PRN Reason: NAUSEA OR VOMITING Stop: 11/09/24 14:52 Oxycodone/Acetaminophen (Oxycodone/Apap 5/325 Tablet) 1 tab PO Q6H PRN PRN Reason: PAIN SCALE 4-10(Mod-Sev Stop: 10/15/24 14:52 Pharmacy Consult (Vancomycin Pharmacy To Dose 1 Each Each) 1 each IV QDAY PRN PRN Reason: PROTOCOL Stop: 11/09/24 15:14 Sodium Chloride (Sodium Chloride Rt Christina 0.9% 3 Ml Nebu) 3 ml INH PRN PRN PRN Reason: SOLN Stop: 11/09/24 13:22 Last Admin: 10/10/24 15:15 Dose: 3 ml Documented By: QUIANA Discontinued Medications Albuterol (Albuterol Rt 2.5 Mg/0.5 Ml Nebu) 5 mg INH X1 ONE Stop: 10/10/24 08:49 Last Admin: 10/10/24 09:12 Dose: 5 mg Documented By: QUIANA Albuterol (Albuterol Rt 2.5 Mg/0.5 Ml Nebu) 10 mg INH X1 ONE Stop: 10/10/24 13:24 Last Admin: 10/10/24 15:14 Dose: 10 mg Documented By: QUIANA Heparin Sodium (Porcine) (Heparin Sod Inj 5000 Unit/Ml Vial) 5,000 unit SC Q12HR [facility] Stop: 10/24/24 20:59 Ceftriaxone Sodium/Dextrose (Rocephin/D5w 1gm Iv Premix) 1 gm in 50 mls @ 100 mls/hr IV X1 ONE Stop: 10/10/24 13:52 Last Admin: 10/10/24 13:39 Dose: 100 mls/hr Documented By: RAIZA Azithromycin 500 mg/ Sodium (Chloride) 250 mls @ 250 mls/hr IV X1 ONE Stop: 10/10/24 14:29 Last Admin: 10/10/24 15:13 Dose: 250 mls/hr Documented By: TIESHA Cefepime HCl 2 gm/ Sodium (Chloride) 50 mls @ 100 mls/hr IV X1 ONE Stop: 10/10/24 15:44 Last Admin: 10/10/24 16:01 Dose: 100 mls/hr Documented By: RAIZA Ipratropium [place] (Ipratropium Rt 0.5 Mg/ 2.5 Ml Nebu) 0.5 mg INH X1 ONE Stop: 10/10/24 08:49 Last Admin: 10/10/24 09:13 Dose: 0.5 mg Documented By: QUIANA Levalbuterol HCl (Levalbuterol Rt 0.63 Mg/3 Ml Nebu) 0.63 mg INH Q8HR SANDRA Stop: 11/09/24 21:59 Methylprednisolone Sodium Succinate (Methylprednisolone Sod Succ 62.5 Mg/Ml 2ml Vial) 125 mg IVP X1 ONE Stop: 10/10/24 08:49 Last Admin: 10/10/24 10:03 Dose: 125 mg Documented By: RAIZA Comments: Given after IV start Oxycodone/Acetaminophen (Oxycodone/Apap 5/325 Tablet) 2 tab PO X1 ONE Stop: 10/10/24 11:41 Last Admin: 10/10/24 12:24 Dose: 2 tab Documented By: RAIZA Sodium Chloride (Sodium Chloride Rt 10% 15 Ml Nebu) 5 ml INH X1 ONE Stop: 10/10/24 15:06 see above Consultations Consultation(s) initiated? (list below): Yes Consultation #1 (Physician, Specialty, Details): Discussed test HPI, PMHx, lab, radiology results and/or management with hospitalist. Will admit for further evaluation and management. Accepts patient for admission. Time: 14:53 Diagnosis Shortness of Breath Differential Diagnosis: acute exacerbation of chronic obstructive airways disease, congestive heart failure, community acquired pneumonia, asthma with exacerbation and pulmonary embolism Most likely diagnosis given after review of the tests above:: see below Admission Indicated Admission indicated?: indicated Admission Request Was there a request for admission?: Yes Admission Attestation Admission request attestation: Discussed case with [] from Hospitalist service regarding admission. Discussed patients ED course, exam findings, labs, and radiology results. The Hospitalist [agrees,declines] to accept the patient for admission. Disposition Plan Disposition Plan: Admit Critical Care Time Critical Care Time Critical Care Time: Yes Total Critical Care Time (min.): 45 Attestation: The high probability of sudden, clinically significant deterioration in the patient's condition required the highest level of my preparedness to intervene urgently. The services I provided to this patient were to treat and/or prevent clinically significant deterioration. Services included the following: chart data review, reviewing nursing notes and/or old charts, documentation time, cassandra consultant collaboration regarding findings and treatment options, medication orders and management, direct patient care, vital sign assessments and ordering, interpreting and reviewing diagnostic studies and lab tests. Aggregate critical care time includes only time during which I was engaged in work directly related to the patient's care, as described above, whether at bedside or elsewhere in the Emergency Department. It did not include time spent performing other reported procedures or the services of residents, students, nurses or physician assistants. Discharge Plan Plan Patient Disposition: Admit Acute Care w/in Hospital Disposition Comment: Hospitalist Problem List Clinical Impression: Acute exacerbation of chronic obstructive pulmonary disease, Bilateral pneumonia, Weakness, Elevated lactic acid level
[2024-10-10] MEDS: oxyCODONE/APAP 5/325 TABLET 2 TAB PO (12:24)
[2024-10-10 12:32] LABS: Reflex Lactate? Y
[2024-10-10 13:13] LABS: Lactic Acid, 3 HR 1.7 mMol/L (0.4-2.0)
[2024-10-10] MEDS: cefTRIAXone/D5w 1gm IV premix 1 GM/50 ML BAG IV (13:39)
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
[2024-10-10] MEDS: AZITHROMYCIN INJ 500 MG in SODIUM CHLORIDE 0.9% 250 ML 250 ML 250 MG IV (15:13)
[2024-10-10] MEDS: ALBUTEROL RT 2.5 MG/0.5 ML NEBU 10 MG INH (15:14)
[2024-10-10] MEDS: SODIUM CHLORIDE RT SOL 0.9% 3 ML NEBU INH (15:15)
[2024-10-10] MEDS: CEFEPIME INJ 2 GM in SODIUM CHLORIDE 0.9% (Popper) 50 ML IV ×2 (16:01→23:06)
--- NOTE | 2024-10-10 16:13 | PC.SS ---
PRESTON spoke with patient's sonGarry. Garry confirmed patient demographic information.? Patient lives at home with family.? Patient utilizes a walker to assist with ambulation.? Patient has home oxygen 2-3L.? Patient does not require assistance with the completion of ADL?s.? Patient?s alternate medical decision maker is Garry novak. Patient?s PCP is Adenike Moser.? Patient?s naval architect is Dr. Smith.? Patient utilizes [facility] for medication needs. Plan is for the patient to return home at the time of discharge. Family will provide transportation on behalf of the patient. career services officer to follow up on further discharging needs.? Next of kin: sonGarry D/c plan: home
[2024-10-10] MEDS: VANCOMYCIN/NS 1 GM IVPB 200 ML IV ×2 (16:22→21:03)
[2024-10-10] MEDS: hydrOXYzine HCL 25 MG TABLET PO (20:49)
[2024-10-10] MEDS: oxyCODONE/APAP 5/325 TABLET 1 TAB PO ×2 (20:49→23:35)
[2024-10-10] MEDS: ATORVASTATIN CALCIUM 20 MG TABLET 40 MG PO (20:49)
[2024-10-10] MEDS: DILTIAZEM ER 90 MG ER CAPSULE PO (20:50)
[2024-10-10] MEDS: APIXABAN 2.5 MG TABLET 5 MG PO (20:50)
[2024-10-10] MEDS: METOPROLOL TARTRATE 25 MG TABLET PO (20:50)
[2024-10-10] MEDS: TORSEMIDE 20 MG TABLET PO (21:03)
[2024-10-10] MEDS: LEVALBUTEROL RT 0.63 MG/3 ML NEBU INH (22:15)
[2024-10-10] MEDS: INSULIN LISPRO (AdmeLOG) 1 UNIT/0.01 ML UNIT SC (23:48)
[2024-10-11] VITALS (15 sets, daily range): BP systolic 117–148; BP diastolic 58–94; PULSE 68–87; RESP 16–20; TEMP 36.2–36.9; O2SAT 92–99
[2024-10-11] MEDS: oxyCODONE/APAP 5/325 TABLET 1 TAB PO (03:45)
[2024-10-11] MEDS: TORSEMIDE 20 MG TABLET PO ×2 (05:07→17:31)
[2024-10-11] MEDS: CEFEPIME INJ 2 GM in SODIUM CHLORIDE 0.9% (Popper) 50 ML IV ×3 (05:07→21:10)
[2024-10-11] MEDS: IPRATROPIUM RT 0.5 MG/ 2.5 ML NEBU INH ×3 (06:17→22:05)
[2024-10-11] MEDS: LEVALBUTEROL RT 0.63 MG/3 ML NEBU INH ×3 (06:17→22:05)
[2024-10-11 06:26] LABS: Basophils % (Auto) 0 % (0-2.5); Eosinophils % (Auto) 0 % (0-10); Hematocrit 34.8 % (41.0-53.0); Hemoglobin 10.9 g/dL (13.5-16.0); Immature Granulocytes % (Auto) 1 % (0-0); Immature Granulocytes Auto 0.14 Thou/mm3 (0.00-0.00); Lymphocytes # (Auto) 0.3 Thou/mm3 (1.0-4.8); Lymphocytes % (Auto) 2 % (10-50); Mean Corpuscular HGB Conc 31.3 g/dl (31.0-37.0); Mean Corpuscular Hemoglobin 25.4 pg (25.0-35.0); Mean Corpuscular Volume 81 fL (80-100); Monocytes # (Auto) 0.4 Thou/mm3 (0.0-0.8); Monocytes % (Auto) 3 % (0-12); Neutrophils # (Auto) 14.6 Thou/mm3 (1.8-7.7); Neutrophils % (Auto) 94 % (37-80); Nucleated Red Blood Cell % 0 /100 WBC (0); Platelet Count 151 Thou/mm3 (140-440); RDW Standard Deviation 50.9 fL (35.1-43.9); Red Blood Count 4.29 Miln/mm3 (4.50-5.90); White Blood Count 15.5 Thou/mm3 (3.8-10.6)
[2024-10-11 06:46] LABS: Anion Gap 11 (7-16); BUN/Creatinine Ratio 20 Ratio (12-20); Blood Urea Nitrogen 28 mg/dL (9-23); Calcium 9.7 mg/dL (8.3-10.6); Carbon Dioxide 32.5 mMol/L (20.0-31.0); Chloride 94 mMol/L (98-107); Creatinine (Component) 1.4 mg/dL (0.6-1.3); Glucose 264 mg/dL (74-106); Magnesium 2.1 mg/dL (1.6-2.6); Osmolality,Calculated 288 (275-295); Phosphorous 3.7 mg/dL (2.4-5.1); Potassium 4.8 mMol/L (3.4-5.1); Sodium 137 mMol/L (136-145); eGFR 52 See Note
[2024-10-11] MEDS: INSULIN LISPRO (AdmeLOG) 1 UNIT/0.01 ML UNIT SC ×4 (07:31→21:26)
[2024-10-11] MEDS: MORPHINE SULF 30 MG TABCR PO (07:53)
[2024-10-11] MEDS: METOPROLOL TARTRATE 25 MG TABLET PO ×2 (09:25→21:09)
[2024-10-11] MEDS: oxyCODONE/APAP 5/325 TABLET 2 TAB PO ×2 (09:25→15:31)
[2024-10-11] MEDS: DILTIAZEM ER 90 MG ER CAPSULE PO ×2 (09:26→21:09)
[2024-10-11] MEDS: APIXABAN 2.5 MG TABLET 5 MG PO ×2 (09:27→21:10)
[2024-10-11] MEDS: PANTOPRAZOLE 40 MG TABLET PO (09:27)
[2024-10-11] MEDS: VANCOMYCIN/NS 750 MG IVPB 750 MG/150 ML BAG 120 MG IV ×2 (09:51→22:32)
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
--- NOTE | 2024-10-11 15:50 | PC.SS ---
Rounding Note: Patient receiving IV antibiotics. Cultures are pending. D/C within 1 day.
[2024-10-11] MEDS: ATORVASTATIN CALCIUM 20 MG TABLET 40 MG PO (21:10)
[2024-10-11] MEDS: hydrOXYzine HCL 25 MG TABLET PO (21:10)
[2024-10-11] MEDS: DOCUSATE SOD 100 MG CAPSULE PO (21:30)
[2024-10-12] VITALS (21 sets, daily range): BP systolic 123–145; BP diastolic 70–88; PULSE 66–87; RESP 16–19; TEMP 36.2–36.8; O2SAT 92–99
[2024-10-12] MEDS: oxyCODONE/APAP 5/325 TABLET 2 TAB PO ×4 (01:12→19:28)
[2024-10-12] MEDS: TORSEMIDE 20 MG TABLET PO ×2 (05:20→18:20)
[2024-10-12] MEDS: CEFEPIME INJ 2 GM in SODIUM CHLORIDE 0.9% (Popper) 50 ML IV ×3 (05:20→21:02)
[2024-10-12 05:49] LABS: Basophils % (Auto) 0 % (0-2.5); Eosinophils % (Auto) 0 % (0-10); Hematocrit 32.8 % (41.0-53.0); Immature Granulocytes % (Auto) 1 % (0-0); Immature Granulocytes Auto 0.12 Thou/mm3 (0.00-0.00); Lymphocytes # (Auto) 0.3 Thou/mm3 (1.0-4.8); Lymphocytes % (Auto) 2 % (10-50); Mean Corpuscular HGB Conc 30.5 g/dl (31.0-37.0); Mean Corpuscular Volume 82 fL (80-100); Monocytes # (Auto) 0.2 Thou/mm3 (0.0-0.8); Monocytes % (Auto) 1 % (0-12); Neutrophils # (Auto) 11.9 Thou/mm3 (1.8-7.7); Neutrophils % (Auto) 95 % (37-80); Nucleated Red Blood Cell % 0 /100 WBC (0); Platelet Count 161 Thou/mm3 (140-440); White Blood Count 12.5 Thou/mm3 (3.8-10.6)
[2024-10-12 06:22] LABS: Anion Gap 9 (7-16); BUN/Creatinine Ratio 28 Ratio (12-20); Blood Urea Nitrogen 37 mg/dL (9-23); Calcium 8.7 mg/dL (8.3-10.6); Carbon Dioxide 32.4 mMol/L (20.0-31.0); Chloride 94 mMol/L (98-107); Creatinine (Component) 1.3 mg/dL (0.6-1.3); Estimated Creatinine Clearance 62.4 mL/min (>60); Glucose 262 mg/dL (74-106); Osmolality,Calculated 287 (275-295); Potassium 4.9 mMol/L (3.4-5.1); Sodium 135 mMol/L (136-145); eGFR 57 See Note
[2024-10-12] MEDS: IPRATROPIUM RT 0.5 MG/ 2.5 ML NEBU INH ×3 (06:22→22:08)
[2024-10-12] MEDS: LEVALBUTEROL RT 0.63 MG/3 ML NEBU INH ×3 (06:22→22:09)
[2024-10-12] MEDS: INSULIN LISPRO (AdmeLOG) 1 UNIT/0.01 ML UNIT SC ×7 (07:46→21:00)
[2024-10-12] MEDS: DILTIAZEM ER 90 MG ER CAPSULE PO ×2 (09:00→20:44)
[2024-10-12] MEDS: APIXABAN 2.5 MG TABLET 5 MG PO ×2 (09:01→20:41)
[2024-10-12] MEDS: PANTOPRAZOLE 40 MG TABLET PO (09:01)
[2024-10-12] MEDS: METOPROLOL TARTRATE 25 MG TABLET PO ×2 (09:01→20:43)
[2024-10-12] MEDS: INSULIN GLARGINE (Lantus) 5 UNIT/0.05 ML (PER 5 UNITS) SC (09:02)
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
[2024-10-12 09:59] LABS: Vancomycin,Trough 14.9 mcg/mL (5.0-10.0)
[2024-10-12] MEDS: DIGOXIN 0.125 MG TABLET PO (10:53)
[2024-10-12] MEDS: VANCOMYCIN/NS 750 MG IVPB 750 MG/150 ML BAG 120 MG IV ×2 (11:00→22:10)
--- NOTE | 2024-10-12 15:49 | PC.SS ---
Rounding note: on IV abx, d/c 1-2 days.
--- NOTE | 2024-10-12 16:32 | PC.SS ---
Addendum entered by BENITO Davis 10/12/24 17:26: SS submitted appeal documents to [facility]. [employer] Appeal Pending their review. Addendum entered by BENITO Davis 10/12/24 16:35: Bed side nurse was updated. Original Note: SS update: spoke with Dr. Zheng regarding the d/c plan. Informs patient is medically cleared for d/c. Spoke with the patient and he reports not feeling ready to return home and complaining of chest pain. Patient was provided with IMM, signed and initiated [employer] appeal. Copy in chart.
[2024-10-12] MEDS: ATORVASTATIN CALCIUM 20 MG TABLET 40 MG PO (20:42)
[2024-10-12] MEDS: hydrOXYzine HCL 25 MG TABLET PO (20:43)
[2024-10-12] MEDS: ALPRazoLAM 0.25 MG TABLET PO (22:09)
[2024-10-13] VITALS (17 sets, daily range): BP systolic 104–145; BP diastolic 74–82; PULSE 60–82; RESP 16–18; TEMP 35.7–36.7; O2SAT 92–98; BMI 29.7
[2024-10-13] MEDS: oxyCODONE/APAP 5/325 TABLET 2 TAB PO ×4 (01:47→20:39)
[2024-10-13 05:30] LABS: Basophils % (Auto) 0 % (0-2.5); Eosinophils % (Auto) 0 % (0-10); Hematocrit 33.2 % (41.0-53.0); Hemoglobin 10.4 g/dL (13.5-16.0); Immature Granulocytes % (Auto) 1 % (0-0); Immature Granulocytes Auto 0.08 Thou/mm3 (0.00-0.00); Lymphocytes # (Auto) 0.4 Thou/mm3 (1.0-4.8); Lymphocytes % (Auto) 4 % (10-50); Mean Corpuscular HGB Conc 31.3 g/dl (31.0-37.0); Mean Corpuscular Hemoglobin 24.9 pg (25.0-35.0); Mean Corpuscular Volume 80 fL (80-100); Monocytes # (Auto) 0.3 Thou/mm3 (0.0-0.8); Monocytes % (Auto) 3 % (0-12); Neutrophils # (Auto) 7.7 Thou/mm3 (1.8-7.7); Neutrophils % (Auto) 92 % (37-80); Nucleated Red Blood Cell % 0 /100 WBC (0); Platelet Count 174 Thou/mm3 (140-440); RDW Standard Deviation 49.2 fL (35.1-43.9); Red Blood Count 4.17 Miln/mm3 (4.50-5.90); White Blood Count 8.4 Thou/mm3 (3.8-10.6)
[2024-10-13] MEDS: TORSEMIDE 20 MG TABLET PO ×2 (05:52→17:16)
[2024-10-13] MEDS: CEFEPIME INJ 2 GM in SODIUM CHLORIDE 0.9% (Popper) 50 ML IV (05:53)
[2024-10-13] MEDS: IPRATROPIUM RT 0.5 MG/ 2.5 ML NEBU INH ×3 (06:11→23:40)
[2024-10-13] MEDS: LEVALBUTEROL RT 0.63 MG/3 ML NEBU INH ×3 (06:11→23:40)
[2024-10-13 06:15] LABS: Alanine Aminotransferase 12 U/L (10-49); Albumin/Globulin Ratio 1.7 (1.2-2.2); Alkaline Phosphatase 45 U/L (46-116); Anion Gap 9 (7-16); Aspartate Amino Transferase < 10 U/L (0-34); BUN/Creatinine Ratio 32 Ratio (12-20); Bilirubin,Total 0.5 mg/dL (0.3-1.2); Blood Urea Nitrogen 38 mg/dL (9-23); Calcium 8.8 mg/dL (8.3-10.6); Calcium (Corrected) 8.8 mg/dL (8.5-10.1); Carbon Dioxide 33.4 mMol/L (20.0-31.0); Chloride 94 mMol/L (98-107); Creatinine (Component) 1.2 mg/dL (0.6-1.3); Estimated Creatinine Clearance 67.6 mL/min (>60); Globulin 2.3 gm/dL (2.3-3.5); Glucose 209 mg/dL (74-106); Magnesium 2.3 mg/dL (1.6-2.6); Osmolality,Calculated 286 (275-295); Phosphorous 3.8 mg/dL (2.4-5.1); Potassium 4.8 mMol/L (3.4-5.1); Sodium 136 mMol/L (136-145); Total Protein 6.3 gm/dL (5.7-8.2); eGFR > 60 See Note
--- NOTE | 2024-10-13 07:03 | PC.SS ---
Addendum entered by BENITO Davis 10/13/24 17:15: SS follow up: checked on [employer] appeal status for case: [id number]. [id number] Current status remains under: In Clinical Review Addendum entered by BENITO Davis 10/13/24 10:57: SS follow up: checked on [employer] appeal status for case: [id number]. [id number] Current status remains under: In Clinical Review Addendum entered by BENITO Davis 10/13/24 09:24: Bed side nurse was updated on appeal status. Pending response from [facility] at this time. Original Note: SS follow up: checked on [employer] appeal status for case: [id number]. [id number] Current status under: In Clinical Review
[2024-10-13] MEDS: INSULIN LISPRO (AdmeLOG) 1 UNIT/0.01 ML UNIT SC ×6 (07:45→20:43)
[2024-10-13] MEDS: DILTIAZEM ER 90 MG ER CAPSULE PO ×2 (08:52→20:46)
[2024-10-13] MEDS: DIGOXIN 0.125 MG TABLET PO (08:53)
[2024-10-13] MEDS: CIPROFLOXACIN HCL 250 MG TABLET 750 MG PO ×2 (08:53→20:38)
[2024-10-13] MEDS: PANTOPRAZOLE 40 MG TABLET PO (08:54)
[2024-10-13] MEDS: METOPROLOL TARTRATE 25 MG TABLET PO ×2 (08:54→20:38)
[2024-10-13] MEDS: APIXABAN 2.5 MG TABLET 5 MG PO ×2 (08:54→20:39)
[2024-10-13] MEDS: INSULIN GLARGINE (Lantus) 5 UNIT/0.05 ML (PER 5 UNITS) SC ×2 (08:55→15:36)
--- NOTE | 2024-10-13 09:22 | PC.CC ---
pt is open to [facility]
--- NOTE | 2024-10-13 13:45 | PD.RESDS ---
Planned Discharge Date 10/13/24 DS: Providers Provider Date of admission: 10/10/24 14:53 Primary care physician: Physician No Primary/Family Admitting Provider: Lubna Zamora DO Attending Provider on Admission: Sarah Valdez MD Attending Provider on DC: Erica Mena MD Discharging Provider: Erica Mena MD DS: Diagnosis Problem List Completed Was Problem List Reviewed/Reconciled?: Yes Hospital Course Hospital Course Hospital course: Discharge Recommendations: -Follow up with PCP within 1 week of discharge -Start ciprofloxacin 750 mg twice daily for the next 4 days to complete antibiotic course for pneumonia -Oral morphine will be discontinued, you may continue Percocet 10 mg every 6 hours as needed for severe pain -Continue rest of medications as previously prescribed -Return to the ED or call EMS if symptoms return and/or worsen. Time Spent with Patient Time attestation: Total time spent providing and/or coordinating discharge services: Home Health Home Health Referral Orders: 10/13/24 10:17 Home Health Referral Routine Reason For Exam: COPD exacerbation Home-Bound The patient must either because of illness or injury, need the aid of supportive devices such as crutches, canes, wheelchairs, and walkers; the use of special transportation; or the assistance of another person in order to leave their place of residence; OR have a condition such that leaving his or her home is medically contraindicated. In addition, the patient also meets the following criteria: patient is normally unable to leave the home and leaving home requires considerable taxing effort. Addendum to Home Health Certification Practitioner's Certification: I certify that the patient has been under my care in the hospital and the care of attending physician (see below). We had a [id number] encounter on (see date below). My clinical findings indicate that the patient is home bound per the above criteria and the Home Health Services noted in these orders are medically necessary. The primary reason for the [id number] encounter is related to the fact that the patient requires home health services. 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 Wound Care: No IV Therapy: No RN Safety Evaluation: Yes RN to evaluate and create a plan of care that will produce positive outcomes. Palliative Treatment: No Palliative treatment and evaluate the need for hospice. Home Health Aide - Personal Care: No Home Health Aide to assist with any ADL's. Exam Vital Signs Temp Pulse Resp BP Pulse Ox O2 Del Method O2 Flow Rate 96.3 F L 75 16 126/79 95 Nasal Cannula 2 10/13/24 12:08 10/13/24 12:08 10/13/24 12:08 10/13/24 12:08 10/13/24 12:08 10/13/24 12:08 10/13/24 12:08 FiO2 3 10/10/24 15:16 Narrative Exam Physical Exam General: Awake and in no acute distress. Conversational and non-toxic appearing. HEENT: Normocephalic, atraumatic, mucous membranes moist. Heart: Regular rate and rhythm, no murmurs. Lungs: CTABL. Abdomen: Soft, nondistended, nontender, positive bowel sounds. ?No guarding or rebound tenderness. Neurologic: Alert and oriented x3, no gross neurological deficit, and patient able to move all 4 extremities. Extremities: No edema. Skin: No rash or ecchymoses. Discharge Plan Plan Patient Disposition: HOME (Self Care) Patient condition on transfer: Stable Care Plan Goals: Discharge Recommendations: -Follow up with PCP within 1 week of discharge -Start ciprofloxacin 750 mg twice daily for the next 4 days to complete antibiotic course for pneumonia -Oral morphine will be discontinued, you may continue Percocet 10 mg every 6 hours as needed for severe pain -Continue rest of medications as previously prescribed -Return to the ED or call EMS if symptoms return and/or worsen. Prescriptions/Referrals Prescriptions/Med Rec: New ciprofloxacin HCl 750 mg tablet 750 mg PO BID 4 Days Qty: 8 0RF Continued oxycodone-acetaminophen [Percocet] 10-325 mg Tablet 1 tab PO Q6H PRN (Reason: Pain, Mild) digoxin 125 mcg (0.125 mg) Tablet 125 mcg PO QDAY Qty: 30 0RF Eliquis 5 mg Tablet 5 mg PO BID Ozempic 0.25 mg or 0.5 mg (2 mg/3 mL) pen injector 0.5 mg SUBCUT QWEEK potassium chloride 10 mEq capsule, extended release 10 meq PO QDAY Patient Comments: TAKE ONE CAPSULE BY MOUTH WITH FOOD EVERY DAY hydroxyzine HCl 50 mg tablet 50 mg PO HS atorvastatin 40 mg tablet 40 mg PO QDAY Qty: 90 0RF diltiazem HCl 90 mg capsule,extended release 12 hr 90 mg PO BID Patient Comments: TAKE 1 CAPSULE BY MOUTH TWICE DAILY metoprolol tartrate 50 mg tablet 25 mg PO BID Patient Comments: TAKE ONE TABLET BY MOUTH TWICE DAILY FOR BLOOD PRESSURE pantoprazole 40 mg tablet,delayed release (DR/EC) 40 mg PO QDAY torsemide 20 mg tablet 20 mg PO BID ipratropium-albuterol 0.5 mg-3 mg(2.5 mg base)/3 mL solution for nebulization 3 ml inhalation QID PRN (Reason: shortness of breath or wheezing) Qty: 180 0RF Discontinued morphine 60 mg tablet extended release 60 mg PO Q12H PRN (Reason: pain) Patient Comments: TAKE ONE TABLET BY MOUTH EVERY TWELVE HOURS NEEDED FOR PAIN simvastatin 40 mg tablet 40 mg PO QPM Referrals: No Primary/Family,Physician [Primary Care Provider] - Patient/Caregiver Discharge Instructions Discharge Activity: activity as tolerated and wear oxygen at night Education Materials: Preventing Pneumonia, Treating Pneumonia, When You Have Pneumonia Print Language: Malay Stand Alone Forms: [facility] Award Info., Patient Portal Info Letter Discharge Order Discharge Orders: Discharge (Routine); Ordered 10/12/24 Ordered By: Jaki Acosta
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
[2024-10-13] MEDS: INSULIN LISPRO (AdmeLOG) 1 UNIT/0.01 ML UNIT 3 UNIT SC ×2 (17:20→20:44)
[2024-10-13] MEDS: hydrOXYzine HCL 25 MG TABLET PO (20:39)
[2024-10-13] MEDS: ATORVASTATIN CALCIUM 20 MG TABLET 40 MG PO (20:40)
[2024-10-14] VITALS (15 sets, daily range): BP systolic 110–153; BP diastolic 69–96; PULSE 63–95; RESP 15–20; TEMP 36.1–37.1; O2SAT 94–100
[2024-10-14] MEDS: oxyCODONE/APAP 5/325 TABLET 2 TAB PO ×4 (02:50→21:04)
[2024-10-14] MEDS: TORSEMIDE 20 MG TABLET PO ×2 (05:41→17:18)
[2024-10-14] MEDS: LEVALBUTEROL RT 0.63 MG/3 ML NEBU INH ×3 (06:24→22:22)
[2024-10-14] MEDS: IPRATROPIUM RT 0.5 MG/ 2.5 ML NEBU INH ×3 (06:24→22:22)
[2024-10-14 06:37] LABS: Basophils % (Auto) 0 % (0-2.5); Eosinophils % (Auto) 0 % (0-10); Hematocrit 36.3 % (41.0-53.0); Hemoglobin 11.3 g/dL (13.5-16.0); Immature Granulocytes % (Auto) 1 % (0-0); Immature Granulocytes Auto 0.03 Thou/mm3 (0.00-0.00); Lymphocytes # (Auto) 0.3 Thou/mm3 (1.0-4.8); Lymphocytes % (Auto) 6 % (10-50); Mean Corpuscular HGB Conc 31.1 g/dl (31.0-37.0); Mean Corpuscular Hemoglobin 25.1 pg (25.0-35.0); Mean Corpuscular Volume 81 fL (80-100); Monocytes # (Auto) 0.3 Thou/mm3 (0.0-0.8); Monocytes % (Auto) 5 % (0-12); Neutrophils # (Auto) 4.5 Thou/mm3 (1.8-7.7); Neutrophils % (Auto) 88 % (37-80); Nucleated Red Blood Cell % 0 /100 WBC (0); Platelet Count 167 Thou/mm3 (140-440); RDW Standard Deviation 47.7 fL (35.1-43.9); White Blood Count 5.1 Thou/mm3 (3.8-10.6)
[2024-10-14 07:04] LABS: Alanine Aminotransferase 14 U/L (10-49); Albumin, Serum 4.2 gm/dL (3.4-4.8); Albumin/Globulin Ratio 1.8 (1.2-2.2); Alkaline Phosphatase 46 U/L (46-116); Anion Gap 10 (7-16); Aspartate Amino Transferase < 10 U/L (0-34); BUN/Creatinine Ratio 24 Ratio (12-20); Bilirubin,Total 0.4 mg/dL (0.3-1.2); Blood Urea Nitrogen 33 mg/dL (9-23); Carbon Dioxide 32.6 mMol/L (20.0-31.0); Chloride 92 mMol/L (98-107); Creatinine (Component) 1.4 mg/dL (0.6-1.3); Globulin 2.4 gm/dL (2.3-3.5); Glucose 217 mg/dL (74-106); Magnesium 2.3 mg/dL (1.6-2.6); Osmolality,Calculated 284 (275-295); Phosphorous 3.7 mg/dL (2.4-5.1); Potassium 4.8 mMol/L (3.4-5.1); Sodium 135 mMol/L (136-145); Total Protein 6.6 gm/dL (5.7-8.2); eGFR 52 See Note
[2024-10-14] MEDS: INSULIN LISPRO (AdmeLOG) 1 UNIT/0.01 ML UNIT SC ×4 (07:31→21:06)
[2024-10-14] MEDS: INSULIN LISPRO (AdmeLOG) 1 UNIT/0.01 ML UNIT 3 UNIT SC ×3 (07:31→21:07)
[2024-10-14] MEDS: DILTIAZEM ER 90 MG ER CAPSULE PO ×2 (08:53→21:04)
[2024-10-14] MEDS: METOPROLOL TARTRATE 25 MG TABLET PO ×2 (08:56→21:05)
[2024-10-14] MEDS: DIGOXIN 0.125 MG TABLET PO (08:56)
[2024-10-14] MEDS: predniSONE 20 MG TABLET 40 MG PO (08:56)
[2024-10-14] MEDS: APIXABAN 2.5 MG TABLET 5 MG PO ×2 (08:56→21:06)
[2024-10-14] MEDS: CIPROFLOXACIN HCL 250 MG TABLET 750 MG PO ×2 (08:56→21:04)
[2024-10-14] MEDS: PANTOPRAZOLE 40 MG TABLET PO (08:56)
[2024-10-14] MEDS: INSULIN GLARGINE (Lantus) 5 UNIT/0.05 ML (PER 5 UNITS) 18 UNIT SC (09:00)
--- NOTE | 2024-10-14 09:44 | PC.SS ---
SS received [facility] The physician reviewer disagrees with the termination of services. SS has called and spoke to Fransisca a key account representative from [facility] who explained they have agreed with the pt and they disagree with hospital (pt is not medically ready for d/c). Adrianne pharmacist also spoke to Fransisca to confirm. Pt is aware. Dr. Valdez is aware and provided him with [facility]'s phone#. Bedside nurse, Bibi is aware.
--- NOTE | 2024-10-14 15:47 | ESDS_ITS ---
<Statement entered by Jaki Acosta MD - 10/15/24 13:35> Patient was seen and examined by me personally. I have reviewed the below documentation by the team resident and agree with its findings with any exceptions as below. Discharge plan was discussed with the attending, Dr. Valdez. Jaki Acosta, PGY-2 Planned Discharge Date 10/14/24 DS: Providers Provider Date of admission: 10/10/24 14:53 Primary care physician: Physician No Primary/Family Admitting Provider: Lubna Zamora DO Attending Provider on Admission: Sarah Valdez MD Attending Provider on DC: Erica Mena MD Discharging Provider: Erica Mena MD DS: Diagnosis Problem List Completed Was Problem List Reviewed/Reconciled?: Yes Hospital Course Hospital Course Hospital course: Patient is a 74-year-old male with previous medical history of COPD on 3 L of home oxygen, hypertension, CVA, HFpEF ejection fraction 60 to 65% 09/2024, CAD status post stent placement, A-fib on Eliquis, chronic back pain on opioids, BPH who came to the ED on 10/10/2024 with shortness of breath that started the same day, patient had not w wheezing and cough. He had a recent history of admission to the ICU due to acute hypoxic and hypercapnic respiratory failure secondary to influenza pneumonia, was discharged on 10/07/2024. In the ED vitals were stable, was afebrile, on 6 L nasal cannula saturating adequately, labs showed leukocytosis 17.2,. Chest x-ray showed bibasilar pneumonia, EKG showed A-fib, rate controlled Pro-Thomas 0.50. He was started on DuoNebs inhalations, methylprednisolone and was started on antibiotic, he received 1 dose of ceftriaxone and azithromycin. He was started on cefepime 10/10 - 10/13 and on vancomycin 10/10 - 10/13 due to previously positive MRSA screen. During previous admission sputum from ET tube grew Pseudomonas sensitive to cefepime. He also reported feeling of chest tightness that appears when he is performing breathing movements, no chest pain, no radiation which now has significantly improved. His blood sugar has been high due to the course of steroids, insulin regimen was adjusted accordingly. He was gradually weaned down with steroids, was transition to oral antibiotics. He is breathing, shortness of breath has significantly improved, his oxygen requirements went back to the baseline. He was examined and seen by the bedside and was medically cleared for discharge home with home health. Hospital diagnoses: #Acute on chronic hypoxic an hypercapnic respiratory failure #Hospital acquired pneumonia #Pseudomonas pneumonia #COPD exacerbation #Afib, rate controlled #History of HFpEF (60-65% 09/2024) #History of chronic lumbar back pain s/p L4-L5 fusion #History of hypertension #History of type 2 diabetes Discharge Recommendations: -Follow up with PCP within 1 week of discharge -Start ciprofloxacin 750 mg twice daily for the next 3 days to complete antibiotic course for pneumonia -Oral morphine will be discontinued, you may continue Percocet 10 mg every 6 hours as needed for severe pain -Continue rest of medications as previously prescribed -Return to the ED or call EMS if symptoms return and/or worsen. Plan of care discussed with attending Dr. Valdez, PGY-[address] Acosta. Erica Mena MD, PGY 1. Time Spent with Patient Time attestation: Total time spent providing and/or coordinating discharge services: Time spent: Less than 30 minutes Home Health Home Health Referral Orders: 10/13/24 10:17 Home Health Referral Routine Reason For Exam: COPD exacerbation Home-Bound The patient must either because of illness or injury, need the aid of supportive devices such as crutches, canes, wheelchairs, and walkers; the use of special transportation; or the assistance of another person in order to leave their place of residence; OR have a condition such that leaving his or her home is medically contraindicated. In addition, the patient also meets the following criteria: patient is normally unable to leave the home and leaving home requires considerable taxing effort. Addendum to Home Health Certification Practitioner's Certification: I certify that the patient has been under my care in the hospital and the care of attending physician (see below). We had a [id number] encounter on (see date below). My clinical findings indicate that the patient is home bound per the above criteria and the Home Health Services noted in these orders are medically necessary. The primary reason for the [id number] encounter is related to the fact that the patient requires home health services. Date Certifying [id number] Physician Encounter: 10/10/24 Physician's Name who will Assume Oversight for HH Services: Physician No Primary/Family PEDIATRIC RADIOLOGIST - Community Resources: No PT to Evaluate: Yes PT to evaluate and provide a treatmnet plan to increase patient's mobility and strength. Wound Care: No IV Therapy: No RN Safety Evaluation: Yes RN to evaluate and create a plan of care that will produce positive outcomes. Palliative Treatment: No Palliative treatment and evaluate the need for hospice. Home Health Aide - Personal Care: No Home Health Aide to assist with any ADL's. Exam Vital Signs Temp Pulse Resp BP Pulse Ox O2 Del Method O2 Flow Rate 97.1 F 72 18 153/80 H 100 Nasal Cannula 3 10/14/24 12:00 10/14/24 14:50 10/14/24 14:50 10/14/24 12:00 10/14/24 14:50 10/14/24 12:00 10/14/24 14:50 FiO2 3 10/10/24 15:16 Narrative Exam Physical Exam General: Awake and in no acute distress. Conversational and non-toxic appearing. HEENT: Normocephalic, atraumatic, mucous membranes moist. Heart: Regular rate and rhythm, no murmurs. Lungs: CTABL. Abdomen: Soft, nondistended, nontender, positive bowel sounds. ?No guarding or rebound tenderness. Neurologic: Alert and oriented x3, no gross neurological deficit, and patient able to move all 4 extremities. Extremities: No edema. Skin: No rash or ecchymoses. Discharge Plan Plan Patient Disposition: Home w/HOME HEALTH Patient condition on transfer: Stable Care Plan Goals: Discharge Recommendations: -Follow up with PCP within 1 week of discharge -Start ciprofloxacin 750 mg twice daily for the next 3 days to complete antibiotic course for pneumonia -Oral morphine will be discontinued, you may continue Percocet 10 mg every 6 hours as needed for severe pain -Continue rest of medications as previously prescribed -Return to the ED or call EMS if symptoms return and/or worsen. Prescriptions/Referrals Prescriptions/Med Rec: New ciprofloxacin HCl 750 mg tablet 750 mg PO BID 4 Days Qty: 8 0RF Continued oxycodone-acetaminophen [Percocet] 10-325 mg Tablet 1 tab PO Q6H PRN (Reason: Pain, Mild) digoxin 125 mcg (0.125 mg) Tablet 125 mcg PO QDAY Qty: 30 0RF Eliquis 5 mg Tablet 5 mg PO BID Ozempic 0.25 mg or 0.5 mg (2 mg/3 mL) pen injector 0.5 mg SUBCUT QWEEK potassium chloride 10 mEq capsule, extended release 10 meq PO QDAY Patient Comments: TAKE ONE CAPSULE BY MOUTH WITH FOOD EVERY DAY hydroxyzine HCl 50 mg tablet 50 mg PO HS atorvastatin 40 mg tablet 40 mg PO QDAY Qty: 90 0RF diltiazem HCl 90 mg capsule,extended release 12 hr 90 mg PO BID Patient Comments: TAKE 1 CAPSULE BY MOUTH TWICE DAILY metoprolol tartrate 50 mg tablet 25 mg PO BID Patient Comments: TAKE ONE TABLET BY MOUTH TWICE DAILY FOR BLOOD PRESSURE pantoprazole 40 mg tablet,delayed release (DR/EC) 40 mg PO QDAY torsemide 20 mg tablet 20 mg PO BID ipratropium-albuterol 0.5 mg-3 mg(2.5 mg base)/3 mL solution for nebulization 3 ml inhalation QID PRN (Reason: shortness of breath or wheezing) Qty: 180 0RF Discontinued morphine 60 mg tablet extended release 60 mg PO Q12H PRN (Reason: pain) Patient Comments: TAKE ONE TABLET BY MOUTH EVERY TWELVE HOURS NEEDED FOR PAIN simvastatin 40 mg tablet 40 mg PO QPM Referrals: No Primary/Family,Physician [Primary Care Provider] - Patient/Caregiver Discharge Instructions Discharge Activity: activity as tolerated and wear oxygen at night Education Materials: Preventing Pneumonia, Treating Pneumonia, When You Have Pneumonia Print Language: Danish Stand Alone Forms: [place] Award Info., Patient Portal Info Letter Discharge Order Discharge Orders: Discharge (Routine); Ordered 10/12/24 Ordered By: Jaki Acosta Quality Discharge Quality Measures VTE prophylaxis Attestestation Attestation I attest that I was physically present for the evaluation, physical examination, lab and imaging review of the patient with the residents. I discussed the case with the residents and agree with the findings and plans of care as documented above. Sarah Valdez MD
[2024-10-14 17:18] LABS: Troponin I < 0.020 ng/mL (0.0-0.045)
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
[2024-10-14] MEDS: ATORVASTATIN CALCIUM 20 MG TABLET 40 MG PO (21:05)
[2024-10-14] MEDS: hydrOXYzine HCL 25 MG TABLET PO (21:06)
[2024-10-15] VITALS (9 sets, daily range): BP systolic 118–144; BP diastolic 62–90; PULSE 62–89; RESP 15–20; TEMP 36.1–36.6; O2SAT 95–99
[2024-10-15] MEDS: oxyCODONE/APAP 5/325 TABLET 2 TAB PO ×2 (03:06→09:20)
[2024-10-15 05:56] LABS: Basophils % (Auto) 0 % (0-2.5); Eosinophils % (Auto) 0 % (0-10); Hematocrit 33.9 % (41.0-53.0); Hemoglobin 10.7 g/dL (13.5-16.0); Immature Granulocytes % (Auto) 1 % (0-0); Immature Granulocytes Auto 0.03 Thou/mm3 (0.00-0.00); Lymphocytes # (Auto) 0.6 Thou/mm3 (1.0-4.8); Lymphocytes % (Auto) 10 % (10-50); Mean Corpuscular HGB Conc 31.6 g/dl (31.0-37.0); Mean Corpuscular Hemoglobin 24.9 pg (25.0-35.0); Mean Corpuscular Volume 79 fL (80-100); Monocytes # (Auto) 0.4 Thou/mm3 (0.0-0.8); Monocytes % (Auto) 7 % (0-12); Neutrophils # (Auto) 4.8 Thou/mm3 (1.8-7.7); Neutrophils % (Auto) 82 % (37-80); Nucleated Red Blood Cell % 0 /100 WBC (0); Platelet Count 145 Thou/mm3 (140-440); RDW Standard Deviation 46.4 fL (35.1-43.9); White Blood Count 5.8 Thou/mm3 (3.8-10.6)
[2024-10-15] MEDS: TORSEMIDE 20 MG TABLET PO (06:10)
[2024-10-15] MEDS: IPRATROPIUM RT 0.5 MG/ 2.5 ML NEBU INH (06:22)
[2024-10-15] MEDS: LEVALBUTEROL RT 0.63 MG/3 ML NEBU INH (06:22)
[2024-10-15 06:53] LABS: Alanine Aminotransferase 14 U/L (10-49); Albumin, Serum 3.8 gm/dL (3.4-4.8); Albumin/Globulin Ratio 2.1 (1.2-2.2); Alkaline Phosphatase 38 U/L (46-116); Anion Gap 8 (7-16); Aspartate Amino Transferase < 8 U/L (0-34); BUN/Creatinine Ratio 31 Ratio (12-20); Bilirubin,Total 0.5 mg/dL (0.3-1.2); Blood Urea Nitrogen 43 mg/dL (9-23); Calcium 8.7 mg/dL (8.3-10.6); Calcium (Corrected) 8.9 mg/dL (8.5-10.1); Carbon Dioxide 34.6 mMol/L (20.0-31.0); Chloride 93 mMol/L (98-107); Creatinine (Component) 1.4 mg/dL (0.6-1.3); Globulin 1.8 gm/dL (2.3-3.5); Glucose 196 mg/dL (74-106); Magnesium 2.2 mg/dL (1.6-2.6); Osmolality,Calculated 287 (275-295); Phosphorous 4.2 mg/dL (2.4-5.1); Potassium 4.6 mMol/L (3.4-5.1); Sodium 136 mMol/L (136-145); Total Protein 5.6 gm/dL (5.7-8.2); eGFR 52 See Note
[2024-10-15] MEDS: INSULIN LISPRO (AdmeLOG) 1 UNIT/0.01 ML UNIT 3 UNIT SC ×2 (07:30→11:13)
[2024-10-15] MEDS: INSULIN LISPRO (AdmeLOG) 1 UNIT/0.01 ML UNIT SC ×2 (07:30→11:12)
[2024-10-15] MEDS: CIPROFLOXACIN HCL 250 MG TABLET 750 MG PO (08:46)
[2024-10-15] MEDS: METOPROLOL TARTRATE 25 MG TABLET PO (08:46)
[2024-10-15] MEDS: PANTOPRAZOLE 40 MG TABLET PO (08:46)
[2024-10-15] MEDS: APIXABAN 2.5 MG TABLET 5 MG PO (08:46)
[2024-10-15] MEDS: DIGOXIN 0.125 MG TABLET PO (08:47)
[2024-10-15] MEDS: DILTIAZEM ER 90 MG ER CAPSULE PO (08:47)
[2024-10-15] MEDS: INSULIN GLARGINE (Lantus) 5 UNIT/0.05 ML (PER 5 UNITS) 20 UNIT SC (08:48)
--- NOTE | 2024-10-15 16:29 | ESDS_ITS ---
Planned Discharge Date 10/15/24 DS: Providers Provider Date of admission: 10/10/24 14:53 Primary care physician: Physician No Primary/Family Admitting Provider: Lubna Zamora DO Attending Provider on Admission: Sarah Valdez MD Attending Provider on DC: Erica Mena MD Discharging Provider: Erica Mena MD DS: Diagnosis Problem List Completed Was Problem List Reviewed/Reconciled?: Yes Hospital Course Hospital Course Hospital course: Patient is a 74-year-old male with previous medical history of COPD on 3 L of home oxygen, hypertension, CVA, HFpEF ejection fraction 60 to 65% 09/2024, CAD status post stent placement, A-fib on Eliquis, chronic back pain on opioids, BPH who came to the ED on 10/10/2024 with shortness of breath that started the same day, patient had not w wheezing and cough. He had a recent history of admission to the ICU due to acute hypoxic and hypercapnic respiratory failure secondary to influenza pneumonia, was discharged on 10/07/2024. In the ED vitals were stable, was afebrile, on 6 L nasal cannula saturating adequately, labs showed leukocytosis 17.2,. Chest x-ray showed bibasilar pneumonia, EKG showed A-fib, rate controlled Pro-Thomas 0.50. He was started on DuoNebs inhalations, methylprednisolone and was started on antibiotic, he received 1 dose of ceftriaxone and azithromycin. He was started on cefepime 10/10 - 10/13 and on vancomycin 10/10 - 10/13 due to previously positive MRSA screen. During previous admission sputum from ET tube grew Pseudomonas sensitive to cefepime. He also reported feeling of chest tightness that appears when he is performing breathing movements, no chest pain, no radiation which now has significantly improved. His blood sugar has been high due to the course of steroids, insulin regimen was adjusted accordingly. He was gradually weaned down with steroids, was transition to oral antibiotics. He is breathing, shortness of breath has significantly improved, his oxygen requirements went back to the baseline. He was examined and seen by the bedside and was medically cleared for discharge home with home health. Hospital diagnoses: #Acute on chronic hypoxic an hypercapnic respiratory failure #Hospital acquired pneumonia #Pseudomonas pneumonia #COPD exacerbation #Afib, rate controlled #History of HFpEF (60-65% 09/2024) #History of chronic lumbar back pain s/p L4-L5 fusion #History of hypertension #History of type 2 diabetes Discharge Recommendations: -Follow up with PCP within 1 week of discharge -Start ciprofloxacin 750 mg twice daily for the next 3 days to complete antibiotic course for pneumonia -Oral morphine will be discontinued, you may continue Percocet 10 mg every 6 hours as needed for severe pain -Continue rest of medications as previously prescribed -Return to the ED or call EMS if symptoms return and/or worsen. Plan of care discussed with attending Dr. Valdez, PGY-[address] Acosta. Erica Mena MD, PGY 1. Time Spent with Patient Time attestation: Total time spent providing and/or coordinating discharge services: Time spent: Less than 30 minutes Home Health Home Health Referral Orders: 10/13/24 10:17 Home Health Referral Routine Reason For Exam: COPD exacerbation Home-Bound The patient must either because of illness or injury, need the aid of supportive devices such as crutches, canes, wheelchairs, and walkers; the use of special tr ansportation; or the assistance of another person in order to leave their place of residence; OR have a condition such that leaving his or her home is medically contraindicated. In addition, the patient also meets the following criteria: patient is normally unable to leave the home and leaving home requires considerable taxing effort. Addendum to Home Health Certification Practitioner's Certification: I certify that the patient has been under my care in the hospital and the care of attending physician (see below). We had a [id number]-[id number] encounter on (see date below). My clinical findings indicate that the patient is home bound per the above criteria and the Home Health Services noted in these orders are medically necessary. The primary reason for the [id number] encounter is related to the fact that the patient requires home health services. Date Certifying [id number] Physician Encounter: 10/10/24 Physician's Name who will Assume Oversight for HH Services: Physician No Primary/Family [employer] - Community Resources: No PT to Evaluate: Yes PT to evaluate and provide a treatmnet plan to increase patient's mobility and strength. Wound Care: No IV Therapy: No RN Safety Evaluation: Yes RN to evaluate and create a plan of care that will produce positive outcomes. Palliative Treatment: No Palliative treatment and evaluate the need for hospice. Home Health Aide - Personal Care: No Home Health Aide to assist with any ADL's. Exam Vital Signs Temp Pulse Resp BP Pulse Ox O2 Del Method O2 Flow Rate 97.1 F 75 20 118/62 97 Nasal Cannula 3 10/15/24 12:00 10/15/24 12:00 10/15/24 12:00 10/15/24 12:00 10/15/24 12:00 10/15/24 12:00 10/15/24 12:00 FiO2 3 10/10/24 15:16 Narrative Exam Physical Exam General: Awake and in no acute distress. Conversational and non-toxic appearing. HEENT: Normocephalic, atraumatic, mucous membranes moist. Heart: Regular rate and rhythm, no murmurs. Lungs: Mild rhonchi. Abdomen: Soft, nondistended, nontender, positive bowel sounds. ?No guarding or rebound tenderness. Neurologic: Alert and oriented x3, no gross neurological deficit, and patient able to move all 4 extremities. Extremities: No edema. Skin: No rash or ecchymoses. Discharge Plan Plan Patient Disposition: Home w/HOME HEALTH Patient condition on transfer: Stable Care Plan Goals: Discharge Recommendations: -Follow up with PCP within 1 week of discharge -Start ciprofloxacin 750 mg twice daily for the next 2 days to complete a ntibiotic course for pneumonia -Oral morphine will be discontinued, you may continue Percocet 10 mg every 6 hours as needed for severe pain -Continue rest of medications as previously prescribed -Return to the ED or call EMS if symptoms return and/or worsen. Prescriptions/Referrals Prescriptions/Med Rec: New ciprofloxacin HCl 750 mg tablet 750 mg PO BID 2 Days Qty: 4 0RF Continued oxycodone-acetaminophen [Percocet] 10-325 mg Tablet 1 tab PO Q6H PRN (Reason: Pain, Mild) digoxin 125 mcg (0.125 mg) Tablet 125 mcg PO QDAY Qty: 30 0RF Eliquis 5 mg Tablet 5 mg PO BID Ozempic 0.25 mg or 0.5 mg (2 mg/3 mL) pen injector 0.5 mg SUBCUT QWEEK potassium chloride 10 mEq capsule, extended release 10 meq PO QDAY Patient Comments: TAKE ONE CAPSULE BY MOUTH WITH FOOD EVERY DAY hydroxyzine HCl 50 mg tablet 50 mg PO HS atorvastatin 40 mg tablet 40 mg PO QDAY Qty: 90 0RF diltiazem HCl 90 mg capsule,extended release 12 hr 90 mg PO BID Patient Comments: TAKE 1 CAPSULE BY MOUTH TWICE DAILY metoprolol tartrate 50 mg tablet 25 mg PO BID Patient Comments: TAKE ONE TABLET BY MOUTH TWICE DAILY FOR BLOOD PRESSURE pantoprazole 40 mg tablet,delayed release (DR/EC) 40 mg PO QDAY torsemide 20 mg tablet 20 mg PO BID ipratropium-albuterol 0.5 mg-3 mg(2.5 mg base)/3 mL solution for nebulization 3 ml inhalation QID PRN (Reason: shortness of breath or wheezing) Qty: 180 0RF Discontinued morphine 60 mg tablet extended release 60 mg PO Q12H PRN (Reason: pain) Patient Comments: TAKE ONE TABLET BY MOUTH EVERY TWELVE HOURS NEEDED FOR PAIN simvastatin 40 mg tablet 40 mg PO QPM Referrals: No Primary/Family,Physician [Primary Care Provider] - Patient/Caregiver Discharge Instructions Discharge Activity: activity as tolerated and wear oxygen at night Education Materials: Preventing Pneumonia, Treating Pneumonia, When You Have Pneumonia Print Language: Upper Sorbian Stand Alone Forms: Valencia Award Info., Patient Portal Info Letter Discharge Order Discharge Orders: Discharge (Routine); Ordered 10/15/24 Ordered By: Aki Zheng Quality Discharge Quality Measures VTE prophylaxis Attestestation MD Attestation I attest that I was physically present for the evaluation, physical examination, lab and imaging review of the patient with the residents. I discussed the case with the residents and agree with the findings and plans of care as documented above. Sarah Valdez MD
== END 2024-10-15 13:29 | disposition home health service (06) | DRG 190 ==
LOC: SERX 13:32 → SERHOLD 15:01 → S3NX 18:52
PROVIDERS: Student in an Organized Health Care Education/Training Program; Admitting Provider Internal Medicine; Emergency Provider Emergency Medicine; Visit Provider Student in an Organized Health Care Education/Training Program
DX: J44.1 Chronic obstructive pulmonary disease with (acute) exacerbation (principal); J15.1 Pneumonia due to Pseudomonas; J96.21 Acute and chronic respiratory failure with hypoxia; J96.22 Acute and chronic respiratory failure with hypercapnia; I50.32 Chronic diastolic (congestive) heart failure; E87.4 Mixed disorder of acid-base balance; F11.20 Opioid dependence, uncomplicated; Z99.81 Dependence on supplemental oxygen; J44.0 Chronic obstructive pulmonary disease with (acute) lower respiratory infection; I11.0 Hypertensive heart disease with heart failure; Z86.73 Personal history of transient ischemic attack (TIA), and cerebral infarction without residual deficits; I25.10 Atherosclerotic heart disease of native coronary artery without angina pectoris; I48.91 Unspecified atrial fibrillation; G89.29 Other chronic pain; I34.81 Nonrheumatic mitral (valve) annulus calcification; M54.50 Low back pain, unspecified; N40.0 Benign prostatic hyperplasia without lower urinary tract symptoms; Z87.891 Personal history of nicotine dependence; Z79.01 Long term (current) use of anticoagulants; Z79.891 Long term (current) use of opiate analgesic; Z95.5 Presence of coronary angioplasty implant and graft; Y95 Nosocomial condition; E11.9 Type 2 diabetes mellitus without complications; Z79.4 Long term (current) use of insulin; Z79.899 Other long term (current) drug therapy
CPT/HCPCS: 36415; 71045; 80048; 80053; 80202; 81001; 82803; 83605; 83735; 83880; 84100; 84145; 84484; 85025; 87040; 87081; 87205; 87400; 87634; 87651; 87811; 93005; 93225; 94640; 96365; 96366; 96368; 96375; 99291; J0456; J0692; J0696; J1815; J2919; J3370; J7050; J7512; A9270

== ENCOUNTER → 2025-01-23 | Outpatient (CLI) | payer MEDICARE, MEDICAID, SELFPAY ==
[2025-01-23 08:25] LABS: INR 1.0 (0.9-1.3); Partial Thromboplastin Time 32.9 Seconds (22.0-36.0); Prothrombin Time 11.2 Seconds (9.0-12.2)
[2025-01-23 08:29] LABS: Basophils # (Auto) 0.0 Thou/mm3 (0.0-0.2); Basophils % (Auto) 0 % (0-2.5); Eosinophils # (Auto) 0.3 Thou/mm3 (0.0-0.5); Eosinophils % (Auto) 7 % (0-10); Hematocrit 34.1 % (41.0-53.0); Hemoglobin 10.5 g/dL (13.5-16.0); Immature Granulocytes Auto 0.02 Thou/mm3 (0.00-0.00); Lymphocytes # (Auto) 0.6 Thou/mm3 (1.0-4.8); Lymphocytes % (Auto) 13 % (10-50); Mean Corpuscular HGB Conc 30.8 g/dl (31.0-37.0); Mean Corpuscular Hemoglobin 24.9 pg (25.0-35.0); Mean Corpuscular Volume 81 fL (80-100); Monocytes # (Auto) 0.4 Thou/mm3 (0.0-0.8); Monocytes % (Auto) 8 % (0-12); Neutrophils # (Auto) 3.1 Thou/mm3 (1.8-7.7); Neutrophils % (Auto) 71 % (37-80); Nucleated Red Blood Cell # 0.00 Thou/mm3 (0.00-0.00); Nucleated Red Blood Cell % 0 /100 WBC (0); Platelet Count 208 Thou/mm3 (140-440); RDW Standard Deviation 47.4 fL (35.1-43.9); Red Blood Count 4.22 Miln/mm3 (4.50-5.90); White Blood Count 4.4 Thou/mm3 (3.8-10.6)
[2025-01-23 08:36] LABS: Anion Gap 10 (7-16); BUN/Creatinine Ratio 10 Ratio (12-20); Blood Urea Nitrogen 12 mg/dL (9-23); Calcium 9.9 mg/dL (8.3-10.6); Carbon Dioxide 34.7 mMol/L (20.0-31.0); Chloride 96 mMol/L (98-107); Creatinine (Component) 1.2 mg/dL (0.6-1.3); Glucose 143 mg/dL (74-106); Osmolality,Calculated 282 (275-295); Potassium 4.6 mMol/L (3.4-5.1); Sodium 141 mMol/L (136-145); eGFR > 60 See Note
== END | disposition home or self-care (01) ==
LOC: COPL 06:58
PROVIDERS: PCP Internal Medicine; Referring Provider Internal Medicine; Visit Provider Internal Medicine
DX: I25.10 Atherosclerotic heart disease of native coronary artery without angina pectoris (principal); I48.91 Unspecified atrial fibrillation
CPT/HCPCS: 36415; 80048; 85025; 85610; 85730

== ENCOUNTER 2025-02-02 22:34 | Emergency (ER) | payer MEDICARE, MEDICAID, SELFPAY ==
[2025-02-02 22:39] VITALS: BP 200/92; PULSE 84; RESP 20; TEMP 37.2; O2SAT 98
--- NOTE | 2025-02-02 22:40 | PD.EDEPIST ---
ED Epistaxis RME/HPI General Chief complaint: General Adult/Misc Complain Stated complaint: NOSEBLEED Time Seen by Provider: 02/02/25 22:51 Arrival date/time: 02/02/25 22:34 RME / HPI RME / HPI Narrative: This section includes all my notes and documentations, including HPI, PE, and ED course. Guillermo Goss MD HPI: 74yo male with a history of COPD, aFib, DVT s/p stent placement last week, on Eliquis and Brillinta BIBA from home here with bilateral epistaxis for the last few hours. No rectal bleeding, hematochezia, or melena. Patient does have shortness of breath, uncertain if slightly worse than baseline. Accountant Helper is Dr. Small. No other complaints reported. ROS: All negative except as documented in HPI. Physical Exam: General: Alert and oriented. High BP noted. Eyes: Conjunctivae and lids clear. ENT: No active epistaxis noted. Neck: Supple. Heart: RRR. Lungs: No respiratory distress. Good air movement. No severe rhonchi, wheezing, rales. Abdomen: Soft and nontender. Skin: Warm and dry. Neuro: Alert and oriented X 3. I reviewed EMS notes. I reviewed all diagnostic test results. My interpretation of the chest x-ray is NAD. My review of the CT angio chest report is NAD. Blood tests and urine tests are unremarkable. COVID/Influenza negative. At this point, diagnoses include nosebleed at home, none during ED course. Treatment here included Xopenex, Solumedrol, and Clonidine. Patient remained stable. I discussed the case with our ferry boat captain, Dr. Small. About the presentation and exam and diagnostics and treatments here. And possible need of further care in the hospital.? Recommended holding Eliquis outpatient follow-up with him. Based on my best medical judgment, made decision no further evaluation or treatment indicated at this time. Patient understands and agrees to the discharge instructions customized and printed, see below. Discharge Instructions from Dr. Goss printed for you: 1. After evaluation, there is no immediately life-threatening condition. Such as heart attack or pulmonary embolism (blood clots in your lungs) or pneumothorax (collapsed lung). 2. You are taking strong blood thinners. For the benefit of preventing heart attacks and strokes and life-threatening blood clots. But to benefit from the blood thinners, unfortunately you have to take the risk as well. Which includes easier bleeding in any part of your body, including in the nose with tiny and fragile blood vessels. 3. Your case was discussed with your ferry boat captain, Dr. Small. He wants you to stop Eliquis until he sees you. 4. And take clonidine to lower your BP as needed, high BP will rupture tiny blood vessels in the nose and cause bleeding. Take clonidine 0.1 mg pills as needed based on SBP (higher number of BP). Check your BP twice daily (about 12 hours apart). If SBP > 140, take one pill. If SBP > 160, take two pills. If SBP > 180, take three pills. If SBP > 200, take four pills. 5. Decision was made with you not to pack your nose. Because there was no bleeding while you were here for close to 4 hours. And the packing will interfere with your nasal oxygen delivery. 5. Be very gentle with your nose to not disturb the tiny blood vessels. 6. See Dr. Small on 02/06/2025 for recheck and further care. Ask to review all test results and official radiology reports, to make sure you receive all necessary follow-ups and monitoring. 7. Seek immediate medical care with worsening or with any concerns. Guillermo Goss MD Related Data Home Medications ?Medication ?Instructions ?Recorded ?Confirmed oxycodone-acetaminophen 10 mg-325 1 tab PO Q6H PRN Pain, Mild 10/26/18 02/02/25 mg tablet (Percocet) apixaban 5 mg tablet (Eliquis) 5 mg PO BID 11/18/23 02/02/25 semaglutide 0.25 mg or 0.5 mg (2 0.5 mg subcut QWEEK 12/30/23 02/02/25 mg/3 mL) subcutaneous pen injector (Ozempic) diltiazem HCl 90 mg 60 mg PO Q12H 10/01/24 02/02/25 capsule,extended release 12 hr metoprolol tartrate 50 mg tablet 25 mg PO BID 10/01/24 02/02/25 pantoprazole 40 mg tablet,delayed 40 mg PO QDAY 10/01/24 02/02/25 release torsemide 20 mg tablet 20 mg PO BID 10/01/24 02/02/25 aspirin 81 mg chewable tablet 81 mg PO QDAY 02/02/25 02/02/25 atorvastatin 40 mg tablet 80 mg PO QDAY 02/02/25 02/02/25 hydromorphone 4 mg tablet 4 mg PO Q12HR PRN pain 02/02/25 02/02/25 (Dilaudid) Previous Rx's ?Medication ?Instructions ?Recorded digoxin 125 mcg (0.125 mg) tablet 125 mcg PO QDAY #30 tabs 11/18/23 ipratropium 0.5 mg-albuterol 3 mg 3 ml inhalation QID PRN shortness 10/07/24 (2.5 mg base)/3 mL nebulization of breath or wheezing #180 mL soln clonidine HCl 0.1 mg tablet 0.1 mg PO BID #60 tabs 02/03/25 Allergies Allergy/AdvReac Type Severity Reaction Status Date / Time aspirin Allergy Severe Swelling Verified 12/29/23 23:48 of Lip/Tongue/Throat albuterol AdvReac Intermediate Difficulty Verified 12/29/23 23:47 Breathing Review of Systems Review of Systems Systems Reviewed: All systems reviewed, normal except as documented Past Medical History Past Medical History NEUROLOGIC: Positive Cerebrovascular Accident CARDIAC: Positive Cardiac Disorders, Atrial Fibrillation, Coronary Artery Disease, Atherosclerotic Heart Disease, Peripheral Vascular Disease, Congestive Heart Failure and Hypertension RESPIRATORY: Positive Chronic Obstructive Pulmonary Disease (COPD) and Asthma GASTROINTESTINAL: Positive Hepatitis and Obstructive Bowel GENITOURINARY: Positive Renal Disease and Benign Prostatic Hyperplasia MUSCULOSKELETAL: Positive Musculoskeletal Disorders and Arthritis ENDOCRINE: Positive Endocrine Disorders and Diabetes Mellitus Type 2; Negative Diabetes Mellitus Type 1 HEMATOLOGIC: Negative Sickle Cell Disease OTHER HISTORY: Positive Hospitalization, Chicken Pox, Measles, Mumps and Clostridium Difficile Family History FAMILY HISTORY: Positive Family Cardiac Disorders Surgical History SURGICAL: Positive Coronary Stent, Angiogram and Abdominal Surgery Social History SMOKING STATUS: Former smoker SECOND HAND EXPOSURE: No SUBSTANCE USE: does not use ED Exam Narrative Physical exam: As noted in HPI. Course Quality Measures none Orders Category Date Time Status Bedside COVID-19 Antigen Test NOW Care 02/02/25 23:02 Completed Bedside Influenza A&B Antigen Test NOW Care 02/02/25 23:[address] Screening NOW Care 02/02/25 23:04 Completed Saline [Insert IV] NOW Care 02/02/25 23:02 Completed Straight [In and Out Catheter] X1 Care 02/02/25 23:[address] angio chest Stat Exams 02/02/25 23:04 Taken XR chest 1V portable Stat Exams 02/02/25 22:52 Completed ABG [Arterial Blood Gas] Stat Lab 02/02/25 23:50 Completed BMP [Basic Metabolic Panel] Stat Lab 02/02/25 23:04 Completed BNP [B-Type Natriuretic Peptide] Stat Lab 02/02/25 23:04 Completed CBC Stat Lab 02/02/25 23:04 Completed D-Dimer Stat Lab 02/02/25 23:04 Completed Magnesium Stat Lab 02/02/25 23:04 Completed PT [Prothrombin Time with INR] Stat Lab 02/02/25 23:04 Completed PTT [Partial Thromboplastin Time] Stat Lab 02/02/25 23:04 Completed Troponin I Stat Lab 02/02/25 23:04 Completed UA, C/S IF [Urinalysis, C/S if Indicated] Stat Lab 02/03/25 00:10 Completed Albuterol/Ipratr Rt Christina [Duoneb Rt Christina] Med 02/02/25 23:02 Discontinued 3 ml INH X1 ONE BENZOCAINE(hurricane) SPRAY [Hurricane 20% [place]] Med 02/02/25 23:02 Discontinued See Dose Instructions TOP X1 ONE Levalbuterol Rt [Xopenex Rt Christina] Med 02/02/25 23:10 Discontinued 1.25 mg INH .STK-MED ONE Levalbuterol Rt [Xopenex Rt Christina] Med 02/02/25 23:03 Discontinued 2.5 mg INH X1 ONE MethylPREDNISolone.* [SoluMEDROL Inj] Med 02/02/25 23:02 Discontinued 125 mg IVP X1 ONE Metoprolol Tartrate [Lopressor] Med 02/02/25 23:04 Discontinued 25 mg PO X1 ONE Sodium Chloride Rt Christina 0.9% [NS Rt Christina 0.9%] Med 02/02/25 23:03 Discontinued 3 ml INH PRN PRN cloNIDine HCL [Catapres] Med 02/03/25 02:07 Discontinued 0.2 mg PO X1 ONE cloNIDine HCL [Catapres] Med 02/02/25 23:04 Discontinued 0.3 mg PO X1 ONE Vital Signs Vital signs: Vital Signs Temperature 99.0 F 02/02/25 22:39 Pulse Rate 84 02/02/25 22:39 Respiratory Rate 20 02/02/25 22:39 Blood Pressure 200/92 H 02/02/25 22:39 Pulse Oximetry (%) 98 02/02/25 22:39 Oxygen Delivery Method Nasal Cannula 02/02/25 22:39 Oxygen Flow Rate 3 02/02/25 22:39 Epistaxis MDM Narrative MDM Narrative:: 74yo male with a history of COPD, aFib, DVT s/p stent placement last week, on Eliquis and Brillinta BIBA from home here with bilateral epistaxis for the last few hours. No rectal bleeding, hematochezia, or melena. Patient does have shortness of breath, uncertain if slightly worse than baseline. Accountant Helper is Dr. Small. No other complaints reported. Patient data External records reviewed:: [facility] previous records (Per chart review, patient was admitted here on 10/10/24 for COPD exacerbation.) and EMS form Clinical information provided by:: patient Social determinants that could affect healthcare access:: none Patient has the following chronic illnesses:: COPD on 3 L of home oxygen, HTN, CVA, HFpEF ejection fraction 60 to 65% 09/2024, CAD status post stent placement, A-fib on Eliquis, DVT on Brillinta How is presenting disease/condition affected by chronic disease/condition?: caused by Evaluation data The following diagnostics were reviewed and interpreted by me:: lab results and radiology exam(s) Lab and/or radiology exams considered but not ordered:: none Interpretation Summary: I reviewed all diagnostic test results. My interpretation of the chest x-ray is NAD. My review of the CT angio chest report is NAD. Blood tests and urine tests are unremarkable. COVID/Influenza negative. Medications / Prescriptions Medications or Prescriptions considered but not ordered:: none Medication administrations:: Medication Administration History Discontinued Medications Albuterol/Ipratropium (Albuterol/Ipratropium (Duoneb) Rt Christina 3 Ml Nebu) 3 ml INH X1 ONE Stop: 02/02/25 23:03 Last Admin: 02/03/25 02:08 Dose: Not Given Documented By: DT Non-Admin Reason: Cancelled by Provider Benzocaine (Benzocaine 20% (Hurricaine) [place] 1 Dose) 0 dose TOP X1 ONE Stop: 02/02/25 23:03 Last Admin: 02/03/25 00:12 Dose: Not Given Documented By: DT Non-Admin Reason: Cancelled by Provider Clonidine (Clonidine Hcl 0.1 Mg Tablet) 0.3 mg PO X1 ONE Stop: 02/02/25 23:05 Last Admin: 02/03/25 02:07 Dose: Not Given Documented By: DT Non-Admin Reason: Cancelled by Provider Clonidine (Clonidine Hcl 0.1 Mg Tablet) 0.2 mg PO X1 ONE Stop: 02/03/25 02:08 Last Admin: 02/03/25 02:13 Dose: 0.2 mg Documented By: DT Levalbuterol HCl (Levalbuterol Rt 1.25 Mg/0.5 Ml Nebu) 2.5 mg INH X1 ONE Stop: 02/02/25 23:04 Last Admin: 02/02/25 23:18 Dose: 2.5 mg Documented By: NE Levalbuterol HCl (Levalbuterol Rt 1.25 Mg/0.5 Ml Nebu) Confirm Administered Dose 1.25 mg INH .STK-MED ONE Stop: 02/02/25 23:11 Last Admin: 02/03/25 01:10 Dose: Not Given Documented By: DT Non-Admin Reason: OVERIDE Methylprednisolone Sodium Succinate (Methylprednisolone Sod Succ 62.5 Mg/Ml 2ml Vial) 125 mg IVP X1 ONE Stop: 02/02/25 23:03 Last Admin: 02/02/25 23:25 Dose: 125 mg Documented By: EF Metoprolol Tartrate (Metoprolol Tartrate 25 Mg Tablet) 25 mg PO X1 ONE Stop: 02/02/25 23:05 Last Admin: 02/03/25 02:08 Dose: Not Given Documented By: DT Non-Admin Reason: Cancelled by Provider Sodium Chloride (Sodium Chloride Rt Christina 0.9% 3 Ml Nebu) 3 ml INH PRN PRN PRN Reason: SOLN Stop: 03/04/25 23:02 Last Admin: 02/02/25 23:18 Dose: 3 ml Documented By: TYLER Xopenex, Solumedrol, Clonidine Consultations Consultation(s) initiated? (list below): Yes Consultation #1 (Physician, Specialty, Details): I discussed the case with our ferry boat captain, Dr. Small. About the presentation and exam and diagnostics and treatments here. And possible need of further care in the hospital.? Recommended holding Eliquis outpatient follow-up with him. Diagnosis Most likely diagnosis given after review of the tests above:: Nosebleed Admission Indicated Admission indicated?: not indicated Explain why admission is indicated or not indicated:: With significant improvement and no condition needing emergent intervention, there was no indication for admission. Admission Request Was there a request for admission?: No Disposition Plan Disposition Plan: Discharge Discharge Attestation Discharge Attestation: The patient and all family members were given an opportunity to ask questions and understood the discharge instructions. Discharge instructions specifically effects, indications for sooner follow up or return to the emergency department, and the expected course of current diagnosis. Patient condition: Stable Discharge Plan Plan Patient Disposition: HOME (Self Care) Prescriptions/Referrals Prescriptions/Med Rec: New clonidine HCl 0.1 mg tablet 0.1 mg PO BID Qty: 60 0RF No Action oxycodone-acetaminophen [Percocet] 10-325 mg Tablet 1 tab PO Q6H PRN (Reason: Pain, Mild) digoxin 125 mcg (0.125 mg) Tablet 125 mcg PO QDAY Qty: 30 0RF Eliquis 5 mg Tablet 5 mg PO BID Ozempic 0.25 mg or 0.5 mg (2 mg/3 mL) pen injector 0.5 mg SUBCUT QWEEK diltiazem HCl 90 mg capsule,extended release 12 hr 60 mg PO Q12H Patient Comments: TAKE 1 CAPSULE BY MOUTH TWICE DAILY metoprolol tartrate 50 mg tablet 25 mg PO BID Patient Comments: TAKE ONE TABLET BY MOUTH TWICE DAILY FOR BLOOD PRESSURE pantoprazole 40 mg tablet,delayed release (DR/EC) 40 mg PO QDAY torsemide 20 mg tablet 20 mg PO BID ipratropium-albuterol 0.5 mg-3 mg(2.5 mg base)/3 mL solution for nebulization 3 ml inhalation QID PRN (Reason: shortness of breath or wheezing) Qty: 180 0RF hydromorphone [Dilaudid] 4 mg tablet 4 mg PO Q12HR PRN (Reason: pain) aspirin 81 mg tablet,chewable 81 mg PO QDAY atorvastatin 40 mg tablet 80 mg PO QDAY Referrals: Shanti([facility])Adenike MD [Primary Care Provider] - In 1 week Problem List Clinical Impression: Nosebleed Patient/Caregiver Discharge Instructions Discharge Activity: activity as tolerated Education Materials: ED Epistaxis (Adult) Additional Instructions: Discharge Instructions from Dr. Goss printed for you: 1. After evaluation, there is no immediately life-threatening condition. Such as heart attack or pulmonary embolism (blood clots in your lungs) or pneumothorax (collapsed lung). 2. You are taking strong blood thinners. For the benefit of preventing heart attacks and strokes and life-threatening blood clots. But to benefit from the blood thinners, unfortunately you have to take the risk as well. Which includes easier bleeding in any part of your body, including in the nose with tiny and fragile blood vessels. 3. Your case was discussed with your ferry boat captain, Dr. Small. He wants you to stop Eliquis until he sees you. 4. And take clonidine to lower your BP as needed, high BP will rupture tiny blood vessels in the nose and cause bleeding. Take clonidine 0.1 mg pills as needed based on SBP (higher number of BP). Check your BP twice daily (about 12 hours apart). If SBP > 140, take one pill. If SBP > 160, take two pills. If SBP > 180, take three pills. If SBP > 200, take four pills. 5. Decision was made with you not to pack your nose. Because there was no bleeding while you were here for close to 4 hours. And the packing will interfere with your nasal oxygen delivery. 5. Be very gentle with your nose to not disturb the tiny blood vessels. 6. See Dr. Small on 02/06/2025 for recheck and further care. Ask to review all test results and official radiology reports, to make sure you receive all necessary follow-ups and monitoring. 7. Seek immediate medical care with worsening or with any concerns. Print Language: Liberian Stand Alone Forms: Valencia Award Info., Patient Portal Info Letter
[2025-02-02 22:43] VITALS: PULSE 75; RESP 16; O2SAT 98; BMI 30.2
[2025-02-02 22:46] VITALS: BMI 33.7
--- NOTE | 2025-02-02 22:52 | XR_ITS ---
Examination: AP chest single view Technique AP portable upright chest single view Date and time: February 02, 2025 1121 hours INDICATIONS: Shortness of breath chest pain today. FINDINGS: Normal heart size. No lobar pneumonia or pulmonary edema Minor atelectasis in the left midlung Moderate osteopenia IMPRESSION: No pneumonia or pulmonary edema
[2025-02-02 23:04] VITALS: BP 149/90; PULSE 98; RESP 18; O2SAT 98
--- NOTE | 2025-02-02 23:04 | XR_ITS ---
Examination: CTA chest with intravenous contrast 2-D reconstructions 3-D reconstructions, vascular Date and time of exam: February 03, 2025 0026 hours INDICATIONS: Shortness of breath chest pain onset today CTDI: vol (mGy) 18.96. DLP: (mGycm) 428. Technique: Multiple axial sections of the thorax have been obtained. 3 mm slice thickness, from below the hemidiaphragms to above the apices of the lungs. Mediastinal and lung density settings have been obtained. 2-D sagittal and coronal reconstructions. 3-D angiographic renderings, 3-D volume renderings, 3D post processing, vascular maximum intensity projections obtained. Contrast administered is 95 cc of Isovue 370 intravenous.. Low dose protocols were performed. One or more of the following dose reduction techniques were used; automated exposure control, adjustment of the mA and/or KV according to patient size, use of iterative reconstruction technique. Findings: AP dimension ascending thoracic aorta 4.4 cm No pulmonary artery emboli Normal cardiac contour Any calcification left anterior descending coronary artery Parenchymal disease left upper lobe which may represent scar formation Mediastinal lymphadenopathy, including 17 mm pretracheal lymph node and small hilar nodes At least 7 bilateral pulmonary nodules, the largest 10 mm in the right lower lobe Cirrhosis, liver nodular in contour with significant splenomegaly No gallstones No pancreatic mass No hydronephrosis Severe compression fracture T7 which may be acute IMPRESSION: AP dimension ascending thoracic aorta 4.4 cm Negative for pulmonary artery emboli Mediastinal lymphadenopathy. Bilateral pulmonary nodules consider early pulmonary nodular metastatic disease, recommend 3-6 month follow-up CT chest without contrast No lobar pneumonia. Cirrhosis Significant splenomegaly Severe osteopenia Severe compression fracture T7, which may be acute, consider CT scan thoracic spine without contrast follow-up
[2025-02-02 23:18] VITALS: PULSE 89; RESP 20; O2SAT 99
[2025-02-02] MEDS: SODIUM CHLORIDE RT SOL 0.9% 3 ML NEBU INH (23:18)
[2025-02-02] MEDS: LEVALBUTEROL RT 1.25 MG/0.5 ML NEBU 2.5 MG INH (23:18)
[2025-02-02] MEDS: MethylPREDNISolone SOD SUCC 62.5 MG/ML 2ML VIAL 125 MG IVP (23:25)
[2025-02-02 23:27] LABS: Basophils # (Auto) 0.0 Thou/mm3 (0.0-0.2); Basophils % (Auto) 0 % (0-2.5); Eosinophils # (Auto) 0.2 Thou/mm3 (0.0-0.5); Eosinophils % (Auto) 4 % (0-10); Hematocrit 36.2 % (41.0-53.0); Hemoglobin 11.1 g/dL (13.5-16.0); Immature Granulocytes Auto 0.04 Thou/mm3 (0.00-0.00); Lymphocytes # (Auto) 0.6 Thou/mm3 (1.0-4.8); Lymphocytes % (Auto) 12 % (10-50); Mean Corpuscular HGB Conc 30.7 g/dl (31.0-37.0); Mean Corpuscular Hemoglobin 24.6 pg (25.0-35.0); Mean Corpuscular Volume 80 fL (80-100); Monocytes # (Auto) 0.3 Thou/mm3 (0.0-0.8); Monocytes % (Auto) 7 % (0-12); Neutrophils # (Auto) 3.8 Thou/mm3 (1.8-7.7); Neutrophils % (Auto) 76 % (37-80); Nucleated Red Blood Cell # 0.00 Thou/mm3 (0.00-0.00); Nucleated Red Blood Cell % 0 /100 WBC (0); Platelet Count 175 Thou/mm3 (140-440); RDW Standard Deviation 45.1 fL (35.1-43.9); Red Blood Count 4.51 Miln/mm3 (4.50-5.90); White Blood Count 5.0 Thou/mm3 (3.8-10.6)
[2025-02-02 23:40] LABS: INR 1.0 (0.9-1.3); Partial Thromboplastin Time 34.5 Seconds (22.0-36.0); Prothrombin Time 11.1 Seconds (9.0-12.2)
[2025-02-02 23:46] LABS: Anion Gap 9 (7-16); BUN/Creatinine Ratio 13 Ratio (12-20); Blood Urea Nitrogen 15 mg/dL (9-23); Calcium 9.3 mg/dL (8.3-10.6); Carbon Dioxide 33.1 mMol/L (20.0-31.0); Chloride 96 mMol/L (98-107); Creatinine (Component) 1.2 mg/dL (0.6-1.3); Estimated Creatinine Clearance 64.0 mL/min (>60); Glucose 179 mg/dL (74-106); Magnesium 2.0 mg/dL (1.6-2.6); Osmolality,Calculated 280 (275-295); Potassium 4.2 mMol/L (3.4-5.1); Sodium 138 mMol/L (136-145); Troponin I < 0.020 ng/mL (0.0-0.045); eGFR > 60 See Note
[2025-02-02 23:50] LABS: D-Dimer < 250 ng/mL (<600)
[2025-02-02 23:55] LABS: Base Excess 8 (-3-3); HCO3 32 mEq/L (20-26); Inspired Oxygen, FIO2 21 %; O2 Saturation 97 % (91-98); PCO2 46 mmHg (32.0-48.0); PO2 80 mmHg (83-108); pH, Arterial 7.46 (7.35-7.45)
[2025-02-03] LABS: Allen Test Performed/OK; Puncture Site Right Radial
[2025-02-03 00:15] LABS: B-Type Natriuretic Peptide 54 pg/mL (0-100)
[2025-02-03 00:21] LABS: Collection Type, Urine Clean Catch; Squamous Epithelial Cell,Urine 0 /hpf (0-5)
[2025-02-03 00:34] LABS: Bilirubin,Urine Negative (Negative); Blood,Urine Trace (Negative); Clarity,Urine Clear (Clear/Hazy); Color,Urine Lt-Yellow (Lt Yel-Yel); Culture Indicated,Urine Not Indicated; Glucose, Urine Negative (Negative); Ketones,Urine Negative (Negative); Leukocyte Esterase,Urine Negative (Negative); Nitrite,Urine Negative (Negative); PH,Urine 6.5 (5.0-7.0); Protein,Urine Negative (Neg - Trace); RBC,Urine 15 /hpf (0-3); Specific Gravity,Urine 1.015 (1.001-1.035); Urobilinogen,Urine Negative mg/dL (0.0-1.0); WBC,Urine 1 /hpf (0-5)
[2025-02-03 01:31] VITALS: BP 163/90; PULSE 70; RESP 14; TEMP 37; O2SAT 99
--- NOTE | 2025-02-03 01:53 | PRELIM_ITS ---
CT angiogram of the chest with intravenous contrast (axial sections with sagittal and coronal reformats) February 03, 2025 at 0026 hours Clinical History: SOB. Technique:Helical axial sections with sagittal and coronal reformats of the chest were obtained with intravenous contrast. Iterative reconstruction technique was employed to reduce patient radiation exposure. 3D/MIP reconstructed images were also provided. Comparison: Compared with the prior study dated March. Findings: There is no evidence of acute pulmonary thromboembolism in the central pulmonary arteries. However, evaluation of the peripheral vessels is limited by respiratory motion artifacts and small peripheral emboli cannot be entirely excluded. There are multiple prominent mediastinal and bilateral hilar lymph nodes, the largest measuring 2 x 1.5 cm in the right hilar region (axial image 70/192), similar to prior study. The thoracic aorta demonstrates atheromatous calcification without evidence of aneurysm. There is no pericardial effusion. Coronary artery calcification is noted. Mild bibasilar dependent atelectasis is present. No evidence of segmental lung consolidation. There is subsegmental atelectasis with scarring in the left upper lobe, new since the prior examination. There is am indeterminate 1.1 cm nodule in the right lower lobe (axial image 107/192) . There are 6 mm perifissural nodule along the right major fissure and 4 mm subpleural nodule in the right lower lobe (axial image 107/192), 2 mm subpleural nodule in the left upper lobe (axial image 46/192) similar to prior study. There is focal scarring versus 1 cm subpleural nodule in the lingula (axial image 93/192) not well seen on the prior study. Again seen is 1 cm calcified nodule in the medial aspect of the right lower lobe (axial image 80/192), similar to prior study. No evidence of pleural effusion or pneumothorax. There is mild peribronchial thickening in the bilateral lungs, predominantly in the lower lobes. Mild emphysematous changes are noted in the lungs. Degenerative changes are identified in the spine. There are chronic fractures of the right 10th, 11th and left 3rd to 5th ribs. There is chronic compression deformity of the superior endplate of L2 vertebra, also seen on prior study. There is age indeterminate fracture of the T7 vertebral body with > 50 % loss of vertebral body height new since the prior examination. No evidence of significant retropulsion or cord compression. Again seen is nodular contour of liver, suggestive of cirrhosis, similar to prior study. Again seen is mild splenomegaly, similar to prior study. Again seen is dilated main portal vein, measuring 1.9 cm and perisplenic collaterals, suggestive of portal hypertension, similar to prior study. Mild nonspecific perinephric fat stranding is noted bilaterally. The other upper abdominal viscera are unremarkable to the extent visualized. Impression: 1. No evidence of acute pulmonary thromboembolism in the central pulmonary arteries. However, evaluation of the peripheral vessels is limited by respiratory motion artifacts and small peripheral emboli cannot be entirely excluded. 2. No evidence of segmental lung consolidation or pleural effusion. 3. Bilateral lung nodules as described. 4. Mediastinal and bilateral hilar lymphadenopathy as described. 5. Age indeterminate fracture of the T7 vertebra as described. 6. Cirrhosis of liver with portal hypertension and mild splenomegaly . 7. Other findings as described above. Suggest clinical correlation and follow up accordingly. Report Electronically Signed By: Meet Washington 02/03/2025 1:52:37 AM [EST]
[2025-02-03 02:13] VITALS: BP 164/93; PULSE 94
[2025-02-03 02:21] VITALS: BP 169/90; PULSE 98; RESP 14; TEMP 37; O2SAT 99
== END 2025-02-03 03:05 | disposition home or self-care (01) ==
PROVIDERS: Emergency Provider Emergency Medicine; PCP Internal Medicine
DX: R04.0 Epistaxis (principal); R06.02 Shortness of breath; R07.9 Chest pain, unspecified
CPT/HCPCS: 36415; 36600; 71045; 71275; 80048; 81001; 82803; 83735; 83880; 84484; 85025; 85379; 85610; 85730; 87400; 87811; 94640; 96374; 99283; A4649; J2919; Q9967; A9270

== ENCOUNTER 2025-02-24 15:29 | Emergency (ER) | payer MEDICARE, MEDICAID, SELFPAY ==
[2025-02-24] VITALS (7 sets, daily range): BP systolic 119–149; BP diastolic 62–90; PULSE 77–92; RESP 14–19; TEMP 36.6–36.7; O2SAT 93–99; BMI 30.2
--- NOTE | 2025-02-24 15:30 | EKG_ITS ---
[facility] Test Date: 2025-02-24 Pat Name: SAKSHI GREENFIELD Department: Room: - Gender: Male Director Medical Science: : 1950 Requested By: Anna Jara Order Number: [id number] Reading MD: Anna Jara Measurements Intervals [place] Rate: 79 P: MA: QRS: -22 QRSD: 126 T: 38 QT: 385 QTc: 442 Interpretive Statements ATRIAL FIBRILLATION BORDERLINE LEFT AXIS DEVIATION [QRS AXIS < -20] RIGHT BUNDLE BRANCH BLOCK [120+ ms QRS DURATION, UPRIGHT V1, 40+ ms S IN I/aVL/V4/V5/V6] Compared to ECG 10/10/2024 09:34:55 Atrial flutter no longer present /store/S0/[id number]/ecg/[id number].pdf
--- NOTE | 2025-02-24 15:30 | XR_ITS ---
Examination: AP chest single view Technique one AP portable upright chest single view Date and time: March 06, 2025 1614 hours INDICATIONS: Coughing and chest pain beginning 3 days ago. FINDINGS: Mild prominence left ventricle Mild vascular congestion. No lobar pneumonia. Prominent osteopenia IMPRESSION: Mild vascular congestion
--- NOTE | 2025-02-24 15:38 | PD.EDABDPN ---
ED Abdominal Pain RME/HPI General Chief Complaint: Abdominal Pain Stated complaint: FLANK PAIN Time seen by provider: 02/24/25 15:29 Arrival date/time: 02/24/25 15:29 RME / HPI RME / HPI narrative: DR. PADRON MAIN ED EVALUATION: 74-year-old male presents to the Emergency Department [facility] via EMS with bilateral flank pain for 2?3 days, rated 9/10 at worst. Pain worsens with coughing and movement. Patient reports slow urination but denies dysuria, hematuria, or blood in stools. Reports chronic mild constipation. PMHx: COPD on 3 L home oxygen, hypertension, CVA, heart failure with preserved ejection fraction (EF 60?65% in September 2024), coronary artery disease status post stent placement, atrial fibrillation on Eliquis, chronic back pain on opioids, and benign prostatic hyperplasia. PSHx: Appendectomy Social Hx: No tobacco, alcohol, or substance use. Related Data Home Medications ?Medication ?Instructions ?Recorded ?Confirmed oxycodone-acetaminophen 10 mg-325 1 tab PO Q6H PRN Pain, Mild 10/26/18 02/02/25 mg tablet (Percocet) apixaban 5 mg tablet (Eliquis) 5 mg PO BID 11/18/23 02/02/25 semaglutide 0.25 mg or 0.5 mg (2 0.5 mg subcut QWEEK 12/30/23 02/02/25 mg/3 mL) subcutaneous pen injector (Ozempic) diltiazem HCl 90 mg 60 mg PO Q12H 10/01/24 02/02/25 capsule,extended release 12 hr metoprolol tartrate 50 mg tablet 25 mg PO BID 10/01/24 02/02/25 pantoprazole 40 mg tablet,delayed 40 mg PO QDAY 10/01/24 02/02/25 release torsemide 20 mg tablet 20 mg PO BID 10/01/24 02/02/25 aspirin 81 mg chewable tablet 81 mg PO QDAY 02/02/25 02/02/25 atorvastatin 40 mg tablet 80 mg PO QDAY 02/02/25 02/02/25 hydromorphone 4 mg tablet 4 mg PO Q12HR PRN pain 02/02/25 02/02/25 (Dilaudid) Previous Rx's ?Medication ?Instructions ?Recorded digoxin 125 mcg (0.125 mg) tablet 125 mcg PO QDAY #30 tabs 11/18/23 ipratropium 0.5 mg-albuterol 3 mg 3 ml inhalation QID PRN shortness 10/07/24 (2.5 mg base)/3 mL nebulization of breath or wheezing #180 mL soln clonidine HCl 0.1 mg tablet 0.1 mg PO BID #60 tabs 02/03/25 tizanidine 2 mg tablet 2 mg PO Q8H PRN muscle spasm #15 02/24/25 tabs cyclobenzaprine 10 mg tablet 10 mg PO Q8H PRN muscle spasm #30 03/08/25 tabs lidocaine 5 % topical patch 2 patch topical QDAY PRN pain #30 03/08/25 (Lidoderm) ea Allergies Allergy/AdvReac Type Severity Reaction Status Date / Time aspirin Allergy Severe Swelling Verified 12/29/23 23:48 of Lip/Tongue/Throat albuterol AdvReac Intermediate Difficulty Verified 12/29/23 23:47 Breathing Review of Systems Review of Systems Systems Reviewed: All systems reviewed, normal except as documented Past Medical History Past Medical History NEUROLOGIC: Positive Cerebrovascular Accident CARDIAC: Positive Cardiac Disorders (HTN, AFIB), Atrial Fibrillation, Coronary Artery Disease, Atherosclerotic Heart Disease, Peripheral Vascular Disease, Congestive Heart Failure and Hypertension RESPIRATORY: Positive Chronic Obstructive Pulmonary Disease (COPD) and Asthma (COPD) GASTROINTESTINAL: Positive Hepatitis and Obstructive Bowel GENITOURINARY: Positive Benign Prostatic Hyperplasia MUSCULOSKELETAL: Positive Musculoskeletal Disorders and Arthritis ENDOCRINE: Positive Endocrine Disorders and Diabetes Mellitus Type 2 OTHER HISTORY: Positive Hospitalization, Chicken Pox, Measles, Mumps and Clostridium Difficile Family History FAMILY HISTORY: Positive Family Cardiac Disorders Surgical History SURGICAL: Positive Coronary Stent, Angiogram and Abdominal Surgery Social History SMOKING STATUS: Former smoker SECOND HAND EXPOSURE: No SUBSTANCE USE: does not use ALCOHOL: Never ED Exam Narrative Physical exam: GENERAL APPEARANCE: alert and oriented x 4, well-developed, well-nourished, no acute distress VITALS: All vitals were reviewed and the pulse ox is 96% on 2 L/min via a nasal cannula. HEENT: Normocephalic, atraumatic; pupils equal, round, reactive to light; EOMI; mucous membranes pink, moist; oropharynx clear NECK: Supple LUNGS: CTABL; no wheezes, no rales, no rhonchi HEART: Regular rate, regular rhythm; normal S1, S2; no murmurs ABDOMEN: non distended; normal BS; soft, no tenderness, no guarding, no rebound; no masses, no organomegaly, no hernia BACK: no CVA tenderness EXTREMITIES: atraumatic; no edema NEUROLOGIC: awake; alert and oriented x4; cranial nerves II-XII grossly intact; no focal sensory or motor deficits PSYCHIATRIC: appropriate mood and affect SKIN: warm, dry, normal color; no rashes Course Quality Measures none Orders Category Date Time Status CT Screening NOW Care 02/24/25 19:08 Completed 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 Care 02/24/25 15:30 Completed EKG (ED ONLY) *Do not use* NOW Care 02/24/25 15:[address] abdomen pelvis w con Stat Exams 02/24/25 19:08 Completed EKG (ED Only) Stat Exams 02/24/25 15:30 Draft XR chest 1V portable Stat Exams 02/24/25 15:30 Completed B-Type Natriuretic Peptide Stat Lab 02/24/25 14:00 Completed Blood Culture (Lab) Stat Lab 02/24/25 14:05 Completed CBC Stat Lab 02/24/25 14:00 Completed Comprehensive Metabolic Panel Stat Lab 02/24/25 14:00 Completed Lactate (Lactic Acid) Stat Lab 02/24/25 18:13 Completed Lipase Stat Lab 02/24/25 14:00 Completed Magnesium Stat Lab 02/24/25 14:00 Completed Partial Thromboplastin Time Stat Lab 02/24/25 14:00 Completed Procalcitonin Stat Lab 02/24/25 14:00 Completed Prothrombin Time with INR Stat Lab 02/24/25 14:00 Completed Troponin I Stat Lab 02/24/25 14:00 Completed Urinalysis Stat Lab 02/24/25 18:37 Completed Urine Culture Stat Lab 02/24/25 18:37 Completed Albuterol/Ipratr Rt Christina [Duoneb Rt Christina] Med 02/24/25 16:51 Discontinued 3 ml INH X1 ONE HYDROmorphone INJ [Dilaudid Inj] Med 02/24/25 18:37 Discontinued 1 mg IVP X1 ONE Morphine Inj Med 02/24/25 15:38 Discontinued 5 mg IVP X1 ONE Ondansetron Inj [Zofran Inj] Med 02/24/25 15:38 Discontinued 4 mg IVP X1 ONE Vital Signs Vital signs: Vital Signs Temperature 97.8 F 08/08/25 15:31 Pulse Rate 78 02/24/25 15:31 Respiratory Rate 18 02/24/25 15:31 Blood Pressure 140/77 H 02/24/25 15:31 Pulse Oximetry (%) 96 02/24/25 15:31 Oxygen Delivery Method Nasal Cannula 02/24/25 15:31 Oxygen Flow Rate 2 02/24/25 15:31 Abdominal Pain MDM MDM Narrative MDM Narrative:: I, Maricel Leslie, nghia scribing for and in the presence of Dr. Padron. Patient data External records reviewed:: [facility] previous records and EMS form Clinical information provided by:: patient and EMS Social determinants that could affect healthcare access:: none Patient has the following chronic illnesses:: PMHx: COPD on 3 L home oxygen, hypertension, CVA, heart failure with preserved ejection fraction (EF 60?65% in September 2024), coronary artery disease status post stent placement, atrial fibrillation on Eliquis, chronic back pain on opioids, and benign prostatic hyperplasia. PSHx: Appendectomy Social Hx: No tobacco, alcohol, or substance use. How is presenting disease/condition affected by chronic disease/condition?: exacerbated by Evaluation data The following diagnostics were reviewed and interpreted by me:: lab results, radiology exam(s) and EKG tracing(s) (My interpretation: EKG performed at 1626 hours, atrial fibrillation, rate 79, T wave inversion in V1, right bundle branch block, ST depression in V4 and V6) Lab and/or radiology exams considered but not ordered:: none Interpretation Summary: Procedure(s): XR chest 1V portable Accession Number(s): [id number] cc: Aime Jacobs MD; NO PRIMARY/FAMILY,PHYSICIAN; Anna Padron MD~ Examination: AP chest single view Technique one AP portable upright chest single view Date and time: March 06, 2025 1614 hours INDICATIONS: Coughing and chest pain beginning 3 days ago. FINDINGS: Mild prominence left ventricle Mild vascular congestion. No lobar pneumonia. Prominent osteopenia IMPRESSION: Mild vascular congestion Dictated By: Aime Jacobs MD Medications / Prescriptions Medications or Prescriptions considered but not ordered:: none Medication administrations:: Medication Administration History Discontinued Medications Albuterol/Ipratropium (Albuterol/Ipratropium (Duoneb) Rt Christina 3 Ml Nebu) 3 ml INH X1 ONE Stop: 02/24/25 16:52 Last Admin: 02/24/25 16:58 Dose: 3 ml Documented By: OSMAN Hydromorphone HCl (Hydromorphone Inj 2 Mg/Ml Vial) 1 mg IVP X1 ONE Stop: 02/24/25 18:38 Last Admin: 02/24/25 19:35 Dose: 1 mg Documented By: LU Morphine Sulfate (Morphine Sulf Inj 10 Mg/Ml Vial) 5 mg IVP X1 ONE Stop: 02/24/25 15:39 Last Admin: 02/24/25 16:25 Dose: 5 mg Documented By: CG Ondansetron HCl (Ondansetron Inj 2 Mg/Ml Inj 2 Ml) 4 mg IVP X1 ONE Stop: 02/24/25 15:39 Last Admin: 02/24/25 16:26 Dose: 4 mg Documented By: ANA see above Consultations Consultation(s) initiated? (list below): No Diagnosis Differential diagnosis abdominal pain: other (UTI, pyelonephritis, nephrolithiasis) Most likely diagnosis given after review of the tests above:: No official diagnoses at this time, still pending diagnostic tests. Patient signout to the awake overnight monitor provider. Admission Indicated Admission indicated?: not indicated Explain why admission is indicated or not indicated:: No final disposition plan at this time, still pending diagnostic tests. Patient signout to the awake overnight monitor provider. Admission Request Was there a request for admission?: No Disposition Plan Disposition Plan: other (specify) (Patient signed out to Dr. Valenzuela, pending remainder of labs and final disposition.) Discharge Plan Prescriptions/Referrals Prescriptions/Med Rec: New tizanidine 2 mg tablet 2 mg PO Q8H PRN (Reason: muscle spasm) Qty: 15 0RF No Action oxycodone-acetaminophen [Percocet] 10-325 mg Tablet 1 tab PO Q6H PRN (Reason: Pain, Mild) digoxin 125 mcg (0.125 mg) Tablet 125 mcg PO QDAY Qty: 30 0RF Eliquis 5 mg Tablet 5 mg PO BID Ozempic 0.25 mg or 0.5 mg (2 mg/3 mL) pen injector 0.5 mg SUBCUT QWEEK diltiazem HCl 90 mg capsule,extended release 12 hr 60 mg PO Q12H Patient Comments: TAKE 1 CAPSULE BY MOUTH TWICE DAILY metoprolol tartrate 50 mg tablet 25 mg PO BID Patient Comments: TAKE ONE TABLET BY MOUTH TWICE DAILY FOR BLOOD PRESSURE pantoprazole 40 mg tablet,delayed release (DR/EC) 40 mg PO QDAY torsemide 20 mg tablet 20 mg PO BID ipratropium-albuterol 0.5 mg-3 mg(2.5 mg base)/3 mL solution for nebulization 3 ml inhalation QID PRN (Reason: shortness of breath or wheezing) Qty: 180 0RF cyclobenzaprine 10 mg tablet 10 mg PO Q8H PRN (Reason: muscle spasm) Qty: 30 0RF lidocaine [Lidoderm] 5 % adhesive patch,medicated 2 patch topical QDAY PRN (Reason: pain) Qty: 30 0RF Rx Instructions: leave on most painful area for up to 12 hrs hydromorphone [Dilaudid] 4 mg tablet 4 mg PO Q12HR PRN (Reason: pain) aspirin 81 mg tablet,chewable 81 mg PO QDAY atorvastatin 40 mg tablet 80 mg PO QDAY clonidine HCl 0.1 mg tablet 0.1 mg PO BID Qty: 60 0RF Referrals: No Primary/Family,Physician [Primary Care Provider] - In 1 week Problem List Clinical Impression: Flank pain Patient/Caregiver Discharge Instructions Print Language: Uzbek
[2025-02-24] MEDS: MORPHINE SULF INJ 10 MG/ML VIAL 5 MG IVP (16:25)
[2025-02-24] MEDS: ONDANSETRON INJ 2 MG/ML INJ 2 ML 4 MG IVP (16:26)
[2025-02-24 16:30] LABS: Basophils # (Auto) 0.0 Thou/mm3 (0.0-0.2); Basophils % (Auto) 0 % (0-2.5); Eosinophils # (Auto) 0.1 Thou/mm3 (0.0-0.5); Eosinophils % (Auto) 3 % (0-10); Hematocrit 32.9 % (41.0-53.0); Hemoglobin 9.9 g/dL (13.5-16.0); Immature Granulocytes Auto 0.02 Thou/mm3 (0.00-0.00); Lymphocytes # (Auto) 0.5 Thou/mm3 (1.0-4.8); Lymphocytes % (Auto) 13 % (10-50); Mean Corpuscular HGB Conc 30.1 g/dl (31.0-37.0); Mean Corpuscular Hemoglobin 24.4 pg (25.0-35.0); Mean Corpuscular Volume 81 fL (80-100); Monocytes # (Auto) 0.3 Thou/mm3 (0.0-0.8); Monocytes % (Auto) 8 % (0-12); Neutrophils # (Auto) 2.7 Thou/mm3 (1.8-7.7); Neutrophils % (Auto) 75 % (37-80); Nucleated Red Blood Cell # 0.00 Thou/mm3 (0.00-0.00); Nucleated Red Blood Cell % 0 /100 WBC (0); Platelet Count 162 Thou/mm3 (140-440); RDW Standard Deviation 46.9 fL (35.1-43.9); Red Blood Count 4.05 Miln/mm3 (4.50-5.90); White Blood Count 3.5 Thou/mm3 (3.8-10.6)
[2025-02-24 16:36] LABS: INR 1.1 (0.9-1.3); Partial Thromboplastin Time 32.5 Seconds (22.0-36.0); Prothrombin Time 11.6 Seconds (9.0-12.2)
[2025-02-24 16:39] LABS: B-Type Natriuretic Peptide 98 pg/mL (0-100)
[2025-02-24 16:51] LABS: Alanine Aminotransferase 8 U/L (10-49); Albumin, Serum 4.2 gm/dL (3.4-4.8); Albumin/Globulin Ratio 2.2 (1.2-2.2); Alkaline Phosphatase 67 U/L (46-116); Anion Gap 10 (7-16); Aspartate Amino Transferase < 10 U/L (0-34); BUN/Creatinine Ratio 15 Ratio (12-20); Bilirubin,Total 0.4 mg/dL (0.3-1.2); Blood Urea Nitrogen 16 mg/dL (9-23); Calcium 9.0 mg/dL (8.3-10.6); Calcium (Corrected) 9.0 mg/dL (8.5-10.1); Carbon Dioxide 36.0 mMol/L (20.0-31.0); Chloride 94 mMol/L (98-107); Creatinine (Component) 1.1 mg/dL (0.6-1.3); Estimated Creatinine Clearance 74.3 mL/min (>60); Globulin 1.9 gm/dL (2.3-3.5); Glucose 224 mg/dL (74-106); Lipase 31 U/L (12-53); Magnesium 1.8 mg/dL (1.6-2.6); Osmolality,Calculated 287 (275-295); Potassium 3.8 mMol/L (3.4-5.1); Procalcitonin 0.12 ng/ml (0.0-0.49); Sodium 140 mMol/L (136-145); Total Protein 6.1 gm/dL (5.7-8.2); Troponin I < 0.020 ng/mL (0.0-0.045); eGFR > 60 See Note
[2025-02-24] MEDS: ALBUTEROL/IPRATROPIUM (Duoneb) RT SOL 3 ML NEBU INH (16:58)
--- NOTE | 2025-02-24 18:07 | PD.EDADDENDU ---
Emergency Room Addendum <Alivia Clayton - Last Filed: 02/24/25 22:21> Addendum Narrative: 1800: Care assumed from Dr. Padron, the previous shift emergency physician. Past medical, surgical, social and family history reviewed. Vitals and home medications reviewed. Results and treatment plan discussed. I will assume the care of the patient at this time and will follow the patient, pending urinalysis. Please refer to the emergency department record for history and examination from initial visit. 74yo male with history of COPD, complex medical history including cardiomyopathy, aFib on Eliquis, chrpnic back pain, BPH now presenting with bilateral back pain x 2 days without lower extremity radiculopathy, sacral paresthesias, or lower extremity weakness. Patient reports history of parenchymal kidney stone and notes urinary frequency, hesitancy, although denies post-void dribbling or dysuria. Clincial exam demonstrates mild bilateral CVA tenderness without midline thoracic tenderness. Lab markers including CBC demonstrates mild leukopenia with WBC 3.5, chronic anemia Hgb 9.9, and Platelet count of 162. UA unremarkable. CT abdomen pelvis demonstrates cirrhotic liver disease with a 8 mm right parenchymal renal calculus. Patient did require incremental narcotic analgesics with mild-moderate pain control. Patient resting comfortably. Pain likely musculoskeletal in nature and may be arising from centrally herniated intrathoracic disc. Will add muscle relaxant and consider short course of anti-inflammatory agents with recommendations for close follow-up, as patient may require MRI of thoracic spine. Precaution instructions issued. RADIOLOGY RESULTS: [place] [facility] Report Signed Patient: SAKSHI GREENFIELD [facility]. Record#: [id number] Birthdate: 1950 Age/Sex: 74 / M Location: [facility] Attending Dr: Ordering Physician: Donald Valenzuela DO Date of Service: 02/24/25 Procedure(s): CT abdomen pelvis w con Accession Number(s): [id number] cc: Donald Valenzuela DO; Aime Jacobs MD; NO PRIMARY/FAMILY,PHYSICIAN~ Examination: CT abdomen with intravenous contrast CT pelvis with intravenous contrast 2-D coronal reconstructions 2-D sagittal reconstructions Date and time of exam:February 24, 2025 2103 hours Comparison May 29, 2019 INDICATIONS: Bilateral flank pain beginning 5 days ago. CTDI: vol (mGy) 12.5 DLP: (mGycm) 786 Technique: Multiple axial sections of the abdomen and pelvis have been obtained. 64 slice high-resolution scanner used. 3 mm axial sections have been obtained, post intravenous injection 60 cc Isovue-370 2-D sagittal, coronal reconstructions obtained. Low dose protocols were performed. One or more of the following dose reduction techniques were used; automated exposure control, adjustment of the mA and/or KV according to patient size, use of iterative reconstruction technique. Findings: Stable pulmonary nodules right lower lobe Trace pericardial effusion Cirrhosis, liver nodular in contour Splenomegaly 19 cm Portosystemic collateral vessels medial to the spleen Perigastric varices 8 mm lower pole right renal calculus, no hydronephrosis or ureteral calculi No pericecal inflammatory change No bowel obstruction No diverticulitis No bladder mass No prostatomegaly Lumbar fusion L4-L5 with satisfactory alignment, severe osteopenia IMPRESSION: Cirrhosis Stable splenomegaly Portosystemic collateral vessels medial to the spleen Perigastric varices 8 mm nonobstructing right renal calculus, no hydronephrosis or ureteral calculi No bowel obstruction or diverticulitis Dictated By: Aime Jacobs MD Signed By: <Electronically signed by Aime Jacobs MD in [place]> 02/24/252135 <Donald Valenzuela, - Last Filed: 02/25/25 06:57> Addendum Narrative: 1800: Care assumed from Dr. Padron, the previous shift emergency physician. Past medical, surgical, social and family history reviewed. Vitals and home medications reviewed. Results and treatment plan discussed. I will assume the care of the patient at this time and will follow the patient, pending urinalysis. Please refer to the emergency department record for history and examination from initial visit. 74yo male with history of COPD, complex medical history including cardiomyopathy, aFib on Eliquis, chrpnic back pain, BPH now presenting with bilateral back pain x 2 days without lower extremity radiculopathy, sacral paresthesias, or lower extremity weakness. Patient reports history of parenchymal kidney stone and notes urinary frequency, hesitancy, although denies post-void dribbling or dysuria. Clincial exam demonstrates mild bilateral CVA tenderness without midline thoracic tenderness. Lab markers including CBC demonstrates mild leukopenia with WBC 3.5, chronic anemia Hgb 9.9, and Platelet count of 162. UA unremarkable. CT abdomen pelvis demonstrates cirrhotic liver disease with a 8 mm right parenchymal renal calculus. Patient did require incremental narcotic analgesics with mild-moderate pain control. Patient resting comfortably. Pain likely musculoskeletal in nature and may be arising from centrally herniated intrathoracic disc. Will add muscle relaxant and consider short course of anti-inflammatory agents with recommendations for close follow-up, as patient may require MRI of thoracic spine. Precaution instructions issued. Diagnosis Acute musculoskeletal Chest Pain RADIOLOGY RESULTS: [place] [facility] Report Signed Patient: SAKSHI GREENFIELD [facility]. Record#: [id number] Birthdate: 1950 Age/Sex: 74 / M Location: [facility] Attending Dr: Ordering Physician: Donald Valenzuela DO Date of Service: 02/24/25 Procedure(s): CT abdomen pelvis w con Accession Number(s): [id number] cc: Donald Valenzuela DO; Aime Jacobs MD; NO PRIMARY/FAMILY,PHYSICIAN~ Examination: CT abdomen with intravenous contrast CT pelvis with intravenous contrast 2-D coronal reconstructions 2-D sagittal reconstructions Date and time of exam:February 24, 2025 2103 hours Comparison May 29, 2019 INDICATIONS: Bilateral flank pain beginning 5 days ago. CTDI: vol (mGy) 12.5 DLP: (mGycm) 786 Technique: Multiple axial sections of the abdomen and pelvis have been obtained. 64 slice high-resolution scanner used. 3 mm axial sections have been obtained, post intravenous injection 60 cc Isovue-370 2-D sagittal, coronal reconstructions obtained. Low dose protocols were performed. One or more of the following dose reduction techniques were used; automated exposure control, adjustment of the mA and/or KV according to patient size, use of iterative reconstruction technique. Findings: Stable pulmonary nodules right lower lobe Trace pericardial effusion Cirrhosis, liver nodular in contour Splenomegaly 19 cm Portosystemic collateral vessels medial to the spleen Perigastric varices 8 mm lower pole right renal calculus, no hydronephrosis or ureteral calculi No pericecal inflammatory change No bowel obstruction No diverticulitis No bladder mass No prostatomegaly Lumbar fusion L4-L5 with satisfactory alignment, severe osteopenia IMPRESSION: Cirrhosis Stable splenomegaly Portosystemic collateral vessels medial to the spleen Perigastric varices 8 mm nonobstructing right renal calculus, no hydronephrosis or ureteral calculi No bowel obstruction or diverticulitis Dictated By: Aime Jacobs MD Signed By: <Electronically signed by Aime Jacobs MD in [place]> 02/24/25 [id number]
[2025-02-24 18:16] LABS: Lactate (Lactic Acid) 1.2 mMol/L (0.4-2.0)
[2025-02-24 18:40] LABS: Collection Type, Urine Clean Catch
[2025-02-24 18:57] LABS: Bilirubin,Urine Negative (Negative); Blood,Urine Negative (Negative); Clarity,Urine Clear (Clear/Hazy); Color,Urine Lt-Yellow (Lt Yel-Yel); Glucose, Urine Negative (Negative); Ketones,Urine Negative (Negative); Leukocyte Esterase,Urine Negative (Negative); Nitrite,Urine Negative (Negative); PH,Urine 6.0 (5.0-7.0); Protein,Urine Negative (Neg - Trace); RBC,Urine 3 /hpf (0-3); Specific Gravity,Urine 1.017 (1.001-1.035); Squamous Epithelial Cell,Urine < 1 /hpf (0-5); Urobilinogen,Urine Negative mg/dL (0.0-1.0); WBC,Urine 2 /hpf (0-5)
--- NOTE | 2025-02-24 19:08 | XR_ITS ---
Examination: CT abdomen with intravenous contrast CT pelvis with intravenous contrast 2-D coronal reconstructions 2-D sagittal reconstructions Date and time of exam:February 24, 2025 2103 hours Comparison May 29, 2019 INDICATIONS: Bilateral flank pain beginning 5 days ago. CTDI: vol (mGy) 12.5 DLP: (mGycm) 786 Technique: Multiple axial sections of the abdomen and pelvis have been obtained. 64 slice high-resolution scanner used. 3 mm axial sections have been obtained, post intravenous injection 60 cc Isovue-370 2-D sagittal, coronal reconstructions obtained. Low dose protocols were performed. One or more of the following dose reduction techniques were used; automated exposure control, adjustment of the mA and/or KV according to patient size, use of iterative reconstruction technique. Findings: Stable pulmonary nodules right lower lobe Trace pericardial effusion Cirrhosis, liver nodular in contour Splenomegaly 19 cm Portosystemic collateral vessels medial to the spleen Perigastric varices 8 mm lower pole right renal calculus, no hydronephrosis or ureteral calculi No pericecal inflammatory change No bowel obstruction No diverticulitis No bladder mass No prostatomegaly Lumbar fusion L4-L5 with satisfactory alignment, severe osteopenia IMPRESSION: Cirrhosis Stable splenomegaly Portosystemic collateral vessels medial to the spleen Perigastric varices 8 mm nonobstructing right renal calculus, no hydronephrosis or ureteral calculi No bowel obstruction or diverticulitis
[2025-02-24] MEDS: HYDROmorphone INJ 2 MG/ML VIAL 1 MG IVP (19:35)
== END 2025-02-24 23:29 | disposition home or self-care (01) ==
PROVIDERS: Emergency Medicine; Emergency Provider Emergency Medicine
DX: N20.0 Calculus of kidney (principal); I86.4 Gastric varices; K74.60 Unspecified cirrhosis of liver; I48.91 Unspecified atrial fibrillation; I45.10 Unspecified right bundle-branch block; R16.1 Splenomegaly, not elsewhere classified; I42.9 Cardiomyopathy, unspecified; D72.819 Decreased white blood cell count, unspecified; R09.89 Other specified symptoms and signs involving the circulatory and respiratory systems; I11.0 Hypertensive heart disease with heart failure; I50.9 Heart failure, unspecified; I25.10 Atherosclerotic heart disease of native coronary artery without angina pectoris; Z79.01 Long term (current) use of anticoagulants; Z87.891 Personal history of nicotine dependence
CPT/HCPCS: 36415; 71045; 74177; 80053; 81001; 83605; 83690; 83735; 83880; 84145; 84484; 85025; 85610; 85730; 87040; 87086; 93005; 94640; 96374; 96375; 99283; A4649; A9270; J1171; J2270; J2405; Q9967

== ENCOUNTER 2025-03-08 15:07 | Emergency (ER) | payer MEDICARE, MEDICAID, SELFPAY ==
[2025-03-08 15:11] VITALS: BP 152/91; PULSE 80; RESP 19; TEMP 36.9; O2SAT 96
[2025-03-08 15:13] VITALS: BMI 30.2
--- NOTE | 2025-03-08 15:14 | EKG_ITS ---
[facility] Test Date: 2025-03-08 Pat Name: SAKSHI GREENFIELD Department: Room: - Gender: Male [employer] Work[employer]: : 1950 Requested By: Jazmin Peacock Order Number: [id number] Reading MD: Jazmin Peacock Measurements Intervals [place] Rate: 78 P: UT: QRS: -43 QRSD: 131 T: 31 QT: 378 QTc: 433 Interpretive Statements ATRIAL FIBRILLATION LEFT AXIS DEVIATION [QRS AXIS < -30] RIGHT BUNDLE BRANCH BLOCK [120+ ms QRS DURATION, UPRIGHT V1, 40+ ms S IN I/aVL/V4/V5/V6] Compared to ECG 02/24/2025 16:26:27 No significant changes /store/S0/[id number]/ecg/[id number].pdf
--- NOTE | 2025-03-08 15:14 | XR_ITS ---
Examination: CT abdomen with intravenous contrast CT pelvis with intravenous contrast 2-D coronal reconstructions 2-D sagittal reconstructions Date and time of exam:March 08, 2025 1846 hours, comparison February 24, 2025 INDICATIONS: Generalized abdominal pain and flank pain today, diagnosis cirrhosis. CTDI: vol (mGy) 9.85 DLP: (mGycm) 612 Technique: Multiple axial sections of the abdomen and pelvis have been obtained. 64 slice high-resolution scanner used. 3 mm axial sections have been obtained, post intravenous injection 30 cc of Isovue-300 2-D sagittal, coronal reconstructions obtained. Low dose protocols were performed. One or more of the following dose reduction techniques were used; automated exposure control, adjustment of the mA and/or KV according to patient size, use of iterative reconstruction technique. Findings: Cirrhosis, hepatosplenomegaly. Contracted gallbladder. Portosystemic collateral vessels medial to the spleen. No pancreatic mass. Bilateral nonobstructing renal calculi. Multiple fluid distended small bowel loops in the anterior abdomen. No prostatomegaly No pericecal inflammatory change. Status post lumbar fusion L4-L5. IMPRESSION: Suspicious for early small bowel obstruction, consider Gastrografin small bowel series follow-up
--- NOTE | 2025-03-08 15:14 | PD.EDMALE ---
ED Male Genitalurinary RME/HPI General Chief complaint: Abdominal Pain Stated complaint: RIGHT FLANK PAIN Time Seen by Provider: 03/08/25 15:14 Arrival date/time: 03/08/25 15:07 Limitations: no limitations RME / HPI RME / HPI Narrative: 75 year old male with history of cardiomyopathy, atrial fibrillation (on Eliquis), COPD, chronic back pain, and BPH, presents to the ED BIBA from home for evaluation of right flank pain. The pain is described as colicky, rated as severe. According to the medics, the patient took [place] at home without relief and was given fentanyl in the field, which provided temporary pain relief. Patient reports a similar episode of flank pain last week at [facility], where he was diagnosed with a kidney stone. He was discharged with instructions to follow up with his PCP, and yesterday, he was informed that the stone was large. He was referred to a urologist but has not yet had an appointment. The pain today is accompanied by nausea, when at its worst, but he denies any difficulty or pain with urination. No other associated symptoms are reported. Medications reviewed include Metoprolol, Diltiazem, and Eliquis. The patient is not taking Flomax. Related Data Home Medications ?Medication ?Instructions ?Recorded ?Confirmed oxycodone-acetaminophen 10 mg-325 1 tab PO Q6H PRN Pain, Mild 10/26/18 02/02/25 mg tablet (Percocet) apixaban 5 mg tablet (Eliquis) 5 mg PO BID 11/18/23 02/02/25 semaglutide 0.25 mg or 0.5 mg (2 0.5 mg subcut QWEEK 12/30/23 02/02/25 mg/3 mL) subcutaneous pen injector (Ozempic) diltiazem HCl 90 mg 60 mg PO Q12H 10/01/24 02/02/25 capsule,extended release 12 hr metoprolol tartrate 50 mg tablet 25 mg PO BID 10/01/24 02/02/25 pantoprazole 40 mg tablet,delayed 40 mg PO QDAY 10/01/24 02/02/25 release torsemide 20 mg tablet 20 mg PO BID 10/01/24 02/02/25 aspirin 81 mg chewable tablet 81 mg PO QDAY 02/02/25 02/02/25 atorvastatin 40 mg tablet 80 mg PO QDAY 02/02/25 02/02/25 hydromorphone 4 mg tablet 4 mg PO Q12HR PRN pain 02/02/25 02/02/25 (Dilaudid) Previous Rx's ?Medication ?Instructions ?Recorded digoxin 125 mcg (0.125 mg) tablet 125 mcg PO QDAY #30 tabs 11/18/23 ipratropium 0.5 mg-albuterol 3 mg 3 ml inhalation QID PRN shortness 10/07/24 (2.5 mg base)/3 mL nebulization of breath or wheezing #180 mL soln clonidine HCl 0.1 mg tablet 0.1 mg PO BID #60 tabs 02/03/25 tizanidine 2 mg tablet 2 mg PO Q8H PRN muscle spasm #15 02/24/25 tabs cyclobenzaprine 10 mg tablet 10 mg PO Q8H PRN muscle spasm #30 03/08/25 tabs lidocaine 5 % topical patch 2 patch topical QDAY PRN pain #30 03/08/25 (Lidoderm) ea Allergies Allergy/AdvReac Type Severity Reaction Status Date / Time aspirin Allergy Severe Swelling Verified 12/29/23 23:48 of Lip/Tongue/Throat albuterol AdvReac Intermediate Difficulty Verified 12/29/23 23:47 Breathing Review of Systems Review of Systems Systems Reviewed: All systems reviewed, normal except as documented Past Medical History Past Medical History NEUROLOGIC: Positive Cerebrovascular Accident CARDIAC: Positive Cardiac Disorders, Atrial Fibrillation, Coronary Artery Disease, Atherosclerotic Heart Disease, Peripheral Vascular Disease, Congestive Heart Failure and Hypertension RESPIRATORY: Positive Chronic Obstructive Pulmonary Disease (COPD) and Asthma GASTROINTESTINAL: Positive Hepatitis and Obstructive Bowel GENITOURINARY: Positive Benign Prostatic Hyperplasia MUSCULOSKELETAL: Positive Musculoskeletal Disorders and Arthritis ENDOCRINE: Positive Endocrine Disorders and Diabetes Mellitus Type 2 OTHER HISTORY: Positive Hospitalization, Chicken Pox, Measles, Mumps and Clostridium Difficile Family History FAMILY HISTORY: Positive Family Cardiac Disorders Surgical History SURGICAL: Positive Coronary Stent, Angiogram and Abdominal Surgery Social History SMOKING STATUS: Never smoker SECOND HAND EXPOSURE: No SUBSTANCE USE: does not use ED Exam General Limitations: Present no limitations General appearance: Present alert and in no apparent distress Head Head exam: Present atraumatic, normocephalic and normal inspection Eye Eye exam: Present normal appearance, PERRL and EOMI ENT ENT exam: Present normal exam, normal oropharynx and mucous membranes moist Neck Neck exam: Present normal inspection, full ROM and trachea midline Chest Chest inspection: Present normal inspection and symmetric chest wall rise Respiratory Respiratory exam: Present normal lung sounds bilaterally Cardiovascular Cardiovascular exam: Present regular rate, normal rhythm and normal heart sounds Abdominal Exam Abdominal exam: Present soft, tenderness (diffuse tenderness to palpation of abdomen, no rebound, no guarding ) and normal bowel sounds Extremities Exam Extremities exam: Present normal inspection and full ROM Back Exam Back exam: Present normal inspection and full ROM Neurological Exam Neurological exam: Present alert, oriented X3 and CN II-XII intact Psychiatric Psychiatric exam: Present normal affect and normal mood Skin Skin exam: Present warm, dry, intact and normal color Course Quality Measures none Orders Category Date Time Status CT Screening NOW Care 03/08/25 15:14 Completed EKG (ED ONLY) *Do not use* NOW Care 03/08/25 15:[address] abdomen pelvis w con Stat Exams 03/08/25 15:14 Completed EKG (ED Only) Stat Exams 03/08/25 15:14 Draft CBC Stat Lab 03/08/25 16:17 Completed CMP [Comprehensive Metabolic Panel] Stat Lab 03/08/25 17:19 Completed Lipase Stat Lab 03/08/25 17:19 Completed Troponin I Stat Lab 03/08/25 17:19 Completed UA, C/S IF [Urinalysis, C/S if Indicated] Stat Lab 03/08/25 16:47 Completed Diazepam Inj [Valium Inj] Med 03/08/25 19:36 Discontinued 7.5 mg IVP X1 ONE Lidocaine 5% Patch Med 03/08/25 19:36 Discontinued 2 patch TOP X1 ONE Morphine Inj Med 03/08/25 15:14 Discontinued 4 mg IVP STAT STA Ondansetron Inj [Zofran Inj] Med 03/08/25 18:31 Discontinued 4 mg IVP X1 ONE Sodium Chloride 0.9% 1000 ml [Ns] 1,000 ml Med 03/08/25 18:31 Discontinued IV 999 mls/hr oxyCODONE/APAP 5/325 [Percocet 5/325] Med 03/08/25 18:31 Discontinued 2 tab PO X1 ONE Vital Signs Vital signs: Vital Signs Temperature 98.5 F 03/08/25 15:11 Pulse Rate 80 03/08/25 15:11 Respiratory Rate 19 03/08/25 15:11 Blood Pressure 152/91 H 03/08/25 15:11 Pulse Oximetry (%) 96 03/08/25 15:11 Oxygen Delivery Method Nasal Cannula 03/08/25 15:11 Oxygen Flow Rate 4 03/08/25 15:11 Urogenital - Male MDM Narrative MDM Narrative:: Amina Galvan am scribing for and in the presence of Dr. Vanegas. Patient is a 75-year-old male is in the emerged from concerns for abdominal pain. Vital signs and exam as listed. Ordered labs, CT and offer medication for symptom relief 1800: Patient signed out to Dr. Goss pending CT abdomen/pelvis and final disposition. Patient data External records reviewed:: [facility] previous records (I reviewed ED Visit on 02/24/2025 ) and EMS form Clinical information provided by:: patient and EMS Social determinants that could affect healthcare access:: none Patient has the following chronic illnesses:: cardiomyopathy, atrial fibrillation (on Eliquis), COPD, chronic back pain, and BPH, How is presenting disease/condition affected by chronic disease/condition?: exacerbated by Evaluation data The following diagnostics were reviewed and interpreted by me:: lab results and EKG tracing(s) (Atrial fibrillation, rate 78, left axis deviation, no STEMI. ) Lab and/or radiology exams considered but not ordered:: None Interpretation Summary: As noted above Medications / Prescriptions Medications or Prescriptions considered but not ordered:: None Medication administrations:: Medication Administration History Discontinued Medications Diazepam (Diazepam Inj 5 Mg/Ml Vial 2 Ml) 7.5 mg IVP X1 ONE Stop: 03/08/25 19:37 Last Admin: 03/08/25 20:04 Dose: 7.5 mg Documented By: MAGGY Sodium Chloride (Ns) 1,000 mls @ 999 mls/hr IV .Q1H1M ONE Stop: 03/08/25 19:31 Last Admin: 03/08/25 19:05 Dose: 999 mls/hr Documented By: GM Lidocaine (Lidocaine 5% 1 Patch) 2 patch TOP X1 ONE Stop: 03/08/25 19:37 Last Admin: 03/08/25 20:05 Dose: 2 patch Documented By: [email or web address] Morphine Sulfate (Morphine Sulf Inj 10 Mg/Ml Vial) 4 mg IVP STAT STA Stop: 03/08/25 15:15 Last Admin: 03/08/25 17:36 Dose: 4 mg Documented By: GE Ondansetron HCl (Ondansetron Inj 2 Mg/Ml Inj 2 Ml) 4 mg IVP X1 ONE; Protocol Stop: 03/08/25 18:32 Last Admin: 03/08/25 18:45 Dose: 4 mg Documented By: DANIEL Oxycodone/Acetaminophen (Oxycodone/Apap 5/325 Tablet) 2 tab PO X1 ONE Stop: 03/08/25 18:32 Last Admin: 03/08/25 18:45 Dose: 2 tab Documented By: DANIEL See above Consultations Consultation(s) initiated? (list below): No Diagnosis Urogenital Male Differential Diagnosis: urinary tract infection, acute retention of urine and other (kidney stone, pyelonephritis ) Most likely diagnosis given after review of the tests above:: Right flank pain Admission Indicated Admission indicated?: not indicated Admission Request Was there a request for admission?: No Disposition Plan Disposition Plan: other (specify) (Signed out to Dr. Goss pending CT ) Discharge Plan Plan Patient Disposition: HOME (Self Care) Prescriptions/Referrals Prescriptions/Med Rec: New cyclobenzaprine 10 mg tablet 10 mg PO Q8H PRN (Reason: muscle spasm) Qty: 30 0RF lidocaine [Lidoderm] 5 % adhesive patch,medicated 2 patch topical QDAY PRN (Reason: pain) Qty: 30 0RF Rx Instructions: leave on most painful area for up to 12 hrs No Action oxycodone-acetaminophen [Percocet] 10-325 mg Tablet 1 tab PO Q6H PRN (Reason: Pain, Mild) digoxin 125 mcg (0.125 mg) Tablet 125 mcg PO QDAY Qty: 30 0RF Eliquis 5 mg Tablet 5 mg PO BID Ozempic 0.25 mg or 0.5 mg (2 mg/3 mL) pen injector 0.5 mg SUBCUT QWEEK diltiazem HCl 90 mg capsule,extended release 12 hr 60 mg PO Q12H Patient Comments: TAKE 1 CAPSULE BY MOUTH TWICE DAILY metoprolol tartrate 50 mg tablet 25 mg PO BID Patient Comments: TAKE ONE TABLET BY MOUTH TWICE DAILY FOR BLOOD PRESSURE pantoprazole 40 mg tablet,delayed release (DR/EC) 40 mg PO QDAY torsemide 20 mg tablet 20 mg PO BID ipratropium-albuterol 0.5 mg-3 mg(2.5 mg base)/3 mL solution for nebulization 3 ml inhalation QID PRN (Reason: shortness of breath or wheezing) Qty: 180 0RF hydromorphone [Dilaudid] 4 mg tablet 4 mg PO Q12HR PRN (Reason: pain) aspirin 81 mg tablet,chewable 81 mg PO QDAY atorvastatin 40 mg tablet 80 mg PO QDAY clonidine HCl 0.1 mg tablet 0.1 mg PO BID Qty: 60 0RF tizanidine 2 mg tablet 2 mg PO Q8H PRN (Reason: muscle spasm) Qty: 15 0RF Referrals: No Primary/Family,Physician [Primary Care Provider] - In 1 week Problem List Clinical Impression: Chest wall pain, Abdominal wall pain Patient/Caregiver Discharge Instructions Discharge Activity: activity as tolerated Education Materials: ED Muscle Strain, Abdomen, ED Chest Wall Strain (Child) Additional Instructions: Discharge Instructions from Dr. Goss printed for you: 1. Your right sided chest/abdominal pain is not from your kidney stones. 2. You have kidney stones like many people out there. 3. Both stones in the kidneys do not cause any pain. They only cause pain when they come out and try to pass through the ureter (tiny tube connecting your kidney and bladder). You don't have any stones outside your kidneys. 4. Your pain is originating from the chest/ wall and not from an internal organ.? The chest/wall has many joints and muscles (including between the ribs), so sprains and strains and muscle tears can cause severe pain. 5. It takes about a month to heal. So expect to have pain for about a month. 6. Apply ice or heat if helpful. 7. Ibuprofen 400 mg every 6-8 hours today and tomorrow to decrease inflammation then as needed. 8. Continue your Percocets at home as needed. 9. Cyclobenzaprine and lidocaine patches as needed. 10. See a private doctor on 03/09/2025 for recheck and further care. Ask to review all test results and official radiology reports, to make sure you receive all necessary follow-ups and monitoring. Ask for help until you are completely better. 11. Seek immediate medical care with worsening or with any concerns. Print Language: Latvian Stand Alone Forms: [facility] Award Info., Patient Portal Info Letter
[2025-03-08 15:51] VITALS: PULSE 86; RESP 18; O2SAT 94
[2025-03-08 16:35] VITALS: BP 138/88; PULSE 74; RESP 20; TEMP 37; O2SAT 95; BMI 29.5
[2025-03-08 16:54] LABS: Basophils # (Auto) 0.0 Thou/mm3 (0.0-0.2); Basophils % (Auto) 0 % (0-2.5); Eosinophils # (Auto) 0.1 Thou/mm3 (0.0-0.5); Eosinophils % (Auto) 1 % (0-10); Hematocrit 38.7 % (41.0-53.0); Hemoglobin 11.9 g/dL (13.5-16.0); Immature Granulocytes Auto 0.04 Thou/mm3 (0.00-0.00); Lymphocytes # (Auto) 0.6 Thou/mm3 (1.0-4.8); Lymphocytes % (Auto) 8 % (10-50); Mean Corpuscular HGB Conc 30.7 g/dl (31.0-37.0); Mean Corpuscular Hemoglobin 24.5 pg (25.0-35.0); Mean Corpuscular Volume 80 fL (80-100); Monocytes # (Auto) 0.5 Thou/mm3 (0.0-0.8); Monocytes % (Auto) 6 % (0-12); Neutrophils # (Auto) 6.4 Thou/mm3 (1.8-7.7); Neutrophils % (Auto) 84 % (37-80); Nucleated Red Blood Cell # 0.00 Thou/mm3 (0.00-0.00); Nucleated Red Blood Cell % 0 /100 WBC (0); Platelet Count 209 Thou/mm3 (140-440); RDW Standard Deviation 46.5 fL (35.1-43.9); Red Blood Count 4.86 Miln/mm3 (4.50-5.90); White Blood Count 7.6 Thou/mm3 (3.8-10.6)
[2025-03-08 16:58] LABS: Collection Type, Urine Clean Catch; Squamous Epithelial Cell,Urine 0 /hpf (0-5)
[2025-03-08 17:06] LABS: Bilirubin,Urine Negative (Negative); Blood,Urine Negative (Negative); Clarity,Urine Clear (Clear/Hazy); Color,Urine Lt-Yellow (Lt Yel-Yel); Culture Indicated,Urine Not Indicated; Glucose, Urine Negative (Negative); Ketones,Urine Negative (Negative); Leukocyte Esterase,Urine Negative (Negative); Nitrite,Urine Negative (Negative); PH,Urine 6.5 (5.0-7.0); Protein,Urine Negative (Neg - Trace); RBC,Urine 2 /hpf (0-3); Specific Gravity,Urine 1.016 (1.001-1.035); Urobilinogen,Urine Negative mg/dL (0.0-1.0); WBC,Urine 1 /hpf (0-5)
[2025-03-08] MEDS: MORPHINE SULF INJ 10 MG/ML VIAL 4 MG IVP (17:36)
[2025-03-08 18:03] LABS: Alanine Aminotransferase 9 U/L (10-49); Albumin, Serum 4.4 gm/dL (3.4-4.8); Albumin/Globulin Ratio 2.1 (1.2-2.2); Alkaline Phosphatase 74 U/L (46-116); Anion Gap 9 (7-16); Aspartate Amino Transferase 13 U/L (0-34); BUN/Creatinine Ratio 14 Ratio (12-20); Bilirubin,Total 0.7 mg/dL (0.3-1.2); Blood Urea Nitrogen 20 mg/dL (9-23); Calcium 10.1 mg/dL (8.3-10.6); Calcium (Corrected) 10.1 mg/dL (8.5-10.1); Carbon Dioxide 35.1 mMol/L (20.0-31.0); Chloride 95 mMol/L (98-107); Creatinine (Component) 1.4 mg/dL (0.6-1.3); Estimated Creatinine Clearance 56.9 mL/min (>60); Globulin 2.1 gm/dL (2.3-3.5); Glucose 131 mg/dL (74-106); Lipase 23 U/L (12-53); Osmolality,Calculated 282 (275-295); Potassium 4.8 mMol/L (3.4-5.1); Sodium 139 mMol/L (136-145); Total Protein 6.5 gm/dL (5.7-8.2); Troponin I < 0.020 ng/mL (0.0-0.045); eGFR 52 See Note
[2025-03-08 18:19] VITALS: BP 133/76; PULSE 70; RESP 16; TEMP 36.9; O2SAT 95
--- NOTE | 2025-03-08 18:26 | PD.EDADDENDU ---
Emergency Room Addendum <Tiffani Metzger - Last Filed: 03/08/25 19:46> Addendum Narrative: I took over the care from previous shift physician at 6 PM on 03/08/2025. See previous notes for complete H & P and ED course. I reviewed all diagnostic test results. My interpretation of the EKG is My interpretation of the chest x-ray is My review of the Abdomen/Pelvis CT report is suspicious for early small bowel obstruction, consider Gastrografin small bowel series follow-up. Blood tests and urine tests Covid/Influenza: Diagnoses include: Chest wall pain, Abdominal wall pain. Treatment here included Zofran 4 mg, Percocet 5/325, IVF Based on my best medical judgment, made decision no further evaluation or treatment indicated at this time. Patient understands and agrees to the discharge instructions customized and printed, see below. Discharge Instructions from Dr. Goss printed for you: 1. Your right sided chest/abdominal pain is not from your kidney stones. 2. You have kidney stones like many people out there. 3. Both stones in the kidneys do not cause any pain. They only cause pain when they come out and try to pass through the ureter (tiny tube connecting your kidney and bladder). You don't have any stones outside your kidneys. 4. Your pain is originating from the chest/ wall and not from an internal organ. The chest/wall has many joints and muscles (including between the ribs), so sprains and strains and muscle tears can cause severe pain. 5. It takes about a month to heal. So expect to have pain for about a month. 6. Apply ice or heat if helpful. 7. Ibuprofen 400 mg every 6-8 hours today and tomorrow to decrease inflammation then as needed. 8. Continue your Percocets at home as needed. 9. Cyclobenzaprine and lidocaine patches as needed. 10. See a private doctor on 03/09/2025 for recheck and further care. Ask to review all test results and official radiology reports, to make sure you receive all necessary follow-ups and monitoring. Ask for help until you are completely better. 11. Seek immediate medical care with worsening or with any concerns. Guillermo Goss MD <Guillermo Goss MD - Last Filed: 03/09/25 00:02> Addendum Narrative: I took over the care from previous shift physician at 6 PM on 03/08/2025. See previous notes for complete H & P and ED course. I reviewed all diagnostic test results. My interpretation of the EKG is atrial fibrillation (78 bpm). My review of the Abdomen/Pelvis CT report is no obstructive renal stones. Blood tests unremarkable. UA unremarkable, including no hematuria. Diagnoses include: Musculoskeletal right sided chest/abdominal pain. Recommended supportive care. Based on my best medical judgment, made decision no further evaluation or treatment indicated at this time. Patient understands and agrees to the discharge instructions customized and printed, see below. Discharge Instructions from Dr. Goss printed for you: 1. Your right sided chest/abdominal pain is not from your kidney stones. 2. You have kidney stones like many people out there. 3. Both stones in the kidneys do not cause any pain. They only cause pain when they come out and try to pass through the ureter (tiny tube connecting your kidney and bladder). You don't have any stones outside your kidneys. 4. Your pain is originating from the chest/ wall and not from an internal organ. The chest/wall has many joints and muscles (including between the ribs), so sprains and strains and muscle tears can cause severe pain. 5. It takes about a month to heal. So expect to have pain for about a month. 6. Apply ice or heat if helpful. 7. Ibuprofen 400 mg every 6-8 hours today and tomorrow to decrease inflammation then as needed. 8. Continue your Percocets at home as needed. 9. Cyclobenzaprine and lidocaine patches as needed. 10. See a private doctor on 03/09/2025 for recheck and further care. Ask to review all test results and official radiology reports, to make sure you receive all necessary follow-ups and monitoring. Ask for help until you are completely better. 11. Seek immediate medical care with worsening or with any concerns. Guillermo Goss MD
[2025-03-08] MEDS: ONDANSETRON INJ 2 MG/ML INJ 2 ML 4 MG IVP (18:45)
--- NOTE | 2025-03-08 18:50 | PC.NURSE ---
SPOKE TO DORIE CHI, PT'S SPIRITUAL MOTHER, AND UPDATED REGARDING PT'S POC, WITH PT'S VERBAL CONSENT.
[2025-03-08] MEDS: SODIUM CHLORIDE 0.9% 1000 ML 1,000 ML 999 ML IV (19:05)
[2025-03-08] MEDS: DIAZEPAM INJ 5 MG/ML VIAL 2 ML 7.5 MG IVP (20:04)
[2025-03-08] MEDS: LIDOCAINE 5% 1 PATCH 2 PATCH TOP (20:05)
[2025-03-08 20:08] VITALS: BP 154/78; PULSE 98; RESP 20; TEMP 36.6; O2SAT 95
== END 2025-03-08 22:16 | disposition home or self-care (01) ==
PROVIDERS: Emergency Medicine; Emergency Provider Emergency Medicine
DX: R10.9 Unspecified abdominal pain (principal); R07.89 Other chest pain; I42.9 Cardiomyopathy, unspecified; I48.91 Unspecified atrial fibrillation; J44.9 Chronic obstructive pulmonary disease, unspecified; N40.0 Benign prostatic hyperplasia without lower urinary tract symptoms; Z79.01 Long term (current) use of anticoagulants; N20.0 Calculus of kidney; G89.29 Other chronic pain
CPT/HCPCS: 36415; 74177; 80053; 81001; 83690; 84484; 85025; 93005; 96374; 96375; 99283; A4649; J2270; J2405; J3360; J3490; J7030; Q9967; A9270

== ENCOUNTER 2025-07-07 01:31 | Inpatient (IN) | payer MEDICARE, MEDICAID, SELFPAY ==
[2025-07-07] VITALS (77 sets, daily range): BP systolic 108–205; BP diastolic 43–132; PULSE 44–120; RESP 12–50; TEMP 36.4–37.3; O2SAT 89–100; BMI 29.5
--- NOTE | 2025-07-07 01:46 | XR_ITS ---
EXAMINATION: AP chest single view TECHNIQUE: AP portable upright chest single view Date and time: July 07, 2025, 0205 hours, comparison February 24, 2025 INDICATIONS: Shortness of breath today FINDINGS: Mild enlargement left ventricle Significant vascular congestion Suspicious for early septal edema at the lung bases No lobar pneumonia Prominent osteopenia IMPRESSION: Early heart failure
--- NOTE | 2025-07-07 01:49 | EKG_ITS ---
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: : [id number] Requested By: Jazmin Peacock Order Number: [id number] Reading MD: Jazmin Peacock Measurements Intervals [place] Rate: 79 P: SD: QRS: -20 QRSD: 118 T: 42 QT: 362 QTc: 417 Interpretive Statements ATRIAL FIBRILLATION INCOMPLETE RIGHT BUNDLE BRANCH BLOCK [90+ ms QRS DURATION, TERMINAL R IN V1/V2, 40+ ms S IN I/aVL/V4/V5/V6] SEPTAL MYOCARDIAL INFARCTION , OF INDETERMINATE AGE [40+ ms Q WAVE IN V1/V2] Compared to ECG 03/08/2025 15:32:42 Incomplete right bundle-branch block now present Myocardial infarct finding now present Left-axis deviation no longer present Right bundle-branch block no longer present /store/S0/[id number].pdf
--- NOTE | 2025-07-07 01:50 | PD.EDARRY ---
ED Arrhythmia Palp. RME/HPI General Chief Complaint: Arrhythmia/Palpitations Stated Complaint: PALPITATIONS, WEAKNESS Time Seen by Provider: 07/07/25 01:46 Arrival date/time: 07/07/25 01:31 RME / HPI RME / HPI narrative: DR. GR MAIN ED EVALUATION: 75 y/o male with Hx of CVA, Atrial Fibrillation, CAD, HTN, CHF, COPD, and Atherosclerotic Heart Disease BIBA from home presents to ED c/o palpitations x this morning. Denies head trauma no use of thinners. Prior to this felt at his baseline. Denies CP, nausea, diarrhea, melena, hematochezia, dysuria. Patient takes a diuretic. Follows with Dr. Love. Has had a stent in his heart and in his leg in the past. Denies drugs, alc. Smokes tobacco Related Data Home Medications ?Medication ?Instructions ?Recorded ?Confirmed oxycodone-acetaminophen 10 mg-325 1 tab PO Q6H PRN Pain, Mild 10/26/18 07/07/25 mg tablet (Percocet) apixaban 5 mg tablet (Eliquis) 5 mg PO BID 11/18/23 07/07/25 semaglutide 0.25 mg or 0.5 mg (2 0.5 mg subcut QWEEK 12/30/23 07/07/25 mg/3 mL) subcutaneous pen injector (Ozempic) diltiazem HCl 90 mg 60 mg PO Q12H 10/01/24 07/07/25 capsule,extended release 12 hr metoprolol tartrate 50 mg tablet 50 mg PO BID 10/01/24 07/07/25 pantoprazole 40 mg tablet,delayed 40 mg PO QDAY 10/01/24 07/07/25 release torsemide 20 mg tablet 20 mg PO BID 10/01/24 07/07/25 aspirin 81 mg chewable tablet 81 mg PO QDAY 02/02/25 07/07/25 atorvastatin 40 mg tablet 80 mg PO QDAY 02/02/25 07/07/25 hydromorphone 4 mg tablet 4 mg PO Q12HR PRN pain 02/02/25 07/07/25 (Dilaudid) Previous Rx's ?Medication ?Instructions ?Recorded digoxin 125 mcg (0.125 mg) tablet 125 mcg PO QDAY #30 tabs 11/18/23 ipratropium 0.5 mg-albuterol 3 mg 3 ml inhalation QID PRN shortness 10/07/24 (2.5 mg base)/3 mL nebulization of breath or wheezing #180 mL soln tizanidine 2 mg tablet 2 mg PO Q8H PRN muscle spasm #15 02/24/25 tabs cyclobenzaprine 10 mg tablet 10 mg PO Q8H PRN muscle spasm #30 03/08/25 Held on 07/07/25. tabs Instructions: Order Change lidocaine 5 % topical patch 2 patch topical QDAY PRN pain #30 03/08/25 (Lidoderm) ea Allergies Allergy/AdvReac Type Severity Reaction Status Date / Time No Known Allergies Allergy Verified 07/07/25 02:27 Review of Systems Review of Systems Systems Reviewed: All systems reviewed, normal except as documented Past Medical History Past Medical History NEUROLOGIC: Positive Cerebrovascular Accident CARDIAC: Positive Cardiac Disorders, Atrial Fibrillation, Coronary Artery Disease, Atherosclerotic Heart Disease, Peripheral Vascular Disease, Congestive Heart Failure and Hypertension RESPIRATORY: Positive Chronic Obstructive Pulmonary Disease (COPD) and Asthma GASTROINTESTINAL: Positive Hepatitis and Obstructive Bowel GENITOURINARY: Positive Benign Prostatic Hyperplasia MUSCULOSKELETAL: Positive Musculoskeletal Disorders and Arthritis ENDOCRINE: Positive Endocrine Disorders and Diabetes Mellitus Type 2 OTHER HISTORY: Positive Hospitalization, Chicken Pox, Measles, Mumps and Clostridium Difficile Family History FAMILY HISTORY: Positive Family Cardiac Disorders Surgical History SURGICAL: Positive Coronary Stent, Angiogram and Abdominal Surgery Social History SMOKING STATUS: Former smoker ED Exam Narrative Physical exam: GEN. APPEARANCE: The patient is alert awake oriented X-3 in no distress, lying down comfortably, acutely ill Patient has good eye contact. Patient is cooperative. VITALS: All vitals were reviewed and the pulse ox is 98% on room air which is normal according to my interpretation. HEENT: Normocephalic, atraumatic. Pupils are equal and reactive. Oral mucosa is moist. Patent Nares NECK: Supple, nontender, no thyromegaly, no meningismus, no JVD CHEST: Symmetrical, atraumatic, and with equal expansion , Nontender on palpation no deformity and no crepitus. CARDIOVASCULAR: irregular heart rhythm LUNGS: Clear to auscultation bilaterally with symmetrical chest rise. No intercostal subcostal retraction. No rales and no rhonchi. ABDOMEN: Soft, flat, nontender to palpation, no guarding or rebound tenderness. There are no abnormal masses palpated. Active and normal bowel sounds. EXTREMITIES: Nontender. No edema. No cyanosis. Patient is able to move all 4 extremities well, with full ROM and good CSM. SKIN: Warm and dry, no jaundice or rashes noted. MUSCULOSKELETAL: No lumbar or midline bony tenderness. There is no CVA tenderness. No paraspinal muscle spasm or tenderness. NEURO: Patient is NICOLE x 4, Cranial nerves II through XII grossly intact. There is no focal neurologic deficits noted. GCS is 15, PNS and ANIMAL ECOLOGIST appear grossly intact. PSYCHIATRIC: Patient is in normal mood and affect. Course Quality Measures none Orders Category Date Time Status Bedside COVID-19 Antigen Test NOW Care 07/07/25 01:46 Active Bedside Influenza A&B Antigen Test NOW Care 07/07/25 01:48 Active EKG (ED ONLY) *Do not use* NOW Care 07/07/25 01:49 Active CXR [XR chest 1V] Stat Exams 07/07/25 01:46 Ordered EKG (ED Only) Stat Exams 07/07/25 01:49 Ordered CBC Stat Lab 07/07/25 01:46 Ordered CMP [Comprehensive Metabolic Panel] Stat Lab 07/07/25 01:47 Ordered Drug Screen,Urine Stat Lab 07/07/25 01:48 Ordered Free T4 (Free Thyroxine) Stat Lab 07/07/25 01:47 Ordered INR [Prothrombin Time with INR] Stat Lab 07/07/25 01:48 Ordered TSH [Thyroid Stimulating Hormone] Stat Lab 07/07/25 01:47 Ordered Troponin I Stat Lab 07/07/25 01:47 Ordered Vital Signs Vital signs: Vital Signs Temperature 98.6 F 07/07/25 01:35 Pulse Rate 83 07/07/25 01:35 Respiratory Rate 18 07/07/25 01:35 Blood Pressure 158/74 H 07/07/25 01:35 Pulse Oximetry (%) 96 07/07/25 01:35 Oxygen Delivery Method Room Air 07/07/25 01:35 Arrhythmia/Palpitations MDM Narrative MDM Narrative:: Scribe Attestation: Tiffani Galvan am scribing for and in the presence of Dr. Gr. Provider Notation: Although this document has been carefully reviewed, there may still be some phonetic and other typographical errors. These errors are purely grammatical due to imperfections in the software program and should not be construed in any way to compromise the substance of the patient's medical care during this visit. Patient is a 75yo that is in the ED with medical history notable for coronary artery disease status post stent, lower extremity vascular occlusion status post stent to the lower extremity, atrial fibrillation, COPD, prior episode of bacteremia with concerns for palpitations, and SOB. Vital signs and exam as listed. Concern for ACS arrhythmia electrolyte abnormality viral syndrome pneumonia CHF exacerbation among others. Ordered labs EKG chest x-ray. Patient is usually on 1 to 2 L by nasal cannula. When he arrived he is hypoxic, requiring 6 L by nasal cannula for oxygen saturation greater than 95%. EKG performed today at 1408 in the morning notable for atrial fibrillation, heart rate 79, patient has an incomplete right bundle branch block, nonspecific T wave changes, not a cardiac alert. Interpreted by me. Chest x-ray with evidence of pneumonia in the right middle lobe provided patient with antibiotics. patient blood pressure was elevated, to greater than 190, patient is very concerned about his blood pressure, insisted on being treated for his blood pressure given his symptoms. Ordered medication for symptom relief. Labs without leukocytosis, no left shift. Hemoglobin 11.6, no significant metabolic derangements, initial troponin not elevated, thyroid studies unremarkable. I discussed the case with patient's applications instructor Dr Love, recommends admission recommends holding all of his beta-blockers and calcium channel blockers. Patient was placed on pacer pads. 4:20a was notified by staff that patient's daughter called and stated that the patient has been taking extra doses of his metoprolol and diltiazem at home. Per the patient at 8 PM he took 2 doses of his metoprolol as well as 2 doses of his diltiazem. Did not take his digoxin. Called poison control given that patient is not persistently bradycardic nor hypotensive do not recommend glucagon at this time. Agrees with trialing calcium gluconate. Recommend that we reach out to the applications instructor again. I discussed the case also with patient's applications instructor Dr. Small. I spoke with Dr. Small, does not recommend glucagon at this time. States to admit him to the hospital for observation. Patient had additional episodes of what appeared to be asystole, with patient becoming lightheaded, diaphoretic. The same for approximately 5 seconds and then with improved. Provided patient with 3 g of calcium gluconate. Following this has not had additional episodes of asystole. Discussed the patient with the ICU, kindly accepts patient for admission. Patient weaned down from supplemental oxygen to 3 L. Patient data External records reviewed:: [facility] previous records (Reviewed prior ED records from 03/08/25. Patient was seen for Abdominal wall pain.) Clinical information provided by:: patient Social determinants that could affect healthcare access:: none Patient has the following chronic illnesses:: Atrial Fibrillation, Coronary Artery Disease, Atherosclerotic Heart Disease, Peripheral Vascular Disease, Congestive Heart Failure, Hypertension, Chronic Obstructive Pulmonary Disease, Asthma, Hepatitis, Obstructive Bowel, Benign Prostatic Hyperplasia, Arthritis, Diabetes Mellitus Type 2 How is presenting disease/condition affected by chronic disease/condition?: exacerbated by Evaluation data The following diagnostics were reviewed and interpreted by me:: lab results, radiology exam(s) and EKG tracing(s) (EKG done at 0000, atrial fibrillation, [address] Jazmin Gr.) Lab and/or radiology exams considered but not ordered:: None Interpretation Summary: RADIOLOGY Chest X-Ray: Pending official radiology report. Medications / Prescriptions Medications or Prescriptions considered but not ordered:: None Medication administrations:: See abvoe if any. Consultations Consultation(s) initiated? (list below): Yes Consultation #1 (Physician, Specialty, Details): Dr. Small made aware of the patient?s HPI, PMHx, lab and/or radiology results. Discussed treatment plan. Will consult an admission to the hospitalist. Time: 03:50 Consultation #2 (Physician, Specialty, Details): Discussed with Dr. Sharif for admission. Reviewed the patient?s HPI, PMHx, lab and/or radiology results. Discussed treatment plan. Will consult an admission to the hospitalist. Time: 03:52 Consultation #3 (Physician, Specialty, Details): Discussed with Dr. Crawley for ICU admission. Reviewed the patient?s HPI, PMHx, lab and/or radiology results. Discussed treatment plan. Will consult an admission to [facility]. Time: 04:15 Diagnosis Differential diagnosis arrhythmia/palpitations: palpitations, anxiety, sinus tachycardia, artial fibrillation, artial flutter, ventricular premature beats, supraventricular tachycardia, ventricular tachycardia and WPW Most likely diagnosis given after review of the tests above:: Acute hypoxic respiratory failure, Pneumonia, Palpitation, Pre-syncope, Overdose Admission Indicated Admission indicated?: indicated Explain why admission is indicated or not indicated:: Acute hypoxic respiratory failure, Pneumonia, Palpitation, Pre-syncope, Overdose Admission Request Was there a request for admission?: Yes Admission Attestation Admission request attestation: Discussed case with [] from Hospitalist service regarding admission. Discussed patients ED course, exam findings, labs, and radiology results. The Hospitalist [agrees,declines] to accept the patient for admission. Disposition Plan Disposition Plan: Admit Critical Care Time Critical Care Time Critical Care Time: Yes Total Critical Care Time (min.): 45 Attestation: The high probability of sudden, clinically significant deterioration in the patient?s condition required the highest level of my preparedness to intervene urgently. The services I provided to this patient were to treat and/or prevent clinically significant deterioration. Services included the following: chart data review, reviewing nursing notes and/or old charts, documentation time, franchise business consultant collaboration regarding findings and treatment options, medication orders and management, direct patient care, vital sign assessments and ordering, interpreting and reviewing diagnostic studies and lab tests. Aggregate critical care time includes only time during which I was engaged in work directly related to the patient?s care, as described above, whether at bedside or elsewhere in the Emergency Department. It did not include time spent performing other reported procedures or the services of residents, students, nurses or physician assistants. Discharge Plan Plan Patient Disposition: Admit Acute Care w/in Hospital Problem List Clinical Impression: Acute hypoxic respiratory failure, Pneumonia, Palpitation, Pre-syncope, Overdose
[2025-07-07 02:51] LABS: Basophils # (Auto) 0.0 Thou/mm3 (0.0-0.2); Basophils % (Auto) 0 % (0-2.5); Eosinophils # (Auto) 0.1 Thou/mm3 (0.0-0.5); Eosinophils % (Auto) 3 % (0-10); Hematocrit 37.4 % (41.0-53.0); Hemoglobin 11.6 g/dL (13.5-16.0); Immature Granulocytes Auto 0.02 Thou/mm3 (0.00-0.00); Lymphocytes # (Auto) 0.6 Thou/mm3 (1.0-4.8); Lymphocytes % (Auto) 11 % (10-50); Mean Corpuscular HGB Conc 31.0 g/dl (31.0-37.0); Mean Corpuscular Hemoglobin 26.0 pg (25.0-35.0); Mean Corpuscular Volume 84 fL (80-100); Monocytes # (Auto) 0.5 Thou/mm3 (0.0-0.8); Monocytes % (Auto) 9 % (0-12); Neutrophils # (Auto) 4.1 Thou/mm3 (1.8-7.7); Neutrophils % (Auto) 77 % (37-80); Nucleated Red Blood Cell # 0.00 Thou/mm3 (0.00-0.00); Nucleated Red Blood Cell % 0 /100 WBC (0); Platelet Count 156 Thou/mm3 (140-440); RDW Standard Deviation 46.1 fL (35.1-43.9); Red Blood Count 4.47 Miln/mm3 (4.50-5.90); White Blood Count 5.3 Thou/mm3 (3.8-10.6)
[2025-07-07] MEDS: cefTRIAXone/D5w 1gm IV premix 1 GM/50 ML BAG IV (02:54)
[2025-07-07 03:04] LABS: INR 1.0 (0.9-1.3); Prothrombin Time 11.1 Seconds (9.0-12.2)
[2025-07-07 03:13] LABS: Alanine Aminotransferase 15 U/L (10-49); Albumin, Serum 4.4 gm/dL (3.4-4.8); Albumin/Globulin Ratio 2.0 (1.2-2.2); Alkaline Phosphatase 62 U/L (46-116); Anion Gap 6 (7-16); Aspartate Amino Transferase 14 U/L (0-34); BUN/Creatinine Ratio 18 Ratio (12-20); Bilirubin,Total 0.5 mg/dL (0.3-1.2); Blood Urea Nitrogen 21 mg/dL (9-23); Calcium 9.1 mg/dL (8.3-10.6); Calcium (Corrected) 9.1 mg/dL (8.5-10.1); Carbon Dioxide 34.4 mMol/L (20.0-31.0); Chloride 100 mMol/L (98-107); Creatinine (Component) 1.2 mg/dL (0.6-1.3); Estimated Creatinine Clearance 66.4 mL/min (>60); Free T4 (Free Thyroxine) 1.37 ng/dL (0.89-1.76); Globulin 2.2 gm/dL (2.3-3.5); Glucose 166 mg/dL (74-106); Osmolality,Calculated 286 (275-295); Potassium 4.2 mMol/L (3.4-5.1); Sodium 140 mMol/L (136-145); Thyroid Stimulating Hormone 2.65 uIU/mL (0.55-4.78); Total Protein 6.6 gm/dL (5.7-8.2); Troponin I < 0.020 ng/mL (0.0-0.045); eGFR > 60 See Note
[2025-07-07 03:16] LABS: B-Type Natriuretic Peptide 72 pg/mL (0-100)
[2025-07-07] MEDS: AZITHROMYCIN INJ 500 MG in SODIUM CHLORIDE 0.9% 250 ML 250 ML 250 MG IV (03:38)
[2025-07-07] MEDS: NITROGLYCERIN 0.4 MG SUBL BTL #25 SL (04:01)
[2025-07-07] MEDS: fentaNYL CIT INJ 50 mCg/ML AMP 2ML IVP (04:02)
--- NOTE | 2025-07-07 04:09 | PD.EDADDENDU ---
Emergency Room Addendum Addendum Narrative: Spoke to daughter of patient who stated patient took double the dose of his regularly prescribed diltiazem and beta-sissy. Notified Dr. Vanegas.
--- NOTE | 2025-07-07 04:10 | PC.NURSE ---
0410 DR. GR AT BEDSIDE. PT STATES HE DOESNT FEEL WELL. ON THE MONITOR FOR APPROX 3SEC HES HEART PAUSED, NO HEARTBEATS. PER DR. GR NO MORE NITROGLYCERIN
[2025-07-07] MEDS: CALCIUM GLUCONATE 10% INJ 1 GM/10 ML VIAL 3 GM IV (05:19)
--- NOTE | 2025-07-07 05:35 | PC.NURSE ---
DR. BARBA WAS NOTIFIED AWARE OF HIGH BP. PER PROVIDER SHE IS OKAY WITH BLOOD PRESSURE
[2025-07-07 05:42] LABS: Digoxin 1.0 ng/mL (0.8-2.0); Magnesium 2.0 mg/dL (1.6-2.6); Troponin I < 0.020 ng/mL (0.0-0.045)
--- NOTE | 2025-07-07 05:49 | XR_ITS ---
Examination: CT brain head without contrast. 2-D sagittal coronal reconstructions Date and time of exam: July 07, 2025, 0958 hours INDICATIONS: Patient fell today with injury to the head, head pain COMPARISON: 08/05/2024 CTDI: vol (mGy): 57 DLP: (mGycm): 1238 Technique: Multiple CT axial sections of the brain have been obtained, 5 mm slice thickness. Contrast has not been administered. 2-D sagittal, coronal reconstructions have been obtained Low dose protocols were performed. One or more of the following dose reduction techniques were used; automated exposure control, adjustment of the mA and/or KV according to patient size, use of iterative reconstruction technique. Findings: Stable ventricular asymmetry compared with October 03, 2024 Intra-axial or extra-axial hemorrhage density is not seen. No mass effect or midline shift Basal cisterns are not remarkable. Fourth ventricle is midline. Cranial vault intact. Impression: Negative for acute hemorrhage, mass effect or midline shift
[2025-07-07] MEDS: INSULIN LISPRO (AdmeLOG) 1 UNIT/0.01 ML UNIT SC (06:02)
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
[2025-07-07 06:36] LABS: Amphetamine/Methamp Scrn,U Negative (Negative); Barbiturate Screen,Urine Negative (Negative); Benzodiazepines Screen,Urine Negative (Negative); Benzoylecgonine Screen, Ur Negative (Negative); Fentanyl Screen,Urine Negative (Negative); Opiate Screen,Urine Positive (Negative); THC Screen,Urine Negative (Negative)
--- NOTE | 2025-07-07 07:00 | PC.NURSE ---
REPORT RECEIVED FROM PRINCE CHINO AT THIS TIME; PER PRINCE CHINO, PT INITIALLY BROUGHT IN FOR PALPITATIONS. PT ALSO HAD A FALL 2 DAYS AGO. PT HAD 3 EPISODES OF SINUS PAUSES AT 0338, 0456, AND 0519. PT REPORTED DOUBLE DOSING ON HIS CARDIZEM & METOPROLOL AT HOME. PMH A.FIB, COPD, HIGH BP, CAD WITH STENTS IN HIS HEART, AND CVA. PT ALSO HAS HX OF FIRST DEGREE HEART BLOCK. PT HAS 3 IV'S, 20G TO L HAND, 20G L AC, AND 20G R WRIST. PT ADMITTED TO ICU. UPON INITIAL ASSESSMENT, PT LAYING ON BED COMFORTABLY WITH NO ACUTE DISTRESS NOTED AT THIS TIME. PT CONNECTED TO AED PADS AND TO FLIGHT DYNAMICIST. PT A&OX4, GCS 15.
--- NOTE | 2025-07-07 07:02 | PC.NURSE ---
APPROX AT 0338, 0450, 0519 PT HAD SINUS PAUSE . PROVIDER DR. GR WAS MADE AWARE AND WAS AT BEDSIDE DURING ALL EPISODES. REPEAT EKG WAS DONE, 3 GRAMS OF CALCIUM GLUCONATE WAS GIVEN POSION CONTROL WAS CONTACTED. PER POISION CONTROL A CASE WAS ALREADY MADE. THEY RECOMMENDED FOR CARDIOLOGY FOLLOWUP.
--- NOTE | 2025-07-07 07:21 | PC.NURSE ---
POISION CONTROL WAS CALLED ABOUT PT INGESTING A DOUBLE DOSE OF HOME MEDICARION. APPROX AT 0000 PT TAKE A THIRD DOSE OF 60MG OF CARDIZEM AND 50MG OF METORPOLOL. PT STATES THAT THE MEDICATION ARE EXTENDED RELEASE.
--- NOTE | 2025-07-07 07:25 | PC.NURSE ---
@3945- THIS RN HEARD PT RATTLE HIS GURNEY WHILE BEING IN THE NEXT ROOM. RN WENT TO CHECK ON PT RIGHT AWAY AND PER PT, I THINK I FLATLINED AGAIN. PT REPORTS WORSENING SOB. HR IN THE 90'S. PT HYPERTENSIVE AT 205/113. 94% ON 2L, RR 23. DR. NI AT BEDSIDE MADE AWARE, PT TO BE ADMITTED TO THE ICU. PT DENYING CHEST PAIN AT THIS TIME BUT REPORTS HIS CHEST FEELING HEAVY.
--- NOTE | 2025-07-07 08:20 | PC.NURSE ---
DR. HOBSON MADE AWARE PT HAS CHRONIC BACK PAIN AND THAT PT TAKES PERCOCET AT HOME FOR IT; PT REQUESTING STRONGER PAIN MEDS AT THIS TIME. PER DR. HOBSON, WILL PUT ORDERS IN.
--- NOTE | 2025-07-07 09:29 | PC.NURSE ---
Addendum entered by Ruben William RN 07/07/25 10:33: @0919- PT SINUS PAUSE LASTED ABOUT 10 SECONDS AT THIS TIME. Original Note: @0919 - RN AT BEDSIDE. PT APPEARED TO HAVE ANOTHER EPISODE OF SINUS PAUSE. PT EVENTUALLY BECAME BRADYCARDIC IN THE HIGH 30S AND LOW 40'S. HR AT THIS TIME 44. PT 98% ON 2L VIA NC AND 22 RR. BP CYCLING AT THIS TIME. PT REPORTING SOB STILL WITH CHEST HEAVINESS 11/26. @0941- CALLED ICU & SPOKE TO DR. MACHADO AND MADE AWARE PT HAD ANOTHER SINUS PAUSE AND UPDATED ON PT'S NEW SET OF VS. BP NOW 184/104. PER DR. MACHADO, WILL LET MY TEAM KNOW. NO NEW ORDERS AT THIS TIME.
[2025-07-07 10:19] LABS: Sed Rate (ESR) 19 mm/hr (0-20)
--- NOTE | 2025-07-07 10:28 | PC.NURSE ---
PT BEING TAKEN UP TO ICU ROOM 257. PT STILL CONNECTED TO CARDIAC MONITORS & AED MONITOR. ON THE WAY TO PT'S ROOM IN ICU, PT STATED, OH HERE WE GO AGAIN. PT CLUTCHED HIS L CHEST, GAS PIT WORKER & AED MONITOR SHOWED ASYSTOLE. PT APPEARED TO BE ON SINUS PAUSE FOR ABOUT 7 SECONDS WHEN PT'S HR INCREASED TO 38 THEN TO 46 THEN UP TO THE 90'S, PT MAINTAINED O2 SAT AT 98% VIA NC 2L. PT BP 178/81. PT DENIES LOC. PT CONTINUED TO BE TRANSPORTED TO ROOM AT THIS TIME. RN AND PT ARRIVED TO 2ND FLOOR AND PT PLACED ON ROOM 257. SLIM CHINO UPDATED REGARDING PT'S CONDITION. DR. NI MADE AWARE WELL DR. MACHADO.
[2025-07-07 10:29] LABS: C-Reactive Protein < 0.5 mg/dL (0.0-0.9)
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
[2025-07-07] MEDS: hydrALAZINE INJ 20 MG/ML VIAL 10 MG IVP (11:18)
--- NOTE | 2025-07-07 11:36 | PD.IMCONS ---
HPI Data of Consult Requesting Physician: Jorge Dwyer DO Primary Care Provider: ARLENE Machado Consult Narrative History of present illness: This is a 75 y.o male with PMHx significant for CVA, Atrial Fibrillation, CAD s/p recent cardiac stent and left peripheral arterial stent placed 5 months ago, HTN, CHF, COPD pt seen in the ER with syncopy In the ER pt had multiple pauses with underlying afib ; as per daughter pt took extra doeses of diltiazem as his BP was high and developed syncopy pt continue to have pauses exceeding 3-5 seconds ; cc:: cc: Jorge Dwyer DO Meds Home Medications and Allergies Home Medications ?Medication ?Instructions ?Recorded ?Confirmed ?Type oxycodone-acetaminophen 10 mg-325 1 tab PO Q6H PRN Pain, Mild 10/26/18 02/02/25 History mg tablet (Percocet) apixaban 5 mg tablet (Eliquis) 5 mg PO BID 11/18/23 02/02/25 History semaglutide 0.25 mg or 0.5 mg (2 0.5 mg subcut QWEEK 12/30/23 02/02/25 History mg/3 mL) subcutaneous pen injector (Ozempic) diltiazem HCl 90 mg 60 mg PO Q12H 10/01/24 02/02/25 History capsule,extended release 12 hr metoprolol tartrate 50 mg tablet 25 mg PO BID 10/01/24 02/02/25 History pantoprazole 40 mg tablet,delayed 40 mg PO QDAY 10/01/24 02/02/25 History release torsemide 20 mg tablet 20 mg PO BID 10/01/24 02/02/25 History aspirin 81 mg chewable tablet 81 mg PO QDAY 02/02/25 02/02/25 History atorvastatin 40 mg tablet 80 mg PO QDAY 02/02/25 02/02/25 History hydromorphone 4 mg tablet 4 mg PO Q12HR PRN pain 02/02/25 02/02/25 History (Dilaudid) Allergies Allergy/AdvReac Type Severity Reaction Status Date / Time No Known Allergies Allergy Verified 07/07/25 02:27 Exam Vital Signs Temp Pulse Resp BP Pulse Ox O2 Del Method O2 Flow Rate 98.4 F 102 H 18 191/113 H 98 Nasal Cannula 2 07/07/25 09:02 07/07/25 11:18 07/07/25 09:36 07/07/25 11:18 07/07/25 09:36 07/07/25 09:36 07/07/25 09:36 Routine HEENT Exam Head: Present normocephalic and atraumatic Eye: Present EOMI and PERRL ENT: Present mucous membranes moist Routine Neck Exam Neck: Present supple and trachea midline Routine Respiratory Exam Respiratory: Present chest non-tender, lungs clear, normal breath sounds and no resp distress Routine Cardiovascular Exam Cardiovascular: Present RRR Routine Abdominal Exam Abdominal: Present soft and normoactive bowel sounds Routine Extremities Exam Extremities: Present full ROM Routine Skin Exam Skin: Present intact, dry and warm Routine Neurological Exam Neurological: Present alert, oriented X3 and CN II-XII intact Routine Psychiatric Exam Psychiatric: Present normal affect and normal thought process Results Labs 07/07/25 02:20 07/07/25 02:20 Labs: Short CBC 07/07/25 Range/Units 02:20 WBC 5.3 (3.8-10.6) Thou/mm3 Hgb 11.6 L (13.5-16.0) g/dL Hct 37.4 L (41.0-53.0) % Plt Count 156 (140-440) Thou/mm3 BMP 07/07/25 02:20 Sodium 140 Potassium 4.2 Chloride 100 Carbon Dioxide 34.4 H BUN 21 Creatinine 1.2 Glucose 166 H Calcium 9.1 Cardiac Enzymes 07/07/25 07/07/25 Range/Units 02:20 05:10 Troponin I < 0.020 < 0.020 (0.0-0.045) ng/mL Liver Function 07/07/25 Range/Units 02:20 Total Bilirubin 0.5 (0.3-1.2) mg/dL AST 14 (0-34) U/L ALT 15 (10-49) U/L Alkaline Phosphatase 62 (46-116) U/L Albumin 4.4 (3.4-4.8) gm/dL Assessment and Plan Assessment and plan (1) Overdose: Status: Acute (2) Pre-syncope: Status: Acute (3) Palpitation: Status: Acute (4) Acute hypoxic respiratory failure: Status: Acute Additional Assessment & Plan Additional Plan: pt continue to have multiple pauses exceeding 3-5 seconds with brief episoded of lapses of consciousness will plan for temporary pacer continue to hold eliquis - start heparin recommend echo troponin levels
[2025-07-07] MEDS: LEVALBUTEROL RT 0.63 MG/3 ML NEBU INH ×3 (12:04→22:01)
[2025-07-07] MEDS: IPRATROPIUM RT 0.5 MG/ 2.5 ML NEBU INH ×3 (12:04→22:02)
[2025-07-07] MEDS: BUDESONIDE RT 0.5 MG/2 ML NEBU INH ×2 (12:15→19:36)
[2025-07-07 12:19] LABS: Partial Thromboplastin Time 33.7 Seconds (22.0-36.0)
[2025-07-07] MEDS: MIDAZOLAM INJ 1 MG/ML VIAL 2 ML 2 MG IVP (12:30)
[2025-07-07] MEDS: BUMETANIDE INJ 0.25 MG/ML VIAL 4 ML 1 MG IVP (12:30)
--- NOTE | 2025-07-07 13:00 | XR_ITS ---
EXAMINATION: AP chest 6 views Fluoroscopy Date and time: July 07, 2025, 1538 hours INDICATIONS: Transvenous pacemaker insertion TECHNIQUE AND FINDINGS: 6. Spot fluoroscopic chest films Fluoroscopy 8 minutes 43 seconds Radiation dose 180.45 mGy The leads are poorly visualized IMPRESSION: Fluoroscopy as above
--- NOTE | 2025-07-07 14:24 | ESOP_ITS ---
PROCEDURES: Procedure Date / Time 07/07/25 12:45 Procedural Time Out Time out performed: Yes, see narrative below please. Procedure Narrative Procedure Narrative: Date:07/07/2025 Procedures performed: Placement of temporary transvenous pacemaker with moderate conscious sedation Resident: Jose Gonzalez MD, PGY1 Performer: Chip Collins MD, PGY3 Supervising Attending: Dr. Eloy Teixeira Consent was obtained and a time-out was completed verifying correct patient, procedure, site, and positioning. The patient?s right neck was prepped and draped in sterile fashion. 1% Lidocaine was used to anesthetize the surrounding skin area. Ultrasound was used to identify Internal Jugular Vein. A needle was used to access the vein. A guide wire was threaded over this and a Cordis was placed with proper technique. A Chest x-ray fluoroscopy was used to confirm proper line placement. A transvenous pacemaker was floated and placed into the right ventricle with capture. The patient tolerated the procedure well and there were no complications. Blood loss was minimal. Transvenous Catheter placed under the supervision of attending physician Dr Hari Teixeira. Note reviewed, I agree with the documentation. Pacemaker set at 60 bpm; HR on monitor trending 70-90bpm, sinus rhythm noted at the time of procedure completion. Please refer to the note above for further details. - Chip Collins MD, PGY 3 Disclaimer: The document may contain phonetic/typographic errors due to voice recognition software. These errors are purely due to imperfections in the software program. Date of procedure: 07/07/2025 Procedure performed: Placement of temporary transvenous pacemaker with moderate conscious sedation Performed by:?Dr. Chip Collins and Dr. Jose Gonzalez Supervised by: Dr. Teixeira Indication: Pauses of 6-8 seconds, tachybradycardia syndrome in the setting of atrial fibrillation [place] Protocol: Time-out was performed and the correct patient and site were verified Consent: Obtained Procedure: Patient was draped and procedure performed in sterile condition after all aseptic precautions were taken. A 7 [place] right internal jugular Cordis sheath was placed by the Dr. Gonzalez and Dr. Collins with good blood return and secured appropriately. A temporary 5 [place] transvenous pacemaker catheter was prepped and then slowly inserted using the 7 [place] right internal jugular sheath previously placed. Once the tip of the catheter was in the SVC beyond the 7 [place] sheath that the balloon was inflated and was slowly advanced but patient has significantly enlarged right atrium causing significant coiling and eventually we were able to advance it into the right ventricular lower septum near the apex. Position confirmed in the right ventricle with PVCs. We then attached the temporary transvenous pacemaker to the battery and set it to 70 bpm at 10 mm output as well as 2 mA sensitivity. Patient was capturing appropriately with atrial fibrillation with RVR with intermittent paced rhythm when he is having pauses. Pacemaker was checked at multiple heart rates from 50-120 The pacemaker was secured with Tegaderm dressings and procedure was completed without any complications. Post Procedure Diagnosis: Same as indication Status post temporary transvenous pacemaker placement with moderate conscious sedation Complications: None Estimated Blood Loss:? 10 cc Specimens Removed: None Prosthetic devices/implants: 5 [place] temporary transvenous pacemaker Follow-up chest X-ray ordered which showed appropriate placement. Eloy Teixeira M.D. Interventional Cardiology
--- NOTE | 2025-07-07 14:26 | ESOP_ITS ---
PROCEDURES: Procedure Date / Time 07/07/25 12:00 Procedural Time Out Time out performed: Yes verifying correct patient, procedure, site, and positioning Procedure Narrative Procedure Narrative: Attending Attestation: I was present for entire procedure. No immediate complications. Patient tolerated procedure well. Proceed with transvenous pacemaker placement. Central Line Placement Right IJ: Indication(s): shock Informed consent obtained: from patient Time out done, and the following verified: correct patient, side and site, procedure, patient position and implants and/or equipment Patient placed on monitor/pulse ox: Yes Hand Hygiene: scrub, soap & water and alcohol-based hand rub Max Sterile Barrier Techniques used: cap, mask, sterile gown, sterile gloves and sterile full body drape Central line prep: Chlorhexidine scrub and sterile drapes applied Local anesthesia used: lidocaine 1% Amount of anesthesia used (mL): 10 Ultrasound used for placement: Yes Sterile Technique if Ultrasound used, including sterile gel: yes Central line lumen inserted: triple Post procedure: sutured in place, good blood return, all ports aspirated, flushed, capped and sterile dressing applied Post procedure x-ray: tip of catheter in good position and no pneumothorax seen Patient tolerated procedure: well EBL(ml): 2 Complications: none Procedure comment: A time out was performed. My hands were washed immediately prior to the procedure. I wore a surgical cap, mask with protective eyewear, full gown and sterile gloves throughout the procedure. The patient was placed in Trendelenbu rg position. RIGHT chest region was prepped using chlorhexidine scrub and draped in sterile fashion using a full drape and sterile probe cover and sterile gel employed. The medial and lateral heads of the sternocleidomastoid muscle were identified as was the carotid pulse. The Internal Jugular vein was identified using the ultrasound. Anesthesia was achieved over the vein using 1% lidocaine. Using real-time out of plane guidance, the introducer needle was inserted into the Internal Jugular vein under direct ultrasound visualization. Venous blood was withdrawn. The syringe was removed and a guidewire was advanced into the introducer needle. The guidewire was visualized in the Internal Jugular Vein by ultrasound. A small incision was made at the skin surface with a scalpel and the introducer needle was exchanged for a dilator over the guidewire. After appropriate dilation was obtained, the dilator was exchanged over the wire for a 16 cm triple lumen central venous catheter. The wire was removed and the catheter was sutured in place at 15 cm. A sterile sorbaview shield was placed over the catheter at the insertion site. The patient tolerated the procedure without any hemodynamic compromise. At time of procedure completion, all ports aspirated and flushed properly. Post-procedure chest x-ray is pending at this time. Estimated blood loss is 2ml.
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
[2025-07-07] MEDS: HEPARIN SOD INJ 5000 UNIT/ML VIAL 4000 UNIT IV (15:37)
[2025-07-07] MEDS: Heparin/D5w 25K 250 ML Ivpb 25,000 UNIT/250 ML BAG 10.433 UNIT IV (15:37)
[2025-07-07] MEDS: Magnesium Sulfate 2 GM Ivpb 2 GM/50 ML BAG IV (15:53)
[2025-07-07 18:10] LABS: B-Type Natriuretic Peptide 114 pg/mL (0-100)
--- NOTE | 2025-07-07 18:43 | ECHO_ITS ---
Patient Info Name: Lacho Pimentel Winter Age: 75 years : 1950 Gender: Male Ht: 188 cm Wt: 104 kg BSA: 2.35 m2 BP: 135 / 57 mmHg HR: 118 bpm Exam Date: 07/09/2025 9:28 AM Admit Date: 07/07/2025 Site: [facility] Room Number: [id number] Patient Status: I Exam Type: CA echo doppler complete Electrical Electronics Technician: Shantel Michael Ordering Physician: Zackary Silva Study Info Indications Bradycardia - Primary Location: S2SX Left Ventricular Outflow Tract Name Value Normal LVOT 2D LVOT Diameter 2.0 cm LVOT Doppler LVOT Peak Velocity 97 cm/s LVOT Mean Gradient 2 mmHg LVOT VTI 18 cm LVOT VTI/AV VTI Ratio 0.4 LVOT Stroke Volume 57 ml Mitral Valve Name Value Normal MV Doppler MV Mean Gradient 5 mmHg MV Decel Co[place] 396 cm/s2 MV PHT 130 ms MV Area (PHT) 1.7 cm2 4.0-5.0 MV Area (Cont Eq VTI) 1.0 cm2 MV Diastolic Function MV E Peak Velocity 177 cm/s Tricuspid Valve Name Value Normal TV Regurgitation Doppler TR Peak Velocity 282 cm/s Estimated PAP/RSVP RA Pressure 15 mmHg <=5 PA Systolic Pressure 47 mmHg <36 RV Systolic Pressure 47 mmHg <36 Aortic Valve Name Value Normal AV 2D/MM AV Cusp Sep (MM) 0.8 cm AV Doppler AV Peak Velocity 252 cm/s AV Mean Gradient 15 mmHg AV VTI 51 cm AV Area (Cont Eq VTI) 1.4 cm2 >=3.0 AV Area (Cont Eq Willy) 1.2 cm2 AV DI (Willy) 0.38 AV Regurgitation 2D LVOT Area 3.1 cm2 Ventricles Name Value Normal LV Dimensions 2D/MM IVS Diastolic Thickness (2D) 0.9 cm 0.6-1.0 LVID Diastole (2D) 5.3 cm 4.2-5.8 LVIW Diastolic Thickness (2D) 1.1 cm 0.6-1.0 LVID Systole (2D) 3.4 cm 2.5-4.0 LVOT Diameter 2.0 cm LV Mass (2D Cubed) 200.40 g 88.00-224.00 LV Mass Index (2D Cubed) 85 g/m2 49-115 Relative Wall Thickness (2D) 0.42 <=0.42 IVS/LVIW Diastolic Thickness (2D) 0.82 0.00-1.50 LV Fractional Shortening/Ejection Fraction 2D/MM LV Fractional Shortening (2D) 36 % 25-43 LV EF (2D Teichholz) 65 % Atria Name Value Normal LA Dimensions LA Volume (4C A-L) 108 ml LA Volume (BP A-L) 114 ml Left Ventricle Left ventricular chamber dimension is normal. Left ventricular systolic function is normal with visually estimated ejection fraction of 60-65%. There is normal geometry noted in the left ventricle. Left ventricular segmental wall motion is normal. There is indeterminate diastolic function in the left ventricle. Right Ventricle Right ventricular chamber dimension is mildly enlarged. Right ventricular systolic function is normal. Flattening of the ventricular septum in mid to late systole consistent with right ventricular volume overload. Left Atrium Left atrial chamber dimension is moderately enlarged. Right Atrium Right atrial chamber dimension is moderately enlarged. Aortic Valve The aortic valve is trileaflet. There is mild aortic valve stenosis with a peak velocity of 252 cm/s, mean gradient of 15 mmHg, and aortic valve area of 1.4 cm2. There is trace aortic valve regurgitation. Pulmonic Valve The pulmonic valve is normal. There is no pulmonic valve stenosis. There is no pulmonic regurgitation. Mitral Valve The mitral valve has normal leaflets. There is mild mitral valve stenosis. There is mild to moderate mitral valve regurgitation. Tricuspid Valve The tricuspid valve leaflets are normal. There is no tricuspid valve stenosis. There is mild tricuspid valve regurgitation. Pulmonary hypertension, estimated pulmonary arterial systolic pressure is 47 mmHg and systemic blood pressure of 135 mmHg in systole. Pericardium/Pleural The pericardium appears normal. There is no pericardial effusion. No pleural effusion visualized. Inferior Vena Cava Dilated inferior vena cava with >50% collapse upon inspiration consistent with normal right atrial pressure, 15 mmHg. Aorta The aortic measurements are indexed to age and body surface area. The aortic root at the sinus of Valsalva is not well visualized. The prox ascending aorta is moderately dilated. Summary 1. Left ventricle size is normal and systolic function is normal. Estimated ejection fraction is 60-65%. There is indeterminate diastolic function. 2. Right ventricle chamber size is mildly enlarged and systolic function is normal. Estimated RVSP is 45 mmHg with RAP 8. Possible mild to moderate Pulmonary HTN. 3. There is mild aortic valve stenosis with a peak velocity of 252 cm/s, mean gradient of 15 mmHg, and aortic valve area of 1.4 cm2. 4. There is mild mitral valve stenosis with a mean PG fo 5 mm hg and mild regurgitation. Moderate-severe MAC. Mean gradient of 8 mmHg. There is mild tricuspid valve regurgitation. 5. The left atrium is moderately enlarged. The right atrium is moderately enlarged. 6. Dilated IVC with estimated RA pressure 15 mmHg. No pericardial effusion. Report Signatures Finalized by Eloy Teixeira on 07/09/2025 12:36 PM
[2025-07-07 19:08] LABS: Alanine Aminotransferase 15 U/L (10-49); Albumin, Serum 4.7 gm/dL (3.4-4.8); Albumin/Globulin Ratio 2.0 (1.2-2.2); Alkaline Phosphatase 66 U/L (46-116); Anion Gap 8 (7-16); Aspartate Amino Transferase 19 U/L (0-34); BUN/Creatinine Ratio 15 Ratio (12-20); Bilirubin,Total 0.5 mg/dL (0.3-1.2); Blood Urea Nitrogen 17 mg/dL (9-23); Calcium 9.8 mg/dL (8.3-10.6); Calcium (Corrected) 9.8 mg/dL (8.5-10.1); Carbon Dioxide 35.9 mMol/L (20.0-31.0); Chloride 98 mMol/L (98-107); Creatinine (Component) 1.1 mg/dL (0.6-1.3); Estimated Creatinine Clearance 72.4 mL/min (>60); Globulin 2.3 gm/dL (2.3-3.5); Glucose 117 mg/dL (74-106); Magnesium 2.4 mg/dL (1.6-2.6); Osmolality,Calculated 285 (275-295); Potassium 4.6 mMol/L (3.4-5.1); Sodium 142 mMol/L (136-145); Total Protein 7.0 gm/dL (5.7-8.2); eGFR > 60 See Note
[2025-07-07] MEDS: fentaNYL CIT INJ 50 mCg/ML AMP 2ML 25 MCG IVP (19:45)
[2025-07-07] MEDS: ATORVASTATIN CALCIUM 20 MG TABLET 80 MG PO (19:46)
[2025-07-07 21:29] LABS: Partial Thromboplastin Time 36.2 Seconds (22.0-36.0)
[2025-07-07] MEDS: HYDROMORPHONE HCL 2 MG TABLET 4 MG PO (21:59)
[2025-07-08] VITALS (40 sets, daily range): BP systolic 104–192; BP diastolic 54–96; PULSE 45–100; RESP 12–28; TEMP 36.6–37.1; O2SAT 87–100; BMI 29.5
[2025-07-08] MEDS: HEPARIN SOD INJ 5000 UNIT/ML VIAL 2000 UNIT IV ×3 (00:01→23:56)
[2025-07-08] MEDS: fentaNYL CIT INJ 50 mCg/ML AMP 2ML 25 MCG IVP ×3 (02:21→21:08)
[2025-07-08 06:27] LABS: Basophils # (Auto) 0.0 Thou/mm3 (0.0-0.2); Basophils % (Auto) 0 % (0-2.5); Eosinophils # (Auto) 0.1 Thou/mm3 (0.0-0.5); Eosinophils % (Auto) 2 % (0-10); Hematocrit 36.0 % (41.0-53.0); Hemoglobin 11.2 g/dL (13.5-16.0); Immature Granulocytes Auto 0.02 Thou/mm3 (0.00-0.00); Lymphocytes # (Auto) 0.7 Thou/mm3 (1.0-4.8); Lymphocytes % (Auto) 15 % (10-50); Mean Corpuscular HGB Conc 31.1 g/dl (31.0-37.0); Mean Corpuscular Hemoglobin 25.8 pg (25.0-35.0); Mean Corpuscular Volume 83 fL (80-100); Monocytes # (Auto) 0.5 Thou/mm3 (0.0-0.8); Monocytes % (Auto) 10 % (0-12); Neutrophils # (Auto) 3.5 Thou/mm3 (1.8-7.7); Neutrophils % (Auto) 73 % (37-80); Nucleated Red Blood Cell # 0.00 Thou/mm3 (0.00-0.00); Nucleated Red Blood Cell % 0 /100 WBC (0); Platelet Count 142 Thou/mm3 (140-440); RDW Standard Deviation 46.4 fL (35.1-43.9); Red Blood Count 4.34 Miln/mm3 (4.50-5.90); White Blood Count 4.8 Thou/mm3 (3.8-10.6)
[2025-07-08 06:46] LABS: Partial Thromboplastin Time 37.6 Seconds (22.0-36.0)
[2025-07-08] MEDS: IPRATROPIUM RT 0.5 MG/ 2.5 ML NEBU INH ×3 (07:03→22:18)
[2025-07-08] MEDS: BUDESONIDE RT 0.5 MG/2 ML NEBU INH ×2 (07:03→18:16)
[2025-07-08] MEDS: LEVALBUTEROL RT 0.63 MG/3 ML NEBU INH ×3 (07:03→22:18)
[2025-07-08] MEDS: HEPARIN SOD INJ 5000 UNIT/ML VIAL 2000 UNIT IVP (07:44)
[2025-07-08 08:35] LABS: Alanine Aminotransferase 14 U/L (10-49); Albumin, Serum 4.2 gm/dL (3.4-4.8); Albumin/Globulin Ratio 2.1 (1.2-2.2); Alkaline Phosphatase 62 U/L (46-116); Anion Gap 10 (7-16); Aspartate Amino Transferase 17 U/L (0-34); BUN/Creatinine Ratio 16 Ratio (12-20); Bilirubin,Total 0.7 mg/dL (0.3-1.2); Blood Urea Nitrogen 18 mg/dL (9-23); Calcium 9.1 mg/dL (8.3-10.6); Calcium (Corrected) 9.1 mg/dL (8.5-10.1); Carbon Dioxide 33.8 mMol/L (20.0-31.0); Chloride 99 mMol/L (98-107); Creatinine (Component) 1.1 mg/dL (0.6-1.3); Estimated Creatinine Clearance 72.4 mL/min (>60); Globulin 2.0 gm/dL (2.3-3.5); Glucose 158 mg/dL (74-106); Magnesium 2.4 mg/dL (1.6-2.6); Osmolality,Calculated 289 (275-295); Potassium 4.1 mMol/L (3.4-5.1); Sodium 143 mMol/L (136-145); Total Protein 6.2 gm/dL (5.7-8.2); eGFR > 60 See Note
[2025-07-08] MEDS: INSULIN LISPRO (AdmeLOG) 1 UNIT/0.01 ML UNIT SC (08:40)
[2025-07-08] MEDS: ASPIRIN EC 81 MG TABEC PO (08:41)
[2025-07-08] MEDS: LOSARTAN POTASSIUM 25 MG TABLET PO (10:46)
[2025-07-08] MEDS: Milk Of Magnesia Susp 30 ML UDC 15 ML PO (10:46)
[2025-07-08] MEDS: Heparin/D5w 25K 250 ML Ivpb 25,000 UNIT/250 ML BAG 14.606 UNIT IV (11:35)
--- NOTE | 2025-07-08 12:32 | PD.RESPRO ---
Documentation for date of: 07/08/25 Subjective Subjective Interval history: Patient seen and examined at bedside Patient is awake, complains of feeling tired. Temporary Transvenous pacing Rate Changed to 45, Patient Maintaining Rate Controlled Atrial Fibrillation on Telemetry. Still intermittently requiring temporary pacemaker Continue Aspirin and Heparin Drip. Continue to Monitor Heart Rate Daily Thursday A.M. Will continue to monitor for tachybradycardia syndrome. All questions of family were answered at bedside. Exam Vital Signs Temp Pulse Resp BP Pulse Ox O2 Del Method O2 Flow Rate 97.9 F 77 21 H 123/61 96 Nasal Cannula 2 07/08/25 05:00 07/08/25 11:00 07/08/25 11:00 07/08/25 11:00 07/08/25 11:00 07/07/25 16:00 07/08/25 07:04 FiO2 30 07/08/25 03:39 Narrative Exam General: AAO x3, Elderly, Frail, conversational reports that he is feeling tired. Eye: PERRL, EOMI, normal conjunctiva, no scleral icterus HENT: Normocephalic, atraumatic, hearing intact to conversation at normal volume, moist oral mucosa. On 2 L nasal cannula Neck: Supple, non-tender, no JVD, no lymphadenopathy Lungs: Non-labored respirations, symmetric chest rise, No wheezing, rhonchi, crackles Heart: Peripheral pulses intact bilaterally, Irreguarly irregular rhythm. Abdomen: Soft, non-tender, non-distended, no palpable masses Musculoskeletal: Normal range of motion and strength, No cyanosis or edema, No visible joint swelling Skin: Skin is warm, dry, no rashes or lesions. Psychiatric: Cooperative, appropriate mood and affect, Awake and alert, not agitated Neuro: Cranial nerves II-XII grossly intact. Sensations intact to light touch. Objective Labs 07/09/25 06:40 07/09/25 06:40 Labs: Laboratory Results - last 24 hr 07/07/25 07/07/25 07/07/25 17:28 18:07 20:57 WBC RBC Hgb Hct MCV MCH MCHC RDW Std Deviation Plt Count Neut % (Auto) Lymph % (Auto) [place] % (Auto) Eos % (Auto) Baso % (Auto) Neut # (Auto) Lymph # (Auto) [place] # (Auto) Eos # (Auto) Baso # (Auto) Immature Gran # (Auto) Absolute Nucleated RBC Immature Gran % Nucleated RBC % APTT 36.2 H Sodium 142 Potassium 4.6 Chloride 98 Carbon Dioxide 35.9 H Anion Gap 8 BUN 17 Creatinine 1.1 Estim Creat Clear Calc 72.4 eGFR > 60 BUN/Creatinine Ratio 15 Glucose 117 H Calculated Osmolality 285 Calcium 9.8 Corrected Calcium 9.8 Magnesium 2.4 Total Bilirubin 0.5 AST 19 ALT 15 Alkaline Phosphatase 66 B-Natriuretic Peptide 114 H Total Protein 7.0 Albumin 4.7 Globulin 2.3 Albumin/Globulin Ratio 2.0 07/08/25 06:15 WBC 4.8 RBC 4.34 L Hgb 11.2 L Hct 36.0 L MCV 83 MCH 25.8 MCHC 31.1 RDW Std Deviation 46.4 H Plt Count 142 Neut % (Auto) 73 Lymph % (Auto) 15 [place] % (Auto) 10 Eos % (Auto) 2 Baso % (Auto) 0 Neut # (Auto) 3.5 Lymph # (Auto) 0.7 L [place] # (Auto) 0.5 Eos # (Auto) 0.1 Baso # (Auto) 0.0 Immature Gran # (Auto) 0.02 H Absolute Nucleated RBC 0.00 Immature Gran % 0 Nucleated RBC % 0 APTT 37.6 H Sodium 143 Potassium 4.1 D Chloride 99 Carbon Dioxide 33.8 H Anion Gap 10 BUN 18 Creatinine 1.1 Estim Creat Clear Calc 72.4 eGFR > 60 BUN/Creatinine Ratio 16 Glucose 158 H Calculated Osmolality 289 Calcium 9.1 Corrected Calcium 9.1 Magnesium 2.4 Total Bilirubin 0.7 AST 17 ALT 14 Alkaline Phosphatase 62 B-Natriuretic Peptide Total Protein 6.2 Albumin 4.2 D Globulin 2.0 L Albumin/Globulin Ratio 2.1 Quality Measures Quality Measures none Advance care planning discussed with:: patient Assessment & Plan Assessment Current Active Medications: Generic Name Dose Route Start Last Admin Trade Name Freq PRN Reason Stop Dose Admin Acetaminophen 650 mg 07/07/25 05:49 Acetaminophen 325 Mg Tablet PO 08/06/25 05:48 Q4HR PRN PAIN SCALE 1-3 (mild Acetaminophen 650 mg 07/07/25 05:49 Acetaminophen Supp 650 Mg Supp WV 08/06/25 05:48 Q4HR PRN PAIN SCALE 1-3 (mild Al Hydrox/Mg Hydrox/Simethicone 30 ml 07/07/25 05:49 Mg Hyd/Al Hyd/Dominic (Maalox Reg) Susp 30 Ml Udc PO 08/06/25 05:48 Q4HR PRN Heartburn or Upset Stomach Aspirin 81 mg 07/08/25 09:00 07/08/25 08:41 Aspirin Ec 81 Mg Tabec PO 08/07/25 08:59 81 mg QDAY SANDRA Administration Atorvastatin Calcium 80 mg 07/07/25 21:00 07/07/25 19:46 Atorvastatin Calcium 20 Mg Tablet PO 08/06/25 20:59 80 mg HS SANDRA Administration Budesonide 0.5 mg 07/07/25 19:00 07/08/25 07:03 Budesonide Rt 0.5 Mg/2 Ml Nebu INH 08/06/25 18:59 0.5 mg BIDRT SANDRA Administration Dextrose 50 ml 07/07/25 05:55 Dextrose 50%-Water Inj 50 Ml Syringe IV 08/06/25 05:54 Q15MIN PRN BG <50 OR BG <70 & pt unresponsive Glucagon 1 mg 07/07/25 05:55 Glucagon Inj 1 Mg Vial IM Q15MIN PRN BG <70, and no IV access Hydralazine HCl 10 mg 07/07/25 11:02 07/07/25 11:18 Hydralazine Inj 20 Mg/Ml Vial IVP 08/06/25 06:46 10 mg Q6HR PRN Administration SBP > 180 Heparin Sodium/Dextrose 25,000 unit in 250 mls @ 10.433 mls/hr 07/07/25 12:45 07/08/25 11:35 Heparin In D5w Ivpb IV 07/21/25 12:44 14 units/kg/hr .[id number] [facility] 14.606 mls/hr Protocol Administration 10 UNITS/KG/HR Naloxone HCl 2 mg/ Dextrose 500 mls @ 10 mls/hr 07/08/25 08:18 IV 08/07/25 08:29 .Q24H PRN Respiratory depression RR>10 or unresponsive Insulin Human Lispro 0 unit 07/08/25 07:30 07/08/25 10:49 Insulin Lispro (Admelog) 1 Unit/0.01 Ml Unit SC 08/07/25 07:29 Not Given AC [facility] Protocol Ipratropium [place] 0.5 mg 07/07/25 11:55 07/08/25 07:03 Ipratropium Rt 0.5 Mg/ 2.5 Ml Nebu INH 08/06/25 11:54 0.5 mg Q8HRRT SANDRA Administration Levalbuterol HCl 0.63 mg 07/07/25 11:55 07/08/25 07:03 Levalbuterol Rt 0.63 Mg/3 Ml Nebu INH 08/06/25 11:54 0.63 mg Q8HRRT SANDRA Administration Losartan Potassium 25 mg 07/08/25 10:15 07/08/25 10:46 Losartan Potassium 25 Mg Tablet PO 08/07/25 10:14 25 mg QDAY SANDRA Administration Morphine Sulfate 15 mg 07/08/25 10:10 Morphine Sulf Immed Release 30 Mg Tabir PO 07/13/25 10:09 Q8HR PRN pain 4-10 Protocol Pantoprazole Sodium 40 mg 07/07/25 09:00 07/08/25 08:41 Pantoprazole Inj 40 Mg Vial IVP 08/06/25 08:59 40 mg QDAY SANDRA Administration Sennosides 1 tab 07/09/25 09:00 Senna Tablet PO 08/08/25 08:59 QDAY SANDRA Protocol Plan Mr. Lacho Lopez is a 75-year-old male with past medical history of CVA, atrial fibrillation on Eliquis, coronary artery disease status post PCI distal circumflex in 2019, peripheral arterial disease status post PCI left superficial tibial artery 01/2025, hypertension, HFpEF, EF 60 to 65% September 2024, mild LVH and mild aortic stenosis, COPD and BPH who presented to [facility] emergency department on May 07, 2025 with a chief complaint of syncopal episode, patient had first syncopal episode lasting few seconds after which he fell and hit the back of his head, had another episode of passing out associated with chest pain. Patient reports taking extra dose of both metoprolol and diltiazem, and route to the ER patient was noted to have multiple sinus pauses, lasting 7 seconds, 4 seconds and 12 seconds. Patient was admitted to intensive care unit for further management while being temporarily paced. #Syncopal Episodes #Recurrent Sinus Pauses s/p temporary transvenous pacemaker #Suspected Beta-Shaan and CCB Overdose #Persistent Atrial Fibrillation, by history #Hx of CAD s/p stent in left distal circumflex, 2019 #Hx of PAD s/p stent in left superficial femoral artery (01/26/2025) Multiple syncopal episodes with HR of 50s. EKG shows Atrial Fibillation, rate controlled. Multiple recurrent sinus pauses recorded, reviewed tele-strips Patient has long standing HTN Received PCI in 2019 in distal circumflex LE Angiogram (01/26/2025) revealed significant lesion in right popliteal artery and posterior tibial artery and 100% occlusion of left superficial femoral artery and posterior tibial artery. Patient subsequently received Atherectomy and thrombectomy of the left superficial femoral artery, Balloon angioplasty of the left superficial femoral artery, Balloon angioplasty of the left popliteal artery and tibioperoneal trunk, and stent placement of the left superficial femoral artery. Considering how Patient's HR rapidly alternates from 50 to 100, there is concern of Tachy-Raman syndrome, patient has multiple sinus pauses likely possible suspected Sick sinus syndrome (in the setting of old age, CAD, long standing hypertension) however did endorse taking multiple doses of beta-shaan and CCB hence possible toxicity On 07/07/2025, patient received temporary transvenous pacemaker. His HR stable currently Plan: -Emergent transvenous temporary pacemaker placed via the right internal jugular vein on 07/07/2025 with no complications and pacemaker settings are rate of 70 bpm, output of 10 mV and sensitivity of 2 mA. No complications and patient tolerated the procedure well -Patient received multiple doses of beta-shaan as well as calcium channel blockers and does not remember the number of doses. -Will need to monitor for the next 24 hours for the beta-shaan and calcium channel shaan washout. - Patient mostly has underlying tachybradycardia syndrome as per the history along with sick sinus syndrome in the setting of atrial fibrillation with RVR. -Will continue to monitor until thursday (07/10) if patient is pacemaker dependent, assess to rule out tachybrady syndrome and sick sinus syndrome. -We will continue to monitor patient over weekend, continue temporary transvenous pacing for now and plan for permanent pacemaker on Thursday -Continue heparin drip and aspirin, because patient had PCI in 2019 in distal circumflex and stent placement in left superficial femoral artery in 01/26/2025. -Depending on the patient's stability, patient might have to receive permanent pacemaker placement, so do not give eliquis or plavix for now. -Keep potassium greater than 4 and magnesium greater than 2 #HFpEF, EF 60 to 65% September 2024 (09/2024) Patient seen at bedside, does not look fluid overloaded currently, was diuresed adequately yesterday. Past ECHO (10/04/2024) showed: Bubble study negative for any PFO but suboptimal due to poor images. Normal LV size and function. Estimated EF of 60 to 65%. Mild LVH. Diastolic function present but cannot be graded. Normal RV size and function with normal RVSP of 30 mmHg. Mild aortic stenosis with at least mild to moderate calcification V-max of 2.8 m/s and mean gradient of 18 mmHg. 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 Mild mitral stenosis with mean gradientof 6 mm hg. Mild MR and TR Plan -Received 1 mg Bumex yesterday, continue/hold diuresis depending on fluid status -Continue BiPAP -Strict intake and output, fluid restriction 1500 cc, daily weight, low-sodium diet -On Atorvastatin 80mg PO HS -Ordered echocardiogram #HTN -Avoid beta-shaan/calcium channel shaan, did receive nicardipine drip earlier today. - Consider hydralazine/GABRIEL/ARB/amlodipine for blood pressure management #?Hx of COPD #History of type 2 diabetes #History of chronic lumbar back pain s/p L4-L5 fusion -Management per front counter clerk team Thank you for the consult and allowing to participate in the care of the patient. Cardiology will continue to follow. Case discussed with Attending Physician Dr. Eloy Silva MD Internal Medicine PGY-2 Disclaimer: This note was dictated by speech recognition. Minor errors in county agricultural agent may be present due to voice recognition software. Attending Provider Attestation/Addendum I have personally seen and examined the patient separately on the above date of service and discussed the plan of care with the resident. I reviewed the resident Dr. Zackary Silva consultation progress note and agree with the resident findings and plan in the note above and have also edited the documentation to reflect my findings and plan. Eloy Teixeira M.D. Interventional Cardiology
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
[2025-07-08] MEDS: [UNRECOGNIZED DRUG - OTHER] 15 MG PO (13:06)
[2025-07-08] MEDS: GABAPENTIN 300 MG CAPSULE PO ×2 (15:15→21:35)
[2025-07-08] MEDS: HYDROMORPHONE HCL 2 MG TABLET 4 MG PO (16:03)
[2025-07-08 16:43] LABS: Partial Thromboplastin Time 39.9 Seconds (22.0-36.0)
--- NOTE | 2025-07-08 18:04 | PC.NURSE ---
pt had scheduled draw at 1345 for heparin drip when lab came up they said Pt was a nurse draw. let him know that pts central line was apart of transvenous pacemaker and would consult with the drs regarding draw. Drs said no to drawing from line , lab left without drawing PTT. contacted lab regarding this and was not drawn until 1530 and didn't recieve results until almost 1730. MDs made aware of this situation
[2025-07-08] MEDS: ATORVASTATIN CALCIUM 20 MG TABLET 80 MG PO (21:08)
[2025-07-08 23:29] LABS: INR 1.0 (0.9-1.3); Partial Thromboplastin Time 49.1 Seconds (22.0-36.0); Prothrombin Time 10.8 Seconds (9.0-12.2)
[2025-07-08] MEDS: LIDOCAINE 5% 1 PATCH TOP (23:59)
[2025-07-09] VITALS (79 sets, daily range): BP systolic 114–173; BP diastolic 47–89; PULSE 41–99; RESP 13–29; TEMP 36.2–37.2; O2SAT 92–100; BMI 29.5
--- NOTE | 2025-07-09 03:23 | XR_ITS ---
EXAMINATION: AP chest single view TECHNIQUE: AP portable upright chest single view Date and time: July 09, 2025, 0336 hours, comparison July 07, 2025 INDICATIONS: Checking position of temporary pacemaker FINDINGS: The image is underpenetrated Persistent cardiomegaly with mild vascular congestion The pacing lead projects at the junction of the right atrium and right ventricle IMPRESSION: The pacing lead projects at the junction of the right atrium and right ventricle
[2025-07-09] MEDS: Heparin/D5w 25K 250 ML Ivpb 25,000 UNIT/250 ML BAG 18.779 UNIT IV ×2 (03:45→18:21)
--- NOTE | 2025-07-09 04:25 | EVENTNT_ITS ---
Documentation for date of: 07/09/25 Event Note Event Note: Around 3:24AM, patient went down to HR of 35, and felt very dizzy. However, HR increased back to low 50s. Reviewed telemetry with automobile service advisor tech, and noticed patient has a sinus pause lasting about 3 seconds around 22:25, and since then, patient hasn't been pacing correctly. Spoke with Dr. Teixeira, and recommended to increase current pacemaker rate from 60 to 45, and increase sensitivity from 2 to 4. However, pacemaker continues to not pace correctly. Dr. Teixeira aware of current situation, and most likely believes that pacemaker is probably moved. Patient's vital signs were stable and currently sleeping and asymptomatic. Dr. Teixeira will most likely reposition pacemaker in the AM. Nasima Crawley, PGY-3
--- NOTE | 2025-07-09 05:30 | PRELIM_ITS ---
Radiograph of the chest (single view). July 09, 2025 0331 hours Clinical history: Verify placement of temporary transcutaneous pacemaker Comparison: X-ray of February 24, 2025. Findings: Unchanged cardiomegaly. Right central line with the distal tip projecting in the area of the right atrium. The lungs are clear. There is no pleural effusion. The bony thorax is unremarkable. No pneumothorax. Impression: Unchanged cardiomegaly. Right central line with the distal tip projecting in the area of the right atrium. Report Electronically Signed By: Paresh Hubbard 07/09/2025 5:29:59 AM [EST]
[2025-07-09] MEDS: GABAPENTIN 300 MG CAPSULE PO ×3 (06:03→21:17)
[2025-07-09] MEDS: HYDROMORPHONE HCL 2 MG TABLET 4 MG PO ×2 (06:03→18:27)
[2025-07-09] MEDS: fentaNYL CIT INJ 50 mCg/ML AMP 2ML IVP (06:12)
[2025-07-09] MEDS: IPRATROPIUM RT 0.5 MG/ 2.5 ML NEBU INH ×3 (06:33→22:03)
[2025-07-09] MEDS: BUDESONIDE RT 0.5 MG/2 ML NEBU INH ×2 (06:33→18:32)
[2025-07-09] MEDS: LEVALBUTEROL RT 0.63 MG/3 ML NEBU INH ×3 (06:33→22:03)
--- NOTE | 2025-07-09 06:45 | XR_ITS ---
EXAMINATION: CHEST: 159 spot fluoroscopic views Fluoroscopy Date and time: July 09, 2025, 10:23 a.m. INDICATIONS: Pacemaker insertion TECHNIQUE AND FINDINGS: 159 spot fluoroscopic films of the chest Fluoroscopy 9.11 minutes radiation dose 82.466 mGy Partial visualization cardiac leads IMPRESSION: Fluoroscopy for pacemaker insertion today
[2025-07-09 07:49] LABS: Basophils # (Auto) 0.0 Thou/mm3 (0.0-0.2); Basophils % (Auto) 0 % (0-2.5); Eosinophils # (Auto) 0.1 Thou/mm3 (0.0-0.5); Eosinophils % (Auto) 3 % (0-10); Hematocrit 35.1 % (41.0-53.0); Hemoglobin 10.8 g/dL (13.5-16.0); Immature Granulocytes Auto 0.01 Thou/mm3 (0.00-0.00); Lymphocytes # (Auto) 0.7 Thou/mm3 (1.0-4.8); Lymphocytes % (Auto) 16 % (10-50); Mean Corpuscular HGB Conc 30.8 g/dl (31.0-37.0); Mean Corpuscular Hemoglobin 25.9 pg (25.0-35.0); Mean Corpuscular Volume 84 fL (80-100); Monocytes # (Auto) 0.4 Thou/mm3 (0.0-0.8); Monocytes % (Auto) 10 % (0-12); Neutrophils # (Auto) 3.0 Thou/mm3 (1.8-7.7); Neutrophils % (Auto) 71 % (37-80); Nucleated Red Blood Cell # 0.00 Thou/mm3 (0.00-0.00); Nucleated Red Blood Cell % 0 /100 WBC (0); Platelet Count 148 Thou/mm3 (140-440); RDW Standard Deviation 47.2 fL (35.1-43.9); Red Blood Count 4.17 Miln/mm3 (4.50-5.90); White Blood Count 4.3 Thou/mm3 (3.8-10.6)
[2025-07-09 08:08] LABS: Alanine Aminotransferase 17 U/L (10-49); Albumin, Serum 3.9 gm/dL (3.4-4.8); Albumin/Globulin Ratio 1.8 (1.2-2.2); Alkaline Phosphatase 62 U/L (46-116); Anion Gap 8 (7-16); Aspartate Amino Transferase 19 U/L (0-34); BUN/Creatinine Ratio 18 Ratio (12-20); Bilirubin,Total 0.6 mg/dL (0.3-1.2); Blood Urea Nitrogen 22 mg/dL (9-23); Calcium 9.0 mg/dL (8.3-10.6); Calcium (Corrected) 9.1 mg/dL (8.5-10.1); Carbon Dioxide 34.5 mMol/L (20.0-31.0); Chloride 98 mMol/L (98-107); Creatinine (Component) 1.2 mg/dL (0.6-1.3); Estimated Creatinine Clearance 66.4 mL/min (>60); Globulin 2.2 gm/dL (2.3-3.5); Glucose 145 mg/dL (74-106); Magnesium 2.6 mg/dL (1.6-2.6); Osmolality,Calculated 285 (275-295); Phosphorous 4.6 mg/dL (2.4-5.1); Potassium 4.4 mMol/L (3.4-5.1); Sodium 140 mMol/L (136-145); Total Protein 6.1 gm/dL (5.7-8.2); eGFR > 60 See Note
[2025-07-09 08:47] LABS: INR 1.0 (0.9-1.3); Partial Thromboplastin Time 61.5 Seconds (22.0-36.0); Prothrombin Time 10.9 Seconds (9.0-12.2)
[2025-07-09] MEDS: LOSARTAN POTASSIUM 25 MG TABLET PO (09:08)
[2025-07-09] MEDS: ASPIRIN EC 81 MG TABEC PO (09:09)
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
--- NOTE | 2025-07-09 13:24 | PC.SS ---
75YO White Male; Reason for Visit: ASYSTOLE SS met with patient at bedside to complete initial assessment. Role and purpose of today?s contact was explained. Patient confirmed his demographic information. Patient stated his son Garry Lopez [phone] is his primary medical surrogate decisionmaker. ? Patient reported he is independent with ADL completion and uses a cane as needed for ambulation. Patient utilizes 2L of oxygen daily, DME provider is Sus[facility]. ? PHARMACY: [facility]. ?PCP: Bobbi Turner, last appt. was 06/21/25. Patient is requesting to return when medically clear. Family to provide transportation. DISCHARGE PLAN: HOME NEXT OF KIN: Waqar Lopez [phone]
[2025-07-09] MEDS: fentaNYL CIT INJ 50 mCg/ML AMP 2ML 25 MCG IVP (14:14)
[2025-07-09 17:22] LABS: Partial Thromboplastin Time 48.8 Seconds (22.0-36.0)
[2025-07-09] MEDS: HEPARIN SOD INJ 5000 UNIT/ML VIAL 2000 UNIT IVP (18:19)
--- NOTE | 2025-07-09 18:30 | PD.RESPROC ---
PROCEDURES: Procedure Date / Time 07/09/251829 Procedure Narrative Procedure Narrative: Date of procedure: 07/09/2025 Procedure performed: Placement of temporary transvenous pacemaker with moderate conscious sedation Performed by:Melissa Collins MD Supervised by: Dr. Hari Teixeira Indication: Pauses of 6-8 seconds, tachybradycardia syndrome in the setting of A.Fib Displacement of previous temporary transvenous pacemaker [place] Protocol: Time-out was performed and the correct patient and site were verified Consent: Obtained Procedure: Patient was draped and procedure performed in sterile condition after all aseptic precautions were taken. A 7 [place]ic right internal jugular Cordis sheath placed on 07/08/[address] and cleaned appropriately with ChloraPrep. The old temporary transvenous pacemaker was removed as it was displaced and dislodged with possible contamination during the handling overnight. A new temporary 5 [place]ic transvenous pacemaker catheter was prepped and then a new catheter was slowly inserted using the 7 [place] right internal jugular sheath previously placed. Once the tip of the catheter was in the SVC beyond the 7 [place] sheath that the balloon was inflated and was slowly advanced but patient has significantly enlarged right atrium causing significant coiling and eventually we were able to advance it into the right ventricular lower septum near the apex. Position confirmed in the right ventricle with PVCs and the fluoroscopy. We then attached the temporary transvenous pacemaker to the battery and set it to 70 bpm at 10 mV output as well as 2 mA sensitivity. Postprocedure patient had paced rhythm at 70 bpm. Underlying rhythm was atrial fibrillation with slow ventricular rate of 40-45 bpm with pauses. Pacemaker was checked at multiple heart rates from 50-120. The pacemaker was secured with 3x Tegaderm dressings and procedure was completed without any complications. Post Procedure Diagnosis: Same as indication Status post temporary transvenous pacemaker re-placement with moderate conscious sedation. Complications: None Estimated Blood Loss: 10 cc Specimens Removed: None Prosthetic devices/implants: 5 [place]ic temporary transvenous pacemaker Follow-up chest X-ray ordered which showed appropriate placement. - Chip Collins M.D. PGY3 Disclaimer: Minor errors in supervisor erection shop may be present as this note was dictated using voice recognition software. I was present to supervise the resident during the entire procedure and performed the majority of the procedure as documented by the resident above. No complications the patient tolerated the procedure well. Eloy Teixeira M.D. Interventional Cardiology
[2025-07-09] MEDS: ATORVASTATIN CALCIUM 20 MG TABLET 80 MG PO (21:17)
[2025-07-10] VITALS (45 sets, daily range): BP systolic 114–174; BP diastolic 50–95; PULSE 59–96; RESP 12–22; TEMP 36.4–36.9; O2SAT 93–99; BMI 29.7
[2025-07-10 01:10] LABS: Partial Thromboplastin Time 53.1 Seconds (22.0-36.0)
[2025-07-10] MEDS: fentaNYL CIT INJ 50 mCg/ML AMP 2ML 25 MCG IVP ×2 (01:13→09:18)
[2025-07-10] MEDS: IPRATROPIUM RT 0.5 MG/ 2.5 ML NEBU INH ×3 (06:29→22:54)
[2025-07-10] MEDS: BUDESONIDE RT 0.5 MG/2 ML NEBU INH ×2 (06:29→19:22)
[2025-07-10] MEDS: LEVALBUTEROL RT 0.63 MG/3 ML NEBU INH ×3 (06:29→22:54)
[2025-07-10 06:31] LABS: Basophils # (Auto) 0.0 Thou/mm3 (0.0-0.2); Basophils % (Auto) 1 % (0-2.5); Eosinophils # (Auto) 0.1 Thou/mm3 (0.0-0.5); Eosinophils % (Auto) 3 % (0-10); Hematocrit 36.0 % (41.0-53.0); Hemoglobin 11.0 g/dL (13.5-16.0); Immature Granulocytes Auto 0.02 Thou/mm3 (0.00-0.00); Lymphocytes # (Auto) 0.7 Thou/mm3 (1.0-4.8); Lymphocytes % (Auto) 21 % (10-50); Mean Corpuscular HGB Conc 30.6 g/dl (31.0-37.0); Mean Corpuscular Hemoglobin 26.2 pg (25.0-35.0); Mean Corpuscular Volume 86 fL (80-100); Monocytes # (Auto) 0.4 Thou/mm3 (0.0-0.8); Monocytes % (Auto) 10 % (0-12); Neutrophils # (Auto) 2.2 Thou/mm3 (1.8-7.7); Neutrophils % (Auto) 64 % (37-80); Nucleated Red Blood Cell # 0.00 Thou/mm3 (0.00-0.00); Nucleated Red Blood Cell % 0 /100 WBC (0); Platelet Count 139 Thou/mm3 (140-440); RDW Standard Deviation 47.8 fL (35.1-43.9); Red Blood Count 4.20 Miln/mm3 (4.50-5.90); White Blood Count 3.5 Thou/mm3 (3.8-10.6)
[2025-07-10 06:40] LABS: Alanine Aminotransferase 17 U/L (10-49); Albumin, Serum 3.8 gm/dL (3.4-4.8); Albumin/Globulin Ratio 1.7 (1.2-2.2); Alkaline Phosphatase 58 U/L (46-116); Anion Gap 8 (7-16); Aspartate Amino Transferase 22 U/L (0-34); BUN/Creatinine Ratio 18 Ratio (12-20); Bilirubin,Total 0.5 mg/dL (0.3-1.2); Blood Urea Nitrogen 22 mg/dL (9-23); Calcium 9.3 mg/dL (8.3-10.6); Calcium (Corrected) 9.5 mg/dL (8.5-10.1); Carbon Dioxide 33.7 mMol/L (20.0-31.0); Chloride 100 mMol/L (98-107); Creatinine (Component) 1.2 mg/dL (0.6-1.3); Estimated Creatinine Clearance 66.6 mL/min (>60); Globulin 2.2 gm/dL (2.3-3.5); Glucose 133 mg/dL (74-106); Magnesium 2.6 mg/dL (1.6-2.6); Osmolality,Calculated 288 (275-295); Phosphorous 5.2 mg/dL (2.4-5.1); Potassium 4.9 mMol/L (3.4-5.1); Sodium 142 mMol/L (136-145); Total Protein 6.0 gm/dL (5.7-8.2); eGFR > 60 See Note
[2025-07-10 06:51] LABS: INR 1.0 (0.9-1.3); Partial Thromboplastin Time 54.3 Seconds (22.0-36.0); Prothrombin Time 10.7 Seconds (9.0-12.2)
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
[2025-07-10] MEDS: LOSARTAN POTASSIUM 25 MG TABLET PO (09:57)
[2025-07-10] MEDS: GABAPENTIN 300 MG CAPSULE PO ×2 (14:01→21:51)
[2025-07-10] MEDS: MAGNESIUM CITRATE 300 ML BTL PO (14:02)
--- NOTE | 2025-07-10 14:11 | PC.RT ---
Pt left on 2L NC, pt states he wears 2L continuously at home.
--- NOTE | 2025-07-10 17:48 | PD.IMPROG ---
Documentation for date of: 07/10/25 Subjective Subjective Interval history: pt continue to be on temporary pacer continue to have pacingsneeds Exam Vital Signs Temp Pulse Resp BP Pulse Ox O2 Del Method O2 Flow Rate 98.2 F 60 20 149/58 H 96 Nasal Cannula 2 07/10/25 12:01 07/10/25 14:45 07/10/25 14:45 07/10/25 14:45 07/10/25 14:45 07/10/25 12:01 07/10/25 14:09 FiO2 30 07/08/25 03:39 Routine HEENT Exam Head: Present normocephalic and atraumatic Eye: Present EOMI and PERRL ENT: Present mucous membranes moist Routine Neck Exam Neck: Present supple and trachea midline Routine Respiratory Exam Respiratory: Present chest non-tender, lungs clear, normal breath sounds and no resp distress Routine Cardiovascular Exam Cardiovascular: Present RRR Routine Abdominal Exam Abdominal: Present soft and normoactive bowel sounds Routine Extremities Exam Extremities: Present full ROM Routine Skin Exam Skin: Present intact, dry and warm Routine Neurological Exam Neurological: Present alert, oriented X3 and CN II-XII intact Routine Psychiatric Exam Psychiatric: Present normal affect and normal thought process Objective Labs 07/10/25 05:39 07/10/25 05:39 Labs: Laboratory Results - last 24 hr 07/10/25 07/10/25 00:22 05:39 WBC 3.5 L RBC 4.20 L Hgb 11.0 L Hct 36.0 L MCV 86 MCH 26.2 MCHC 30.6 L RDW Std Deviation 47.8 H Plt Count 139 L Neut % (Auto) 64 Lymph % (Auto) 21 [place] % (Auto) 10 Eos % (Auto) 3 Baso % (Auto) 1 Neut # (Auto) 2.2 Lymph # (Auto) 0.7 L [place] # (Auto) 0.4 Eos # (Auto) 0.1 Baso # (Auto) 0.0 Immature Gran # (Auto) 0.02 H Absolute Nucleated RBC 0.00 Immature Gran % 1 H Nucleated RBC % 0 PT 10.7 INR 1.0 APTT 53.1 H 54.3 H Sodium 142 Potassium 4.9 D Chloride 100 Carbon Dioxide 33.7 H Anion Gap 8 BUN 22 Creatinine 1.2 Estim Creat Clear Calc 66.6 eGFR > 60 BUN/Creatinine Ratio 18 Glucose 133 H Calculated Osmolality 288 Calcium 9.3 Corrected Calcium 9.5 Phosphorus 5.2 H Magnesium 2.6 Total Bilirubin 0.5 AST 22 ALT 17 Alkaline Phosphatase 58 Total Protein 6.0 Albumin 3.8 Globulin 2.2 L Albumin/Globulin Ratio 1.7 Assessment & Plan A&P Narrative will plan for permanent pacemaker tomorrow care d/w family Time Spent With Patient Time: Total time spent is greater than 50% in coordination of care (as documented) at patient's floor/unit and/or counseling patient:
--- NOTE | 2025-07-10 19:54 | PD.RESPRO ---
Documentation for date of: 07/10/25 Exam Vital Signs Temp Pulse Resp BP Pulse Ox O2 Del Method O2 Flow Rate 97.8 F 61 15 153/95 H 96 Nasal Cannula 2 07/10/25 16:00 07/10/25 19:26 07/10/25 19:26 07/10/25 18:00 07/10/25 19:26 07/10/25 16:00 07/10/25 19:26 FiO2 30 07/08/25 03:39 Objective Labs 07/10/25 05:39 07/10/25 05:39 Labs: Laboratory Results - last 24 hr 07/10/25 07/10/25 00:22 05:39 WBC 3.5 L RBC 4.20 L Hgb 11.0 L Hct 36.0 L MCV 86 MCH 26.2 MCHC 30.6 L RDW Std Deviation 47.8 H Plt Count 139 L Neut % (Auto) 64 Lymph % (Auto) 21 [place] % (Auto) 10 Eos % (Auto) 3 Baso % (Auto) 1 Neut # (Auto) 2.2 Lymph # (Auto) 0.7 L [place] # (Auto) 0.4 Eos # (Auto) 0.1 Baso # (Auto) 0.0 Immature Gran # (Auto) 0.02 H Absolute Nucleated RBC 0.00 Immature Gran % 1 H Nucleated RBC % 0 PT 10.7 INR 1.0 APTT 53.1 H 54.3 H Sodium 142 Potassium 4.9 D Chloride 100 Carbon Dioxide 33.7 H Anion Gap 8 BUN 22 Creatinine 1.2 Estim Creat Clear Calc 66.6 eGFR > 60 BUN/Creatinine Ratio 18 Glucose 133 H Calculated Osmolality 288 Calcium 9.3 Corrected Calcium 9.5 Phosphorus 5.2 H Magnesium 2.6 Total Bilirubin 0.5 AST 22 ALT 17 Alkaline Phosphatase 58 Total Protein 6.0 Albumin 3.8 Globulin 2.2 L Albumin/Globulin Ratio 1.7 Quality Measures Quality Measures VTE prophylaxis Assessment & Plan Assessment Current Active Medications: Generic Name Dose Route Start Last Admin Trade Name Freq PRN Reason Stop Dose Admin Acetaminophen 650 mg 07/07/25 05:49 Acetaminophen 325 Mg Tablet PO 08/06/25 05:48 Q4HR PRN PAIN SCALE 1-3 (mild Acetaminophen 650 mg 07/07/25 05:49 Acetaminophen Supp 650 Mg Supp MS 08/06/25 05:48 Q4HR PRN PAIN SCALE 1-3 (mild Al Hydrox/Mg Hydrox/Simethicone 30 ml 07/07/25 05:49 Mg Hyd/Al Hyd/Dominic (Maalox Reg) Susp 30 Ml Udc PO 08/06/25 05:48 Q4HR PRN Heartburn or Upset Stomach Aspirin 81 mg 07/08/25 09:00 07/09/25 09:09 Aspirin Ec 81 Mg Tabec PO 08/07/25 08:59 81 mg On Hold: 07/09/25 18:34 QDAY SANDRA Administration Atorvastatin Calcium 80 mg 07/07/25 21:00 07/09/25 21:17 Atorvastatin Calcium 20 Mg Tablet PO 08/06/25 20:59 80 mg HS SANDRA Administration Budesonide 0.5 mg 07/07/25 19:00 07/10/25 19:22 Budesonide Rt 0.5 Mg/2 Ml Nebu INH 08/06/25 18:59 0.5 mg BIDRT SANDRA Administration Dextrose 50 ml 07/07/25 05:55 Dextrose 50%-Water Inj 50 Ml Syringe IV 08/06/25 05:54 Q15MIN PRN BG <50 OR BG <70 & pt unresponsive Fentanyl Citrate 25 mcg 07/08/25 13:07 07/10/25 09:18 Fentanyl Cit Inj 50 Mcg/Ml Amp 2ml IVP 07/13/25 13:06 25 mcg Q4HR PRN Administration BREAKTHROUGH PAIN Gabapentin 300 mg 07/08/25 14:00 07/10/25 14:01 Gabapentin 300 Mg Capsule PO 08/07/25 13:59 300 mg TID SANDRA Administration Glucagon 1 mg 07/07/25 05:55 Glucagon Inj 1 Mg Vial IM Q15MIN PRN BG <70, and no IV access Hydralazine HCl 10 mg 07/07/25 11:02 07/07/25 11:18 Hydralazine Inj 20 Mg/Ml Vial IVP 08/06/25 06:46 10 mg Q6HR PRN Administration SBP > 180 Hydromorphone HCl 4 mg 07/08/25 13:18 07/09/25 18:27 Hydromorphone Hcl 2 Mg Tablet PO 07/13/25 13:04 4 mg Q12HR PRN Administration PAIN SCALE 4-10(Mod-Sev Heparin Sodium/Dextrose 25,000 unit in 250 mls @ 10.433 mls/hr 07/07/25 12:45 07/10/25 06:00 Heparin In D5w Ivpb IV 07/21/25 12:44 0 units/kg/hr On Hold: 07/10/25 07:27 .[id number] SANDRA 0 mls/hr Protocol Titration 10 UNITS/KG/HR Naloxone HCl 2 mg/ Dextrose 500 mls @ 10 mls/hr 07/08/25 08:18 IV 08/07/25 08:29 .Q24H PRN Respiratory depression RR>10 or unresponsive Insulin Human Lispro 0 unit 07/10/25 11:30 07/10/25 18:12 Insulin Lispro (Admelog) 1 Unit/0.01 Ml Unit SC 08/09/25 11:29 Not Given ACHS SANDRA Protocol Ipratropium [place] 0.5 mg 07/07/25 11:55 07/10/25 14:09 Ipratropium Rt 0.5 Mg/ 2.5 Ml Nebu INH 08/06/25 11:54 0.5 mg Q8HRRT SANDRA Administration Levalbuterol HCl 0.63 mg 07/07/25 11:55 07/10/25 14:09 Levalbuterol Rt 0.63 Mg/3 Ml Nebu INH 08/06/25 11:54 0.63 mg Q8HRRT SANDRA Administration Lidocaine 1 patch 07/08/25 23:22 07/08/25 23:59 Lidocaine 5% 1 Patch TOP 08/07/25 23:21 1 patch UD PRN Administration back pain Losartan Potassium 25 mg 07/08/25 10:15 07/10/25 09:57 Losartan Potassium 25 Mg Tablet PO 08/07/25 10:14 25 mg QDAY SANDRA Administration Oxycodone/Acetaminophen 2 tab 07/08/25 13:17 07/10/25 10:06 Oxycodone/Apap 5/325 Tablet PO 07/13/25 13:07 2 tab Q6HR PRN Administration PAIN SCALE 4-10(Mod-Sev Pantoprazole Sodium 40 mg 07/07/25 09:00 07/10/25 09:19 Pantoprazole Inj 40 Mg Vial IVP 08/06/25 08:59 40 mg QDAY SANDRA Administration Sennosides 1 tab 07/09/25 09:00 07/10/25 09:56 Senna Tablet PO 08/08/25 08:59 1 tab QDAY SANDRA Administration Protocol
[2025-07-10] MEDS: INSULIN LISPRO (AdmeLOG) 1 UNIT/0.01 ML UNIT SC (21:50)
[2025-07-10] MEDS: ATORVASTATIN CALCIUM 20 MG TABLET 80 MG PO (21:51)
[2025-07-11] VITALS (36 sets, daily range): BP systolic 131–181; BP diastolic 54–107; PULSE 60–88; RESP 13–24; TEMP 36.3–36.8; O2SAT 92–98; BMI 29.6
[2025-07-11] MEDS: fentaNYL CIT INJ 50 mCg/ML AMP 2ML 25 MCG IVP ×3 (00:17→19:17)
[2025-07-11] MEDS: LIDOCAINE 5% 1 PATCH TOP (00:17)
[2025-07-11] MEDS: GABAPENTIN 300 MG CAPSULE PO ×3 (06:02→21:12)
[2025-07-11 06:24] LABS: INR 1.0 (0.9-1.3); Partial Thromboplastin Time 29.8 Seconds (22.0-36.0); Prothrombin Time 10.8 Seconds (9.0-12.2)
[2025-07-11 06:26] LABS: Basophils # (Auto) 0.0 Thou/mm3 (0.0-0.2); Basophils % (Auto) 0 % (0-2.5); Eosinophils # (Auto) 0.1 Thou/mm3 (0.0-0.5); Eosinophils % (Auto) 3 % (0-10); Hematocrit 36.7 % (41.0-53.0); Hemoglobin 11.0 g/dL (13.5-16.0); Immature Granulocytes Auto 0.01 Thou/mm3 (0.00-0.00); Lymphocytes # (Auto) 0.6 Thou/mm3 (1.0-4.8); Lymphocytes % (Auto) 19 % (10-50); Mean Corpuscular HGB Conc 30.0 g/dl (31.0-37.0); Mean Corpuscular Hemoglobin 25.6 pg (25.0-35.0); Mean Corpuscular Volume 85 fL (80-100); Monocytes # (Auto) 0.3 Thou/mm3 (0.0-0.8); Monocytes % (Auto) 9 % (0-12); Neutrophils # (Auto) 2.3 Thou/mm3 (1.8-7.7); Neutrophils % (Auto) 68 % (37-80); Nucleated Red Blood Cell # 0.00 Thou/mm3 (0.00-0.00); Nucleated Red Blood Cell % 0 /100 WBC (0); Platelet Count 144 Thou/mm3 (140-440); RDW Standard Deviation 47.3 fL (35.1-43.9); Red Blood Count 4.30 Miln/mm3 (4.50-5.90); White Blood Count 3.4 Thou/mm3 (3.8-10.6)
[2025-07-11] MEDS: BUDESONIDE RT 0.5 MG/2 ML NEBU INH ×2 (06:28→18:22)
[2025-07-11] MEDS: LEVALBUTEROL RT 0.63 MG/3 ML NEBU INH ×2 (06:28→14:29)
[2025-07-11 06:35] LABS: Alanine Aminotransferase 20 U/L (10-49); Albumin, Serum 3.9 gm/dL (3.4-4.8); Albumin/Globulin Ratio 1.7 (1.2-2.2); Alkaline Phosphatase 58 U/L (46-116); Anion Gap 7 (7-16); Aspartate Amino Transferase 20 U/L (0-34); BUN/Creatinine Ratio 17 Ratio (12-20); Bilirubin,Total 0.5 mg/dL (0.3-1.2); Blood Urea Nitrogen 22 mg/dL (9-23); Calcium 9.4 mg/dL (8.3-10.6); Calcium (Corrected) 9.5 mg/dL (8.5-10.1); Carbon Dioxide 36.0 mMol/L (20.0-31.0); Chloride 102 mMol/L (98-107); Creatinine (Component) 1.3 mg/dL (0.6-1.3); Estimated Creatinine Clearance 61.4 mL/min (>60); Globulin 2.3 gm/dL (2.3-3.5); Glucose 134 mg/dL (74-106); Magnesium 2.9 mg/dL (1.6-2.6); Osmolality,Calculated 294 (275-295); Phosphorous 4.3 mg/dL (2.4-5.1); Potassium 4.7 mMol/L (3.4-5.1); Sodium 145 mMol/L (136-145); Total Protein 6.2 gm/dL (5.7-8.2); eGFR 57 See Note
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
[2025-07-11] MEDS: MORPHINE SULF INJ 4 MG/ML VIAL 2 MG IVP (07:33)
--- NOTE | 2025-07-11 08:33 | PD.CARDCATH ---
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, sick sinus syndrome Procedure This was done in the cardiac lab under continue electrocardiographic monitoring intermittent blood pressure monitoring Left subclavian access was obtained using modified Seldinger technique with a micropuncture needle Subsequently 6 Icelandic sheath was placed through the sheath ventricular lead Biotronik was placed Through the retained guidewire a second venous sheath was placed through the venous sheath atrial lead was placed in the appendage of the right atrium and with this was a screw-in lead Parameters Ventricular lead serial number #[id number] Atrial lead serial # [id number] RV lead threshold 0.7 V at 0.4 ms, impedance 684 ohms, RA lead threshold was not done patient is in atrial fibs, 469 ohms, flutter waves 1. mV Generator serial #[id number] Both leads were connected to the device The device was securely placed in the pocket Pocket was flushed with antibiotic solution Subcutaneous tissue was sutured with 2-0 Vicryl Skin was secured with Dermabond
--- NOTE | 2025-07-11 08:38 | XR_ITS ---
EXAMINATION: AP chest single view TECHNIQUE: AP portable upright chest single view Date and time: July 11, 2025, 0852 hours, comparison July 09, 2025 INDICATIONS: Post cardiac pacemaker insertion FINDINGS: The film is underpenetrated Cardiac leads satisfactory position Atelectasis versus pneumonia right base No pneumothorax Severe osteopenia with old left-sided rib fractures IMPRESSION: Cardiac leads satisfactory position
--- NOTE | 2025-07-11 08:39 | ESPR_ITS ---
Documentation for date of: 07/11/25 Subjective Subjective Interval history: Patient underwent permanent pacemaker placement Currently AV paced Exam Vital Signs Temp Pulse Resp BP Pulse Ox O2 Del Method O2 Flow Rate 97.8 F 60 18 153/62 H 94 L Nasal Cannula 2 07/11/25 07:13 07/11/25 07:13 07/11/25 07:13 07/11/25 07:13 07/11/25 07:13 07/11/25 07:13 07/11/25 07:13 FiO2 30 07/08/25 03:39 Routine HEENT Exam Head: Present normocephalic and atraumatic Eye: Present EOMI and PERRL ENT: Present mucous membranes moist Routine Neck Exam Neck: Present supple and trachea midline Routine Respiratory Exam Respiratory: Present chest non-tender, lungs clear, normal breath sounds and no resp distress Routine Cardiovascular Exam Cardiovascular: Present RRR Routine Abdominal Exam Abdominal: Present soft and normoactive bowel sounds Routine Extremities Exam Extremities: Present full ROM Routine Skin Exam Skin: Present intact, dry and warm Routine Neurological Exam Neurological: Present alert, oriented X3 and CN II-XII intact Routine Psychiatric Exam Psychiatric: Present normal affect and normal thought process Objective Labs 07/11/25 05:07 07/11/25 05:07 Labs: Laboratory Results - last 24 hr 07/11/25 05:07 WBC 3.4 L RBC 4.30 L Hgb 11.0 L Hct 36.7 L MCV 85 MCH 25.6 MCHC 30.0 L RDW Std Deviation 47.3 H Plt Count 144 Neut % (Auto) 68 Lymph % (Auto) 19 [place] % (Auto) 9 Eos % (Auto) 3 Baso % (Auto) 0 Neut # (Auto) 2.3 Lymph # (Auto) 0.6 L [place] # (Auto) 0.3 Eos # (Auto) 0.1 Baso # (Auto) 0.0 Immature Gran # (Auto) 0.01 H Absolute Nucleated RBC 0.00 Immature Gran % 0 Nucleated RBC % 0 PT 10.8 INR 1.0 APTT 29.8 D Sodium 145 Potassium 4.7 Chloride 102 Carbon Dioxide 36.0 H Anion Gap 7 BUN 22 Creatinine 1.3 Estim Creat Clear Calc 61.4 eGFR 57 L BUN/Creatinine Ratio 17 Glucose 134 H Calculated Osmolality 294 Calcium 9.4 Corrected Calcium 9.5 Phosphorus 4.3 Magnesium 2.9 H Total Bilirubin 0.5 AST 20 ALT 20 Alkaline Phosphatase 58 Total Protein 6.2 Albumin 3.9 Globulin 2.3 Albumin/Globulin Ratio 1.7 Assessment & Plan A&P Narrative Patient underwent permanent pacemaker placement Appears hemodynamically stable Time Spent With Patient Time: Total time spent is greater than 50% in coordination of care (as documented) at patient's floor/unit and/or counseling patient:
[2025-07-11] MEDS: VANCOMYCIN/NS 500 MG IVPB 100 ML 120 MG IV (08:55)
--- NOTE | 2025-07-11 10:00 | PC.NURSE ---
patient transferred back to room via gurney. hand off report given to bobby ortiz. patient is alert and oriented. gcs of 15. site is flat, nontender, soft, and no signs of hematoma. dressing is clean dry and intact. dressing and site assesed with bobby ortiz
[2025-07-11] MEDS: LOSARTAN POTASSIUM 25 MG TABLET PO (10:23)
[2025-07-11] MEDS: RINGERS LACTATED 500 ML 500 ML 125 ML IV (10:27)
[2025-07-11] MEDS: IPRATROPIUM RT 0.5 MG/ 2.5 ML NEBU INH (14:29)
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
--- NOTE | 2025-07-11 15:11 | PC.SS ---
Update: Patient downgraded from ICU on 07-11-25. On 2L nasal cannula. P.O. feeding. Afebrile. Vitals stable. Cardiology consulting.
[2025-07-11] MEDS: ALBUTEROL/IPRATROPIUM (Duoneb) RT SOL 3 ML NEBU INH (18:22)
[2025-07-11] MEDS: INSULIN LISPRO (AdmeLOG) 1 UNIT/0.01 ML UNIT SC (20:09)
[2025-07-11] MEDS: ATORVASTATIN CALCIUM 20 MG TABLET 80 MG PO (20:09)
[2025-07-12] VITALS (16 sets, daily range): BP systolic 133–178; BP diastolic 56–107; PULSE 60–82; RESP 14–21; TEMP 36.4–36.9; O2SAT 95–99; BMI 29.7
[2025-07-12] MEDS: ALBUTEROL/IPRATROPIUM (Duoneb) RT SOL 3 ML NEBU INH ×4 (00:40→18:43)
[2025-07-12] MEDS: GABAPENTIN 300 MG CAPSULE PO ×3 (05:29→21:42)
[2025-07-12 05:41] LABS: Basophils # (Auto) 0.0 Thou/mm3 (0.0-0.2); Basophils % (Auto) 0 % (0-2.5); Eosinophils # (Auto) 0.1 Thou/mm3 (0.0-0.5); Eosinophils % (Auto) 3 % (0-10); Hematocrit 34.0 % (41.0-53.0); Hemoglobin 10.3 g/dL (13.5-16.0); Immature Granulocytes Auto 0.02 Thou/mm3 (0.00-0.00); Lymphocytes # (Auto) 0.5 Thou/mm3 (1.0-4.8); Lymphocytes % (Auto) 11 % (10-50); Mean Corpuscular HGB Conc 30.3 g/dl (31.0-37.0); Mean Corpuscular Hemoglobin 25.8 pg (25.0-35.0); Mean Corpuscular Volume 85 fL (80-100); Monocytes # (Auto) 0.4 Thou/mm3 (0.0-0.8); Monocytes % (Auto) 9 % (0-12); Neutrophils # (Auto) 3.5 Thou/mm3 (1.8-7.7); Neutrophils % (Auto) 77 % (37-80); Nucleated Red Blood Cell # 0.00 Thou/mm3 (0.00-0.00); Nucleated Red Blood Cell % 0 /100 WBC (0); Platelet Count 131 Thou/mm3 (140-440); RDW Standard Deviation 46.8 fL (35.1-43.9); Red Blood Count 3.99 Miln/mm3 (4.50-5.90); White Blood Count 4.6 Thou/mm3 (3.8-10.6)
[2025-07-12 05:52] LABS: INR 1.0 (0.9-1.3); Partial Thromboplastin Time 31.5 Seconds (22.0-36.0); Prothrombin Time 10.8 Seconds (9.0-12.2)
[2025-07-12] MEDS: BUDESONIDE RT 0.5 MG/2 ML NEBU INH ×2 (05:52→18:43)
[2025-07-12 06:03] LABS: Alanine Aminotransferase 21 U/L (10-49); Albumin, Serum 4.2 gm/dL (3.4-4.8); Albumin/Globulin Ratio 2.1 (1.2-2.2); Alkaline Phosphatase 54 U/L (46-116); Anion Gap 8 (7-16); Aspartate Amino Transferase 22 U/L (0-34); BUN/Creatinine Ratio 18 Ratio (12-20); Bilirubin,Total 0.6 mg/dL (0.3-1.2); Blood Urea Nitrogen 18 mg/dL (9-23); Calcium 8.8 mg/dL (8.3-10.6); Calcium (Corrected) 8.8 mg/dL (8.5-10.1); Carbon Dioxide 32.7 mMol/L (20.0-31.0); Chloride 101 mMol/L (98-107); Creatinine (Component) 1.0 mg/dL (0.6-1.3); Estimated Creatinine Clearance 79.8 mL/min (>60); Globulin 2.0 gm/dL (2.3-3.5); Glucose 153 mg/dL (74-106); Magnesium 2.4 mg/dL (1.6-2.6); Osmolality,Calculated 288 (275-295); Phosphorous 3.9 mg/dL (2.4-5.1); Potassium 5.0 mMol/L (3.4-5.1); Sodium 142 mMol/L (136-145); Total Protein 6.2 gm/dL (5.7-8.2); eGFR > 60 See Note
[2025-07-12] MEDS: fentaNYL CIT INJ 50 mCg/ML AMP 2ML 25 MCG IVP ×2 (08:37→18:18)
[2025-07-12] MEDS: POLYETHYLENE GLYCOL 17 GM PACKET PO ×2 (09:13→21:42)
[2025-07-12] MEDS: LOSARTAN POTASSIUM 25 MG TABLET PO (09:13)
[2025-07-12] MEDS: PANTOPRAZOLE 40 MG TABLET PO (09:13)
--- NOTE | 2025-07-12 11:38 | PC.PT ---
Attempt to initiate PT evaluation at 1015. Explained to the patient the purpose of PT evaluation. Patient states he cannot do it right now. He stood up and transfer to the toilet earlier and he was SOB and he doesn't want to get up again. This PT explained the short term rehab if patient is feeling weak and SOB. Patient refused short term rehab, he said he wanted to go home and son can take care of him. Again this PT try to encourage the patient to participate with PT evaluation, but patient adamantly refused. He said to try tomorrow. RN and ordering physician made aware. PT eval witheld today.
[2025-07-12] MEDS: HYDROMORPHONE HCL 2 MG TABLET 4 MG PO (12:14)
[2025-07-12] MEDS: cefTRIAXone/D5w 1gm IV premix 1 GM/50 ML BAG IV (16:39)
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
[2025-07-12] MEDS: ATORVASTATIN CALCIUM 20 MG TABLET 80 MG PO (21:41)
[2025-07-12] MEDS: VANCOMYCIN/WATER 1250 MG IVPB 250 ML 125 MG IV (21:44)
[2025-07-13] VITALS (13 sets, daily range): BP systolic 133–174; BP diastolic 55–70; PULSE 60–69; RESP 15–23; TEMP 36.4–36.9; O2SAT 95–100
[2025-07-13] MEDS: HYDROMORPHONE HCL 2 MG TABLET 4 MG PO ×2 (01:01→15:05)
[2025-07-13] MEDS: ALBUTEROL/IPRATROPIUM (Duoneb) RT SOL 3 ML NEBU INH ×4 (01:14→18:22)
[2025-07-13 05:34] LABS: Basophils # (Auto) 0.0 Thou/mm3 (0.0-0.2); Basophils % (Auto) 0 % (0-2.5); Eosinophils # (Auto) 0.1 Thou/mm3 (0.0-0.5); Eosinophils % (Auto) 3 % (0-10); Hematocrit 33.6 % (41.0-53.0); Hemoglobin 10.2 g/dL (13.5-16.0); Immature Granulocytes Auto 0.02 Thou/mm3 (0.00-0.00); Lymphocytes # (Auto) 0.7 Thou/mm3 (1.0-4.8); Lymphocytes % (Auto) 17 % (10-50); Mean Corpuscular HGB Conc 30.4 g/dl (31.0-37.0); Mean Corpuscular Hemoglobin 26.0 pg (25.0-35.0); Mean Corpuscular Volume 86 fL (80-100); Monocytes # (Auto) 0.4 Thou/mm3 (0.0-0.8); Monocytes % (Auto) 9 % (0-12); Neutrophils # (Auto) 2.9 Thou/mm3 (1.8-7.7); Neutrophils % (Auto) 70 % (37-80); Nucleated Red Blood Cell # 0.00 Thou/mm3 (0.00-0.00); Nucleated Red Blood Cell % 0 /100 WBC (0); Platelet Count 122 Thou/mm3 (140-440); RDW Standard Deviation 47.2 fL (35.1-43.9); Red Blood Count 3.93 Miln/mm3 (4.50-5.90); White Blood Count 4.2 Thou/mm3 (3.8-10.6)
[2025-07-13] MEDS: fentaNYL CIT INJ 50 mCg/ML AMP 2ML 25 MCG IVP ×2 (05:46→11:46)
[2025-07-13] MEDS: GABAPENTIN 300 MG CAPSULE PO ×3 (05:49→20:58)
[2025-07-13 05:57] LABS: INR 1.0 (0.9-1.3); Partial Thromboplastin Time 30.2 Seconds (22.0-36.0); Prothrombin Time 10.8 Seconds (9.0-12.2)
[2025-07-13 06:05] LABS: Alanine Aminotransferase 15 U/L (10-49); Albumin, Serum 4.1 gm/dL (3.4-4.8); Albumin/Globulin Ratio 2.1 (1.2-2.2); Alkaline Phosphatase 53 U/L (46-116); Anion Gap 8 (7-16); Aspartate Amino Transferase 18 U/L (0-34); BUN/Creatinine Ratio 15 Ratio (12-20); Bilirubin,Total 0.6 mg/dL (0.3-1.2); Blood Urea Nitrogen 16 mg/dL (9-23); Calcium 9.0 mg/dL (8.3-10.6); Calcium (Corrected) 9.0 mg/dL (8.5-10.1); Carbon Dioxide 31.6 mMol/L (20.0-31.0); Chloride 101 mMol/L (98-107); Creatinine (Component) 1.1 mg/dL (0.6-1.3); Estimated Creatinine Clearance 72.6 mL/min (>60); Globulin 2.0 gm/dL (2.3-3.5); Glucose 165 mg/dL (74-106); Magnesium 2.3 mg/dL (1.6-2.6); Osmolality,Calculated 286 (275-295); Phosphorous 4.0 mg/dL (2.4-5.1); Potassium 5.3 mMol/L (3.4-5.1); Procalcitonin 0.07 ng/ml (0.0-0.49); Sodium 141 mMol/L (136-145); Total Protein 6.1 gm/dL (5.7-8.2); eGFR > 60 See Note
[2025-07-13] MEDS: BUDESONIDE RT 0.5 MG/2 ML NEBU INH ×2 (07:00→18:22)
[2025-07-13] MEDS: POLYETHYLENE GLYCOL 17 GM PACKET PO ×2 (08:22→20:57)
[2025-07-13] MEDS: PANTOPRAZOLE 40 MG TABLET PO (08:22)
[2025-07-13] MEDS: SOD POLYSTYRENE SULFON SUSP 15 GM/60 ML BTL PO (08:25)
--- NOTE | 2025-07-13 09:13 | PC.SS ---
Update: Possible d/c today. Pending cardiology recommendations.
--- NOTE | 2025-07-13 10:09 | ESPR_ITS ---
Documentation for date of: 07/13/25 Subjective Subjective Interval history: Patient site healing well Patient sitting Patient is placed Exam Vital Signs Temp Pulse Resp BP Pulse Ox O2 Del Method O2 Flow Rate 97.5 F 60 22 H 133/62 H 97 Nasal Cannula 3 07/13/25 08:00 07/13/25 08:22 07/13/25 08:00 07/13/25 08:22 07/13/25 08:00 07/13/25 08:00 07/13/25 08:00 FiO2 30 07/08/25 03:39 Routine HEENT Exam Head: Present normocephalic and atraumatic Eye: Present EOMI and PERRL ENT: Present mucous membranes moist Routine Neck Exam Neck: Present supple and trachea midline Routine Respiratory Exam Respiratory: Present chest non-tender, lungs clear, normal breath sounds and no resp distress Routine Cardiovascular Exam Cardiovascular: Present RRR Routine Abdominal Exam Abdominal: Present soft and normoactive bowel sounds Routine Extremities Exam Extremities: Present full ROM Routine Skin Exam Skin: Present intact, dry and warm Routine Neurological Exam Neurological: Present alert, oriented X3 and CN II-XII intact Routine Psychiatric Exam Psychiatric: Present normal affect and normal thought process Objective Labs 07/13/25 04:12 07/13/25 04:12 Labs: Laboratory Results - last 24 hr 07/13/25 04:12 WBC 4.2 RBC 3.93 L Hgb 10.2 L Hct 33.6 L MCV 86 MCH 26.0 MCHC 30.4 L RDW Std Deviation 47.2 H Plt Count 122 L Neut % (Auto) 70 Lymph % (Auto) 17 [place] % (Auto) 9 Eos % (Auto) 3 Baso % (Auto) 0 Neut # (Auto) 2.9 Lymph # (Auto) 0.7 L [place] # (Auto) 0.4 Eos # (Auto) 0.1 Baso # (Auto) 0.0 Immature Gran # (Auto) 0.02 H Absolute Nucleated RBC 0.00 Immature Gran % 1 H Nucleated RBC % 0 PT 10.8 INR 1.0 APTT 30.2 Sodium 141 Potassium 5.3 H Chloride 101 Carbon Dioxide 31.6 H Anion Gap 8 BUN 16 Creatinine 1.1 Estim Creat Clear Calc 72.6 eGFR > 60 BUN/Creatinine Ratio 15 Glucose 165 H Calculated Osmolality 286 Calcium 9.0 Corrected Calcium 9.0 Phosphorus 4.0 Magnesium 2.3 Total Bilirubin 0.6 AST 18 ALT 15 Alkaline Phosphatase 53 Total Protein 6.1 Albumin 4.1 Globulin 2.0 L Albumin/Globulin Ratio 2.1 Procalcitonin 0.07 Assessment & Plan A&P Narrative Patient to continue physical therapy Stable cardiac status Time Spent With Patient Time: Total time spent is greater than 50% in coordination of care (as documented) at patient's floor/unit and/or counseling patient:
[2025-07-13] MEDS: VANCOMYCIN/WATER 1250 MG IVPB 250 ML 125 MG IV ×2 (10:37→21:56)
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
--- NOTE | 2025-07-13 14:22 | PC.SS ---
Rounding Note: Patient declined SNF. D/C home with home health. D/C tomorrow.
[2025-07-13] MEDS: cefTRIAXone/D5w 1gm IV premix 1 GM/50 ML BAG IV (16:23)
[2025-07-13 16:37] LABS: Potassium 5.2 mMol/L (3.4-5.1)
--- NOTE | 2025-07-13 18:09 | XR_ITS ---
EXAMINATION: Ultrasound soft tissue extremity TECHNIQUE: Grayscale sonographic images soft tissue left upper shoulder axillary region Date and time: July 13, 2025, 2009 hours INDICATIONS: Erythema and pain around the patient's pacemaker today, pacemaker inserted July 11, 2025 FINDINGS: No cystic or solid mass noted Mild edema at the area of concern IMPRESSION: No abscess depicted Mild edema at the area of concern
[2025-07-13] MEDS: INSULIN LISPRO (AdmeLOG) 1 UNIT/0.01 ML UNIT SC (20:59)
[2025-07-13] MEDS: ATORVASTATIN CALCIUM 20 MG TABLET 80 MG PO (20:59)
[2025-07-13 21:11] LABS: Vancomycin,Trough 14.8 mcg/mL (5.0-10.0)
[2025-07-14] VITALS (17 sets, daily range): BP systolic 122–178; BP diastolic 53–74; PULSE 60–66; RESP 14–21; TEMP 36.1–37.1; O2SAT 95–100; BMI 13.0
[2025-07-14] MEDS: ALBUTEROL/IPRATROPIUM (Duoneb) RT SOL 3 ML NEBU INH ×4 (00:54→18:31)
[2025-07-14] MEDS: GABAPENTIN 300 MG CAPSULE PO ×3 (05:18→22:14)
[2025-07-14 06:18] LABS: Basophils # (Auto) 0.0 Thou/mm3 (0.0-0.2); Basophils % (Auto) 0 % (0-2.5); Eosinophils # (Auto) 0.1 Thou/mm3 (0.0-0.5); Eosinophils % (Auto) 3 % (0-10); Hematocrit 32.8 % (41.0-53.0); Hemoglobin 10.0 g/dL (13.5-16.0); Immature Granulocytes Auto 0.02 Thou/mm3 (0.00-0.00); Lymphocytes # (Auto) 0.7 Thou/mm3 (1.0-4.8); Lymphocytes % (Auto) 19 % (10-50); Mean Corpuscular HGB Conc 30.5 g/dl (31.0-37.0); Mean Corpuscular Hemoglobin 25.8 pg (25.0-35.0); Mean Corpuscular Volume 85 fL (80-100); Monocytes # (Auto) 0.3 Thou/mm3 (0.0-0.8); Monocytes % (Auto) 9 % (0-12); Neutrophils # (Auto) 2.6 Thou/mm3 (1.8-7.7); Neutrophils % (Auto) 69 % (37-80); Nucleated Red Blood Cell # 0.00 Thou/mm3 (0.00-0.00); Nucleated Red Blood Cell % 0 /100 WBC (0); Platelet Count 123 Thou/mm3 (140-440); RDW Standard Deviation 47.0 fL (35.1-43.9); Red Blood Count 3.87 Miln/mm3 (4.50-5.90); White Blood Count 3.7 Thou/mm3 (3.8-10.6)
[2025-07-14 06:19] LABS: INR 1.0 (0.9-1.3); Partial Thromboplastin Time 33.5 Seconds (22.0-36.0); Prothrombin Time 10.8 Seconds (9.0-12.2)
[2025-07-14] MEDS: BUDESONIDE RT 0.5 MG/2 ML NEBU INH ×2 (06:37→18:31)
[2025-07-14 06:40] LABS: Alanine Aminotransferase 13 U/L (10-49); Albumin, Serum 4.0 gm/dL (3.4-4.8); Albumin/Globulin Ratio 2.0 (1.2-2.2); Alkaline Phosphatase 52 U/L (46-116); Anion Gap 7 (7-16); Aspartate Amino Transferase 14 U/L (0-34); BUN/Creatinine Ratio 19 Ratio (12-20); Bilirubin,Total 0.6 mg/dL (0.3-1.2); Blood Urea Nitrogen 19 mg/dL (9-23); Calcium 8.7 mg/dL (8.3-10.6); Calcium (Corrected) 8.7 mg/dL (8.5-10.1); Carbon Dioxide 29.9 mMol/L (20.0-31.0); Chloride 102 mMol/L (98-107); Creatinine (Component) 1.0 mg/dL (0.6-1.3); Estimated Creatinine Clearance 80.5 mL/min (>60); Globulin 2.0 gm/dL (2.3-3.5); Glucose 131 mg/dL (74-106); Magnesium 2.1 mg/dL (1.6-2.6); Osmolality,Calculated 281 (275-295); Phosphorous 4.1 mg/dL (2.4-5.1); Potassium 5.0 mMol/L (3.4-5.1); Sodium 139 mMol/L (136-145); Total Protein 6.0 gm/dL (5.7-8.2); eGFR > 60 See Note
[2025-07-14] MEDS: LOSARTAN POTASSIUM 25 MG TABLET PO (08:31)
[2025-07-14] MEDS: POLYETHYLENE GLYCOL 17 GM PACKET PO ×2 (08:31→21:06)
[2025-07-14] MEDS: PANTOPRAZOLE 40 MG TABLET PO (08:32)
--- NOTE | 2025-07-14 08:35 | PC.SS ---
Received call from LINDA Lopez of patient, informing SS patient is not ready for discharge. Pily requested to speak to hospitalist before considering appealing discharge. SS informed SS Addie.
--- NOTE | 2025-07-14 09:37 | PD.RESPRO ---
Documentation for date of: 07/14/25 Exam Vital Signs Temp Pulse Resp BP Pulse Ox O2 Del Method O2 Flow Rate 97.0 F 60 21 H 171/71 H 99 Nasal Cannula 2 07/14/25 04:00 07/14/25 08:32 07/14/25 06:37 07/14/25 08:32 07/14/25 06:37 07/13/25 16:00 07/14/25 06:37 FiO2 30 07/08/25 03:39 Objective Labs 07/14/25 05:20 07/14/25 05:20 Labs: Laboratory Results - last 24 hr 07/13/25 07/13/25 07/14/25 16:10 20:42 05:20 WBC 3.7 L RBC 3.87 L Hgb 10.0 L Hct 32.8 L MCV 85 MCH 25.8 MCHC 30.5 L RDW Std Deviation 47.0 H Plt Count 123 L Neut % (Auto) 69 Lymph % (Auto) 19 [place] % (Auto) 9 Eos % (Auto) 3 Baso % (Auto) 0 Neut # (Auto) 2.6 Lymph # (Auto) 0.7 L [place] # (Auto) 0.3 Eos # (Auto) 0.1 Baso # (Auto) 0.0 Immature Gran # (Auto) 0.02 H Absolute Nucleated RBC 0.00 Immature Gran % 1 H Nucleated RBC % 0 PT 10.8 INR 1.0 APTT 33.5 Sodium 139 Potassium 5.2 H 5.0 Chloride 102 Carbon Dioxide 29.9 Anion Gap 7 BUN 19 Creatinine 1.0 Estim Creat Clear Calc 80.5 eGFR > 60 BUN/Creatinine Ratio 19 Glucose 131 H Calculated Osmolality 281 Calcium 8.7 Corrected Calcium 8.7 Phosphorus 4.1 Magnesium 2.1 Total Bilirubin 0.6 AST 14 ALT 13 Alkaline Phosphatase 52 Total Protein 6.0 Albumin 4.0 Globulin 2.0 L Albumin/Globulin Ratio 2.0 Vancomycin Trough 14.8 H Quality Measures Quality Measures VTE prophylaxis Assessment & Plan Assessment Current Active Medications: Generic Name Dose Route Start Last Admin Trade Name Freq PRN Reason Stop Dose Admin Acetaminophen 650 mg 07/07/25 05:49 Acetaminophen 325 Mg Tablet PO 08/06/25 05:48 Q4HR PRN PAIN SCALE 1-3 (mild Acetaminophen 650 mg 07/07/25 05:49 Acetaminophen Supp 650 Mg Supp LA 08/06/25 05:48 Q4HR PRN PAIN SCALE 1-3 (mild Al Hydrox/Mg Hydrox/Simethicone 30 ml 07/07/25 05:49 Mg Hyd/Al Hyd/Dominic (Maalox Reg) Susp 30 Ml Udc PO 08/06/25 05:48 Q4HR PRN Heartburn or Upset Stomach Albuterol/Ipratropium 3 ml 07/11/25 19:00 07/14/25 06:37 Albuterol/Ipratropium (Duoneb) Rt [place] 3 Ml Nebu INH 08/10/25 18:59 3 ml Q6HRRT SANDRA Administration Albuterol/Ipratropium 3 ml 07/12/25 09:57 07/12/25 10:46 Albuterol/Ipratropium (Duoneb) Rt [place] 3 Ml Nebu INH 08/11/25 09:56 3 ml Q2HR PRN Administration SHORTNESS OF BREATH OR WHEEZE Amlodipine Besylate 5 mg 07/12/25 09:00 07/14/25 08:32 Amlodipine Besylate 5 Mg Tablet PO 08/11/25 08:59 5 mg QDAY SANDRA Administration Aspirin 81 mg 07/08/25 09:00 07/09/25 09:09 Aspirin Ec 81 Mg Tabec PO 08/07/25 08:59 81 mg On Hold: 07/09/25 18:34 QDAY SANDRA Administration Atorvastatin Calcium 80 mg 07/07/25 21:00 07/13/25 20:59 Atorvastatin Calcium 20 Mg Tablet PO 08/06/25 20:59 80 mg HS SANDRA Administration Budesonide 0.5 mg 07/07/25 19:00 07/14/25 06:37 Budesonide Rt 0.5 Mg/2 Ml Nebu INH 08/06/25 18:59 0.5 mg BIDRT SANDRA Administration Dextrose 50 ml 07/07/25 05:55 Dextrose 50%-Water Inj 50 Ml Syringe IV 08/06/25 05:54 Q15MIN PRN BG <50 OR BG <70 & pt unresponsive Gabapentin 300 mg 07/08/25 14:00 07/14/25 05:18 Gabapentin 300 Mg Capsule PO 08/07/25 13:59 300 mg TID SANDRA Administration Glucagon 1 mg 07/07/25 05:55 Glucagon Inj 1 Mg Vial IM Q15MIN PRN BG <70, and no IV access Hydralazine HCl 10 mg 07/07/25 11:02 07/07/25 11:18 Hydralazine Inj 20 Mg/Ml Vial IVP 08/06/25 06:46 10 mg Q6HR PRN Administration SBP > 180 Heparin Sodium/Dextrose 25,000 unit in 250 mls @ 10.433 mls/hr 07/07/25 12:45 07/10/25 06:00 Heparin In D5w Ivpb IV 07/21/25 12:44 0 units/kg/hr On Hold: 07/10/25 07:27 .[id number] SANDRA 0 mls/hr Protocol Titration 10 UNITS/KG/HR Naloxone HCl 2 mg/ Dextrose 500 mls @ 10 mls/hr 07/08/25 08:18 IV 08/07/25 08:29 .Q24H PRN Respiratory depression RR>10 or unresponsive Ceftriaxone Sodium/Dextrose 1 gm in 50 mls @ 100 mls/hr 07/12/25 16:15 07/13/25 16:53 Rocephin/D5w 1gm Iv Premix IV 07/19/25 16:14 Infused QDAY@1600 SANDRA Infusion Vancomycin HCl 250 mls @ 125 mls/hr 07/12/25 22:00 07/13/25 21:56 Vancomycin/Water 1250 Mg Ivpb IV 07/19/25 21:59 125 mls/hr BID@1000,2200 SANDRA Administration Protocol Insulin Human Lispro 0 unit 07/10/25 11:30 07/14/25 07:36 Insulin Lispro (Admelog) 1 Unit/0.01 Ml Unit SC 08/09/25 11:29 Not Given ACHS [facility] Protocol Lidocaine 1 patch 07/08/25 23:22 07/11/25 00:17 Lidocaine 5% 1 Patch TOP 08/07/25 23:21 1 patch UD PRN Administration back pain Losartan Potassium 25 mg 07/08/25 10:15 07/14/25 08:31 Losartan Potassium 25 Mg Tablet PO 08/07/25 10:14 25 mg QDAY SANDRA Administration Oxycodone/Acetaminophen 2 tab 07/13/25 16:56 07/14/25 04:33 Oxycodone/Apap 5/325 Tablet PO 07/18/25 16:55 2 tab Q6HR PRN Administration Pain mod-severe. 4-10 Pantoprazole Sodium 40 mg 07/12/25 09:00 07/14/25 08:32 Pantoprazole 40 Mg Tablet PO 08/11/25 08:59 40 mg QDAY SANDRA Administration Pharmacy Consult 1 each 07/12/25 16:15 Vancomycin Pharmacy To Dose 1 Each Each IV 08/11/25 16:14 QDAY PRN PNEUMO Polyethylene Glycol 17 gm 07/11/25 21:00 07/14/25 08:31 Polyethylene Glycol 17 Gm Packet PO 08/10/25 20:59 17 gm BID SANDRA Administration Sennosides 2 tab 07/11/25 21:00 07/14/25 08:31 Senna Tablet PO 08/10/25 20:59 2 tab BID SANDRA Administration Protocol
[2025-07-14] MEDS: VANCOMYCIN/WATER 1250 MG IVPB 250 ML 125 MG IV ×2 (09:45→22:14)
--- NOTE | 2025-07-14 10:28 | PC.SS ---
Addendum entered by Addie Garrison 07/14/25 13:05: Follow up note: SS met with patient who states he already spoke to physician with a medical update and wants to stay another day. Patient states he feels too weak to go home today. Patient declined SNF and wants to d/c home. We can continue HH orders. Patient wants to file appeal. SS provided copy of paperwork and number. Updated physician team and nursing staff. D/c held due to appeal process. Original Note: follow up note: SS spoke to patient's daughter in law, Pily via p/c @ [phone] who had concerns and was upset with discussion she had with someone about a possible discharge today. She does not agree with a discharge at this time. Pily states her concerns are with infection, pacemaker status, possible infection in arm and blood pressure concerns. She also is upset that patient has only worked with PT one time. SS discussed with her that once patient has final d/c orders if they still do not agree then they have the right to file a Medicare appeal. SS updated physician team about the family's request to discuss medical update. Physician team was provided Pily's information and contact number. Pily states patient is already open to HH services prior to hospitalization.
--- NOTE | 2025-07-14 10:41 | ESPR_ITS ---
Documentation for date of: 07/14/25 Subjective Subjective Interval history: HR 60 stable cardiac status continue physical therapy Exam Vital Signs Temp Pulse Resp BP Pulse Ox O2 Del Method O2 Flow Rate 97.0 F 60 21 H 171/71 H 99 Nasal Cannula 2 07/14/25 04:00 07/14/25 08:32 07/14/25 06:37 07/14/25 08:32 07/14/25 06:37 07/13/25 16:00 07/14/25 06:37 FiO2 30 07/08/25 03:39 Routine HEENT Exam Head: Present normocephalic and atraumatic Eye: Present EOMI and PERRL ENT: Present mucous membranes moist Routine Neck Exam Neck: Present supple and trachea midline Routine Respiratory Exam Respiratory: Present chest non-tender, lungs clear, normal breath sounds and no resp distress Routine Cardiovascular Exam Cardiovascular: Present RRR Routine Abdominal Exam Abdominal: Present soft and normoactive bowel sounds Routine Extremities Exam Extremities: Present full ROM Routine Skin Exam Skin: Present intact, dry and warm Routine Neurological Exam Neurological: Present alert, oriented X3 and CN II-XII intact Routine Psychiatric Exam Psychiatric: Present normal affect and normal thought process Objective Labs 07/14/25 05:20 07/14/25 05:20 Labs: Laboratory Results - last 24 hr 07/13/25 07/13/25 07/14/25 16:10 20:42 05:20 WBC 3.7 L RBC 3.87 L Hgb 10.0 L Hct 32.8 L MCV 85 MCH 25.8 MCHC 30.5 L RDW Std Deviation 47.0 H Plt Count 123 L Neut % (Auto) 69 Lymph % (Auto) 19 [place] % (Auto) 9 Eos % (Auto) 3 Baso % (Auto) 0 Neut # (Auto) 2.6 Lymph # (Auto) 0.7 L [place] # (Auto) 0.3 Eos # (Auto) 0.1 Baso # (Auto) 0.0 Immature Gran # (Auto) 0.02 H Absolute Nucleated RBC 0.00 Immature Gran % 1 H Nucleated RBC % 0 PT 10.8 INR 1.0 APTT 33.5 Sodium 139 Potassium 5.2 H 5.0 Chloride 102 Carbon Dioxide 29.9 Anion Gap 7 BUN 19 Creatinine 1.0 Estim Creat Clear Calc 80.5 eGFR > 60 BUN/Creatinine Ratio 19 Glucose 131 H Calculated Osmolality 281 Calcium 8.7 Corrected Calcium 8.7 Phosphorus 4.1 Magnesium 2.1 Total Bilirubin 0.6 AST 14 ALT 13 Alkaline Phosphatase 52 Total Protein 6.0 Albumin 4.0 Globulin 2.0 L Albumin/Globulin Ratio 2.0 Vancomycin Trough 14.8 H Assessment & Plan A&P Narrative Patient to continue physical therapy Stable cardiac status Time Spent With Patient Time: Total time spent is greater than 50% in coordination of care (as documented) at patient's floor/unit and/or counseling patient:
--- NOTE | 2025-07-14 12:13 | PD.RESDS ---
Planned Discharge Date 07/14/25 DS: Providers Provider Date of admission: 07/07/25 05:49 Primary care physician: ARLENE Machado Admitting Provider: Jorge Dwyer DO Attending Provider on Admission: Sarah Valdez MD Consults: 07/07/25 08:00 Consult to Cardiology Stat Comment: Consulting Provider: Darlene Small 07/07/25 11:59 Consult to Cardiology Stat Comment: Consulting Provider: Eloy Teixeira 07/12/25 09:58 Referral Physical Therapy Urgent Comment: Physician Instructions: Instructions: Pending DC. needs help to stand Attending Provider on DC: Sarah Valdez MD Discharging Provider: Sarah Valdez MD DS: Diagnosis Problem List Completed Was Problem List Reviewed/Reconciled?: Yes Hospital Course Hospital Course Hospital course: Hospital Course: Patient is a 75 y.o male with PMHx significant for CVA, Atrial Fibrillation, CAD s/p recent cardiac stent and left peripheral arterial stent, HTN, CHF, COPD who presented on 07/07/25 with recurrent syncopal episodes with accompanying palpitations. He was admitted to ICU on 07/07 for further cardiac monitoring in the setting of possible sick sinus syndrome. On 07/07, ICU put in a transvenous pacemaker. On 07/09, patient had rapid called due to bradycardia, and transvenous pacer was replaced due to malpositioning of previous one. On 07/11, permanent pacemaker was placed without issue, patient was downgraded to floors, with eliquis to be restrated in 3 days. On 07/12, patient began experiencing cellulitis-like symptoms around the placement site, as well as weakness, and he was started on antibiotics. By 07/14, cellulitis was improving, and patient was considered stable for discharge. Discharge Instructions: - You have been started on an antibiotic Doxycycline for the cellulitis around your pacemaker site. Take as directed below ? We have stopped your medication cyclobenzaprine and metoprolol as this can lower your heart rate. ? We have put a hold on your home medications of digoxin and diltiazem until you follow-up with your ballet master/mistress. ? We have started you on new blood pressure medications, amlodipine and losartan. Take as directed below. ? We have started you on a new medication for pain gabapentin. Take as directed below. ? We have started you on senna as a laxative. - We Have started you on a new Inhaler, trelegy. Take one puff once a day ? Continue the rest of your home medications as listed below. ? Please read the education booklet about post pacemaker implantation provided below. ? Follow-up with ballet master/mistress, Dr. Small within 1 week. - Follow up with your primary care physician within 1 week of discharge. If you do not have a primary care physician, please follow up with the [facility] ([phone]) ? If you experience any new, worsening or persistent symptoms either call your primary doctor, or dial 911 or present to the emergency department. Problem List: #Sick Sinus Syndrome s/p permanent pacemaker 07/11 #Atrial Fibrillation with sinus pauses #Recurrent Syncope #CAD s/p PCI 5 months ago #Ground level fall s/p syncope - resolved #Hx of CVA #Hx of HFpEF #Hx of HTN #Cellulitis, possible #Hx of COPD #History of type 2 diabetes #History of chronic lumbar back pain s/p L4-L5 fusion #Hx constipation in setting of chronic opioid use This case was discussed with my attending physician, Dr. Valdez, and senior resident, Dr. Vega. Adam Bailey, PGY1 Senior Resident Attestation: I discussed with and supervised the [employer] compliance internship physician involved in the care of this patient. I personally saw and examined the patient and discussed the assessment and plan with the entire medicine team, including my attending. I agree with the discharge plan as documented above. Yonatan Vega MD PGY3 Internal Medicine Status at Discharge Overall status at discharge: patient is progressing back to baseline Time Spent with Patient Time attestation: Total time spent providing and/or coordinating discharge services: 33 minutes Time spent: Greater than 30 minutes Home Health Home Health Referral Orders: 07/14/25 07:54 Home Health Referral Routine Reason For Exam: generalized weakness Home-Bound The patient must either because of illness or injury, need the aid of supportive devices such as crutches, canes, wheelchairs, and walkers; the use of special transportation; or the assistance of another person in order to leave their place of residence; OR have a condition such that leaving his or her home is medically contraindicated. In addition, the patient also meets the following criteria: patient is normally unable to leave the home and leaving home requires considerable taxing effort. Addendum to Home Health Certification Practitioner's Certification: I certify that the patient has been under my care in the hospital and the care of attending physician (see below). We had a [id number] encounter on (see date below). My clinical findings indicate that the patient is home bound per the above criteria and the Home Health Services noted in these orders are medically necessary. The primary reason for the koas-ex-diyb encounter is related to the fact that the patient requires home health services. Date Certifying Emat-fy-Bazo Physician Encounter: 07/07/25 Physician's Name who will Assume Oversight for Services: Bobbi Turner Physician's Phone No.who will Assume Oversight for Service: VENEER GLUE JOINTER FEEDBACK - Community Resources: No PT to Evaluate: Yes PT to evaluate and provide a treatmnet plan to increase patient's mobility and strength. Wound Care: No IV Therapy: No RN Safety Evaluation: Yes RN to evaluate and create a plan of care that will produce positive outcomes. Palliative Treatment: No Palliative treatment and evaluate the need for hospice. Home Health Aide - Personal Care: No Home Health Aide to assist with any ADL's. Exam Vital Signs Temp Pulse Resp BP Pulse Ox O2 Del Method O2 Flow Rate 97.0 F 60 21 H 171/71 H 99 Nasal Cannula 2 07/14/25 04:00 07/14/25 08:32 07/14/25 06:37 07/14/25 08:32 07/14/25 06:37 07/13/25 16:00 07/14/25 06:37 FiO2 30 07/08/25 03:39 Narrative Exam General: AAO x3, Elderly, no acute concerns Eye: PERRL, EOMI, normal conjunctiva, no scleral icterus HENT: Normocephalic, atraumatic, hearing intact to conversation at normal volume, moist oral mucosa. On 2 L nasal cannula Neck: Supple, non-tender, no JVD, no lymphadenopathy, Lungs: Non-labored respirations, symmetric chest rise, No rhonchi, crackles, slight bilateral wheezing Heart: Peripheral pulses intact bilaterally, L chest with pacemaker in place. Abdomen: Soft, obese, non-tender, non-distended, no palpable masses Musculoskeletal: Normal range of motion and strength, No cyanosis or edema, No visible joint swelling Skin: An area of erythema from the incision site for the pacemaker extending into the left armpit, tender to palpation, but reduced from before Psychiatric: Cooperative, appropriate mood and affect, Awake and alert, not agitated Neuro: Cranial nerves II-XII grossly intact. Sensations intact to light touch. Discharge Plan Plan Patient Disposition: Home w/HOME HEALTH Disposition Comment: With home PT Patient condition on transfer: Stable and Benefits outweigh risks Care Plan Goals: - You have been started on an antibiotic Doxycycline for the cellulitis around your pacemaker site. Take as directed below ? We have stopped your medication cyclobenzaprine and metoprolol as this can lower your heart rate. ? We have put a hold on your home medications of digoxin and diltiazem until you follow-up with your ballet master/mistress. ? We have started you on new blood pressure medications, amlodipine and losartan. Take as directed below. ? We have started you on a new medication for pain gabapentin. Take as directed below. ? We have started you on senna as a laxative. - We Have started you on a new Inhaler, trelegy. Take one puff once a day ? Continue the rest of your home medications as listed below. ? Please read the education booklet about post pacemaker implantation provided below. ? Follow-up with ballet master/mistress, Dr. Small within 1 week. - Follow up with your primary care physician within 1 week of discharge. If you do not have a primary care physician, please follow up with the [facility] clinic ([phone]) ? If you experience any new, worsening or persistent symptoms either call your primary doctor, or dial 911 or present to the emergency department. Prescriptions/Referrals Prescriptions/Med Rec: New losartan 25 mg Tablet 25 mg PO QDAY 30 Days Qty: 30 0RF gabapentin 300 mg Capsule 300 mg PO TID 30 Days Qty: 90 0RF sennosides [Senna Lax] 8.6 mg Tablet 8.6 mg PO BID 30 Days Qty: 60 0RF amlodipine 5 mg Tablet 5 mg PO QDAY 30 Days Qty: 30 1RF guaifenesin 200 mg/5 mL liquid 200 mg PO Q4H MDD 20ml PRN (Reason: congestion, cough) Qty: 118 0RF coruykpamua-ksiqgebiy-klhoehki 100-62.5-25 mcg blister with device 1 inh inhalation Q24H 30 Days Qty: 60 1RF doxycycline hyclate 100 mg capsule 100 mg PO BID 5 Days Qty: 10 0RF Continued oxycodone-acetaminophen [Percocet] 10-325 mg Tablet 1 tab PO Q6H PRN (Reason: Pain, Mild) Eliquis 5 mg Tablet 5 mg PO BID Ozempic 0.25 mg or 0.5 mg (2 mg/3 mL) pen injector 0.5 mg SUBCUT QWEEK pantoprazole 40 mg tablet,delayed release (DR/EC) 40 mg PO QDAY torsemide 20 mg tablet 20 mg PO BID ipratropium-albuterol 0.5 mg-3 mg(2.5 mg base)/3 mL solution for nebulization 3 ml inhalation QID PRN (Reason: shortness of breath or wheezing) Qty: 180 0RF lidocaine [Lidoderm] 5 % adhesive patch,medicated 2 patch topical QDAY PRN (Reason: pain) Qty: 30 0RF Rx Instructions: leave on most painful area for up to 12 hrs hydromorphone [Dilaudid] 4 mg tablet 4 mg PO Q12HR PRN (Reason: pain) aspirin 81 mg tablet,chewable 81 mg PO QDAY atorvastatin 40 mg tablet 80 mg PO QDAY tizanidine 2 mg tablet 2 mg PO Q8H PRN (Reason: muscle spasm) Qty: 15 0RF Held digoxin 125 mcg (0.125 mg) Tablet 125 mcg PO QDAY Qty: 30 0RF Hold Instructions: Resume on 07/26/25. Hold until you see Vault Clerk diltiazem HCl 90 mg capsule,extended release 12 hr 60 mg PO Q12H Hold Instructions: Resume on 07/26/25. Hold until you see your Vault Clerk Patient Comments: TAKE 1 CAPSULE BY MOUTH TWICE DAILY Discontinued metoprolol tartrate 50 mg tablet 50 mg PO BID Patient Comments: TAKE ONE TABLET BY MOUTH TWICE DAILY FOR BLOOD PRESSURE cyclobenzaprine 10 mg tablet 10 mg PO Q8H PRN (Reason: muscle spasm) Qty: 30 0RF Referrals: Bobbi Turner FNP [Primary Care Provider] Darlene Small MD [Physician, Cardiology] Patient/Caregiver Discharge Instructions Education Materials: Pacemakers, Living with a Pacemaker, Discharge Instructions for ... Print Language: Slovenian Stand Alone Forms: [place] Award Info., Patient Portal Info Letter Discharge Order Discharge Orders: Discharge (Routine); Ordered 07/14/25 Ordered By: Maldonado Diallo Quality Discharge Quality Measures none MD Attestestation MD Attestation I have seen and examined the patient. I was physically present for the garcia portions of the services provided including history, physical exam, diagnosis, treatment plans and orders. I agree with assessment and plan of care as documented by residents. Even though this this note was carefully revised there may still be minor errors in pot filler due to voice recognition software. Sarah Valdez MD
--- NOTE | 2025-07-14 13:06 | PC.SS ---
Addendum entered by Odalis Flood 07/15/25 16:17: Appeal in favor of the hospital, financial liability starts 07/16 12pm, SS called pt son Cruz and his Pily [phone] answered. SS explained Appeal determination, Pily got very angry cursing at SS saying, I don't give a shit about financial liability. SS attempted to deescalate situation and provide update on clinical improvement, that pt is clear for DC as of yesterday. Pily had an abundance of questions in which SS went and spoke to Dr. Valdez to better educate and answer her clinical questions. At this time pt will wait till tomorrow by 12pm, if Potassium levels are in normal limits pt will be DC as planned and liability will be on the pt and family after that point. Addendum entered by Odalis Flood 07/15/25 08:48: SS checked appeal status for [id number], Physician review is completed, pending liability determination, Addendum entered by Addie Garrison 07/14/25 13:44: Uploaded file successfully. Pending response from [facility] Original Note: [place] Appeal Case # [id number]
[2025-07-14] MEDS: cefTRIAXone/D5w 1gm IV premix 1 GM/50 ML BAG IV (16:33)
[2025-07-14] MEDS: LIDOCAINE 5% 1 PATCH TOP (19:34)
[2025-07-14] MEDS: HYDROcodone/APAP 5/325 TABLET 1 TAB PO (21:04)
[2025-07-14] MEDS: ATORVASTATIN CALCIUM 20 MG TABLET 80 MG PO (21:04)
[2025-07-15] VITALS (15 sets, daily range): BP systolic 135–158; BP diastolic 62–72; PULSE 60–64; RESP 15–23; TEMP 35.7–36.2; O2SAT 96–100
[2025-07-15] MEDS: ALBUTEROL/IPRATROPIUM (Duoneb) RT SOL 3 ML NEBU INH ×4 (00:22→19:16)
[2025-07-15] MEDS: GABAPENTIN 300 MG CAPSULE PO ×3 (05:06→21:16)
[2025-07-15] MEDS: BUDESONIDE RT 0.5 MG/2 ML NEBU INH ×2 (05:55→19:16)
[2025-07-15 09:13] LABS: Basophils # (Auto) 0.0 Thou/mm3 (0.0-0.2); Basophils % (Auto) 0 % (0-2.5); Eosinophils # (Auto) 0.1 Thou/mm3 (0.0-0.5); Eosinophils % (Auto) 3 % (0-10); Hematocrit 33.7 % (41.0-53.0); Hemoglobin 10.1 g/dL (13.5-16.0); Immature Granulocytes Auto 0.01 Thou/mm3 (0.00-0.00); Lymphocytes # (Auto) 0.6 Thou/mm3 (1.0-4.8); Lymphocytes % (Auto) 14 % (10-50); Mean Corpuscular HGB Conc 30.0 g/dl (31.0-37.0); Mean Corpuscular Hemoglobin 25.8 pg (25.0-35.0); Mean Corpuscular Volume 86 fL (80-100); Monocytes # (Auto) 0.3 Thou/mm3 (0.0-0.8); Monocytes % (Auto) 8 % (0-12); Neutrophils # (Auto) 3.2 Thou/mm3 (1.8-7.7); Neutrophils % (Auto) 75 % (37-80); Nucleated Red Blood Cell # 0.00 Thou/mm3 (0.00-0.00); Nucleated Red Blood Cell % 0 /100 WBC (0); Platelet Count 135 Thou/mm3 (140-440); RDW Standard Deviation 49.1 fL (35.1-43.9); Red Blood Count 3.91 Miln/mm3 (4.50-5.90); White Blood Count 4.3 Thou/mm3 (3.8-10.6)
[2025-07-15 09:21] LABS: Alanine Aminotransferase 13 U/L (10-49); Albumin, Serum 4.2 gm/dL (3.4-4.8); Albumin/Globulin Ratio 2.0 (1.2-2.2); Alkaline Phosphatase 57 U/L (46-116); Anion Gap 9 (7-16); Aspartate Amino Transferase 16 U/L (0-34); BUN/Creatinine Ratio 15 Ratio (12-20); Bilirubin,Total 0.6 mg/dL (0.3-1.2); Blood Urea Nitrogen 15 mg/dL (9-23); Calcium 8.9 mg/dL (8.3-10.6); Calcium (Corrected) 8.9 mg/dL (8.5-10.1); Carbon Dioxide 29.1 mMol/L (20.0-31.0); Chloride 101 mMol/L (98-107); Creatinine (Component) 1.0 mg/dL (0.6-1.3); Estimated Creatinine Clearance 82.1 mL/min (>60); Globulin 2.1 gm/dL (2.3-3.5); Glucose 135 mg/dL (74-106); Magnesium 2.1 mg/dL (1.6-2.6); Osmolality,Calculated 280 (275-295); Potassium 5.8 mMol/L (3.4-5.1); Sodium 139 mMol/L (136-145); Total Protein 6.3 gm/dL (5.7-8.2); eGFR > 60 See Note
[2025-07-15] MEDS: PANTOPRAZOLE 40 MG TABLET PO (09:26)
[2025-07-15] MEDS: APIXABAN 2.5 MG TABLET 5 MG PO ×2 (09:26→21:16)
[2025-07-15] MEDS: LOSARTAN POTASSIUM 25 MG TABLET PO (09:26)
[2025-07-15] MEDS: ASPIRIN EC 81 MG TABEC PO (09:27)
[2025-07-15] MEDS: POLYETHYLENE GLYCOL 17 GM PACKET PO (09:27)
--- NOTE | 2025-07-15 09:54 | EKG_ITS ---
[facility] Test Date: 2025-07-15 Pat Name: SAKSHI GREENFIELD [facility] [place]: [place] : 1950 Requested By: Anny Aguilera Order Number: [id number] Reading MD: Anny Aguilera Measurements Intervals [place] Rate: 60 P: ME: QRS: -84 QRSD: 182 T: 87 QT: 486 QTc: 487 Interpretive Statements ELECTRONIC VENTRICULAR PACEMAKER ABNORMAL RHYTHM ECG Compared to ECG 07/07/2025 01:48:19 Atrial fibrillation no longer present Incomplete right bundle-branch block no longer present Myocardial infarct finding no longer present /store/S0/[id number]
--- NOTE | 2025-07-15 10:19 | PD.IMPROG ---
Documentation for date of: 07/15/25 Subjective Subjective Interval history: HR 60 pt comfrtable physivcal therapy Exam Vital Signs Temp Pulse Resp BP Pulse Ox O2 Del Method O2 Flow Rate 97 F 60 23 H 158/63 H 97 Nasal Cannula 3 07/15/25 08:00 07/15/25 09:27 07/15/25 08:00 07/15/25 09:27 07/15/25 08:00 07/15/25 08:00 07/15/25 08:00 FiO2 30 07/08/25 03:39 Routine HEENT Exam Head: Present normocephalic and atraumatic Eye: Present EOMI and PERRL ENT: Present mucous membranes moist Routine Neck Exam Neck: Present supple and trachea midline Routine Respiratory Exam Respiratory: Present chest non-tender, lungs clear, normal breath sounds and no resp distress Routine Cardiovascular Exam Cardiovascular: Present RRR Routine Abdominal Exam Abdominal: Present soft and normoactive bowel sounds Routine Extremities Exam Extremities: Present full ROM Routine Skin Exam Skin: Present intact, dry and warm Routine Neurological Exam Neurological: Present alert, oriented X3 and CN II-XII intact Routine Psychiatric Exam Psychiatric: Present normal affect and normal thought process Objective Labs 07/15/25 08:32 07/15/25 08:32 Labs: Laboratory Results - last 24 hr 07/15/25 08:32 WBC 4.3 RBC 3.91 L Hgb 10.1 L Hct 33.7 L MCV 86 MCH 25.8 MCHC 30.0 L RDW Std Deviation 49.1 H Plt Count 135 L Neut % (Auto) 75 Lymph % (Auto) 14 [place] % (Auto) 8 Eos % (Auto) 3 Baso % (Auto) 0 Neut # (Auto) 3.2 Lymph # (Auto) 0.6 L [place] # (Auto) 0.3 Eos # (Auto) 0.1 Baso # (Auto) 0.0 Immature Gran # (Auto) 0.01 H Absolute Nucleated RBC 0.00 Immature Gran % 0 Nucleated RBC % 0 Sodium 139 Potassium 5.8 H D Chloride 101 Carbon Dioxide 29.1 Anion Gap 9 BUN 15 Creatinine 1.0 Estim Creat Clear Calc 82.1 eGFR > 60 BUN/Creatinine Ratio 15 Glucose 135 H Calculated Osmolality 280 Calcium 8.9 Corrected Calcium 8.9 Magnesium 2.1 Total Bilirubin 0.6 AST 16 ALT 13 Alkaline Phosphatase 57 Total Protein 6.3 Albumin 4.2 Globulin 2.1 L Albumin/Globulin Ratio 2.0 Assessment & Plan A&P Narrative Patient to continue physical therapy Stable cardiac status Time Spent With Patient Time: Total time spent is greater than 50% in coordination of care (as documented) at patient's floor/unit and/or counseling patient:
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
[2025-07-15] MEDS: SOD POLYSTYRENE SULFON SUSP 15 GM/60 ML BTL 30 GM PO (10:38)
[2025-07-15] MEDS: VANCOMYCIN/WATER 1250 MG IVPB 250 ML 125 MG IV (10:38)
[2025-07-15] MEDS: TORSEMIDE 20 MG TABLET PO ×2 (13:30→21:16)
[2025-07-15] MEDS: HYDROMORPHONE HCL 2 MG TABLET 4 MG PO (13:55)
[2025-07-15 15:50] LABS: Albumin, Serum 4.0 gm/dL (3.4-4.8); Anion Gap 10 (7-16); BUN/Creatinine Ratio 14 Ratio (12-20); Blood Urea Nitrogen 15 mg/dL (9-23); Calcium 8.6 mg/dL (8.3-10.6); Calcium (Corrected) 8.6 mg/dL (8.5-10.1); Carbon Dioxide 27.6 mMol/L (20.0-31.0); Chloride 102 mMol/L (98-107); Creatinine (Component) 1.1 mg/dL (0.6-1.3); Estimated Creatinine Clearance 74.7 mL/min (>60); Glucose 129 mg/dL (74-106); Osmolality,Calculated 282 (275-295); Phosphorous 4.1 mg/dL (2.4-5.1); Potassium 5.2 mMol/L (3.4-5.1); Sodium 140 mMol/L (136-145); eGFR > 60 See Note
[2025-07-15] MEDS: cefTRIAXone/D5w 1gm IV premix 1 GM/50 ML BAG IV (15:53)
--- NOTE | 2025-07-15 16:12 | ESDS_ITS ---
<Statement entered by Maldonado Diallo MD - 07/15/25 16:36> I saw and examined patient personally and supervised PGY 1 resident, Dr. Aguilera with formulating a discharge plan. I agree with the documentation as listed below. Plan of care discussed with Attending Dr. José Miguel Diallo MD PGY 2 Disclaimer: This note was dictated by speech recognition. Minor errors in counter roller may be present due to voice recognition software. Planned Discharge Date 07/15/25 DS: Providers Provider Date of admission: 07/07/25 05:49 Primary care physician: ARLENE Machado Admitting Provider: Jogre Dwyer DO Attending Provider on Admission: Sarah Valdez MD Consults: 07/07/25 08:00 Consult to Cardiology Stat Comment: Consulting Provider: Darlene Smlal 07/07/25 11:59 Consult to Cardiology Stat Comment: Consulting Provider: Eloy Teixeira 07/12/25 09:58 Referral Physical Therapy Urgent Comment: Physician Instructions: Instructions: Pending DC. needs help to stand Attending Provider on DC: Sarah Valdez MD Discharging Provider: Sarah Valdez MD DS: Diagnosis Problem List Completed Was Problem List Reviewed/Reconciled?: Yes Hospital Course Hospital Course Hospital course: Patient is a 75 y.o male with PMHx significant for CVA, Atrial Fibrillation, CAD s/p recent cardiac stent and left peripheral arterial stent, HTN, CHF, COPD who presented on 07/07/25 with recurrent syncopal episodes with accompanying palpitations. He was admitted to ICU on 07/07 for further cardiac monitoring in the setting of possible sick sinus syndrome. On 07/07, ICU put in a transvenous pacemaker. On 07/09, patient had rapid called due to bradycardia, and transvenous pacer was replaced due to malpositioning of previous one. On 07/11, permanent pacemaker was placed without issue, patient was downgraded to floors, with eliquis restarted. On 07/12, patient began experiencing cellulitis-like symptoms around the placement site, as well as weakness, and he was started on antibiotics however likely post surgical changes following pacemaker placement. Patient medically cleared, hemodyamically stable and ready to be discharged. Discharge Instructions: - You have been started on an antibiotic Doxycycline for the cellulitis around your pacemaker site. Take as directed below ? We have stopped your medication cyclobenzaprine and metoprolol as this can lower your heart rate. ? We have put a hold on your home medications of digoxin and diltiazem until you follow-up with your florist supplies salesperson. - STOP losartan - Follow up renal panel on Thursday to recheck your potassium ? We have started you on new blood pressure medications, amlodipine. Take as directed below. ? We have started you on a new medication for pain gabapentin. Take as directed below. ? We have started you on senna as a laxative. - We Have started you on a new Inhaler, trelegy. Take one puff once a day ? Continue the rest of your home medications as listed below. ? Please read the education booklet about post pacemaker implantation provided below. ? Follow-up with florist supplies salesperson, Dr. Small within 1 week. - Follow up with your primary care physician within 1 week of discharge. If you do not have a primary care physician, please follow up with the [facility] Residents clinic ([phone]) ? If you experience any new, worsening or persistent symptoms either call your primary doctor, or dial 911 or present to the emergency department. Problem List: #Sick Sinus Syndrome s/p permanent pacemaker 07/11 #Atrial Fibrillation with sinus pauses #Recurrent Syncope #CAD s/p PCI 5 months ago #Ground level fall s/p syncope - resolved #Hx of CVA #Hx of HFpEF #Hx of HTN #Cellulitis, possible #Hx of COPD #History of type 2 diabetes #History of chronic lumbar back pain s/p L4-L5 fusion #Hx constipation in setting of chronic opioid use This case was discussed with my attending physician, Dr. Valdez, and senior resident, Dr. Diallo. Anny Aguilera, DO Internal Medicine PGY-1 Time Spent with Patient Time attestation: Total time spent providing and/or coordinating discharge services: 37 minutes Time spent: Greater than 30 minutes Home Health Home Health Referral Orders: 07/14/25 07:54 Home Health Referral Routine Reason For Exam: generalized weakness Home-Bound The patient must either because of illness or injury, need the aid of supportive devices such as crutches, canes, wheelchairs, and walkers; the use of special transportation; or the assistance of another person in order to leave their place of residence; OR have a condition such that leaving his or her home is medically contraindicated. In addition, the patient also meets the following criteria: patient is normally unable to leave the home and leaving home requires considerable taxing effort. Addendum to Home Health Certification Practitioner's Certification: I certify that the patient has been under my care in the hospital and the care of attending physician (see below). We had a [id number] encounter on (see date below). My clinical findings indicate that the patient is home bound per the above criteria and the Home Health Services noted in these orders are medically necessary. The primary reason for the [id number] encounter is related to the fact that the patient requires home health services. Date Certifying [id number] Physician Encounter: 07/07/25 Physician's Name who will Assume Oversight for Services: Bobbi Turner Physician's Phone No.who will Assume Oversight for Service: DOCK ATTENDANT - Community Resources: No PT to Evaluate: Yes PT to evaluate and provide a treatmnet plan to increase patient's mobility and strength. Wound Care: No IV Therapy: No RN Safety Evaluation: Yes RN to evaluate and create a plan of care that will produce positive outcomes. Palliative Treatment: No Palliative treatment and evaluate the need for hospice. Home Health Aide - Personal Care: No Home Health Aide to assist with any ADL's. Exam Vital Signs Temp Pulse Resp BP Pulse Ox O2 Del Method O2 Flow Rate 96.8 F 60 16 135/62 H 97 Nasal Cannula 2 07/15/25 16:00 07/15/25 16:00 07/15/25 16:00 07/15/25 16:00 07/15/25 16:00 07/15/25 16:00 07/15/25 16:00 FiO2 30 07/08/25 03:39 Narrative Exam GENERAL: AOx3, no acute distress, elderly on 3L NC O2 HEENT: mucous membranes moist, bilateral sclera anicteric CARDIOVASCULAR: regular rate and rhythm, S1/S2 present, no murmurs appreciated, L chest pacemaker in place, clean mildly erythematous PULMONARY: trace bilateral expiratory wheezes ABDOMINAL: soft, non-tender, non-distended, no rebound/guarding, bowel sounds present EXTREMITIES: no peripheral edema SKIN: warm and dry, intact, no rashes NEURO: CN II-XII grossly intact, no focal deficits, alert, following commands Discharge Plan Plan Patient Disposition: Home w/HOME HEALTH Disposition Comment: With home PT Patient condition on transfer: Stable and Benefits outweigh risks Care Plan Goals: - You have been started on an antibiotic Doxycycline for the cellulitis around your pacemaker site. Take as directed below ? We have stopped your medication cyclobenzaprine and metoprolol as this can lower your heart rate. ? We have put a hold on your home medications of digoxin and diltiazem until you follow-up with your florist supplies salesperson. ? We have started you on new blood pressure medications, amlodipine and losartan. Take as directed below. ? We have started you on a new medication for pain gabapentin. Take as directed below. ? We have started you on senna as a laxative. - We Have started you on a new Inhaler, trelegy. Take one puff once a day ? Continue the rest of your home medications as listed below. ? Please read the education booklet about post pacemaker implantation provided below. ? Follow-up with florist supplies salesperson, Dr. Small within 1 week. - Recommend you get a repeat blood test, Renal panel on 07/17 to review with your Doctor to monitor your potassium level. Avoid foods high in potassium including bananas, kiwis, avocados and legumes. - Follow up with your primary care physician within 1 week of discharge. If you do not have a primary care physician, please follow up with the [facility] Residents clinic ([phone]) ? If you experience any new, worsening or persistent symptoms either call your primary doctor, or dial 911 or present to the emergency department. Prescriptions/Referrals Prescriptions/Med Rec: New gabapentin 300 mg Capsule 300 mg PO TID 30 Days Qty: 90 0RF sennosides [Senna Lax] 8.6 mg Tablet 8.6 mg PO BID 30 Days Qty: 60 0RF amlodipine 5 mg Tablet 5 mg PO QDAY 30 Days Qty: 30 1RF guaifenesin 200 mg/5 mL liquid 200 mg PO Q4H MDD 20ml PRN (Reason: congestion, cough) Qty: 118 0RF [id number]-[id number]-tlytlwwt 100-62.5-25 mcg blister with device 1 inh inhalation Q24H 30 Days Qty: 60 1RF Continued oxycodone-acetaminophen [Percocet] 10-325 mg Tablet 1 tab PO Q6H PRN (Reason: Pain, Mild) Eliquis 5 mg Tablet 5 mg PO BID Ozempic 0.25 mg or 0.5 mg (2 mg/3 mL) pen injector 0.5 mg SUBCUT QWEEK pantoprazole 40 mg tablet,delayed release (DR/EC) 40 mg PO QDAY torsemide 20 mg tablet 20 mg PO BID ipratropium-albuterol 0.5 mg-3 mg(2.5 mg base)/3 mL solution for nebulization 3 ml inhalation QID PRN (Reason: shortness of breath or wheezing) Qty: 180 0RF lidocaine [Lidoderm] 5 % adhesive patch,medicated 2 patch topical QDAY PRN (Reason: pain) Qty: 30 0RF Rx Instructions: leave on most painful area for up to 12 hrs hydromorphone [Dilaudid] 4 mg tablet 4 mg PO Q12HR PRN (Reason: pain) aspirin 81 mg tablet,chewable 81 mg PO QDAY atorvastatin 40 mg tablet 80 mg PO QDAY tizanidine 2 mg tablet 2 mg PO Q8H PRN (Reason: muscle spasm) Qty: 15 0RF Held digoxin 125 mcg (0.125 mg) Tablet 125 mcg PO QDAY Qty: 30 0RF Hold Instructions: Resume on 07/26/25. Hold until you see Real Time Trader diltiazem HCl 90 mg capsule,extended release 12 hr 60 mg PO Q12H Hold Instructions: Resume on 07/26/25. Hold until you see your Real Time Trader Patient Comments: TAKE 1 CAPSULE BY MOUTH TWICE DAILY Discontinued metoprolol tartrate 50 mg tablet 50 mg PO BID Patient Comments: TAKE ONE TABLET BY MOUTH TWICE DAILY FOR BLOOD PRESSURE cyclobenzaprine 10 mg tablet 10 mg PO Q8H PRN (Reason: muscle spasm) Qty: 30 0RF Referrals: Bobbi Turner FNP [Primary Care Provider] Darlene Small MD [Physician, Cardiology] Patient/Caregiver Discharge Instructions Education Materials: Pacemakers, Living with a Pacemaker, Discharge Instructions for ... Print Language: Estonian Stand Alone Forms: [facility] Award Info., Patient Portal Info Letter Discharge Order Discharge Orders: Discharge (Routine); Ordered 07/15/25 Ordered By: Maldonado Diallo Quality Discharge Quality Measures VTE prophylaxis Attestestation MD Attestation I have seen and examined the patient. I was physically present for the garcia portions of the services provided including history, physical exam, diagnosis, treatment plans and orders. I agree with assessment and plan of care as documented by residents. Even though this this note was carefully revised there may still be minor errors in counter roller due to voice recognition software. Sarah Valdez MD
[2025-07-15] MEDS: SOD POLYSTYRENE SULFON SUSP 15 GM/60 ML BTL PO (16:33)
--- NOTE | 2025-07-15 17:16 | PC.NURSE ---
patient appealing discharge, made aware, charge nurse MATTI Ritter made aware.
[2025-07-15] MEDS: ATORVASTATIN CALCIUM 20 MG TABLET 80 MG PO (21:16)
[2025-07-16] VITALS (10 sets, daily range): BP systolic 132–136; BP diastolic 60–72; PULSE 60–85; RESP 12–19; TEMP 36.3–36.8; O2SAT 95–100; BMI 31.5
[2025-07-16] MEDS: ALBUTEROL/IPRATROPIUM (Duoneb) RT SOL 3 ML NEBU INH ×2 (00:40→07:00)
[2025-07-16] MEDS: HYDROMORPHONE HCL 2 MG TABLET 4 MG PO (01:00)
[2025-07-16] MEDS: GABAPENTIN 300 MG CAPSULE PO (05:15)
[2025-07-16] MEDS: BUDESONIDE RT 0.5 MG/2 ML NEBU INH (07:00)
--- NOTE | 2025-07-16 07:52 | PD.RESDS ---
Planned Discharge Date 07/16/25 DS: Providers Provider Date of admission: 07/07/25 05:49 Primary care physician: ARLENE Machado Admitting Provider: Jorge Dwyer DO Attending Provider on Admission: Sarah Valdez MD Consults: 07/07/25 08:00 Consult to Cardiology Stat Comment: Consulting Provider: Darlene Small 07/07/25 11:59 Consult to Cardiology Stat Comment: Consulting Provider: Eloy Teixeira 07/12/25 09:58 Referral Physical Therapy Urgent Comment: Physician Instructions: Instructions: Pending DC. needs help to stand Attending Provider on DC: Sarah Valdez MD Discharging Provider: Sarah Valdez MD DS: Diagnosis Problem List Completed Was Problem List Reviewed/Reconciled?: Yes Hospital Course Hospital Course Hospital course: Patient is a 75 y.o male with PMHx significant for CVA, Atrial Fibrillation, CAD s/p recent cardiac stent and left peripheral arterial stent, HTN, CHF, COPD who presented on 07/07/25 with recurrent syncopal episodes with accompanying palpitations. He was admitted to ICU on 07/07 for further cardiac monitoring in the setting of possible sick sinus syndrome. On 07/07, ICU put in a transvenous pacemaker. On 07/09, patient had rapid called due to bradycardia, and transvenous pacer was replaced due to malpositioning of previous one. On 07/11, permanent pacemaker was placed without issue, patient was downgraded to floors, with eliquis restarted. On 07/12, patient began experiencing cellulitis-like symptoms around the placement site, as well as weakness, and he was started on antibiotics however likely post surgical changes following pacemaker placement. Patient medically cleared, hemodyamically stable and ready to be discharged. Could not be discharged on 07/15 due to waiting on appeal; appeal subsequently denied, and patient discharged on 07/16. Discharge Instructions: - You have been started on an antibiotic Doxycycline for the cellulitis around your pacemaker site. Take as directed below ? We have stopped your medication cyclobenzaprine and metoprolol as this can lower your heart rate. ? We have put a hold on your home medications of digoxin and diltiazem until you follow-up with your endocrinology nurse. - STOP losartan - Follow up renal panel on Thursday to recheck your potassium ? We have started you on new blood pressure medications, amlodipine. Take as directed below. ? We have started you on a new medication for pain gabapentin. Take as directed below. ? We have started you on senna as a laxative. - We Have started you on a new Inhaler, trelegy. Take one puff once a day ? Continue the rest of your home medications as listed below. ? Please read the education booklet about post pacemaker implantation provided below. ? Follow-up with endocrinology nurse, Dr. Small within 1 week. - Follow up with your primary care physician within 1 week of discharge. If you do not have a primary care physician, please follow up with the [facility] Residents clinic ([phone]) ? If you experience any new, worsening or persistent symptoms either call your primary doctor, or dial 911 or present to the emergency department. Problem List: #Sick Sinus Syndrome s/p permanent pacemaker 07/11 #Atrial Fibrillation with sinus pauses #Recurrent Syncope #CAD s/p PCI 5 months ago #Ground level fall s/p syncope - resolved #Hx of CVA #Hx of HFpEF #Hx of HTN #Cellulitis, possible #Hx of COPD #History of type 2 diabetes #History of chronic lumbar back pain s/p L4-L5 fusion #Hx constipation in setting of chronic opioid use This case was discussed with my attending physician, Dr. Valdez, and senior resident, Dr. Vega. Adam Bailey MD Internal Medicine PGY-1 Status at Discharge Overall status at discharge: patient is progressing back to baseline Time Spent with Patient Time attestation: Total time spent providing and/or coordinating discharge services: 40 minutes Time spent: Greater than 30 minutes Home Health Home Health Referral Orders: 07/14/25 07:54 Home Health Referral Routine Reason For Exam: generalized weakness Home-Bound The patient must either because of illness or injury, need the aid of supportive devices such as crutches, canes, wheelchairs, and walkers; the use of special transportation; or the assistance of another person in order to leave their place of residence; OR have a condition such that leaving his or her home is medically contraindicated. In addition, the patient also meets the following criteria: patient is normally unable to leave the home and leaving home requires considerable taxing effort. Addendum to Home Health Certification Practitioner's Certification: I certify that the patient has been under my care in the hospital and the care of attending physician (see below). We had a [id number] encounter on (see date below). My clinical findings indicate that the patient is home bound per the above criteria and the Home Health Services noted in these orders are medically necessary. The primary reason for the [id number] encounter is related to the fact that the patient requires home health services. Date Certifying Yodn-ia-Ktgu Physician Encounter: 07/07/25 Physician's Name who will Assume Oversight for HH Services: Bobbi Turner Physician's Phone No.who will Assume Oversight for Service: SCIENCE CONSULTANT - Community Resources: No PT to Evaluate: Yes PT to evaluate and provide a treatmnet plan to increase patient's mobility and strength. Wound Care: No IV Therapy: No RN Safety Evaluation: Yes RN to evaluate and create a plan of care that will produce positive outcomes. Palliative Treatment: No Palliative treatment and evaluate the need for hospice. Home Health Aide - Personal Care: No Home Health Aide to assist with any ADL's. Exam Vital Signs Temp Pulse Resp BP Pulse Ox O2 Del Method O2 Flow Rate 97.9 F 62 15 136/60 H 100 Nasal Cannula 2 07/16/25 04:00 07/16/25 07:00 07/16/25 07:00 07/16/25 04:00 07/16/25 07:00 07/16/25 00:00 07/16/25 07:00 FiO2 30 07/16/25 01:05 Narrative Exam GENERAL: AOx3, no acute distress, elderly on 3L NC O2 HEENT: mucous membranes moist, bilateral sclera anicteric CARDIOVASCULAR: regular rate and rhythm, S1/S2 present, no murmurs appreciated, L chest pacemaker in place, clean mildly erythematous PULMONARY: CTAB ABDOMINAL: soft, non-tender, non-distended, no rebound/guarding, bowel sounds present EXTREMITIES: no peripheral edema SKIN: warm and dry, intact, no rashes NEURO: CN II-XII grossly intact, no focal deficits, alert, following commands Discharge Plan Plan Patient Disposition: Home w/HOME HEALTH Disposition Comment: With home PT Patient condition on transfer: Stable and Benefits outweigh risks Care Plan Goals: - You have been started on an antibiotic Doxycycline for the cellulitis around your pacemaker site. Take as directed below ? We have stopped your medication cyclobenzaprine and metoprolol as this can lower your heart rate. ? We have put a hold on your home medications of digoxin and diltiazem until you follow-up with your endocrinology nurse. ? We have started you on new blood pressure medications, amlodipine and losartan. Take as directed below. ? We have started you on a new medication for pain gabapentin. Take as directed below. ? We have started you on senna as a laxative. - We Have started you on a new Inhaler, trelegy. Take one puff once a day ? Continue the rest of your home medications as listed below. ? Please read the education booklet about post pacemaker implantation provided below. ? Follow-up with endocrinology nurse, Dr. Small within 1 week. - Recommend you get a repeat blood test, Renal panel on 07/17 to review with your Doctor to monitor your potassium level. Avoid foods high in potassium including bananas, kiwis, avocados and legumes. - Follow up with your primary care physician within 1 week of discharge. If you do not have a primary care physician, please follow up with the [facility] Residents clinic ([phone]) ? If you experience any new, worsening or persistent symptoms either call your primary doctor, or dial 911 or present to the emergency department. Prescriptions/Referrals Prescriptions/Med Rec: New gabapentin 300 mg Capsule 300 mg PO TID 30 Days Qty: 90 0RF sennosides [Senna Lax] 8.6 mg Tablet 8.6 mg PO BID 30 Days Qty: 60 0RF amlodipine 5 mg Tablet 5 mg PO QDAY 30 Days Qty: 30 1RF guaifenesin 200 mg/5 mL liquid 200 mg PO Q4H MDD 20ml PRN (Reason: congestion, cough) Qty: 118 0RF ehqltoaebgj-koowgsdir-jiibezdc 100-62.5-25 mcg blister with device 1 inh inhalation Q24H 30 Days Qty: 60 1RF Continued oxycodone-acetaminophen [Percocet] 10-325 mg Tablet 1 tab PO Q6H PRN (Reason: Pain, Mild) Eliquis 5 mg Tablet 5 mg PO BID Ozempic 0.25 mg or 0.5 mg (2 mg/3 mL) pen injector 0.5 mg SUBCUT QWEEK pantoprazole 40 mg tablet,delayed release (DR/EC) 40 mg PO QDAY torsemide 20 mg tablet 20 mg PO BID ipratropium-albuterol 0.5 mg-3 mg(2.5 mg base)/3 mL solution for nebulization 3 ml inhalation QID PRN (Reason: shortness of breath or wheezing) Qty: 180 0RF lidocaine [Lidoderm] 5 % adhesive patch,medicated 2 patch topical QDAY PRN (Reason: pain) Qty: 30 0RF Rx Instructions: leave on most painful area for up to 12 hrs hydromorphone [Dilaudid] 4 mg tablet 4 mg PO Q12HR PRN (Reason: pain) aspirin 81 mg tablet,chewable 81 mg PO QDAY atorvastatin 40 mg tablet 80 mg PO QDAY tizanidine 2 mg tablet 2 mg PO Q8H PRN (Reason: muscle spasm) Qty: 15 0RF Held digoxin 125 mcg (0.125 mg) Tablet 125 mcg PO QDAY Qty: 30 0RF Hold Instructions: Resume on 07/26/25. Hold until you see Memory Care Program Director diltiazem HCl 90 mg capsule,extended release 12 hr 60 mg PO Q12H Hold Instructions: Resume on 07/26/25. Hold until you see your Memory Care Program Director Patient Comments: TAKE 1 CAPSULE BY MOUTH TWICE DAILY Discontinued metoprolol tartrate 50 mg tablet 50 mg PO BID Patient Comments: TAKE ONE TABLET BY MOUTH TWICE DAILY FOR BLOOD PRESSURE cyclobenzaprine 10 mg tablet 10 mg PO Q8H PRN (Reason: muscle spasm) Qty: 30 0RF Referrals: Bobbi Turner FNP [Primary Care Provider] Darlene Small MD [Physician, Cardiology] Patient/Caregiver Discharge Instructions Education Materials: Pacemakers, Living with a Pacemaker, Discharge Instructions for ... Print Language: Liberian Stand Alone Forms: [place] Award Info., Patient Portal Info Letter Discharge Order Discharge Orders: Discharge (Routine); Ordered 07/15/25 Ordered By: Maldonado Diallo Quality Discharge Quality Measures none MD Attestestation Attestation I have seen and examined the patient. I was physically present for the garcia portions of the services provided including history, physical exam, diagnosis, treatment plans and orders. I agree with assessment and plan of care as documented by residents. Patient seen and examined at bedside this morning. No acute overnight events. Appears comfortable and denies any new complaints. Breathing has improved compared to yesterday after resuming torsemide. Lungs are clear to auscultation, redness around pacemaker site has improved significantly. Vital signs are stable continues to be afebrile, saturating well on 2 L nasal cannula. Lab results are stable, potassium was 5.8 yesterday morning but has improved to 4.5 today. Completed antibiotics course for possible cellulitis. Heart rate has been stable after pacemaker placement. We will discharge patient home with home health. Made adjustment in his antihypertensives and discontinued medications limiting heart rate. Recommended to follow-up with PCP and cardiology in 1 to 2 weeks of discharge. Continue physical therapy as recommended by PT. Even though this this note was carefully revised there may still be minor errors in booster plant operator due to voice recognition software. Sarah Valdez MD
[2025-07-16] MEDS: PANTOPRAZOLE 40 MG TABLET PO (08:12)
[2025-07-16] MEDS: TORSEMIDE 20 MG TABLET PO (08:12)
[2025-07-16] MEDS: ASPIRIN EC 81 MG TABEC PO (08:13)
[2025-07-16] MEDS: APIXABAN 2.5 MG TABLET 5 MG PO (08:13)
[2025-07-16 09:29] LABS: Basophils # (Auto) 0.0 Thou/mm3 (0.0-0.2); Basophils % (Auto) 0 % (0-2.5); Eosinophils # (Auto) 0.1 Thou/mm3 (0.0-0.5); Eosinophils % (Auto) 3 % (0-10); Hematocrit 32.7 % (41.0-53.0); Hemoglobin 9.9 g/dL (13.5-16.0); Immature Granulocytes Auto 0.02 Thou/mm3 (0.00-0.00); Lymphocytes # (Auto) 0.6 Thou/mm3 (1.0-4.8); Lymphocytes % (Auto) 14 % (10-50); Mean Corpuscular HGB Conc 30.3 g/dl (31.0-37.0); Mean Corpuscular Hemoglobin 25.8 pg (25.0-35.0); Mean Corpuscular Volume 85 fL (80-100); Monocytes # (Auto) 0.4 Thou/mm3 (0.0-0.8); Monocytes % (Auto) 9 % (0-12); Neutrophils # (Auto) 3.2 Thou/mm3 (1.8-7.7); Neutrophils % (Auto) 73 % (37-80); Nucleated Red Blood Cell # 0.00 Thou/mm3 (0.00-0.00); Nucleated Red Blood Cell % 0 /100 WBC (0); Platelet Count 143 Thou/mm3 (140-440); RDW Standard Deviation 49.6 fL (35.1-43.9); Red Blood Count 3.83 Miln/mm3 (4.50-5.90); White Blood Count 4.4 Thou/mm3 (3.8-10.6)
[2025-07-16 09:56] LABS: Alanine Aminotransferase 13 U/L (10-49); Albumin, Serum 4.2 gm/dL (3.4-4.8); Albumin/Globulin Ratio 2.1 (1.2-2.2); Alkaline Phosphatase 56 U/L (46-116); Anion Gap 10 (7-16); Aspartate Amino Transferase 16 U/L (0-34); BUN/Creatinine Ratio 14 Ratio (12-20); Bilirubin,Total 0.5 mg/dL (0.3-1.2); Blood Urea Nitrogen 18 mg/dL (9-23); Calcium 8.4 mg/dL (8.3-10.6); Calcium (Corrected) 8.4 mg/dL (8.5-10.1); Carbon Dioxide 29.7 mMol/L (20.0-31.0); Chloride 102 mMol/L (98-107); Creatinine (Component) 1.3 mg/dL (0.6-1.3); Estimated Creatinine Clearance 63.2 mL/min (>60); Globulin 2.0 gm/dL (2.3-3.5); Glucose 160 mg/dL (74-106); Osmolality,Calculated 288 (275-295); Potassium 4.5 mMol/L (3.4-5.1); Sodium 142 mMol/L (136-145); Total Protein 6.2 gm/dL (5.7-8.2); eGFR 57 See Note
--- NOTE | 2025-07-16 10:00 | PC.NURSE ---
Pt ready for discharge waiting for Son who is ride
--- NOTE | 2025-07-16 11:24 | PC.SS ---
SS spoke to RNMiladis who reported pt called his son and he is on the way to pick him up. SS will remain available for any additional needs
--- NOTE | 2025-07-18 08:14 | PC.CC ---
[facility] accepted, start pf date os 07/19/25.
== END 2025-07-16 12:18 | disposition home health service (06) | DRG 242 ==
LOC: SERX 04:40 → SERHOLD 06:23 → S2SX 07-10 07:32 → SERHOLD 07-10 09:03 → S2SX 07-14 13:32 → S2NX 07-14 21:36 → S3SX 07-16 01:55
PROVIDERS: Internal Medicine; Student in an Organized Health Care Education/Training Program; Admitting Provider Internal Medicine; Emergency Provider Emergency Medicine; PCP Nurse Practitioner Family; Visit Provider Student in an Organized Health Care Education/Training Program
DX: I49.5 Sick sinus syndrome (principal); J96.01 Acute respiratory failure with hypoxia; I48.19 Other persistent atrial fibrillation; I50.32 Chronic diastolic (congestive) heart failure; L03.90 Cellulitis, unspecified; I25.10 Atherosclerotic heart disease of native coronary artery without angina pectoris; I11.0 Hypertensive heart disease with heart failure; I48.91 Unspecified atrial fibrillation; J44.9 Chronic obstructive pulmonary disease, unspecified; Z95.5 Presence of coronary angioplasty implant and graft; W18.30XA Fall on same level, unspecified, initial encounter; E11.9 Type 2 diabetes mellitus without complications; G89.29 Other chronic pain; M54.50 Low back pain, unspecified; E11.51 Type 2 diabetes mellitus with diabetic peripheral angiopathy without gangrene; I25.82 Chronic total occlusion of coronary artery; K59.00 Constipation, unspecified; N40.0 Benign prostatic hyperplasia without lower urinary tract symptoms; Z79.01 Long term (current) use of anticoagulants; Z79.4 Long term (current) use of insulin; Z79.82 Long term (current) use of aspirin; Z79.85 Long-term (current) use of injectable non-insulin antidiabetic drugs; Z87.891 Personal history of nicotine dependence; Z99.81 Dependence on supplemental oxygen; Z86.73 Personal history of transient ischemic attack (TIA), and cerebral infarction without residual deficits; Z79.891 Long term (current) use of opiate analgesic; I45.10 Unspecified right bundle-branch block; I70.202 Unspecified atherosclerosis of native arteries of extremities, left leg; I49.3 Ventricular premature depolarization; I34.81 Nonrheumatic mitral (valve) annulus calcification
CPT/HCPCS: 36415; 70450; 71045; 76000; 76882; 80053; 80069; 80162; 80202; 80307; 83735; 83880; 84100; 84132; 84145; 84439; 84443; 84484; 85025; 85610; 85652; 85730; 86140; 87040; 87081; 87502; 87635; 93005; 93306; 94640; 94660; 94664; 94762; 96365; 96366; 96375; 97162; 99152; 99153; 99284; A4649; A9270; C1721; C1894; C1898; J0168; J0360; J0456; J0461; J0612; J0689; J0696; J1644; J1815; J1920; J2250; J2270; J2312; J2371; J2404; J2470; J3010; J3373; J3375; J3475; J3490; J7050; J7120; J7644